=== PATIENT | female | born 1955 | race Caucasian/White ===

== ENCOUNTER 2019-01-15 15:07 | Inpatient (IN) | payer BC, OTHER ==
[~2019-01-15] VITALS: Ht 154.9 cm; Wt 57.2 kg
[~2019-01-15 15:07] MED LIST: ACTEMRA80 MG/4 ML; AMITRIPTYLINE H25 MG PO; ANORO PO; B-COMPLEX PLUS1 EACH PO; BENTYL10 MG PO; BUDESONIDE EC3 MG PO; CELEBREX100 MG PO; CHANTIX1 MG PO; CHLORDIAZEPOXI1 EACH PO; CITALOPRAM HBR40 MG PO; DEXILANT60 MG PO; EMBREL SQ; ESTRADIOL0.5 MG PO; ESTRODIAL; FLAGYL250 MG PO; FLUCONAZOLE100 MG PO; GABAPENTIN100 MG PO; GABAPENTIN300 MG PO; HYDROCODON-ACE1 EA11 PO; KLONOPIN0.5 MG PO; LEFLUNOMIDE20 MG PO; LEVAQUIN500 MG PO; LIDODERM700 MG TOP; LOMOTIL TABLET1 EACH; METOCLOPRAMIDE10 MG PO; NORCO 5-325 TA1 EACH PO; ORENCIA 250 MG250 MG IM; ORENCIA125 MG/1 M IM; PANTOPRAZOLE SO40 MG PO; PREDNISONE20 MG PO; PREDNISONE5 MG PO; PROTONIX40 MG PO; QUESTRAN PACKET4 GM PO; SAVELLA50 MG PO; SUCRALFATE1 GM PO; SYMBICORT 16010.2 GM INH; TIZANIDINE HCL4 MG PO; VENLAFAXINE HCL75 MG PO; WELCHOL625 MG PO; XIFAXAN550 MG PO; [UNRECOGNIZED DRUG - OTHER]; [UNRECOGNIZED DRUG - OTHER]
--- OUTSIDE RECORDS SUMMARY | 2019-01-15 15:10 | XMS REPORT ---
Author Author Admin, [place] Organization [facility] Address [address] [facility] [address] [place] [address] Phone Allergies, Adverse Reactions, Alerts Allergy Name Reaction Description Start Date Severity Status Provider ADHESIVE TAPE Critical Active Navi Cooley MD DILADID Critical Active Navi Cooley MD IBUPROFEN Critical Active Navi Cooley MD ASPIRIN Critical Active Navi Cooley MD PENICILLIN Critical Active Navi Cooley MD Conditions or Problems Problem Name Problem Code Onset Date Status Entry Date Provider Comment Standard Description Annotate Hyperlipidemia 272.4 Active Navi Cooley MD Other and unspecified hyperlipidemia COPD 496 Active Navi Cooley MD Chronic airway obstruction, not elsewhere classified Crohns disease 555.9 Active Navi Cooley MD Regional enteritis of unspecified site Medication List Medication Instructions Start Date Stop Date Generic Name NDC Status Provider Patient Instruction ATORVASTATIN CALCIUM 20 MG ORAL TABLET take one tab By Mouth Every evening ATORVASTATIN CALCIUM 54357756553 Active Navi Cooley MD Active ANORO ELLIPTA 62.5-25 MCG/INH INHALATION AEROSOL POWDER BREATH ACTIVATED inhale 1 puff Every Day UMECLIDINIUM-VILANTEROL 24710204331 Active Navi Cooley MD Active BUDESONIDE 3 MG ORAL CAPSULE DELAYED RELEASE PARTICLES take one cap By Mouth Every Morning x up to 8 weeks BUDESONIDE 30167715735 Active Navi Cooley MD Active XIFAXAN 550 MG ORAL TABLET take one tab By Mouth Three Times a Day x 14 days RIFAXIMIN 60001581411 Active Navi Cooley MD Active Vital Signs Date Name Value Unit Range Description blood pressure, diastolic 78 mm[Hg] BP wesley blood pressure, systolic 136 mm[Hg] BP sys height E&M 61.25 [in_us] Bdy height pulse rate E&M 84 /min Heart rate respiratory rate E&M 20 /min Resp rate temperature E&M 98.2 [degF] Body temperature weight E&M 125.38 [lb_av] Weight Measured blood pressure, diastolic, second observation 87 mm[Hg] BP wesley blood pressure, diastolic 84 mm[Hg] BP wesley blood pressure, systolic, second observation 154 mm[Hg] BP sys blood pressure, systolic 149 mm[Hg] BP sys height E&M 61.25 [in_us] Bdy height pulse rate E&M 91 /min Heart rate respiratory rate E&M 17 /min Resp rate temperature E&M 98.4 [degF] Body temperature weight E&M 122.25 [lb_av] Weight Measured Diagnostic Results Date Name Value Unit Range Description Lab Report: CBC With Differential/Platelet, Comp. Metabolic Panel (14), ... - Chemistry very low density lipoproteins 24 mg/dL 5-40 chloride, serum 101 mmol/L 96-106 urea nitrogen, blood 10 mg/dL 8-27 Lab Report: CBC With Differential/Platelet, Comp. Metabolic Panel (14), ... - Urinalysis leukocyte esterase, urine, by dipstick Negative Negative Lab Report: CBC With Differential/Platelet, Comp. Metabolic Panel (14), ... - Hematology mean corpuscular hemoglobin concentration, RBC 32.4 G/DL % 31.5-35.7 erythrocyte (RBC) count 4.49 X10E6/UL 10*6/mm3 3.77-5.28 Lab Report: CBC With Differential/Platelet, Comp. Metabolic Panel (14), ... - Urinalysis urine color Yellow Yellow Lab Report: CBC With Differential/Platelet, Comp. Metabolic Panel (14), ... - Chemistry Absolute Neutrophils 4.3 X10E3/UL 10*3/uL 1.4-7.0 Lab Report: CBC With Differential/Platelet, Comp. Metabolic Panel (14), ... - Urinalysis bilirubin, urine Negative Negative Lab Report: CBC With Differential/Platelet, Comp. Metabolic Panel (14), ... - Chemistry LDL cholesterol, serum 139 mg/dL 0-99 urea nitrogen/creatinine ratio, serum 14 12-28 Lab Report: CBC With Differential/Platelet, Comp. Metabolic Panel (14), ... - Hematology mean corpuscular volume, RBC 88 fL 79-97 Lab Report: CBC With Differential/Platelet, Comp. Metabolic Panel (14), ... - Chemistry HDL cholesterol, serum 80 mg/dL >39 Lab Report: CBC With Differential/Platelet, Comp. Metabolic Panel (14), ... - Hematology monocytes as percent of blood leukocytes 9 % Not Estab. Lab Report: CBC With Differential/Platelet, Comp. Metabolic Panel (14), ... - Chemistry creatinine, serum 0.72 mg/dL 0.57-1.00 albumin/globulin ratio, serum 1.4 1.2-2.2 cholesterol, serum 243 mg/dL 153-737 9070/05/24 bilirubin, serum, total <0.2 mg/dL mg/dL 0.0-1.2 Lab Report: CBC With Differential/Platelet, Comp. Metabolic Panel (14), ... - Hematology Eosinophil Absolute Count 0.4 X10E3/UL 10*3/uL 0.0-0.4 Lab Report: CBC With Differential/Platelet, Comp. Metabolic Panel (14), ... - Urinalysis appearance, urine Clear Clear Lab Report: CBC With Differential/Platelet, Comp. Metabolic Panel (14), ... - Chemistry aspartate aminotransferase (SGOT), serum 18 U/L 0-40 Lab Report: CBC With Differential/Platelet, Comp. Metabolic Panel (14), ... - Hematology red blood cell distribution width 16.7 % 12.3-15.4 Lab Report: CBC With Differential/Platelet, Comp. Metabolic Panel (14), ... - Urinalysis urinalysis, microscopic examination MICNIP Lab Report: CBC With Differential/Platelet, Comp. Metabolic Panel (14), ... - Hematology leukocyte count, blood 9.8 X10E3/UL 10*3/mm3 3.4-10.8 Lab Report: CBC With Differential/Platelet, Comp. Metabolic Panel (14), ... - Urinalysis pH, urine, semiquantitative 6.5 5.0-7.5 Lab Report: CBC With Differential/Platelet, Comp. Metabolic Panel (14), ... - Chemistry potassium, serum 4.9 mmol/L 3.5-5.2 immature granulocytes, percentage of total cells, blood 0 % Not Estab. albumin, serum 4.3 g/dL 3.6-4.8 Lab Report: CBC With Differential/Platelet, Comp. Metabolic Panel (14), ... - Hematology lymphocyte count, blood, automated 4.2 X10E3/UL 10*3/mm3 0.7-3.1 hematocrit, blood 39.5 % 34.0-46.6 Lab Report: CBC With Differential/Platelet, Comp. Metabolic Panel (14), ... - Chemistry sodium, serum 141 mmol/L 134-144 Lab Report: CBC With Differential/Platelet, Comp. Metabolic Panel (14), ... - Hematology neutrophils as percent of blood leukocytes 43 % Not Estab. basophils as percent of blood leukocytes 1 % Not Estab. Lab Report: CBC With Differential/Platelet, Comp. Metabolic Panel (14), ... - Chemistry specific gravity, body fluid 1.022 1.005-1.030 Lab Report: CBC With Differential/Platelet, Comp. Metabolic Panel (14), ... - Urinalysis protein, urine, semiquantitative (dipstick) Negative Negative/Trace Lab Report: CBC With Differential/Platelet, Comp. Metabolic Panel (14), ... - Chemistry carbon dioxide, venous blood 26 mmol/L 20-29 nitrate, urine Negative Negative triglyceride, serum, fasting 122 mg/dL 0-149 calcium, serum 9.6 mg/dL 8.7-10.3 alanine aminotransferase (SGPT), serum 11 U/L 0-32 Lab Report: CBC With Differential/Platelet, Comp. Metabolic Panel (14), ... - Hematology mean corpuscular hemoglobin, RBC 28.5 pg 26.6-33.0 Lab Report: CBC With Differential/Platelet, Comp. Metabolic Panel (14), ... - Chemistry protein, total, serum 7.4 g/dL 6.0-8.5 alkaline phosphatase, serum 124 U/L 39-117 Lab Report: CBC With Differential/Platelet, Comp. Metabolic Panel (14), ... - Hematology hemoglobin, blood 12.8 g/dL 11.1-15.9 lymphocytes as percent of blood leukocytes 43 % Not Estab. Lab Report: CBC With Differential/Platelet, Comp. Metabolic Panel (14), ... - Urinalysis glucose, urine, semiquantitative Negative Negative Lab Report: CBC With Differential/Platelet, Comp. Metabolic Panel (14), ... - Genetics/fertility eGFR if 105 mL/min/1.73m2 >59 Lab Report: CBC With Differential/Platelet, Comp. Metabolic Panel (14), ... - Hematology basophil count, absolute 0.1 x10E3/uL 0.0-0.2 Lab Report: CBC With Differential/Platelet, Comp. Metabolic Panel (14), ... - Chemistry globulin, serum 3.1 1.5-4.5 Estimated Glomerular Filtration Rate (calc) 91 mL/min/1.73m2 >59 Lab Report: CBC With Differential/Platelet, Comp. Metabolic Panel (14), ... - Basic Occult Blood, urine Negative Negative Lab Report: CBC With Differential/Platelet, Comp. Metabolic Panel (14), ... - Hematology eosinophils as percent of blood leukocytes 4 % Not Estab. Lab Report: CBC With Differential/Platelet, Comp. Metabolic Panel (14), ... - Chemistry blood glucose, random 88 mg/dL 65-99 Lab Report: CBC With Differential/Platelet, Comp. Metabolic Panel (14), ... - Urinalysis urobilinogen, urine, semiquantitative (dipstick) 0.2 0.2-1.0 Lab Report: CBC With Differential/Platelet, Comp. Metabolic Panel (14), ... - Hematology monocyte count, blood, automated 0.9 X10E3/UL 10*3/uL 0.1-0.9 platelet count 415 X10E3/UL 10*3/mm3 150-450 Lab Report: CBC With Differential/Platelet, Comp. Metabolic Panel (14), ... - Urinalysis ketones, urine, by test strip Negative Negative Encounters Date Encounter Provider Code Facility 14:12:24 CDT Est Patient Exp Problem - 11922 Navi Cooley MD [id number] [facility] 11:38:58 CDT New Patient Detailed - 86119 Navi Cooley MD [id number] [facility] Procedures Code Procedure Name Date Entry Date Standard Description [id number] Venipuncture 11:38:35 CDT
--- OUTSIDE RECORDS SUMMARY | 2019-01-15 15:10 | XMS REPORT ---
[facility] Address Unknown Phone Unavailable Care Team Providers Care Director Park Name Role Phone Kathy GOMEZ Unavailable Unavailable GREER PINO Unavailable Unavailable Payers Payer Name Policy Type Policy Number Effective Date Expiration Date Problems This patient has no known problems. Allergies, Adverse Reactions, Alerts Allergy Name Allergy Type Status Severity Reaction(s) Onset Date Inactive Date Treating Clinician Comments Penicillins DA Active U 2018-08-22 00:00:00 aspirin DA Active U 2018-08-22 00:00:00 ibuprofen DA Active U 2018-08-22 00:00:00 hydromorphone DA Active U 2018-08-22 00:00:00 penicillin G DA Active U 2018-08-22 00:00:00 Penicillins DA Active U 2018-06-22 00:00:00 hydromorphone DA Active U 2018-06-22 00:00:00 penicillin G DA Active U 2018-06-22 00:00:00 Not Converted 80. See Text. DA Active U 2018-06-22 00:00:00 ASPIRIN DA Active U 2018-06-22 00:00:00 IBUPROFEN DA Active U 2018-06-22 00:00:00 Penicillins DA Active U 2008-12-15 00:00:00 penicillin G DA Active U 2008-12-15 00:00:00 Not Converted 80. See Text. DA Active U 2008-12-15 00:00:00 No Known Contrast Allergies DA Active U 2004-01-23 00:00:00 No Known Food Allergies DA Active U 2004-01-23 00:00:00 No Known Other Allergies DA Active U 2004-01-23 00:00:00 ASPIRIN DA Active U 2004-01-23 00:00:00 IBUPROFEN DA Active U 2004-01-23 00:00:00 PENICILLIN DA Active U 2004-01-23 00:00:00 Medications This patient has no known medications. Results Test Description Test Time Test Comments Text Results Atomic Results Result Comments - XR HIP W/PEL UNI 2+V RT 2018-08-22 21:37:00 FAX: Vijay Gallagher DO [place]: St: REG Name: DARYA FLEMING [facility] : 1955 Age/S: 63/F [address] [facility] Unit #: [id number] Loc: [place] [address] Phys: Vijay Gallagher DO Acct: [id number] Dis Date: Status: REG ER PHONE #: [phone] Exam Date: 08/22/20182121 FAX #: [phone] Reason: pain EXAMS: CPT CODE: [id number] XR HIP W/PEL UNI 2+[place] [address] REASON FOR EXAM: pain EXAM ORDER DATE: 08/22/2018 8:38 PM Ordering [place]: Vijay Gallagher DO PROCEDURE: - XR HIP W/PEL UNI 2+V RT FINDINGS: 3 views of the right hip with frontal view of the pelvis were obtained. The osseous structures are unremarkable in size and shape. The joint spaces are maintained. No evidence of fracture. There is normal alignment of the right hip joint IMPRESSION: Unremarkable right hip at 8008 Reported and signed by: Lázaro Cabello M.D. CC: Vijay Gallagher DO Technologist: LUI SEO RT (R) Trnscrd Date/Time/By: 08/22/2018 (2136) : By: Nicole.VTL Orig Print D/T: S: 08/22/2018 (2139) PAGE 1 Signed Report URINALYSIS COMPLETE 2018-08-22 21:07:00 UA COLOR (test code=COLU) LIGHT YELLOW YELLOW UA APPEARANCE (test code=APPU) CLEAR CLEAR UA GLUCOSE DIPSTICK (test code=DGLUU) NEGATIVE mg/dL NEGATIVE UA BILIRUBIN DIPSTICK (test code=BILU) NEGATIVE mg/dL NEGATIVE UA KETONE DIPSTICK (test code=KETU) Negative mg/dL NEGATIVE UA SPECIFIC GRAVITY (test code=SGU) 1.006 1.001-1.035 UA BLOOD DIPSTICK (test code=BARRON) Negative NEGATIVE UA PH DIPSTICK (test code=ADILENE) 5.0 5.0-8.0 UA PROTEIN DIPSTICK (test code=PROU) Negative mg/dL NEGATIVE UA UROBILINIOGEN DIPSTICK (test code=URO) NEGATIVE mg/dL NEGATIVE UA NITRITE DIPSTICK (test code=WILIAM) NEGATIVE NEGATIVE UA LEUKOCYTE ESTERASE W REFLEX (test code=LEUUR) NEGATIVE NEGATIVE UA WBC (test code=WBCU) 0-5 #/HPF 0-5 UA RBC (test code=RBCU) 0-2 #/HPF 0-5 UA EPITHELIAL CELLS (test code=EPIU) FEW per HPF FEW UA BACTERIA (test code=BACU) FEW #/HPF NONE UA MUCUS (test code=MUCU) FEW #/LPF FEW Urine Source? Clean CatchURINALYSIS [id number] 20:55:00* Test Item Value Reference Range Comments UA COLOR (test code=COLU) LIGHT YELLOW YELLOW UA APPEARANCE (test code=APPU) CLEAR CLEAR UA GLUCOSE DIPSTICK (test code=DGLUU) NEGATIVE mg/dL NEGATIVE UA BILIRUBIN DIPSTICK (test code=BILU) NEGATIVE mg/dL NEGATIVE UA KETONE DIPSTICK (test code=KETU) Negative mg/dL NEGATIVE UA SPECIFIC GRAVITY (test code=SGU) 1.006 1.001-1.035 UA BLOOD DIPSTICK (test code=BARRON) Negative NEGATIVE UA PH DIPSTICK (test code=ADILENE) 5.0 5.0-8.0 UA PROTEIN DIPSTICK (test code=PROU) Negative mg/dL NEGATIVE UA UROBILINIOGEN DIPSTICK (test code=URO) NEGATIVE mg/dL NEGATIVE UA NITRITE DIPSTICK (test code=WILIAM) NEGATIVE NEGATIVE UA LEUKOCYTE ESTERASE W REFLEX (test code=LEUUR) NEGATIVE NEGATIVE UA WBC (test code=WBCU) per HPF 0-5 Urine Source? Clean Catch- CT ABD PELVIS [id number] 20:37:00 Name: DARYA FLEMING [facility] : 1955 Age/S: 63 / F [address] [facility]: [id number] Loc: [place] [address] Phys: Vijay Gallagher DO Acct: [id number] Dis Date: Status: REG ER PHONE #: Exam Date: 08/22/20182024 FAX #: Reason: RLQ pain EXAMS: CPT CODE: [id number] CT ABD PELVIS W/CONT 23656 REASON FOR EXAM: RLQ pain EXAM ORDER DATE: 08/22/2018 6:09 PM Ordering M.DRajwinder: Vijay Gallagher DO PROCEDURE: - CT ABD PELVIS W/CONT COMPARISON: FINDINGS: CT images of the abdomen and pelvis we re obtained with IV and without oral contrast at 5mm. Dose modulation, ite rative reconstruction, and/or weight based adjustment of the MA/KV was utilized to reduce the radiation dose to as low as reasonably achievabl e. Intravenous contrast: 100c of Omnipaque 370. The liver, spleen, pancreas are grossly within normal limits. The gallbladder is unremarkable by CT. The kidneys are within normal limits. The urinary bladder is partially contracted The colon, small b owel, and stomach are within normal limits without evidence of obstruction . The appendix is unremarkable. No evidence of free air or free f luid. The uterus is unremarkable. Bilateral tubal ligation clips noted. Posterior fusion of L5-S1 with laminectomy changes IMPRES SAMUEL: No acute findings in the abdomen. Subcentimeter hypodense lesions within the liver suggestive of hepatic cysts. Hyperinflated lungs sugg estive of COPD a t 2036 Reported and signed by: Lázaro Cabello M.D. P AGE 3 Signed Report (CONTINUED) Name : DARYA FLEMINGH [place] : [birth year] Age/S: 63 / F [address] Unit #: [id number] Loc: [place] [address] Phys: Vijay Gallagher DO Acct: [id number] Dis Date: Status: REG ER PHONE #: [phone] Exam Date: 08/22/20182024 FAX #: [phone] Reason: RLQ pain EXAMS: CPT CODE: [id number] CT ABD PELVIS W/CONT 34998 <Continued> CC: Vijay Gallagher DO Technologist:JOSUE KNOWLES CT CTDI: DLP: Trnscb Date/Time: 08/22/2018 (2036) Sandra Orig Print D/T: S: 08/22/2018 (2039) CTDI: DLP: PAGE 2 Signed Report BASIC METABOLIC [id number] 19:12:00* Test Item Value Reference Range Comments SODIUM (test code=NA) 142 mmol/L 136-145 POTASSIUM (test code=K) 4.8 mmol/L 3.5-5.1 CHLORIDE (test code=CL) 107.0 mmol/L 98-107 CARBON DIOXIDE (test code=CO2) 27.0 mmol/L 21-32 ANION GAP (test code=GAP) 12.8 10-20 GLUCOSE (test code=GLU) 140 mg/dL 74-106 BLOOD UREA NITROGEN (test code=BUN) 6 mg/dL 7-18 GLOMERULAR FILTRATION RATE (test code=GFR) > 60 mL/min >=60 Estimated GFR by using Modified MDRD formula.Chronic kidney disease is defined as either kidney damageor GFR <60 mL/min/1.73 m2 for >3 months. CREATININE (test code=CREAT) 0.70 mg/dL 0.55-1.02 Note change in reference range due to change in reagent. BUN/CREATININE RATIO (test code=BUN/CREA) 8.7 10-20 CALCIUM (test code=CA) 8.6 mg/dL 8.5-10.1 HEPATIC FUNCTION [id number] 19:12:00* Test Item Value Reference Range Comments TOTAL PROTEIN (test code=PROT) 7.6 gram/dL 6.4-8.2 ALBUMIN (test code=ALB) 3.3 g/dL 3.4-5.0 GLOBULIN (test code=GLOB) 4.3 gram/dL 2.7-4.2 ALBUMIN/GLOBULIN RATIO (test code=A/G) 0.8 0.75-1.50 BILIRUBIN TOTAL (test code=BILT) 0.20 mg/dL 0.0-1.0 BILIRUBIN DIRECT (test code=BILD) 0.06 mg/dL 0.0-0.20 SGOT/AST (test code=AST) 15 IUnit/L 15-37 SGPT/ALT (test code=ALT) 19 IUnit/L 12-78 ALKALINE PHOSPHATASE TOTAL (test code=ALKP) 192 IUnit/L 45-117 Note change in reference range due to change in reagent. [id number] 19:12:00* Test Item Value Reference Range Comments LIPASE (test code=LIP) 120 U/L 73.0-393.0 HCG SERUM [id number] 19:12:00* Test Item Value Reference Range Comments HCG SERUM QUAL (test code=HCGQL) NEGATIVE NEGATIVE This HCGQL test is NOT applicable for MALE patients.Check with nurse about probable order error.If Tumor Marker Test needed, nurse should order test "HCGTU"(Test #550.26850) BASIC METABOLIC [id number] 18:51:00* Test Item Value Reference Range Comments SODIUM (test code=NA) 142 mmol/L 136-145 POTASSIUM (test code=K) 4.8 mmol/L 3.5-5.1 CHLORIDE (test code=CL) 107.0 mmol/L 98-107 CARBON DIOXIDE (test code=CO2) 27.0 mmol/L 21-32 ANION GAP (test code=GAP) 12.8 10-20 GLUCOSE (test code=GLU) 140 mg/dL 74-106 BLOOD UREA NITROGEN (test code=BUN) 6 mg/dL 7-18 GLOMERULAR FILTRATION RATE (test code=GFR) > 60 mL/min >=60 Estimated GFR by using Modified MDRD formula.Chronic kidney disease is defined as either kidney damageor GFR <60 mL/min/1.73 m2 for >3 months. CREATININE (test code=CREAT) 0.70 mg/dL 0.55-1.02 Note change in reference range due to change in reagent. BUN/CREATININE RATIO (test code=BUN/CREA) 8.7 10-20 CALCIUM (test code=CA) 8.6 mg/dL 8.5-10.1 HEPATIC FUNCTION [id number] 18:51:00* Test Item Value Reference Range Comments TOTAL PROTEIN (test code=PROT) 7.6 gram/dL 6.4-8.2 ALBUMIN (test code=ALB) 3.3 g/dL 3.4-5.0 GLOBULIN (test code=GLOB) 4.3 gram/dL 2.7-4.2 ALBUMIN/GLOBULIN RATIO (test code=A/G) 0.8 0.75-1.50 BILIRUBIN TOTAL (test code=BILT) 0.20 mg/dL 0.0-1.0 BILIRUBIN DIRECT (test code=BILD) 0.06 mg/dL 0.0-0.20 SGOT/AST (test code=AST) 15 IUnit/L 15-37 SGPT/ALT (test code=ALT) 19 IUnit/L 12-78 ALKALINE PHOSPHATASE TOTAL (test code=ALKP) 192 IUnit/L 45-117 Note change in reference range due to change in reagent. [id number] 18:51:00* Test Item Value Reference Range Comments LIPASE (test code=LIP) 120 U/L 73.0-393.0 HCG SERUM [id number] 18:51:00* Test Item Value Reference Range Comments HCG SERUM QUAL (test code=HCGQL) NEGATIVE CBC W/O [id number] 18:22:00* Test Item Value Reference Range Comments WHITE BLOOD CELL (test code=WBC) K/mm3 4.5-12.5 RED BLOOD CELL (test code=RBC) mill/mm3 3.7-5.2 HEMOGLOBIN (test code=HGB) 12.6 gram/dL 11.5-15.5 HEMATOCRIT (test code=HCT) 41.0 % 36.0-46.0 MEAN CELL VOLUME (test code=MCV) fL 80-98 MEAN CELL HGB (test code=MCH) picogram 27.0-33.0 MEAN CELL HGB CONCETRATION (test code=MCHC) gram/dL 33.0-36.0 RED CELL DISTRIBUTION WIDTH (test code=RDW) % 11.6-16.2 PLATELET COUNT (test code=PLT) K/mm3 150-450 MEAN PLATELET VOLUME (test code=MPV) fL 6.7-11.0 CBC W/O [id number] 18:22:00* Test Item Value Reference Range Comments WHITE BLOOD CELL (test code=WBC) 13.7 K/mm3 4.5-12.5 RED BLOOD CELL (test code=RBC) 4.45 mill/mm3 3.7-5.2 HEMOGLOBIN (test code=HGB) 12.6 gram/dL 11.5-15.5 HEMATOCRIT (test code=HCT) 41.0 % 36.0-46.0 MEAN CELL VOLUME (test code=MCV) 92.1 fL 80-98 MEAN CELL HGB (test code=MCH) 28.3 picogram 27.0-33.0 MEAN CELL HGB CONCETRATION (test code=MCHC) 30.7 gram/dL 33.0-36.0 RED CELL DISTRIBUTION WIDTH (test code=RDW) 15.9 % 11.6-16.2 PLATELET COUNT (test code=PLT) 434 K/mm3 150-450 MEAN PLATELET VOLUME (test code=MPV) 8.8 fL 6.7-11.0 INTERVERTEBRAL [id number] 13:55:00 RUN DATE: 06/27/[address] [employer] [employer] PAGE 1 RUN TIME: 1355 Specimen Inqui ry RUN USER: INTERFACE PATIENT: DARYA FLEMING ACCT #: [id number] LOC: [facility] U #: [id number] AGE/SX: 63/F ROOM: [facility] RE06/25/18REG DR: Torsten Dixon MD : [birth year] BED: A DIS: STATUS: ADM IN TLOC: SPEC #: [id number] RECD: 06/26/18 STATUS: DELILAH RE #: [id number] MAGDA: 06/26/18- DR: Torsten Dixon MD ENTERED: 06/26/18 SP TYPE: INT DISC OTHR DR: Lorna Raygoza MD ORDERED: GROSS COPIES TO: Jose Roberto Raygoza MD [address] [facility] [address] [place] [address] Torsten Dixon MD [address] [place], [place] [id number] PROCEDURES: GROSS ( [phone]) TISSUES: LUMBAR REGION - DISC CLINICAL HISTORY MAGDA ECTION DATE: 06/25/18 L4-5 AND L5-S1 SPONDYLOLISTHESIS FINAL DIAGNOS IS Intervertebral lumbar disc, L4-L5 and L5-S1, discectomy: FIBROCARTI LAGINOUS DEGENERATION NEGATIVE FOR MALIGNANCY FA/erasto D 46148, 25268 MACROSCOPIC The specimen is received in formalin, lab eled with the patient's name, identified as "lumbar disc", and consists of mul tiple portions of -pink rubbery tissue and minute portions of bone measurin g 6.0 x 5.5 x 1.8 cm in aggregate. Aqua Ammonia Operator sections are submitted in a single cassette after light decalcification. CONTINUED ON NEXT PAGE RUN DATE: 06/27/18 [facility] PAGE 2 RUN TIME: 1355 Specimen Inquiry RUN USER: INTERFACE SPEC #: [id number] PATIENT: DARYA FLEMING #[id number] (Continued)-------- ---- MACROSCOPIC (Continued) GROSS PERFORMED AT [facility] [address] [place] [address] [phone] MICROSCOPIC MICROSCOPIC PERFORMED AT [facility] All of the stains, including any controls performed, stain appropriately. [facility] [address] [facility], [place] [address] [phone] PERFORMING SITE Diagnosis performed at: [facility], [place] [address] [place] [address] Signed SIGNATURE ON FILE Cony Wyatt MD 06/27/[address] ABDOMEN/PELVIS [place] [address] Patient Name: DARYA FLEMING MR #: [id number] : 1955 Age/Sex: 62/F Req #: [id number] Adm Physician: Ordered by: BALJINDER GOMEZ MD Report #: [id number] Location: ER Room/Bed: Procedure: [id number] CT/CT ABDOMEN/PELVIS W Exam Da te: 05/26/17 Exam Time: 1999 REPORT STATUS: Sig brant EXAM: CT Abdomen and Pelvis WITH contrast INDICATION: Abdominal pa in COMPARISON: None. TECHNIQUE: Abdomen and pelvis were scanned utilizing a multidetector helical scanner from the lung base to the pubic symphysis aft er administration of contrast. Coronal and sagittal reformations were obtained . Protocol: General survey IV CONTRAST: 100 mL of Isovue 370 ORAL CON TRAST: Gastroview 30 cc COMPLICATIONS: None RADIATION DOSE: To [place] Exam DLP: 553.6 mGy*cm. CTDIvol has been reviewed. It is below the limits set by the Radiation Protocol Committee (RPC). FINDINGS: LINES: None . Lower thorax: No parenchymal abnormality. No pneumothorax. No pleural effusion. Liver: No focal mass. No hepatomegaly. Normal parenchyma. The hepatic and portal veins are patent. Several hypodensities too small to characterize are present in the liver. Gallbladder: No gallstones. No gallb ladder distention. Biliary tree: No intrahepatic duct dilation. No extrahepat ic duct dilation. Spleen: No splenomegaly. No focal mass. Pancreas: Normal parenchymal enhancement. No focal mass. Normal pancreatic duct. No peripan creatic inflammatory changes. Kidneys: No obstructing calculi. No hydrone phrosis. No solid enhancing mass. No cysts. No perinephric soft tissue inf lammatory changes. Adrenal glands: No adrenal nodules.. Bladder: Nor mal urinary bladder. Pelvic organs: Bilateral tubal ligation clips. Normal uterus. GI: Moderate amount of fluid is present within the colon, without distention, wall thickening, or adjacent soft tissue inflammatory changes. No bowel wall thickening. No air-fluid levels. The stomach and small bowel are normal. The colon is normal. Normal appendix. A moderate amount of retained feces limits intraluminal evaluation of the colon. Peritoneum/retroperit oneum: No pneumoperitoneum. No ascites. No drainable fluid collection. L ymph nodes: No lymphadenopathy. . Vessels: The abdominal aorta and tara ac vessels are patent. The celiac, superior mesenteric, and inferior mesenter ic arteries are patent. Single bilateral renal arteries are patent. Atheroscl erotic calcifications. Bones: No focal abnormality. Degenerative changes of the lumbar spine. Soft tissues: No focal abnormality. IMPRESSION: Fluid within the colon without evidence of wall thickening, obstruction, or p erforation may represent a colitis of infectious or inflammatory etiology. Signed by: Dr. Josue Zavala M.D. on 05/26/2017 8:44 PM Dictated By: JOSUE ZAVALA MD [address] scribed By: MATEO on 05/26/172043 COPY TO: BALJINDER GOMEZ MD CT CHEST WO [address], [place], [place] [address] Patient Name: DARYA FLEMING MR #: [id number] : 1955 Age/Sex: 62/F Req #: [id number] Adm Physician: Ordered by: GREER PINO MD Report #: [id number] Location: CT Room/Bed: Procedure: [id number] CT/CT CHEST WO Exam Date: 7 Exam Time: 1459 REPORT STATUS: Signed PROC EDURE: CT CHEST WITHOUT CONTRAST CT scan of the chest WITHOUT intravenous cont rast, using standard protocol. TECHNIQUE: The chest was scanned utili [employer] a multidetector helical scanner from the apex to the level of the adrena l glands. No IV contrast was administered per physician request. Coronal and sagittal multiplanar reformations were obtained. Total DLP: 569 mGy-cm COMPARISON: None. INDICATIONS: COUGH. Rheumatoid arthritis. FINDINGS: Lines/tubes: None. Lungs and Airways: Significant centri lobular emphysematous changes. No nodules. No evidence of interstitial lung d isease. Pleura: The pleural spaces are clear. Heart and mediastinum: The thyroid gland is normal. No significant mediastinal, hilar or axillary lymphadenopathy is seen. The heart and pericardium are within normal limits. Moderate atherosclerotic calcifications in the aorta. Soft tissues: Nor mal. Abdomen: Please see CT abdomen and pelvis from the same day. Russ viktor: The visualized bony thorax is within normal limits. 2 abutting sclerotic lesion in the lateral right seventh rib, likely bone islands. IMPRES SAMUEL: 1. Emphysema. 2. No pulmonary nodules or interstitial lung dise ase. Dictated by: Cuco Madrid M.D. on 03/07/2017 at 16:16 Elec tronically approved by: Cuco Madrid M.D. on 03/07/2017 at 16:16 Dict ated By: CUCO MADRID MD [address] scribed By: LORA on 03/07/171615 COPY TO: GREER PINO MD CT ABDOMEN/PELVIS WO [place] [address] Patient Name: DARYA FLEMING MR #: [id number] : 1955 Age/Sex: 62/F Req #: [id number] Adm Physician: Ordered by: GREER PINO MD Report #: [id number] Location: CT Room/Bed: Procedure: [id number] CT/CT ABDOMEN/PELVIS WO Exam Date : 03/07/17 Exam Time: 1459 REPORT STATUS: Poonam d PROCEDURE: CT ABDOMEN AND PELVIS WITHOUT CONTRAST TECHNIQUE: The a bdomen and pelvis were scanned utilizing a multidetector helical scanner from the diaphragm to the lesser trochanter after the oral administration of [place] rografin. No IV contrast was administered per physician request. Coronal and sagittal multiplanar reformations were obtained. Total DLP: 568.95 mGy- cm COMPARISON: None. INDICATIONS: MID ABDOMINAL PAIN FIND INGS: ABSENCE OF INTRAVENOUS CONTRAST DECREASES SENSITIVITY FOR DETECTION OF FOCAL LESIONS AND VASCULAR PATHOLOGY. LOWER THORAX: Normal. HE PATOBILIARY: No focal hepatic lesions. No biliary ductal dilatation. SPLEEN: No splenomegaly. PANCREAS: No focal masses or ductal dilatation. ADRENAL S: No adrenal nodules. KIDNEYS/URETERS: No hydronephrosis, stones, or solid ma ss lesions. PELVIC ORGANS/BLADDER: Unremarkable. Bilateral tubal ligation clip s. PERITONEUM / RETROPERITONEUM: No free air or fluid. LYMPH NODES: No l ymphadenopathy. VESSELS: Severe atherosclerotic calcifications in the aorta. GI TRACT: No distention or wall thickening. BONES AND SOFT TISSUES: U nremarkable. IMPRESSION: Unremarkable abdomen pelvis. Dict ated by: Cuco Madrid M.D. on 03/07/2017 at 16:32 Electronically approved by: Cuco Madrid M.D. on 03/07/2017 at 16:32 Dictated By: CUCO MADRID MD El ectronically Signed By: CUCO MADRID MD on 03/07/17 1632 Transcribed By: LORA on 1632 COPY TO: GREER PINO MD
[2019-01-15] MEDS ORDERED: ATORVASTATIN CA20 MG PO (15:37)
[2019-01-15] MEDS ORDERED: ANORO (15:37)
[2019-01-15] MEDS ORDERED: SODIUM CHLORIDE 0.9% 1000ML 1,000 ML IV STA (15:44)
[2019-01-15] MEDS ORDERED: DICYCLOMINE HCL 20 MG/2 ML VIAL IM ONE (15:45)
[2019-01-15] MEDS ORDERED: DIATRIZOATE MEGL/DIATRIZOA SOD 30 ML BTL PO ONE (15:53)
[2019-01-15] MEDS ORDERED: ONDANSETRON HCL INJ 2MG/ML 2ML 2 MG/ML VIAL IV NR (16:00)
[2019-01-15] MEDS ORDERED: KETOROLAC TROMETHAMINE 30 MG/ML VIAL IV NR (16:00)
[2019-01-15 16:44] LABS: BASOPHILS # (AUTO) 0.1 (0.0-0.1); BASOPHILS % 1.2 % (0.0-1.0); EOSINOPHILS # (AUTO) 0.4 (0.0-0.4); EOSINOPHILS % 3.7 % (0.0-6.0); HEMATOCRIT 37.5 % (34.2-44.1); HEMOGLOBIN 12.3 g/dL (12.0-16.0); LYMPHOCYTES # (AUTO) 3.3 (1.0-3.2); LYMPHOCYTES % 31.5 % (18.0-39.1); MEAN CORPUSCULAR HEMOGLOBIN 28.8 pg (28-32); MEAN CORPUSCULAR HGB CONC 32.8 g/dL (31-35); MEAN CORPUSCULAR VOLUME 87.8 fL (81-99); MONOCYTES # (AUTO) 1.6 (0.2-0.8); MONOCYTES % 14.8 % (4.4-11.3); NEUTROPHILS # (AUTO) 5.1 (2.1-6.9); NEUTROPHILS % 48.4 % (38.7-80.0); PLATELET COUNT 402 x10e3/uL (140-360); RED BLOOD COUNT 4.27 x10e6/uL (3.6-5.1); RED CELL DISTRIBUTION WIDTH 14.3 % (11.7-14.4)
[2019-01-15 16:58] LABS: INR 1.01; PROTHROMBIN TIME 13.8 seconds (11.9-14.5)
[2019-01-15 16:59] LABS: PARTIAL THROMBOPLASTIN TIME 38.3 seconds (23.8-35.5)
[2019-01-15 17:08] LABS: ALANINE AMINOTRANSFERASE 10 IU/L (0-55); ALBUMIN/GLOBULIN RATIO 0.7 (0.8-2.0); ALKALINE PHOSPHATASE 81 IU/L (40-150); ANION GAP 15.2 mmol/L (8-16); BLOOD UREA NITROGEN < 5 mg/dL (7-26); CALCIUM 9.2 mg/dL (8.4-10.2); CARBON DIOXIDE 29 mmol/L (22-29); CHLORIDE 96 mmol/L (98-107); CREATINE KINASE 85 IU/L (29-168); CREATININE, SERUM 0.71 mg/dL (0.57-1.11); EST GLOMERULAR FILTRATION RATE > 60 ML/MIN (60-); GLUCOSE 126 mg/dL (74-118); LIPASE 18 U/L (8-78); SODIUM 138 mmol/L (136-145)
[2019-01-15 17:10] LABS: BUN/CREATININE RATIO 7 (6-25)
--- NOTE | 2019-01-15 17:10 | Diagnostic Imaging Report ---
A single frontal view of the chest. HISTORY: Stomach pain, diarrhea COMPARISON: None available. DISCUSSION: Portable technique, limits sensitivity of the exam. Tubes/Lines: None Lungs and pleura: The lungs are well inflated. No evidence of a consolidative pneumonia or pulmonary alveolar edema. No definite pleural effusion or pneumothorax is identified. Heart and mediastinum: The cardiomediastinal silhouette appears unremarkable. Bones and soft tissues: Status post humeral head resurfacing. IMPRESSION: No acute radiographic abnormality. Signed by: Dr. Fred Giraldo D.O., M.M.M. on 01/15/2019 5:07 PM
[2019-01-15 17:11] LABS: B-TYPE NATRIURETIC PEPTIDE2 25.9 pg/mL (0-100); POTASSIUM 2.2 mmol/L (3.5-5.1)
[2019-01-15] MEDS ORDERED: POTASSIUM CHLORIDE 20 MEQ TAB CR PO STA (17:13)
[2019-01-15] MEDS ORDERED: POTASSIUM CHLORIDE 10MEQ/100ML 100 ML IV ONE ×2 (17:15→17:30)
[2019-01-15] MEDS ORDERED: KCL 20MEQ/.9 SOD CHL 1,000 ML IV ONE ×2 (17:45→21:45)
--- OUTSIDE RECORDS SUMMARY | 2019-01-15 17:51 | XMS REPORT ---
Author Josesito Thomas [facility] eClinicalWorks Address Unknown Phone Unavailable Care Team Providers Care Animal Nurse Name Role Phone Josesito Crowell CP Unavailable Allergies, Adverse Reactions, Alerts Substance Reaction Event Type penicillin Swelling Drug Allergy Latex Gloves rash Drug Allergy Ibuprofen Lips swell Drug Allergy Dilaudid Info Not Available Drug Allergy Enbrel Info Not Available Non Drug Allergy Remicade rash Non Drug Allergy Problems Problem Type Condition Code Onset Dates Condition Status Assessment Encounter for long-term (current) use of other high-risk medications Z79.899 Active Assessment Age-related osteoporosis without current pathological fracture M81.0 Active Problem 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 Active Problem Encounter for long-term (current) use of other high-risk medications Z79.899 Active Problem Abnormal laboratory test R89.9 Active Problem Hand pain, right M79.641 Active Assessment 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 Active Problem Age-related osteoporosis without current pathological fracture M81.0 Active Problem Hand pain, left M79.642 Active Medications Medication Code System Code Instructions Start Date End Date Status Dosage B Complex [facility] [place] [address]-63 Orally Active as directed Melatonin [facility] [place]] [address]-64 2.5 MG Orally Once a day Active 1 capsule at bedtime as needed with food Pantoprazole Sodium [facility] [place]] [address]-14 40 MG Orally Once a day Active 1 tablet Estradiol [facility] [place] [facility]] [address]-85 0.5 MG Orally Once a day Active 1 tablet Gabapentin [facility] [place] [facility]] [address]-57 100 MG Orally Three times a day Active 3 capsules Cholestyramine [facility] [place]] [address]-96 4 GM Orally Twice a day Active 1 packet mixed with water or non-carbonated drink Vancomycin HCl [facility] [place] 2] [address]-00 250 MG Orally every 6 hrs Active 2 capsules Tizanidine HCl [facility] [place] 2] [address]-28 4 MG Orally every 8 hrs Active 1 tablet as needed Albuterol Sulfate [facility] [place] 2] [address]-34 108 (90 Base) MCG/ACT Inhalation every 4 hrs Active 1 puff as needed PredniSONE [facility] [place] 2[place] 48127482939 5 MG orally q am with food Active 3 tablets Celecoxib [facility] [place] 2] 04894964590 200 Active TAKE ONE CAPSULE BY MOUTH ONCE A DAY Leflunomide [facility] [place]] [address]-48 20 MG Orally Once a day Active 1 tablet Chantix [facility] [place]] [address]-59 1 MG Orally Twice a day Active 1 tablet Lidocaine [facility] [place] 2] [address]-54 5 % Externally Once a day Active 1 patch to skin remove after 12 hours Sucralfate [facility] [place] 2] [address]-22 1 GM Orally Twice a day Active 1 tablet on an empty stomach Citalopram Hydrobromide [facility] [place] 2] [address]-43 40 MG Orally Once a day Active 0.5 tablet Hydrocodone-Acetaminophen [facility] [place]] [address]-11 10-325 MG Orally every 6 hrs Active 1 tablet as needed Hydrocodone-Acetaminophen [facility] [place] 2] [address]-46 10-325 MG Orally every 6 hrs Active 1 tablet as needed Amitriptyline HCl [facility] [place] 2] [address]-37 25 MG Orally Once a day Active 1 tablet Venlafaxine HCl ER [facility] [place] 2] [address]-82 150 MG Orally Once a day Active 1 capsule with food Anoro Ellipta [facility] [place] 2] [address]-91 62.5-25 MCG/INH Inhalation Once a day Active 1 puff Clonazepam [facility] [place] 2] [address]-62 1 MG Orally as needed Active 1/2 tablet Oxycodone-Acetaminophen [facility] [place] 2] [address]-87 10-325 MG Orally every 6 hrs Active 1 tablet as needed Vital Signs Date/Time: Jan 19, 2017 BMI 21.08 Index Weight 119 lbs Height 63 in Temperature 97.3 F Cardiac Monitoring Heart Rate 88 /min Blood Pressure Diastolic 60 mm Hg Blood Pressure Systolic 116 mm Hg Results No Known Results Summary Purpose eClinicalWorks Submission
--- OUTSIDE RECORDS SUMMARY | 2019-01-15 17:51 | XMS REPORT ---
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 Active Problem Encounter for long-term (current) use of other high-risk medications Z79.899 Active Problem Abnormal laboratory test R89.9 Active Problem Hand pain, right M79.641 Active Problem Age-related osteoporosis without current pathological fracture M81.0 Active Problem Hand pain, left M79.642 Active Medications Medication Code System Code Instructions Start Date End Date Status Dosage Cimzia Lyophilized Starter Kit NDC 0 6 X 200 MG/ML subcutaneous at weeks 0, 2, 4 Active 1 kit Cimzia Lyophilized Starter Kit NDC 0 6 X 200 MG/ML subcutaneous at weeks 0, 2, 4 Feb 10, 2017 Active 1 kit Cimzia Lyophilized Powder NDC 0 2 X 200 MG/ML subcutaneous q 4 weeks Active 1 kit Cimzia Lyophilized Powder NDC 0 2 X 200 MG/ML subcutaneous q 4 weeks Feb 09, 2017 Active 1 kit Results No Known Results Summary Purpose eClinicalWorks Submission
--- OUTSIDE RECORDS SUMMARY | 2019-01-15 17:51 | XMS REPORT ---
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 Active Problem Tobacco abuse counseling Z71.6 Active Problem Hand pain, left M79.642 Active Problem Hand pain, right M79.641 Active Problem Encounter for long-term (current) use of other high-risk medications Z79.899 Active Problem Age-related osteoporosis without current pathological fracture M81.0 Active Medications Medication Code System Code Instructions Start Date End Date Status Dosage Cimzia Lyophilized Starter Kit NDC 0 6 X 200 MG/ML subcutaneous at weeks 0, 2, 4 Feb 23, 2017 Active 1 kit Results No Known Results Summary Purpose eClinicalWorks Submission
--- OUTSIDE RECORDS SUMMARY | 2019-01-15 17:51 | XMS REPORT ---
Author Author Josesito Crowell Organization eClinicalWorks Address Unknown Phone Unavailable Care Team Providers Care Strip Polisher Name Role Phone Josesito Crowell CP Unavailable Allergies No Known Allergies Problems Problem Type Condition Code Onset Dates Condition Status Problem Hand pain, right M79.641 Active Problem Hand pain, left M79.642 Active Problem Vitamin D deficiency E55.9 Active Problem Tobacco abuse counseling Z71.6 Active Problem Elevated white blood cell count, unspecified D72.829 Active Problem Encounter for long-term (current) use of other high-risk medications Z79.899 Active Problem Age-related osteoporosis without current pathological fracture M81.0 Active Problem Abnormal laboratory test R89.9 Active Problem 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 Active Medications No Known Medications Results No Known Results Summary Purpose eClinicalWorks Submission
--- OUTSIDE RECORDS SUMMARY | 2019-01-15 17:51 | XMS REPORT ---
Author Josesito Thomas Organization eClinicalWorks Address Unknown Phone Unavailable Care Team Providers Care Environmental Services Tech Name Role Phone Josesito Crowell CP Unavailable [...] Problem Hand pain, left M79.642 Active Medications No Known Medications Results No Known Results Summary Purpose eClinicalWorks Submission
--- OUTSIDE RECORDS SUMMARY | 2019-01-15 17:51 | XMS REPORT ---
Author Author Josesito Crowell Organization eClinical[employer] Address Unknown Phone Unavailable Care Team Providers Care Public Safety Director Name Role Phone Josesito Crowell CP Unavailable [...] without current pathological fracture M81.0 Active Medications No Known Medications Results No Known Results Summary Purpose eClinicalWorks Submission
--- OUTSIDE RECORDS SUMMARY | 2019-01-15 17:51 | XMS REPORT | Continuity of Care Document ---
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 [employer] Unavailable Unavailable Problems Problem Status Onset Date Classification Date Reported Comments Source Hyperlipidemia Active 11/16/2018 Diagnosis 11/19/2018 [facility] COPD Active 11/09/2018 Diagnosis 11/19/2018 [facility] Crohns disease Active 11/09/2018 Diagnosis 11/19/2018 [facility] Rheumatoid arthritis with rheumatoid factor 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 organ or systems involvement Active Problem 12/20/2018 Blake Crowell Encounter for long-term use of other high-risk medications Active Problem 12/20/2018 Blake Crowell Abnormal laboratory test Active Problem 12/20/2018 Blake Haganer Hand pain, right Active Problem 12/20/2018 Blake Crowell Age-related osteoporosis without current pathological fracture Active Problem 12/20/2018 Blake Haganer Hand pain, left Active Problem 12/20/2018 Blake Crowell Vitamin D deficiency Active Problem 12/20/2018 Blake Crowell Tobacco abuse counseling Active Problem 12/20/2018 Blake Socrates Elevated white blood cell count, unspecified Active Problem 12/20/2018 Blake Crowell Encounter for immunization Active Diagnosis 03/18/2017 Blake Haganer Pain in right shoulder Active Problem 12/20/2018 Blake Crowell Other chronic pain Active Problem 12/20/2018 Blake Crowell prison use of opiate analgesic Active Diagnosis 04/19/2017 Blake Crowell Long-term use of other medications - High Risk Active Diagnosis 01/21/2018 Blake Crowell Rheumatoid arthritis Active Diagnosis 01/21/2018 Blake Crowell Back pain Active Problem 12/20/2018 Blake Haganer Right hip pain Active Diagnosis 12/20/2018 Blake Crowell Osteoporosis, postmenopausal Active Problem 03/08/2016 Blake Socrates Pain in joint, shoulder region Active Problem 03/08/2016 Blake Socrates Lumbago Active Problem 03/08/2016 Blake Crowell Rheumatoid arthritis 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 organ or system involvement with positive rheumatoid factor Active Problem 03/08/2016 Blake Crowell Skin rash Active Diagnosis 04/13/2016 Blake Crowell Raynauds phenomenon without gangrene Active Diagnosis 04/13/2016 Blake Crowell Lumbosacral spondylosis without myelopathy Active Problem 12/27/2017 Blake Crowell Chronic pain syndrome Active Problem 12/27/2017 Blake Crowell Degeneration of lumbar or lumbosacral intervertebral disc Active Problem 12/27/2017 Blake Crowell Cervical radiculopathy due to degenerative joint disease of spine Active Problem 12/27/2017 Blake Crowell Lumbar spinal stenosis Active Problem 12/27/2017 Blake Crowell Cervical radiculopathy Active Problem 12/27/2017 lBake Crowell Bilateral sacroiliitis Active Problem 12/27/2017 Blake Crowell Sacrococcygeal disorders, not elsewhere classified Active Problem 12/27/2017 Blake Crowell Pain in joint of right shoulder Active Problem 12/27/2017 Blake Crowell Pain of right hand Active Problem 12/27/2017 Blake Crowell Rotator Cuff Syndrome Active Problem 09/27/2016 Blake Crowell Degeneration of lumbar or lumbosacral intervertebral disc Active Problem 09/27/2016 Blake Crowell Lumbosacral spondylosis without myelopathy Active Problem 09/27/2016 Blake Crowell Superior glenoid labrum lesions Active Problem 09/27/2016 Blake Crowell Chronic pain syndrome Active Problem 09/27/2016 Blake Crowell Right shoulder pain, unspecified chronicity Active Diagnosis 07/08/2017 Blake Crowell Lumbar radiculopathy Active Problem 12/27/2017 Blake Crowell Medications Medication Details Route Status Patient Instructions Ordering Provider Order Date Source ATORVASTATIN CALCIUM take one tab By Mouth Every evening Active take one tab By Mouth Every evening 11/16/2018 [facility] BUDESONIDE take one cap By Mouth Every Morning x up to 8 weeks Active take one cap By Mouth Every Morning x up to 8 weeks 11/09/2018 [facility] XIFAXAN 550 MG ORAL TABLET take one tab By Mouth Three Times a Day x 14 days Active take one tab By Mouth Three Times a Day x 14 days 11/09/2018 [facility] ANORO ELLIPTA 62.5-25 MCG/INH INHALATION AEROSOL POWDER BREATH ACTIVATED inhale 1 puff Every Day Active inhale 1 puff Every Day 11/09/2018 [facility] Cimzia Lyophilized Powder 1 kit subcutaneous Active 2 X 200 MG/ML subcutaneous q 4 weeks [place] 08/01/2018 Blake Crowell Cimzia Prefilled 2 injections (400mg) Subcutaneous Active 2 X 200 MG/ML Subcutaneous [id number] [place] 08/01/2018 Balke Haganer PredniSONE 1 tablet Orally Active 5 MG Orally Once a day [place] 04/09/2018 Blake Crowell Celecoxib 1 capsule with food Orally Active 200 Orally Twice a day [place] 01/15/2018 Blake Crowell Prolia 60MG SQ Subcutaneous Active 60MG Subcutaneous Q6 MONTHS [place] 08/28/2017 Blake Crowell Prolia 60MG SQ Subcutaneous Active 60MG Subcutaneous Q6 MONTHS [place] 08/23/2017 Blake Crowell Celecoxib take one capsule by mouth once a day Orally Active 200 Orally Twice a day [place] 07/25/2017 Blake Crowell PredniSONE 3 tablets Orally Active 5 MG Orally Once a day [place] 07/25/2017 Blake Crowell Celecoxib take one capsule by mouth once a day Orally Active 200 Orally Twice a day [facility] 07/14[facility]2017 Blake Crowell Calcium 600 as directed Orally Active 600 MG Orally twice a day [facility] 06/14/2017 Blake Crowell PredniSONE 1 tablet once a day for 7 days then 1/2 a tab daily Orally Active 20 MG Orally Once a day [place] 05/15/2017 Blake Crowell Cimzia Lyophilized Powder 1 kit subcutaneous Active 2 X 200 MG/ML subcutaneous q 4 weeks [place] 05/03/2017 Blake Crowell Actonel 1 tablet Orally Active 150 MG Orally once a month [place] 05/01/2017 Blake Crowell Queenie 1 tab orally Active 5mg orally once a day [place] 04/12/2017 Blake Crowell PredniSONE 3 tablets Orally Active 5 MG Orally Once a day [facility] 04/12/2017 Blake Crowell Cimzia Lyophilized Starter Kit 1 kit subcutaneous Active 6 X 200 MG/ML subcutaneous at weeks 0, 2, 4 [place] 03/06/2017 Blake Crowell Cimzia Lyophilized Starter Kit 1 kit subcutaneous Active 6 X 200 MG/ML subcutaneous at weeks 0, 2, 4 [place] 02/23/2017 Blake Crowell Cimzia Lyophilized Starter Kit 1 kit subcutaneous Active 6 X 200 MG/ML subcutaneous at weeks 0, 2, 4 [place] 02/10/2017 Blake Crowell Cimzia Lyophilized Powder 1 kit subcutaneous Active 2 X 200 MG/ML subcutaneous q 4 weeks [place] 02/09/2017 Blake Crowell Medrol Dose Tawanda as directed Orally Active 4mg Orally as directed [place] 02/07/2017 Blake Crowell Celebrex 1 capsule Orally Active 200 MG Orally Once a day [place] 12/31/2016 Blake rCowell ORENCIA SQ 125MG SUBCUTANEOUSLY Active 125MG SUBCUTANEOUSLY ONCE A WEEK [facility] 09/27/2016 Blake Crowell Vitamin D (Ergocalciferol) 1 capsule Orally Active 28699 UNIT Orally once a week [place] 09/08/2016 Blake Crowell [place] 1 tablet as needed Orally Active 5-325 MG Orally every 6 hrs [place] 08/29/2016 Blake Crowell ORENCIA SQ 125MG SUBCUTANEOUSLY Active 125MG SUBCUTANEOUSLY ONCE A WEEK [place] 06/06/2016 Blake Crowell ORENCIA SQ 125MG SUBCUTANEOUSLY Active 125MG SUBCUTANEOUSLY ONCE A WEEK [place] 06/06/2016 Blake Crowell PredniSONE 1 tablet Orally Active 5 MG Orally once a day [place] 01/10/2016 Blake Crowell Actemra 8MG/KG IV NA No Longer Active 8MG/KG Q 4 WKS [place] 12/14/2015 Blake Crowell Humira Pen 0.8 ml Subcutaneous No Longer Active 40 MG/0.8ML Subcutaneous every 2 weeks [place] 12/14/2015 Blake Crowell Hydrocodone-Acetaminophen 1 tablet as needed Orally Active 5- 325 MG Orally every 6 hrs [place] 11/11/2015 Blake Crowell Medrol (Tawanda) as directed Orally Active 4 MG Orally [facility] 10/20/2015 Blake Crowell Xeljanz 1 tab orally Active 5mg orally BID [place] 10/30/2013 Blake Crowell PredniSONE as directed Orally Active 10 MG Orally q AM with food [place] 10/30/2013 Blake Crowell Venlafaxine HCl ER 1 capsule with food Orally Active 150 MG Orally twice a day [place] Blake Crowell Pantoprazole Sodium 1 tablet Orally Active 40 MG Orally Once a day [place] Blake Crowell PredniSONE 1 tablet Orally Active 5 MG Orally Once a day [place] Blake Crowell Clonazepam 1/2 tablet Orally Active 1 MG Orally as needed [facility] Blake Crowell Leflunomide 1 tablet Orally Active 20 MG Orally Once a day [place] Blake Crowell Estradiol 1 tablet Orally Active 0.5 MG Orally Once a day [facility] Blakevanda Crowell Prolia 60MG SQ NA Active 60MG Q6 MONTHS [facility] Blake Crowell Melatonin 1 capsule at bedtime as needed with food Orally Active 2.5 MG Orally Once a day [facility] Blake Crowell Gabapentin 3 capsules Orally Active 100 MG Orally Three times a day [facility] Blake Crowell Anoro Ellipta 1 puff Inhalation Active 62.5-25 MCG/INH Inhalation Once a day [facility] Blake Crowell Amitriptyline HCl 1 tablet Orally Active 25 MG Orally Once a day [facility] Blake Crowell Citalopram Hydrobromide 0.5 tablet Orally Active 40 MG Orally Once a day [facility] Blake Crowell Hydrocodone-Acetaminophen 1 tablet as needed Orally Active 10- 325 MG Orally every 6 hrs [place] Blake Crowell Tizanidine HCl 1 tablet as needed Orally Active 4 MG Orally every 8 hrs [facility] Blake Crowell Albuterol Sulfate 1 puff as needed Inhalation Active 108 (90 Base) MCG/ACT Inhalation every 4 hrs [facility] Blake Crowell Vitamin D 1 capsule Orally Active 1000 UNIT Orally Once a day [facility] Blakevanda Crowell B Complex as directed Orally Active Orally [facility] Blake Crowell Citalopram Hydrobromide 0.5 tablet Orally Active 40 MG Orally Once a day [place] Blake Crowell Cholestyramine 1 packet mixed with water or non-carbonated drink Orally Active 4 GM Orally Twice a day Harjeet Crowell Hydrocodone-Acetaminophen 1 tablet as needed Orally Active 10- 325 MG Orally Three times a day Cosbymonika Crowell Albuterol Sulfate 1 puff as needed Inhalation Active 108 (90 Base) MCG/ACT Inhalation every 4 hrs Harjeet Crowell Lidocaine 1 patch to skin remove after 12 hours Externally Active 5 % Externally Once a day Cosbymonika Crowell Estradiol 1 tablet Orally Active 0.5 MG Orally Once a day Harjeet Crowell Venlafaxine HCl ER 1 capsule with food Orally Active 150 MG Orally twice a day Harjeet Crowell Anoro Ellipta 1 puff Inhalation Active 62.5-25 MCG/INH Inhalation Once a day Harjeet Crowell Melatonin 1 capsule at bedtime as needed with food Orally Active 2.5 MG Orally Once a day Harjeet Lozano Crowell Vitamin D 1 capsule Orally Active 1000 UNIT Orally Once a day [place] Blake Haganer Oxycodone-Acetaminophen 1 tablet as needed Orally Active 10-325 MG Orally every 6 hrs [place] Blake Haganer B Complex as directed Orally Active Orally [place] Blake Haganer Clonazepam 1/2 tablet Orally Active 1 MG Orally as needed [place] Blake Crowell Celecoxib TAKE ONE CAPSULE BY MOUTH ONCE A DAY NA Active 200 [place] Blakevanda Crowell Tizanidine HCl 1 tablet as needed Orally Active 4 MG Orally every 8 hrs [place] Blake Crowell Pantoprazole Sodium 1 tablet Orally Active 40 MG Orally Once a day [place] Blake Crowell Gabapentin 3 capsules Orally Active 100 MG Orally Three times a day [place] Blakevanda Crowell Amitriptyline HCl 1 tablet Orally Active 25 MG Orally Once a day prn [place] Blake Crowell Cholestyramine 1 packet mixed with water or non-carbonated drink Orally Active 4 GM Orally Twice a day [facility] Blake Crowell Vancomycin HCl 2 capsules Orally Active 250 MG Orally every 6 hrs [place] Blake Crowell Chantix 1 tablet Orally Active 1 MG Orally Twice a day [facility] Blakevanda Crowell Lidocaine 1 patch to skin remove after 12 hours Externally Active 5 % Externally Once a day [facility] Blakevanad Crowell Sucralfate 1 tablet on an empty stomach Orally Active 1 GM Orally Twice a day [facility] Blake Crowell Hydrocodone-Acetaminophen 1 tablet as needed Orally Active 10- 325 MG Orally every 6 hrs [facility] Blake Crowell Oxycodone-Acetaminophen 1 tablet as needed Orally Active 10-325 MG Orally every 6 hrs [facility] Blake Crowell Cimzia Lyophilized Starter Kit 1 kit subcutaneous Active 6 X 200 MG/ML subcutaneous at weeks 0, 2, 4 [facility] Blake Crowell Cimzia Lyophilized Powder 1 kit subcutaneous Active 2 X 200 MG/ML subcutaneous q 4 weeks [place] Blake Crowell Sucralfate 1 tablet Orally Active 1 GM Orally Twice a day [place] Blake Crowell Chantix 1 tablet Orally Active 1 MG Orally Twice a day [place] Blake Crowell Oxycodone HCl 1 tablet as needed Orally Active 5 MG Orally every 6 hrs [place] Blake Crowell Symbicort 2 puffs Inhalation Active 160-4.5 MCG/ACT Inhalation Twice a day [place] Blake Crowell Nexium 1 capsule Orally Active 40 MG Orally Once a day [place] Blake Haganer Hydrocodone-Acetaminophen 1 tablet as needed Orally Active 5- 325 MG Orally every 6 hrs [place] Blake Crowell Leflunomide 1 tablet Orally Active 10 MG Orally Once a day [place] Blake Haganer Savella Titration Pack not defined Orally Active 12.5 & 25 & 50 MG Orally [facility] Ven[facility]af[facility]ine [facility] 1 tablet with food Orally Active 75 MG Orally Once a day [place] Blake Crowell Nystatin not defined Mouth/Throat Active 232033 UNIT/ML Mouth/Throat Once a day [place] Blake Crowell PredniSONE 3 tablets Orally Active 5 MG Orally Once a day [place] [facility] Aripiprazole 1 tablet Orally Active 2 MG Orally Once a day [place] [facility] Fluconazole 1 tablet Orally Active 150 MG Orally [place] [facility] Xifaxan 1 tablet Orally Active 550 MG Orally Twice a day [place] Blake Crowell Celebrex 1 capsule with food Orally Active 100 MG Orally Once a day [place] [facility] Dicyclomine HCl 1 tablet Orally Active 20 MG Orally Four times a day [place] [facility] Vitamin B 12 as directed Orally Active 100 MCG Orally [place] [facility] Budesonide 1 tablet Orally Active 3 MG Orally Once a day [place] [facility] Fluconazole as directed NA Active - [place] [facility] Atorvastatin Calcium 1 tablet Orally Active 20 MG Orally Once a day [place] [facility] Gabapentin 3 capsules Orally Active 100 MG Orally Three times a day [place] [facility] Budesonide 1 tablet Orally Active 3 MG Orally Once a day [facility] Xifaxan 1 tablet Orally Active 200 MG Orally Three times a day [place] [facility] Leflunomide 1 tablet Orally Active 20 Orally Once a day [place] [facility] Probiotic as directed Orally Active Orally [place] [facility] Symbicort 2 puffs Inhalation Active 160-4.5 MCG/ACT Inhalation Twice a day [place] [facility] Citalopram Hydrobromide Unknown NA Active [place] [facility] Estradiol Unknown NA Active [place] [facility] Nystatin Unknown NA Active [place] [facility] Venlafaxine HCl Unknown NA Active [place] [facility] Welchol 3 tablets with meals Orally Active 625 MG Orally Twice a day [place] [facility] Actemra 8MG/KG IV NA Active 8MG/KG Q 4 WKS Cosbymonika Crowell Chlordiazepoxide-clidinium 1 capsule orally Active 5-2.5mg orally every 6 hours [place] Blake Crowell Clindamycin HCl 1 capsule Orally Active 150 MG Orally every 8 hrs [place] Blake Crowell PredniSONE 1 tablet Orally Active 5 MG Orally once a day [facility] Blake Crowell Xifaxan 1 tablet Orally Active 550 MG Orally Twice a day [place] Blake Crowell Sulfamethoxazole-TMP DS 1 tablet Orally Active 800-160 MG Orally Twice a day [place] Blake Crowell Leflunomide take 1 tablet by mouth once a day Orally Active 20 MG Orally Once a day [facility] Blake Crowell Savella 1 tablet Orally Active 50 MG Orally Twice a day [facility] Blake Crowell Leflunomide 1 tablet Orally Active 20 MG Orally Once a day [facility] Blake Crowell Hydrocodone-Acetaminophen 1 tablet as needed Orally Active 5- 325 MG Orally every 6 hrs [place] Blake Crowell Symbicort 2 puffs Inhalation Active 80-4.5 MCG/ACT Inhalation Twice a day [facility] Blake Crowell Gabapentin 1 capsule Orally Active 100 MG Orally Twice a day [facility] Blake Crowell Amitriptyline HCl 1 tablet at bedtime Orally Active 25 MG Orally Once a day [facility] Blake Crowell Enbrel SureClick 1 ml Subcutaneous Active 50 MG/ML Subcutaneous [facility] Blake Crowell Welchol 23tablets with meals Orally Active 625 MG Orally Twice a day [facility] Blake Crowell Gabapentin 1 tablet Orally Active 600 MG Orally Three times a day [facility] Blake Crowell Allergies, Adverse Reactions, Alerts Substance Category Reaction Severity Reaction type Status Date Reported Comments Source Zofran Adverse Reaction rash Adverse Reaction Active 06/14/2017 Blake Crowell Aspirin Adverse Reaction swelling of the lips Adverse Reaction Active 06/14/2017 Blake Crowell penicillin Adverse Reaction Swelling Adverse Reaction Active 01/23/2018 Blake Crowell ADHESIVE TAPE allergy to substance 11/09/2018 [facility] DILADID drug allergy 11/09/2018 [facility] IBUPROFEN drug allergy 11/09/2018 [facility] ASPIRIN drug allergy 11/09/2018 [facility] PENICILLIN drug allergy 11/09/2018 [facility] Latex Gloves Adverse Reaction rash Adverse Reaction Active 12/19/2018 Blake Crowell Ibuprofen Adverse Reaction Lips swell Adverse Reaction Active 12/19/2018 Blake Crowell Dilaudid Adverse Reaction Info Not Available Adverse Reaction Active 12/19/2018 Blake Crowell Enbrel Adverse Reaction Info Not Available Adverse Reaction Active 12/19/2018 Blake Crowell Remicade Adverse Reaction rash Adverse Reaction Active 12/19/2018 Blake Crowell Prolia Adverse Reaction rash, nausea Adverse Reaction Active 12/19/2018 Blake Crowell Immunizations Immunization Date Given Site Status Last Updated Comments Source Flu Vaccine 03/16/2017 completed Blake Crowell Results Order Name Results Value Reference Range Date Interpretation Comments Source very low density lipoproteins 24 5 - 40 11/09/2018 [facility] chloride, serum 101 96 - 106 11/09/2018 [facility] urea nitrogen, blood 10 8 - 27 11/09/2018 [facility] leukocyte esterase, urine, by dipstick Negative Negative 11/09/2018 [facility] mean corpuscular hemoglobin concentration, RBC 32.4 G/DL 31.5 - 35.7 11/09/2018 [facility] erythrocyte (RBC) count 4.49 X10E6/UL 3.77 - 5.28 11/09/2018 [facility] urine color Yellow Yellow 11/09/2018 [facility] Absolute Neutrophils 4.3 X10E3/UL 1.4 - 7.0 11/09/2018 [facility] bilirubin, urine Negative Negative 11/09/2018 [facility] LDL cholesterol, serum 139 0 - 99 11/09/2018 [facility] urea nitrogen/creatinine ratio, serum 14 12 - 28 11/09/2018 [facility] mean corpuscular volume, RBC 88 79 - 97 11/09/2018 [facility] HDL cholesterol, serum 80 >39 11/09/2018 [facility] monocytes as percent of blood leukocytes 9 Not Estab. 11/09/2018 [facility] creatinine, serum 0.72 0.57 - 1.00 11/09/2018 [facility] albumin/globulin ratio, serum 1.4 1.2 - 2.2 11/09/2018 [facility] cholesterol, serum 243 100 - 199 11/09/2018 [facility] bilirubin, serum, total <0.2 mg/dL 0.0 - 1.2 11/09/2018 [facility] Eosinophil Absolute Count 0.4 X10E3/UL 0.0 - 0.4 11/09/2018 [facility] appearance, urine Clear Clear 11/09/2018 [facility] aspartate aminotransferase (SGOT), serum 18 0 - 40 11/09/2018 [facility] red blood cell distribution width 16.7 12.3 - 15.4 11/09/2018 [facility] urinalysis, microscopic examination MICNIP 11/09/2018 [facility] leukocyte count, blood 9.8 X10E3/UL 3.4 - 10.8 11/09/2018 [facility] pH, urine, semiquantitative 6.5 5.0 - 7.5 11/09/2018 [facility] potassium, serum 4.9 3.5 - 5.2 11/09/2018 [facility] immature granulocytes, percentage of total cells, blood 0 Not Estab. 11/09/2018 [facility] albumin, serum 4.3 3.6 - 4.8 11/09/2018 [facility] lymphocyte count, blood, automated 4.2 X10E3/UL 0.7 - 3.1 11/09/2018 [facility] hematocrit, blood 39.5 34.0 - 46.6 11/09/2018 [facility] sodium, serum 141 134 - 144 11/09/2018 [facility] neutrophils as percent of blood leukocytes 43 Not Estab. 11/09/2018 [facility] basophils as percent of blood leukocytes 1 Not Estab. 11/09/2018 [facility] specific gravity, body fluid 1.022 1.005 - 1.030 11/09/2018 [facility] protein, urine, semiquantitative (dipstick) Negative Negative/Trace 11/09/2018 [facility] carbon dioxide, venous blood 26 20 - 29 11/09/2018 [facility] nitrate, urine Negative Negative 11/09/2018 [facility] triglyceride, serum, fasting 122 0 - 149 11/09/2018 [facility] calcium, serum 9.6 8.7 - 10.3 11/09/2018 [facility] alanine aminotransferase (SGPT), serum 11 0 - 32 11/09/2018 [facility] mean corpuscular hemoglobin, RBC 28.5 26.6 - 33.0 11/09/2018 [facility] protein, total, serum 7.4 6.0 - 8.5 11/09/2018 [facility] alkaline phosphatase, serum 124 39 - 117 11/09/2018 [facility] hemoglobin, blood 12.8 11.1 - 15.9 11/09/2018 [facility] lymphocytes as percent of blood leukocytes 43 Not Estab. 11/09/2018 [facility] glucose, urine, semiquantitative Negative Negative 11/09/2018 [facility] eGFR if 105 >59 11/09/2018 [facility] basophil count, absolute 0.1 x10E3/uL 0.0 - 0.2 11/09/2018 [facility] globulin, serum 3.1 1.5 - 4.5 11/09/2018 [facility] Estimated Glomerular Filtration Rate (calc) 91 >59 11/09/2018 [facility] Occult Blood, urine Negative Negative 11/09/2018 [facility] eosinophils as percent of blood leukocytes 4 Not Estab. 11/09/2018 [facility] blood glucose, random 88 65 - 99 11/09/2018 [facility] urobilinogen, urine, semiquantitative (dipstick) 0.2 0.2 - 1.0 11/09/2018 [facility] monocyte count, blood, automated 0.9 X10E3/UL 0.1 - 0.9 11/09/2018 [facility] platelet count 415 X10E3/UL 150 - 450 11/09/2018 [facility] ketones, urine, by test strip Negative Negative 11/09/2018 [facility] Pathology Reports No Data Provided for This Section Diagnostic Reports No Data Provided for This Section Consultation Notes No Data Provided for This Section Discharge Summaries No Data Provided for This Section History and Physicals No Data Provided for This Section Vital Signs Vital Sign Value Date Comments Source Weight 123.5 12/19/2018 Blake Crowell Height 63 12/19/2018 Blake Crowell Temperature Oral (F) 98.6 F 12/19/2018 Blake Crowell Heart Rate 84 12/19/2018 Blake Crowell Diastolic (mm Hg) 62 12/19/2018 Blake Crowell Systolic (mm Hg) 128 12/19/2018 Blake Crowell Diastolic (mm Hg) 78 11/16/2018 [facility] Systolic (mm Hg) 136 11/16/2018 [facility] Height 61.25 11/16/2018 [facility] Heart Rate 84 11/16/2018 [facility] Respitory Rate 20 11/16/2018 [facility] Temperature Oral (F) 98.2 F 11/16/2018 [facility] Weight 125.38 11/16/2018 [facility] Weight 125.6 11/13/2018 Blake Crowell Height 63 11/13/2018 Blake Crowell Temperature Oral (F) 98.1 F 11/13/2018 Blake Crowell Heart Rate 80 11/13/2018 Blake Crowell Diastolic (mm Hg) 70 11/13/2018 Blake Crowell Systolic (mm Hg) 130 11/13/2018 Blake Crowell Diastolic (mm Hg) 87 11/09/2018 [facility] Systolic (mm Hg) 154 11/09/2018 [facility] Height 61.25 11/09/2018 [facility] Heart Rate 91 11/09/2018 [facility] Respitory Rate 17 11/09/2018 [facility] Temperature Oral (F) 98.4 F 11/09/2018 [facility] Weight 122.25 11/09/2018 [facility] Weight 121.5 09/06/2018 Blake Crowell Height 62 09/06/2018 Blake Crowell Temperature Oral (F) 99.4 F 09/06/2018 Blake Crowell Heart Rate 112 09/06/2018 Blake Crowell Diastolic (mm Hg) 60 09/06/2018 Blake Crowell Systolic (mm Hg) 138 09/06/2018 Blake Crowell Weight 117.9 08/09/2018 Blake Crowell Height 62 08/09/2018 Blake Crowell Temperature Oral (F) 97.7 F 08/09/2018 Blake Crowell Heart Rate 88 08/09/2018 Blake Crowell Diastolic (mm Hg) 64 08/09/2018 Blake Crowell Systolic (mm Hg) 104 08/09/2018 Blake Crowell Weight 117.5 07/12/2018 Blake Crowell Height 62 07/12/2018 Blake Crowell Temperature Oral (F) 97.5 F 07/12/2018 Blake Crowell Heart Rate 90 07/12/2018 Blake Crowell Diastolic (mm Hg) 78 07/12/2018 Blake Crowell Systolic (mm Hg) 133 07/12/2018 Blake Crowell Weight 117.9 05/29/2018 Blake Crowell Height 62 05/29/2018 Blake Crowell Temperature Oral (F) 98.3 F 05/29/2018 Blake Crowell Heart Rate 87 05/29/2018 Blake Crowell Diastolic (mm Hg) 73 05/29/2018 Blake Crowell Systolic (mm Hg) 128 05/29/2018 Blake Crowell Weight 117.2 05/01/2018 Blake Crowell Height 62 05/01/2018 Blake Crowell Temperature Oral (F) 97.6 F 05/01/2018 Blake Crowell Heart Rate 74 05/01/2018 Blake Crowell Diastolic (mm Hg) 70 05/01/2018 Blake Crowell Systolic (mm Hg) 142 05/01/2018 Blake Crowell Weight 118 03/29/2018 Blake Crowell Height 62 03/29/2018 Blake Crowell Temperature Oral (F) 98.1 F 03/29/2018 Blake Crowell Heart Rate 91 03/29/2018 Blake Crowell Diastolic (mm Hg) 82 03/29/2018 Blake Crowell Systolic (mm Hg) 130 03/29/2018 Blake Crowell Weight 118 03/01/2018 Blake Crowell Height 62 03/01/2018 Blake Crowell Temperature Oral (F) 97.8 F 03/01/2018 Blake Crowell Heart Rate 88 03/01/2018 Blake Crowell Diastolic (mm Hg) 86 03/01/2018 Blake Crowell Systolic (mm Hg) 120 03/01/2018 Blake Crowell Weight 121.3 01/23/2018 Blake Crowell Height 62 01/23/2018 Blake Crowell Temperature Oral (F) 97.6 F 01/23/2018 Blake Crowell Heart Rate 68 01/23/2018 Blake Crowell Diastolic (mm Hg) 60 01/23/2018 Blake Crowell Systolic (mm Hg) 110 01/23/2018 Blake Crowell Weight 123.8 12/26/2017 Blake Crowell Height 62 12/26/2017 Blake Crowell Temperature Oral (F) 98.1 F 12/26/2017 Blake Crowell Heart Rate 76 12/26/2017 Blake Crowell Diastolic (mm Hg) 78 12/26/2017 Blake Crowell Systolic (mm Hg) 122 12/26/2017 Blake Crowell Weight 113 10/18/2017 Blake Crowell Height 62 10/18/2017 Blake Crowell Temperature Oral (F) 97.4 F 10/18/2017 Blake Crowell Heart Rate 80 10/18/2017 Blake Crowell Diastolic (mm Hg) 70 10/18/2017 Blake Crowell Systolic (mm Hg) 122 10/18/2017 Blake Crowell Weight 118.4 09/20/2017 Blake Crowell Height 62 09/20/2017 Blake Crowell Temperature Oral (F) 97.1 F 09/20/2017 Blake Crowell Heart Rate 74 09/20/2017 Blake Crowell Diastolic (mm Hg) 72 09/20/2017 Blake Crowell Systolic (mm Hg) 100 09/20/2017 Blake Crowell Weight 119 07/13/2017 Blake Crowell Height 62 07/13/2017 Blake Crowell Temperature Oral (F) 97.4 F 07/13/2017 Blake Crowell Heart Rate 82 07/13/2017 Blake Crowell Diastolic (mm Hg) 60 07/13/2017 Blake Crowell Systolic (mm Hg) 132 07/13/2017 Blake Crowell Weight 121.3 06/14/2017 Blake Crowell Height 62 06/14/2017 Blake Crowell Temperature Oral (F) 97.2 F 06/14/2017 Blake Crowell Heart Rate 82 06/14/2017 Blake Crowell Diastolic (mm Hg) 80 06/14/2017 Blake Crowell Systolic (mm Hg) 142 06/14/2017 Blake Crowell Weight 121.3 06/14/2017 Blake Crowell Height 61 06/14/2017 Blake Crowell Temperature Oral (F) 97.2 F 06/14/2017 Blake Crowell Heart Rate 82 06/14/2017 Blake Crowell Diastolic (mm Hg) 80 06/14/2017 Blake Crowell Systolic (mm Hg) 142 06/14/2017 Blake Crowell Weight 123 05/01/2017 Blake Crowell Height 61.2 05/01/2017 Blake Crowell Temperature Oral (F) 97.8 F 05/01/2017 Blake Crowell Heart Rate 92 05/01/2017 Blake Crowell Diastolic (mm Hg) 72 05/01/2017 Blake Crowell Systolic (mm Hg) 118 05/01/2017 Blake Crowell Weight 123 04/12/2017 Blake Crowell Height 62 04/12/2017 Blake Crowell Temperature Oral (F) 97.2 F 04/12/2017 Blake Crowell Heart Rate 80 04/12/2017 Blake Crowell Diastolic (mm Hg) 79 04/12/2017 Blake Crowell Systolic (mm Hg) 150 04/12/2017 Blake Crowell Weight 121 03/16/2017 Blake Crowell Height 62 03/16/2017 Blake Crowell Temperature Oral (F) 97.8 F 03/16/2017 Blake Crowell Heart Rate 80 03/16/2017 Blake Crowell Diastolic (mm Hg) 70 03/16/2017 Blake Crowell Systolic (mm Hg) 140 03/16/2017 Blake Crowell Weight 119 02/07/2017 Blake Crowell Height 62 02/07/2017 Blake Crowell Temperature Oral (F) 97.4 F 02/07/2017 Blake Crowell Heart Rate 80 02/07/2017 Blake Crowell Diastolic (mm Hg) 78 02/07/2017 Blake Crowell Systolic (mm Hg) 140 02/07/2017 Blake Crowell Weight 119 01/19/2017 Blake Crowell Height 63 01/19/2017 Blake Crowell Temperature Oral (F) 97.3 F 01/19/2017 Blake Crowell Heart Rate 88 01/19/2017 Blake Crowell Diastolic (mm Hg) 60 01/19/2017 Blake Crowell Systolic (mm Hg) 116 01/19/2017 Blake Crowell Weight 124 08/29/2016 Blake Crowell Height 63.5 08/29/2016 Blake Crowell Temperature Oral (F) 98.2 F 08/29/2016 Blake Crowell Heart Rate 96 08/29/2016 Blkae Crowell Diastolic (mm Hg) 70 08/29/2016 Blake Crowell Systolic (mm Hg) 118 08/29/2016 Blake Crowell Weight 114 06/06/2016 Blake Crowell Height 62 06/06/2016 Blake Crowell Temperature Oral (F) 97.5 F 06/06/2016 Blake Crowell Heart Rate 88 06/06/2016 Blake Crowell Diastolic (mm Hg) 72 06/06/2016 Blake Crowell Systolic (mm Hg) 120 06/06/2016 Blake Crowell Weight 113 04/11/2016 Blake Crowell Height 62 04/11/2016 Blake Crowell Temperature Oral (F) 98.2 F 04/11/2016 Blake Crowell Heart Rate 80 04/11/2016 Blake Crowell Diastolic (mm Hg) 70 04/11/2016 Blake Crowell Systolic (mm Hg) 138 04/11/2016 Blake Crowell Weight 110 02/16/2016 Blake Crowell Height 62.5 02/16/2016 Blake Crowell Temperature Oral (F) 97.8 F 02/16/2016 Blake Crowell Heart Rate 86 02/16/2016 Blake Crowell Diastolic (mm Hg) 74 02/16/2016 Blake Crowell Systolic (mm Hg) 128 02/16/2016 Blake Crowell Diastolic (mm Hg) 83 12/14/2015 Blake Crowell Systolic (mm Hg) 149 12/14/2015 Blake Crowell Weight 105 12/14/2015 Blake Crowell Temperature Oral (F) 97.4 F 12/14/2015 Blake Crowell Heart Rate 105 12/14/2015 Blake Crowell Weight 105 10/12/2015 Blake Crowell Height 62 10/12/2015 Blake Crowell Temperature Oral (F) 97.6 F 10/12/2015 Blake Crowell Heart Rate 86 10/12/2015 Blake Crowell Diastolic (mm Hg) 78 10/12/2015 Blake Crowell Systolic (mm Hg) 137 10/12/2015 Blake Crowell Weight 111 10/30/2013 Blake Crowell Height 63 10/30/2013 Blake Crowell Temperature Oral (F) 97.6 F 10/30/2013 Blake Crowell Heart Rate 84 10/30/2013 Blake Crowell Diastolic (mm Hg) 74 10/30/2013 Blake Crowell Systolic (mm Hg) 120 10/30/2013 Blake Crowell Encounters Location Location Details Encounter Type Encounter Number Reason For Visit Attending Provider ADM Date DC Date Status Source Josesito Crowell MD [facility] [id number] 07/31/2014 07/31/2014 Blake Crowell MD [facility] [id number] 07/31/2014 07/31/2014 Blake Crowell MD [facility] [id number] 07/31/2014 07/31/2014 Blake Crowell MD [facility] [id number] 07/31/2014 07/31/2014 Blake Crowell MD [facility] [id number] 07/31/2014 07/31/2014 Blake Crowell MD [facility] [id number] 07/31/2014 07/31/2014 Blake Crowell MD [facility] [id number] 07/31/2014 07/31/2014 Blake Crowell MD [facility] [id number] 07/31/2014 07/31/2014 Blake Crowell MD [facility] [id number] 07/31/2014 07/31/2014 Blake Crowell MD [facility] [id number] 07/31/2014 07/31/2014 Blake Crowell MD [facility] [id number] 07/31/2014 07/31/2014 Blake Crowell MD [facility] [id number] 07/31/2014 07/31/2014 Blake Crowell MD [facility] [id number] 07/31/2014 07/31/2014 Blake Crowell MD [facility] [id number] 07/31/2014 07/31/2014 Blake Crowell MD [facility] [id number] 07/31/2014 07/31/2014 Blake Crowell MD [facility] [id number] 07/31/2014 07/31/2014 Blake Crowell MD [facility] [id number] 07/31/2014 07/31/2014 Blake Crowell MD [facility] [id number] 07/31/2014 07/31/2014 Blake Crowell MD [facility] [id number] 07/31/2014 07/31/2014 Blake Crowell MD [facility] [id number] 07/31/2014 07/31/2014 Blake Crowell MD [facility] [id number] 07/31/2014 07/31/2014 Blake Crowell MD [facility] [id number] 07/31/2014 07/31/2014 Blake Crowell MD [facility] [id number] 07/31/2014 07/31/2014 Blake Crowell MD [facility] [id number] 07/31/2014 07/31/2014 Blake Crowell MD [facility] [id number] 07/31/2014 07/31/2014 Blake Crowell MD f/u [id number] 09/17/2014 09/17/2014 Blake Crowell MD f/u [id number] 09/17/2014 09/17/2014 Blake Crowell MD f/u [id number] 09/17/2014 09/17/2014 Blake Crowell MD f/u [id number] 09/17/2014 09/17/2014 Blake Crowell MD f/u [id number] 09/17/2014 09/17/2014 Blake Crowell MD f/u [id number] 09/17/2014 09/17/2014 Blake Crowell MD f/u [id number] 09/17/2014 09/17/2014 Blake Crowell MD f/u [id number] 09/17/2014 09/17/2014 Blake Crowell MD f/u [id number] 09/17/2014 09/17/2014 Blake Crowell MD f/u [id number] 09/17/2014 09/17/2014 Blake Crowell MD f/u [id number] 09/17/2014 09/17/2014 Blake Crowell MD f/u [id number] 09/17/2014 09/17/2014 Blake Crowell MD f/u [id number] 09/17/2014 09/17/2014 Blake Crowell MD f/u [id number] 09/17/2014 09/17/2014 Blake Crowell MD f/u [id number] 09/17/2014 09/17/2014 Blake Crowell MD f/u [id number] 09/17/2014 09/17/2014 Blake Crowell MD f/u [id number] 09/17/2014 09/17/2014 Blake Crowell MD f/u [id number] 09/17/2014 09/17/2014 Blake Crowell MD f/u [id number] 09/17/2014 09/17/2014 Blake Crowell MD f/u [id number] 09/17/2014 09/17/2014 Blake Crowell MD f/u [id number] 09/17/2014 09/17/2014 Blake Crowell MD f/u [id number]-[id number] 09/17/2014 09/17/2014 Blake Crowell MD f/u [id number]-vkkq-90kkvv68164h 09/17/2014 09/17/2014 Blake Crowell MD f/u [id number] 09/17/2014 09/17/2014 Blake Crowell MD f/u [id number] 09/17/2014 09/17/2014 MD Judith Renteriaia [id number] 10/15/2014 10/15/2014 MD Rivera Renteria [id number] 10/15/2014 10/15/2014 MD Rivera Renteria [id number]-[id number] 10/15/2014 10/15/2014 MD Rivera Renteria [id number] 10/15/2014 10/15/2014 MD Rivera Renteria [id number]-of9b-sv7sc5s8r3g0 10/15/2014 10/15/2014 MD Rivera Renteria [id number]-[id number] 10/15/2014 10/15/2014 MD Rivera Renteria [id number]-7u88-[id number] 10/15/2014 10/15/2014 MD Rivera Renteria [id number]-[id number]-[id number] 10/15/2014 10/15/2014 MD Judith Renteriaia [id number] 10/15/2014 10/15/2014 MD Judith Renteriaia [id number] 10/15/2014 10/15/2014 MD Rivera Renteria [id number]-6z1a-48o2jm41t65g 10/15/2014 10/15/2014 Blake Crowell MD Proltomasz [id number]-n3k4-4954306vb4ag 10/15/2014 10/15/2014 MD Rivera Renteria [id number] 10/15/2014 10/15/2014 Blake Crowell MD Proltomasz [id number] 10/15/2014 10/15/2014 Blake Crowell MD Proltomasz [id number] 10/15/2014 10/15/2014 Blake Crowell MD Prolia [id number] 10/15/2014 10/15/2014 Blake Crowell MD [facility] [id number]-a2u2d835d8a1 10/15/2014 10/15/2014 MD Judith Renteriaia [id number]-c07b-[id number] 10/15/2014 10/15/2014 MD Judith Renteriaia [id number] 10/15/2014 10/15/2014 Blake Crowell MD Prol[facility] [id number] 10/15/2014 10/15/2014 Blake Crowell MD [facility] [id number] 10/15/2014 10/15/2014 Blake Crowell MD [facility] [id number] 10/15/2014 10/15/2014 Blake Crowell MD [facility] [id number]-hp4k-5z7xaf71k5ud 10/15/2014 10/15/2014 Blake Crowell MD [facility] [id number]-[id number] 10/15/2014 10/15/2014 Blake Crowell MD [facility] [id number]-[id number] 10/15/2014 10/15/2014 Blake Crowell MD shoulder pain [id number]-75bg2025ub89 10/17/2014 10/17/2014 Blake Crowell MD shoulder pain [id number]-c47i-010x63b90q75 10/17/2014 10/17/2014 Blake Crowell MD shoulder pain [id number]-1rb6-3ho0-k0x5z88i27po 10/17/2014 10/17/2014 Blake Crowell MD shoulder pain [id number] 10/17/2014 10/17/2014 Blake Crowell MD shoulder pain [id number]-o4x1-63f7l27603x3 10/17/2014 10/17/2014 Blake Crowell MD shoulder pain [id number]-518q-73m0-9rpf69wz2gpq 10/17/2014 10/17/2014 Blake Crowell MD shoulder pain [id number] 10/17/2014 10/17/2014 Blake Crowell MD shoulder pain [id number] 10/17/2014 10/17/2014 Blake Crowell MD shoulder pain [id number]-rmjc-n42oguo629nt 10/17/2014 10/17/2014 Blake Crowell MD shoulder pain [id number]-213o-6g65-82132ke4838g 10/17/2014 10/17/2014 Blake Crowell MD shoulder pain [id number]-87xz-[id number] 10/17/2014 10/17/2014 Blake Crowell MD shoulder pain [id number]-[id number] 10/17/2014 10/17/2014 Blake Crowell MD shoulder pain [id number] 10/17/2014 10/17/2014 Blake Crowell MD shoulder pain [id number]-n1ss-66x08gy1c40v 10/17/2014 10/17/2014 Blake Crowell MD shoulder pain 258g8s3v-or5h-9re4-5a54-439j56c595v4 10/17/2014 10/17/2014 Blake Crowell MD shoulder pain [id number]-j8l5-q5q8581e400p 10/17/2014 10/17/2014 Blake Crowell MD shoulder pain [id number]-s26q-w1szi306bm27 10/17/2014 10/17/2014 Blake Crowell MD shoulder pain [id number]-[id number] 10/17/2014 10/17/2014 Blake Crowell MD shoulder pain [id number] 10/17/2014 10/17/2014 Blake Crowell MD shoulder pain [id number]-n97p-[id number] 10/17/2014 10/17/2014 Blake Crowell MD shoulder pain [id number] 10/17/2014 10/17/2014 Blake Crowell MD shoulder pain [id number] 10/17/2014 10/17/2014 Blake Crowell MD shoulder pain [id number]-nei4g35tnw45 10/17/2014 10/17/2014 Blake Crowell MD shoulder pain [id number]-005j-y6qpo682x87y 10/17/2014 10/17/2014 Blake Crowell MD MRI [id number] 10/17/2014 10/17/2014 Blake Crowell MD MRI [id number] 10/17/2014 10/17/2014 Blake Crowell MD MRI [id number] 10/17/2014 10/17/2014 Blake Crowell MD MRI [id number] 10/17/2014 10/17/2014 Blake Crowell MD MRI [id number] 10/17/2014 10/17/2014 Blake Crowell MD MRI [id number] 10/17/2014 10/17/2014 Blake Crowell MD MRI [id number] 10/17/2014 10/17/2014 Blake Crowell MD MRI [id number]-253w6cy505bc 10/17/2014 10/17/2014 Blake Crowell MD MRI [id number] 10/17/2014 10/17/2014 Blake Crowell MD MRI [id number] 10/17/2014 10/17/2014 Blake Crowell MD MRI [id number] 10/17/2014 10/17/2014 Blake Crowell MD MRI [id number] 10/17/2014 10/17/2014 Blake Crowell MD MRI [id number]-h74d-jf7b3dq8zi1g 10/17/2014 10/17/2014 Blake Crowell MD MRI [id number]-36w23zs4z923 10/17/2014 10/17/2014 Blake Crowell MD MRI [id number] 10/17/2014 10/17/2014 Blake Crowell MD MRI [id number]-rw72-46b40150z8w1 10/17/2014 10/17/2014 Blake Crowell MD MRI 06ym4h3t-[id number]-i582-c9wku03xo490 10/17/2014 10/17/2014 Blake Crowell MD MRI [id number]-[id number] 10/17/2014 10/17/2014 Blake Crowell MD MRI [id number] 10/17/2014 10/17/2014 Blake Crowell MD [facility] [id number]-[id number]-[id number] 10/17/2014 10/17/2014 Blake Crowell MD MRI [id number]-hqzu-[id number] 10/17/2014 10/17/2014 Blake Crowell MD MRI [id number] 10/17/2014 10/17/2014 Blake Crowell MD MRI [id number]-31160kx280o5 10/17/2014 10/17/2014 Blake Crowell MD MRI [id number]-i097-q0b75c74nq67 10/17/2014 10/17/2014 Blake Crowell MD MRI [id number] 10/17/2014 10/17/2014 Blake Crowell MD [facility] [id number] 12/11/2014 12/11/2014 Blake Crowell MD [facility] [id number]-z5w0h82vi132 12/11/2014 12/11/2014 Blake Crowell MD [facility] [id number]-[id number]-237d42x0r3h3 12/11/2014 12/11/2014 Blake Crowell MD [facility] [id number]-[id number] 12/11/2014 12/11/2014 Blake Crowell MD [facility] [id number]-xmi7-7p7265ul6347 12/11/2014 12/11/2014 Blake Crowell MD [facility] [employer] [id number]-m2u2-l54bvb7mxb9e 12/11/2014 12/11/2014 Blake Crowell MD [facility] [employer] [facility] [id number]-0x42-aq9a-[id number] 12/11/2014 12/11/2014 Blake Crowell MD [facility] [employer] [facility] [id number] 12/11/2014 12/11/2014 Blake Crowell MD [facility] [employer] [id number] 12/11/2014 12/11/2014 Blake Crowell MD [employer] [employer] [id number] 12/11/2014 12/11/2014 Blake Crowell MD [facility] [employer] [id number] 12/11/2014 12/11/2014 Blake Crowell MD [facility] [employer] [facility] [id number] 12/11/2014 12/11/2014 Blake Crowell MD [facility] [employer] [facility] [id number]-[id number] 12/11/2014 12/11/2014 Blake Crowell MD [facility] [employer] [id number] 12/11/2014 12/11/2014 Blake Crowell MD [facility] [employer] [id number] 12/11/2014 12/11/2014 Blake Crowell MD [facility] [employer] [id number] 12/11/2014 12/11/2014 Blake Crowell MD [facility] [employer] [id number]-[id number] 12/11/2014 12/11/2014 Blake Crowell MD [facility] [employer] [id number]-72bw-cx3p-244h2f013h42 12/11/2014 12/11/2014 Blake Crowell MD [facility] [employer] [facility] [id number]-f36s-ho9g4sd66760 12/11/2014 12/11/2014 Blake Crowell MD [facility] [employer] [id number]-a9s13i131zgm 12/11/2014 12/11/2014 Blake Crowell MD [facility] [employer] [id number]-[id number] 12/11/2014 12/11/2014 Blake Crowell MD [facility] [employer] [facility] [id number]-[id number]-i71t2g471q66 12/11/2014 12/11/2014 Blake Crowell MD [employer] [id number]-26a5-995u-l41j61egtv29 12/11/2014 12/11/2014 Blake Crowell MD f/u [id number] 12/16/2014 12/16/2014 Blake Crowell MD f/u [id number] 12/16/2014 12/16/2014 Blake Crowell MD f/u [id number] 12/16/2014 12/16/2014 Blake Crowell MD f/u [id number] 12/16/2014 12/16/2014 Blake Crowell MD f/u [id number] 12/16/2014 12/16/2014 Blake Crowell MD f/u [id number] 12/16/2014 12/16/2014 Blake Crowell MD f/u [id number] 12/16/2014 12/16/2014 Blake Crowell MD f/u [id number] 12/16/2014 12/16/2014 Blake Crowell MD f/u [id number] 12/16/2014 12/16/2014 Blake Crowell MD f/u [id number] 12/16/2014 12/16/2014 Blake Crowell MD f/u [id number] 12/16/2014 12/16/2014 Blake Crowell MD f/u [id number]-kc6o-qhsiy95u360i 12/16/2014 12/16/2014 Blake Crowell MD f/u [id number] 12/16/2014 12/16/2014 Blake Crowell MD f/u [id number] 12/16/2014 12/16/2014 Blake Crowell MD f/u [id number]-odg7247an7p1 12/16/2014 12/16/2014 Blake Crowell MD f/u [id number]-[id number] 12/16/2014 12/16/2014 Blake Crowell MD f/u [id number] 12/16/2014 12/16/2014 Blake Crowell MD f/u [id number] 12/16/2014 12/16/2014 Blake Crowell MD f/u [id number]-kajkg028gu99 12/16/2014 12/16/2014 Blake Crowell MD f/u [id number] 12/16/2014 12/16/2014 Blake Crowell MD f/u [id number]-[id number] 12/16/2014 12/16/2014 Blake Crowell MD [employer] [id number] 12/16/2014 12/16/2014 Blake Crowell MD [facility] [id number] 12/16/2014 12/16/2014 Blake Crowell MD [facility] [id number] 12/16/2014 12/16/2014 Blake Crowell MD [facility] [id number] 12/16/2014 12/16/2014 Blake Crowell MD [facility] [id number] 12/16/2014 12/16/2014 Blake Crowell MD [facility] [id number]-[id number] 12/16/2014 12/16/2014 Blake Crowell MD [facility] [id number] 12/16/2014 12/16/2014 Blake Crowell MD [facility] [id number]-h515-mj47gxk8r578 12/16/2014 12/16/2014 Blake Crowell MD [facility] [id number] 12/16/2014 12/16/2014 Blake Crowell MD [facility] [id number] 12/16/2014 12/16/2014 Blake Crowell MD [facility] [id number] 12/16/2014 12/16/2014 Blake Crowell MD [facility] [id number] 12/16/2014 12/16/2014 Blake Crowell MD [facility] [id number]-d0ql8f389i2y 12/16/2014 12/16/2014 Blake Crowell MD [facility] [id number]-[id number] 12/16/2014 12/16/2014 Blake Crowell MD [facility] -se3z-[id number]-p57p4q36o87q 12/16/2014 12/16/2014 Blake Crowell MD [facility] [id number]-d258gq81jld0 12/16/2014 12/16/2014 Blake Crowell MD [facility] [id number] 12/16/2014 12/16/2014 Blake Crowell MD [facility] [id number] 12/16/2014 12/16/2014 Blake Crowell MD [facility] [id number] 12/16/2014 12/16/2014 Blake Crowell MD [employer] [id number] 12/16/2014 12/16/2014 Blake Crowell MD [employer] [id number] 12/16/2014 12/16/2014 Blake Crowell MD [employer] [id number]-v18s048qm19i 12/16/2014 12/16/2014 Blake Crowell MD [employer] [id number] 12/16/2014 12/16/2014 Blake Crowell MD [employer] [id number]-[id number] 12/16/2014 12/16/2014 Blake Crowell MD [employer] [id number] 12/16/2014 12/16/2014 Blake Crowell MD [employer] [id number] 12/16/2014 12/16/2014 Blake Crowell MD [employer] [id number]-w1h877pfrj8w 12/16/2014 12/16/2014 Blake Crowell MD [employer] [id number] 12/16/2014 12/16/2014 Blake Crowell MD [employer] [id number] 12/16/2014 12/16/2014 Blake Crowell MD [employer] [id number] 12/16/2014 12/16/2014 Blake Crowell MD [employer] [id number]-4ak959ig595e 12/16/2014 12/16/2014 Blake Crowell MD [employer] [id number]-rc8990a12npe 12/16/2014 12/16/2014 Blake Crowell MD [employer] [id number] 12/16/2014 12/16/2014 Blake Crowell MD [employer] [id number] 12/16/2014 12/16/2014 Blake Crowell MD [employer] [id number] 12/16/2014 12/16/2014 Blake Crowell MD [employer] [id number] 12/16/2014 12/16/2014 Blake Crowell MD [employer] [id number] 12/16/2014 12/16/2014 Blake Crowell MD [employer] [id number] 12/16/2014 12/16/2014 Blake Crowell MD [employer] [id number] 12/16/2014 12/16/2014 Blake Crowell MD [facility] [id number] 12/16/2014 12/16/2014 Blake Crowell MD [employer] [id number]-[id number] 12/16/2014 12/16/2014 Blake Crowell MD [employer] [id number] 12/16/2014 12/16/2014 Blake Crowell MD [employer] 2p3x0271-v858-8m23-9722-4u291x4iyz2m 12/16/2014 12/16/2014 Blake Crowell MD [facility] 154j6051-0h74-005v-v9m1-089e7v754914 12/16/2014 12/16/2014 Blake Crowell MD [facility] 86g008s7-1v00-4r74-2i7g-oz9n3007w960 12/16/2014 12/16/2014 Blake Crowell MD [facility] 595845d2-3950-4626-i161-7e18365b5bks 12/16/2014 12/16/2014 Blake Crowell MD [facility] DA 016z091l-us03-843i-d54n-s144fkqqn4o7 01/13/2015 01/13/2015 Blake Crowell MD [facility] DA 76179ogb-r34z-9963-8480-972293cbfsca 01/13/2015 01/13/2015 Blake Crowell MD [facility] DA 58l977n1-2283-324p-9sr3-06q79590pk78 01/13/2015 01/13/2015 MD Tereso Renteriara DA 1m40ig95-gtn0-6o4i-10z1-39h31mv0w710 01/13/2015 01/13/2015 Blake Crowell MD [facility] DA 1cti1698-1474-07wx-44g1-27py66760109 01/13/2015 01/13/2015 Blake Crowell MD [facility] DA 2bx1vt3g-l7w7-90z0-z841-t5113h8pks20 01/13/2015 01/13/2015 Blake Crowell MD [facility] DA 6t7z580z-407m-915y-2l2e-675zuqse3693 01/13/2015 01/13/2015 Blake Crowell MD [facility] DA 88ds6l9j-j4f2-0df9-4e80-h9h72ay62053 01/13/2015 01/13/2015 Blake Crowell MD [facility] DA 233gqvx1-ggnz-7dfe-4949-4p69v304pw60 01/13/2015 01/13/2015 Blake Crowell MD [facility] DA i70tmfyu-d6fa-5s4q-j79t-y5xj939uu188 01/13/2015 01/13/2015 Blake Crowell MD [facility] DA d10b7w25-732l-2m16-76ti-7w603927br3z 01/13/2015 01/13/2015 Blake Crowell MD [facility] DA 4054a509-381e-7800-13b1-2625s04h7958 01/13/2015 01/13/2015 Blake Crowell MD [facility] DA 8048n927-3jf2-4370-8927-1rk972913f8e 01/13/2015 01/13/2015 Blake Crowell MD [facility] DA l6x39ycy-l93n-8g40-75ug-pf91k4r7283y 01/13/2015 01/13/2015 Blake Crowell MD [facility] DA kx723s55-x24o-317p-r385-4lw0u69691d4 01/13/2015 01/13/2015 Blake Crowell MD [facility] DA 9c36ub13-8u57-604q-a9x6-o0ogh6710p35 01/13/2015 01/13/2015 Blake Crowell MD [facility] DA 8h61tnbc-d97y-9p53-9080-zd82zt5ls1sv 01/13/2015 01/13/2015 Blake Crowell MD [facility] DA t75l0mq2-5643-874f-5h60-y092hi8esq49 01/13/2015 01/13/2015 MD Ami Renteria DA 7xf2eqf9-470b-6fsh-vr0e-u4i51t0769bg 01/13/2015 01/13/2015 MD Ami Renteria 5red9317-7m55-3682-njr2-h8620e7938c1 01/13/2015 01/13/2015 MD Ami Renteria 7735xd42-4t1l-603g-n6in-316u629207ll 01/13/2015 01/13/2015 MD Ami Renteria 5xh894zh-pz62-550o-s227-2j0547ygluf0 01/13/2015 01/13/2015 MD Jovi Renteria 6c0aql3h-53e1-9k92-0295-db943276x8e0 02/09/2015 02/09/2015 MD Jovi Renteria u3k9sb67-n0c2-0g7m-7840-1025d48z9ehk 02/09/2015 02/09/2015 MD Jovi Renteria 4zjt16v1-18al-2o65-4909-8ej9z1eae7kg 02/09/2015 02/09/2015 MD Jovi Renteria 9si5zi5v-d430-3e11-e503-713ce61x23wp 02/09/2015 02/09/2015 MD Jovi Renteria s5j37qua-t0h8-2yf7-9d25-v26u4gl8527v 02/09/2015 02/09/2015 MD Jovi Renteria 41540akg-63g8-4f27-999n-2023i1d36b81 02/09/2015 02/09/2015 Blake Crowell MD Arava dgh6pur0-0060-3g51-q712-09170znm2k08 02/09/2015 02/09/2015 Blake Crowell MD Arava 54du9f05-fz7o-36w1-1q1m-5a72e3a5425p 02/09/2015 02/09/2015 Blake Crowell MD Arava h83386lb-4r00-5042-m20y-v23g7303hr17 02/09/2015 02/09/2015 Blake Crowell MD Arabaudilio v98fi427-6v5h-2y91-1h1o-331mm6y46m4s 02/09/2015 02/09/2015 Blake Crowell MD Arava f56ij5db-o816-68tq-p7p4-r13123t784du 02/09/2015 02/09/2015 Blake Crowell MD Arava 04s52025-o30q-898t-w76c-116cyoe0i016 02/09/2015 02/09/2015 Blake Crowell MD Arava m869g47t-3o7s-91cw-5743-13400k837l1w 02/09/2015 02/09/2015 Blake Crowell MD Arava 5304j700-5z03-0xvr-8p4u-28k6k6o4gsrc 02/09/2015 02/09/2015 Blake Crowell MD Arava 30395w97-1n30-9421-03dp-1fdlqsc3367b 02/09/2015 02/09/2015 Blake Crowell MD Arava 9nxe6724-x100-6xvd-6sky-45jrp694j855 02/09/2015 02/09/2015 Blake Crowell MD Arava 16894d8w-8478-17kf-4481-4193594788p5 02/09/2015 02/09/2015 Blake Crowell MD Arava 8963d1hu-671l-0aid-5wqp-t673zu816wo4 02/09/2015 02/09/2015 Blake Crowell MD Arava 3f36b26j-7j23-0013-j978-7r9556fn875w 02/09/2015 02/09/2015 Blake Crowell MD Arava 3gl163ws-2w79-84kk-753x-g0l79so6do7o 02/09/2015 02/09/2015 Blake Crowell MD Arava 99a12owp-8z3a-4378-xc08-1616ohq21134 02/09/2015 02/09/2015 Blake Crowell MD f/u 25s9jz3y-i781-67wr-wm53-5t60v78k841z 03/09/2015 03/09/2015 Blake Crowell MD f/u 0672or9j-0w11-3c1f-m8k4-ct18x7743146 03/09/2015 03/09/2015 Blake Crowell MD f/u vn1om7nq-sd85-88hw-ze3f-5m101wv6bv6d 03/09/2015 03/09/2015 Blake Crowell MD f/u q872268m-8e62-7240-ml8a-d6ho41879z82 03/09/2015 03/09/2015 Blake Crowell MD f/u rv7il2h8-55ql-17et-fee8-w1m618u6r672 03/09/2015 03/09/2015 Blake Crowell MD f/u 8051wn30-3773-1436-o3kx-kfk73880r8o7 03/09/2015 03/09/2015 Blake Crowell MD f/u k12k6p39-65m6-8118-xm5q-a68d7xoar7z9 03/09/2015 03/09/2015 Blake Crowell MD f/u 81090850-330a-5i60-3ee6-p78lrb73d85i 03/09/2015 03/09/2015 Blake Crowell MD f/u 3zsy53s0-88tr-2zpk-148p-tqr55a572332 03/09/2015 03/09/2015 Blake Crowell MD f/u 7a081t85-74i4-40at-ch04-j615496d7112 03/09/2015 03/09/2015 Blake Crowell MD f/u 4ck00e91-a40z-390b-r5f2-m30l452r8760 03/09/2015 03/09/2015 Blake Crowell MD f/u 58k7pf79-80u7-19q6-1959-46x83243846l 03/09/2015 03/09/2015 Blake Crowell MD f/u 7qpo101b-9umh-587t-d5v0-98i7u44239e4 03/09/2015 03/09/2015 Blake Crowell MD f/u mi670e50-9s79-48a7-1pu9-q3u045j10cz8 03/09/2015 03/09/2015 Blake Crowell MD f/u eg6u9y5r-0516-2wgr-0417-92r9573cy9g0 03/09/2015 03/09/2015 Blake Crowell MD f/u v3p35sjs-91cn-76bb-25x6-afl41keq3476 03/09/2015 03/09/2015 Blake Crowell MD f/u 087456c5-f583-919d-b126-29020431175d 03/09/2015 03/09/2015 Blake Crowell MD f/u 295td7r4-68ll-369z-gw2c-0865086ys43w 03/09/2015 03/09/2015 Blake Crowell MD f/u 9ah6z6k7-6a21-024m-x3p1-2r44a6z00j40 03/09/2015 03/09/2015 Blake Crowell MD f/u 51786fes-ga98-68k2-1j7s-6q59tspb1687 03/09/2015 03/09/2015 Blake Crowell MD Unknown w5xx96l8-575l-04ty-t236-5148119p26yq 04/06/2015 04/06/2015 Blake Crowell MD Unknown [id number] 04/06/2015 04/06/2015 Blake Crowell MD Unknown ux77q201-53r0-1zgz-5045-708nv468214n 04/06/2015 04/06/2015 Blake Crowell MD Unknown [id number]-401g-429a-1d7l-43if19cr930r 04/06/2015 04/06/2015 Blake Crowell MD Unknown [id number]-y718-08gp05dt5470 04/06/2015 04/06/2015 Blake Crowell MD Unknown [id number]-u968-oud8m29wkh81 04/06/2015 04/06/2015 Blake Crowell MD Unknown [id number]-[id number] 04/06/2015 04/06/2015 Blake Crowell MD Unknown [id number] 04/06/2015 04/06/2015 Blake Crowell MD Unknown [id number]-p4yg-64214r76128q 04/06/2015 04/06/2015 Blake Crowell MD Unknown [id number]-[id number] 04/06/2015 04/06/2015 Blake Crowell MD Unknown [id number]-sd50-15k6-y948-v2cn983szj4t 04/06/2015 04/06/2015 Blake Crowell MD Unknown [id number]-[id number] 04/06/2015 04/06/2015 Blake Crowell MD Unknown [id number]-r54q-4925-1q45-a1f36p0nkzet 04/06/2015 04/06/2015 Blake Crowell MD Unknown [id number]-5z77-170t-e9qs-22u6f4cj14dv 04/06/2015 04/06/2015 Blake Crowell MD Unknown [id number] 04/06/2015 04/06/2015 Blake Crowell MD Unknown [id number]-5bw105q0sz56 04/06/2015 04/06/2015 Blake Crowell MD Unknown [id number]-[id number] 04/06/2015 04/06/2015 Blake Crowell MD Unknown [id number]-5sy2-0522-a0671040x77k 04/06/2015 04/06/2015 Blake Crowell MD Unknown [id number] 04/06/2015 04/06/2015 Blake Crowell MD Unknown [id number]-[id number] 04/06/2015 04/06/2015 Blake Crowell MD Unknown [id number] 09/14/2015 09/14/2015 Blake Crowell MD Unknown [id number]-t0ssh3z99vlo 09/14/2015 09/14/2015 Blake Crowell MD Unknown [id number] 09/14/2015 09/14/2015 Blake Crowell MD Unknown [id number] 09/14/2015 09/14/2015 Blake Crowell MD Unknown [id number] 09/14/2015 09/14/2015 Blake Crowell MD Unknown [id number]-dd2i-m625z339q983 09/14/2015 09/14/2015 Blake Crowell MD Unknown [id number] 09/14/2015 09/14/2015 Blake Crowell MD Unknown [id number]-[id number]-ax58-781r9vc86e6e 09/14/2015 09/14/2015 Blake Crowell MD Unknown [id number]-i99080y8b76a 09/14/2015 09/14/2015 Blake Crowell MD Unknown [id number]-oe520531gjfo 09/14/2015 09/14/2015 Blake Crowell MD Unknown [id number]-0sp8-s6ax-61era27o3m1l 09/14/2015 09/14/2015 Blake Crowell MD Unknown [id number] 09/14/2015 09/14/2015 Blake Crowell MD Unknown [id number]-[id number] 09/14/2015 09/14/2015 Blake Crowell MD Unknown [id number] 09/14/2015 09/14/2015 Blake Crowell MD Unknown [id number] 09/14/2015 09/14/2015 Blake Crowell MD Unknown [id number]-fz26-[id number] 09/14/2015 09/14/2015 Blake Crowell MD Unknown [id number]-u9d7229m8s10 09/14/2015 09/14/2015 Blake Crowell MD Unknown [id number]-[id number]-vf7s-151q971n924w 09/14/2015 09/14/2015 Blake Crowell MD Unknown [id number] 09/14/2015 09/14/2015 Blake Crowell MD Unknown [id number] 09/14/2015 09/14/2015 Blake Crowell MD f/u 2n4ezm47-s3wc-7k18-k34l-p369751q0iwk 10/12/2015 10/12/2015 Blake Crowell MD f/u 612p643w-1k6s-285i-505j-9953e70h1840 10/12/2015 10/12/2015 Blake Crowell MD f/u 4604b814-2mj8-09zv-46j1-5hiu935m5z64 10/12/2015 10/12/2015 Blake Crowell MD f/u g794mm60-9f17-07l9-73zt-1qdqj6643163 10/12/2015 10/12/2015 Blake Crowell MD f/u vo596e0h-02vh-3mh5-6635-mbb91y8x9bd4 10/12/2015 10/12/2015 Blake Crowell MD f/u 6s0c3179-txkz-51f8-apu6-1x9436k8v3tn 10/12/2015 10/12/2015 Blake Crowell MD f/u wm31p013-846p-88e4-q645-j5iq8h104855 10/12/2015 10/12/2015 Blake Crowell MD f/u r6j681m1-77j5-26m1-7u4g-13uc90s392rm 10/12/2015 10/12/2015 Blake Crowell MD f/u 091879p3-61n8-107h-3cbb-m9457t48k858 10/12/2015 10/12/2015 Blake Crowell MD f/u 70692gd0-315d-745f-x909-3p1bzwl0rf24 10/12/2015 10/12/2015 Blake Crowell MD f/u 800j72mr-3204-65ja-p5s1-358o0k156o53 10/12/2015 10/12/2015 Blake Crowell MD f/u 057f50tl-0n82-9g79-j978-630648392ad3 10/12/2015 10/12/2015 Blake Crowell MD f/u gu3b862w-0461-2168-79x3-0530p5mzu1o7 10/12/2015 10/12/2015 Blake Crowell MD f/u h825q4e2-u4qc-2h2n-9bty-ym36856fdk39 10/12/2015 10/12/2015 Blake Crowell MD f/u mx6dfo84-027g-5oa8-442c-cu99t45y162e 10/12/2015 10/12/2015 Blake Crowell MD f/u z5t35119-x12c-7970-6938-11qj458p9jd2 10/12/2015 10/12/2015 Blake Crowell MD f/u 118w0109-00va-4u3c-ay54-354y92r778ey 10/12/2015 10/12/2015 Blake Crowell MD f/u 0192eb6x-9108-184p-na4u-t2732995yi98 10/12/2015 10/12/2015 Blake Crowell MD f/u 5b95e27t-2049-8657-m08k-8328yy36t802 10/12/2015 10/12/2015 Blake Crowell MD Follow up k6867fo1-246x-61rj-0096-fjas01jk467x 10/20/2015 10/20/2015 Blake Crowell MD Follow up 36xx4183-z92m-10l8-6n7o-v34124uf2201 10/20/2015 10/20/2015 Blake Crowell MD Follow up 76v3qhr9-ebdd-7848-r02c-0j864282n24i 10/20/2015 10/20/2015 Blake Crowell MD Follow up y819y9cp-y0v4-099j-0m39-3622v080y93g 10/20/2015 10/20/2015 Blake Crowell MD Follow up 7z4747l5-f3gz-34u1-105p-wu6y38bntk5d 10/20/2015 10/20/2015 Blake Crowell MD Follow up lw77i1j9-835r-0o73-7971-5469e4kc940a 10/20/2015 10/20/2015 Blake Crowell MD Follow up i7kbju03-lk27-9634-x82d-i4711k086999 10/20/2015 10/20/2015 Blake Crowell MD Follow up [id number]-gc78-hh5gepp44u19 10/20/2015 10/20/2015 Blake Crowell MD Follow up [id number]-4a0337459i21 10/20/2015 10/20/2015 Blake Crowell MD Follow up 139k706t-n9b0-8l0l-gr94-7kj463l3zm3y 10/20/2015 10/20/2015 Blake Crowell MD Follow up [id number]-t54g-50v0-09g8-4j281p80lyo2 10/20/2015 10/20/2015 Blake Crowell MD Follow up hb966t1m-1897-3u1g-h936-1t005fehzt9t 10/20/2015 10/20/2015 Blake Crowell MD Follow up [id number]-81qn61dn1005 10/20/2015 10/20/2015 Blake Crowell MD Follow up 8z3td102-jns0-931j-2932-4jp472225jd1 10/20/2015 10/20/2015 Blake Crowell MD Follow up 1a0o77u9-7y9z-11q8-s67m-59v250z8q6r1 10/20/2015 10/20/2015 Blake Crowell MD Follow up cm3xgz3t-6916-60d3-7w25-07p272pe701m 10/20/2015 10/20/2015 Blake Crowell MD Follow up e9s4s9r9-p570-12oa-gqu9-w3dbq2mpi99p 10/20/2015 10/20/2015 Blake Crowell MD Follow up ixf39nd5-p720-00cr-[id number] 10/20/2015 10/20/2015 Blake Crowell MD Hand pain 7pbhrh7n-6830-0o5e-7baa-917677qz811k 10/20/2015 10/20/2015 Blake Crowell MD Hand pain 63227xt2-350w-0s5j-vo05-647o50fk6b10 10/20/2015 10/20/2015 Blake Crowell MD Hand pain 986p39ip-7152-491b-730x-nvvw69r2e59f 10/20/2015 10/20/2015 Blake Crowell MD Hand pain 019c9317-58a7-1772-r208-310ut396y321 10/20/2015 10/20/2015 Blake Crowell MD infusion appt. 7l8w8m57-5f7v-57t8-2i79-df5sc0cv3xq0 11/09/2015 11/09/2015 Blake Crowell MD infusion appt. 2b350v50-297c-8180-eu32-f6g72629x3yj 11/09/2015 11/09/2015 Blake Crowell MD infusion appt. 92z52356-338t-12cs-6i36-9b74db2y160y 11/09/2015 11/09/2015 Blake Crowell MD infusion appt. 47q7p4rm-6222-6cb9-0229-fldfrzx9g669 11/09/2015 11/09/2015 Blake Crowell MD infusion appt. 43e45845-n0fo-4946-1kc2-20q05d84561k 11/09/2015 11/09/2015 Blake Crowell MD infusion appt. 4h555g3g-2cps-0y35-snb4-717kw247mnx5 11/09/2015 11/09/2015 Blake Crowell MD infusion appt. 1q910ft7-rr0d-972u-5157-ntoif85d281o 11/09/2015 11/09/2015 Blake Crowell MD infusion appt. 7859i994-e701-2a1b-j578-4u798fk9631g 11/09/2015 11/09/2015 Blake Crowell MD infusion appt. k1w4889r-o947-70gv-o203-12a3114s5589 11/09/2015 11/09/2015 Blake Crowell MD infusion appt. 0ly77f3o-9d0i-30a7-b846-962z94ar049e 11/09/2015 11/09/2015 Blake Crowell MD infusion appt. tsutj404-475q-7175-s22x-305ajf1h0i0d 11/09/2015 11/09/2015 Blake Crowell MD infusion appt. 60ao3gdw-fhh3-7k9z-097z-i9k241i7pla1 11/09/2015 11/09/2015 Blake Crowell MD infusion appt. 49385531-619v-8xx5-f6pu-o55za7438e6i 11/09/2015 11/09/2015 Blake Crowell MD infusion appt. a88qjf95-213j-06u9-246i-25y132o94668 11/09/2015 11/09/2015 Blake Crowell MD infusion appt. 78587915-a001-9645-159a-mwz4pgmixtt6 11/09/2015 11/09/2015 Blake Crowell MD infusion appt. 0h988909-441n-4g14-k70x-7a0010680ni0 11/09/2015 11/09/2015 Blake Crowell MD infusion appt. 4103xm05-q52k-37wr-2s77-e453l24a9791 11/09/2015 11/09/2015 Blake Crowell MD Follow-up 45479eyw-5bkf-871r-7937-32987jhx5240 11/30/2015 11/30/2015 Blake Crowell MD Follow-up w11hg3ol-2j79-9994-q0zk-862441899846 11/30/2015 11/30/2015 Blake Crowell MD Follow-up 1aulfi39-537q-1657-6r24-7r09t7065701 11/30/2015 11/30/2015 Blake Crowell MD Follow-up ai7jgz8z-56t8-4855-m78a-4yy5fel4vc7f 11/30/2015 11/30/2015 Blake Crowell MD Follow-up i7gll01z-pb50-9f21-6i7h-832x82848v9w 11/30/2015 11/30/2015 Blake Crowell MD Follow-up 495s845v-12a0-165q-7397-5tzk7vpqi764 11/30/2015 11/30/2015 Blake Crowell MD Follow-up 2fiq1679-9c1f-49a2-v01w-4w4yi290314p 11/30/2015 11/30/2015 Blake Crowell MD Follow-up 54g6gs7t-55v3-771a-35ae-8g8lg3s4g32b 11/30/2015 11/30/2015 Blake Crowell MD Follow-up 68y0o213-2u2n-0638-l64j-hl6rskb473l2 11/30/2015 11/30/2015 Blake Crowell MD Follow-up xr111su7-1m71-2gtx-343d-090125oycjn6 11/30/2015 11/30/2015 Blake Crowell MD Follow-up 542188r4-367x-2m4q-r3e9-5789601ux64m 11/30/2015 11/30/2015 Blake Crowell MD Follow-up 18kt4861-o480-5i91-ue87-7943bb1074j3 11/30/2015 11/30/2015 Blake Crowell MD Follow-up 0uje05zy-hre6-019m-1241-s1pn7q67m47c 11/30/2015 11/30/2015 Blake Crowell MD Follow-up 3qgi1266-j953-39hy-g465-h2wzkc62781m 11/30/2015 11/30/2015 Blake Crowell MD Follow-up d9b07p86-2ius-8q29-0642-07k353r2i81h 11/30/2015 11/30/2015 Blake Crowell MD Follow-up [id number]-[id number]-tz71-785d84579459 11/30/2015 11/30/2015 Blake Crowell MD follow up 3k6p6gc9-9590-1064-0r07-2o0k9zw6zbuh 12/14/2015 12/14/2015 Blake Crowell MD follow up [id number]-0884-8417-f172u665l0p3 12/14/2015 12/14/2015 Blake Crowell MD follow up q1e56oim-i6u3-3886-3r5n-r26906i30113 12/14/2015 12/14/2015 Blake Crowell MD follow up 865wdz4t-06pf-15p7-125i-42b16900wmra 12/14/2015 12/14/2015 Blake Crowell MD follow up 1w717i12-11u9-34gl-l4l8-7fu25e476530 12/14/2015 12/14/2015 Blake Crowell MD follow up 6pj8a9bt-211m-6zx7-515x-2q230ozlbp0l 12/14/2015 12/14/2015 Blake Crowell MD follow up 159o4873-13m4-68o3-5986-g2l56k646q75 12/14/2015 12/14/2015 Blake Crowell MD follow up le9b33ya-xf2o-28h2-i5c2-eg6a2zwnhhgq 12/14/2015 12/14/2015 Balke Crowell MD follow up 59r3c990-d536-011c-o228-k315zjov88h1 12/14/2015 12/14/2015 Blake Crowell MD follow up d00dx360-09v3-2ak5-082j-c8a9uzafawny 12/14/2015 12/14/2015 Blake Crowell MD follow up [id number]-a6rm-7g883979p885 12/14/2015 12/14/2015 Blake Crowell MD follow up 2e335q18-a504-9f25-0i4y-89t317rqk292 12/14/2015 12/14/2015 Blake Crowell MD follow up 8j2z6cq4-5yz8-9s6r-6enz-36s8frl56677 12/14/2015 12/14/2015 Blake Crowell MD follow up [id number]-n814-5pcliz8316lo 12/14/2015 12/14/2015 Blake Crowell MD follow up 2x9v547l-6ey7-70r8-h417-rp9gzv381q78 12/14/2015 12/14/2015 Blake Crowell MD MRI B hands [id number]-o521-[id number] 12/14/2015 12/14/2015 Blake Crowell MD MRI B hands [id number] 12/14/2015 12/14/2015 Blake Crowell MD MRI B hands [id number] 12/14/2015 12/14/2015 Blake Crowell MD MRI B hands [id number] 12/14/2015 12/14/2015 Blake Crowell MD MRI B hands [id number] 12/14/2015 12/14/2015 Blake Crowell MD MRI B hands [id number] 12/14/2015 12/14/2015 Blake Crowell MD MRI B hands [id number] 12/14/2015 12/14/2015 Blake Crowell MD MRI B hands [id number] 12/14/2015 12/14/2015 Blake Crowell MD MRI B hands [id number] 12/14/2015 12/14/2015 Blake Crowell MD MRI B hands [id number] 12/14/2015 12/14/2015 Blake Crowell MD MRI B hands [id number] 12/14/2015 12/14/2015 Blake Crowell MD MRI B hands [id number] 12/14/2015 12/14/2015 Blake Crowell MD MRI B hands [id number] 12/14/2015 12/14/2015 Blake Crowell MD Lab order [id number] 12/25/2015 12/25/2015 Blake Crowell MD Lab order [id number] 12/25/2015 12/25/2015 Blake Crowell MD Lab order [id number] 12/25/2015 12/25/2015 Blake Crowell MD Lab order [id number] 12/25/2015 12/25/2015 Blake Crowell MD Lab order [id number] 12/25/2015 12/25/2015 Blake Crowell MD Lab order [id number] 12/25/2015 12/25/2015 Blake Crowell MD Lab order [id number] 12/25/2015 12/25/2015 Blake Crowell MD Lab order [id number] 12/25/2015 12/25/2015 Blake Crowell MD Lab order [id number] 12/25/2015 12/25/2015 Blake Crowell MD Lab order [id number] 12/25/2015 12/25/2015 Blake Crowell MD Lab order [id number] 12/25/2015 12/25/2015 Blake Crowell MD Lab order [id number] 12/25/2015 12/25/2015 Blake Crowell MD Lab order [id number] 12/25/2015 12/25/2015 Blake Crowell MD Lab order [id number] 12/25/2015 12/25/2015 Blake Crowell MD Refill- Leflunonide [id number] 02/10/2016 02/10/2016 Blake Crowell MD Refill- Leflunonide [id number] 02/10/2016 02/10/2016 Blake Crowell MD Refill- Leflunonide [id number] 02/10/2016 02/10/2016 Blake Crowell MD Refill- Leflunonide [id number] 02/10/2016 02/10/2016 Blake Crowell MD Refill- Leflunonide [id number] 02/10/2016 02/10/2016 Blake Crowell MD Refill- Leflunonide [id number] 02/10/2016 02/10/2016 Blake Crowell MD Refill- Leflunonide [id number] 02/10/2016 02/10/2016 Blake Crowell MD Refill- Leflunonide [id number] 02/10/2016 02/10/2016 Blake Crowell MD Refill- Leflunonide [id number] 02/10/2016 02/10/2016 Blake Crowell MD Refill- Leflunonide [id number] 02/10/2016 02/10/2016 Blake Crowell MD Refill- Leflunonide [id number] 02/10/2016 02/10/2016 Blake Crowell MD Refill- Leflunonide [id number] 02/10/2016 02/10/2016 Blake Crowell MD pt added -RASH ALL OVER BODY [id number] 02/15/2016 02/15/2016 Blake Crowell MD pt added -RASH ALL OVER BODY [id number] 02/15/2016 02/15/2016 Blake Crowell MD pt added -RASH ALL OVER BODY [id number] 02/15/2016 02/15/2016 Blake Crowell MD pt added -RASH ALL OVER BODY [id number] 02/15/2016 02/15/2016 Blake Crowell MD pt added -RASH ALL OVER BODY [id number] 02/15/2016 02/15/2016 Blake Crowell MD pt added -RASH ALL OVER BODY [id number] 02/15/2016 02/15/2016 Blake Crowell MD pt added -RASH ALL OVER BODY [id number] 02/15/2016 02/15/2016 Blake Crowell MD pt added -RASH ALL OVER BODY [id number] 02/15/2016 02/15/2016 Blake Crowell MD pt added -RASH ALL OVER BODY [id number] 02/15/2016 02/15/2016 Blake Crowell MD pt added -RASH ALL OVER BODY [id number] 02/15/2016 02/15/2016 Blake Crowell MD pt added -RASH ALL OVER BODY [id number] 02/15/2016 02/15/2016 Blake Crowell MD Unknown [id number] 02/16/2016 02/16/2016 Blake Crowell MD Unknown [id number] 02/16/2016 02/16/2016 Blake Crowell MD MRI of the hands [id number] 02/16/2016 02/16/2016 Blake Crowell MD MRI of the hands [id number] 02/16/2016 02/16/2016 Blake Crowell MD MRI of the hands [id number] 02/16/2016 02/16/2016 Blake Crowell MD MRI of the hands [id number] 02/16/2016 02/16/2016 Blake Crowell MD MRI of the hands [id number] 02/16/2016 02/16/2016 Blake Crowell MD MRI of the hands [id number] 02/16/2016 02/16/2016 MD Rivera Renteria [id number] 02/16/2016 02/16/2016 MD Judith Renteriaia [id number] 02/16/2016 02/16/2016 MD Jduith Renteriaia [id number] 02/16/2016 02/16/2016 MD Judith Renteriaia [id number] 02/16/2016 02/16/2016 MD Judith Renteriaia [id number] 02/16/2016 02/16/2016 Blake Crowell MD MRI of the hands [id number] 02/16/2016 02/16/2016 Blake Crowell MD MRI of the hands [id number] 02/16/2016 02/16/2016 Blake Crowell MD MRI of the hands [id number] 02/16/2016 02/16/2016 Blake Crowell MD MRI of the hands [id number] 02/16/2016 02/16/2016 MD Rivera Renteria [id number] 02/16/2016 02/16/2016 MD Rivera Renteria [id number] 02/16/2016 02/16/2016 MD Rivera Renteria [id number] 02/16/2016 02/16/2016 MD Rivera Renteria [id number] 02/16/2016 02/16/2016 Blake Crowell MD [facility] [id number] 02/23/2016 02/23/2016 Blake Crowell MD Rash [id number] 02/23/2016 02/23/2016 Blake Crowell MD Rash [id number] 02/23/2016 02/23/2016 Blake Crowell MD Rash [id number] 02/23/2016 02/23/2016 Blake Crowell MD Rash [id number] 02/23/2016 02/23/2016 Blake Crowell MD Rash [id number] 02/23/2016 02/23/2016 Blake Crowell MD Rash [id number] 02/23/2016 02/23/2016 Blake Crowell MD Rash [id number] 02/23/2016 02/23/2016 Blake Crowell MD Skin rash [id number] 02/24/2016 02/24/2016 Blake Crowell MD Skin rash [id number] 02/24/2016 02/24/2016 Blake Crowell MD Skin rash [id number] 02/24/2016 02/24/2016 Blake Crowell MD Skin rash [id number] 02/24/2016 02/24/2016 Blake Crowell MD Skin rash [id number] 02/24/2016 02/24/2016 Blake Crowell MD Skin rash [id number] 02/24/2016 02/24/2016 Blake Crowell MD Skin rash [id number] 02/24/2016 02/24/2016 Blake Crowell MD Refill- Humira [id number] 03/07/2016 03/07/2016 Blake Crowell MD Refill- Humira [id number] 03/07/2016 03/07/2016 Blake Crowell MD Refill- Humira [id number] 03/07/2016 03/07/2016 Blake Crowell MD Refill- Humira [id number] 03/07/2016 03/07/2016 Blake Crowell MD Refill- Humira [id number] 03/07/2016 03/07/2016 Blake Crowell MD Refill- Humira [id number] 03/07/2016 03/07/2016 Blake Crowell MD f/u [id number] 04/11/2016 04/11/2016 Blake Crowell MD f/u [id number] 04/11/2016 04/11/2016 Blake Crowell MD f/u [id number] 04/11/2016 04/11/2016 Blake Crowell MD f/u [id number] 04/11/2016 04/11/2016 Blake Crowell MD f/u [id number] 04/11/2016 04/11/2016 Blake Crowell MD [facility] [id number] 06/06/2016 06/06/2016 Blake Crowell MD CX INJECTION FOR 06/27/16 [id number] 06/22/2016 06/22/2016 Blake Crowell MD CX INJECTION FOR 06/27/16 [id number] 06/22/2016 06/22/2016 Blake Crowell MD CX INJECTION FOR 06/27/16 [id number] 06/22/2016 06/22/2016 Blake Crowell MD Unknown [id number] 07/07/2016 07/07/2016 Blake Crowell MD Unknown [id number] 07/07/2016 07/07/2016 Blake Crowell MD Unknown [id number] 07/07/2016 07/07/2016 Blake Crowell MD Unknown [id number] 07/07/2016 07/07/2016 Blake Crowell MD Unknown [id number] 07/07/2016 07/07/2016 Blake Crowell MD Unknown [id number] 07/07/2016 07/07/2016 Blake Crowell MD Unknown [id number] 07/07/2016 07/07/2016 Blake Crowell MD Unknown [id number] 07/07/2016 07/07/2016 Blake Crowell MD Unknown [id number] 07/08/2016 07/08/2016 Blake Crowell MD Unknown [id number] 07/08/2016 07/08/2016 Blake Crowell MD Unknown [id number] 07/08/2016 07/08/2016 Blake Crowell MD Unknown [id number] 07/08/2016 07/08/2016 Blake Crowell MD Unknown [id number] 07/08/2016 07/08/2016 Blake Crowell MD Unknown [id number] 07/08/2016 07/08/2016 Blake Crowell MD Unknown [id number] 07/08/2016 07/08/2016 Blake Crowell MD Unknown [id number] 07/12/2016 07/12/2016 Blake Crowell MD Unknown [id number] 07/12/2016 07/12/2016 Blake Crowell MD Unknown [id number] 07/12/2016 07/12/2016 Blake Crowell MD Unknown [id number] 07/12/2016 07/12/2016 Blake Crowell MD Unknown [id number] 07/12/2016 07/12/2016 Blake Crowell MD Unknown [id number] 07/12/2016 07/12/2016 Blake Crowell MD Unknown [id number] 07/13/2016 07/13/2016 Blake Crowell MD Unknown [id number] 07/13/2016 07/13/2016 Blake Crowell MD Unknown [id number] 07/13/2016 07/13/2016 Blake Crowell MD Unknown [id number] 07/13/2016 07/13/2016 Blake Crowell MD Unknown [id number] 07/13/2016 07/13/2016 Blake Crowell MD Unknown [id number] 07/13/2016 07/13/2016 Blake Crowell MD Unknown [id number] 07/20/2016 07/20/2016 Blake Crowell MD Unknown [id number] 07/20/2016 07/20/2016 Blake Crowell MD Unknown [id number] 07/20/2016 07/20/2016 Blake Crowell MD Unknown [id number] 07/20/2016 07/20/2016 Blake Crowell MD CX APPOINTMENT [id number] 07/29/2016 07/29/2016 Blake Crowell MD CX APPOINTMENT [id number] 07/29/2016 07/29/2016 Blake Crowell MD CX APPOINTMENT [id number] 07/29/2016 07/29/2016 Blake Crowell MD Unknown [id number] 08/03/2016 08/03/2016 Blake Crowell MD Unknown [id number] 08/03/2016 08/03/2016 Blake Crowell MD UPDATE [id number] 08/22/2016 08/22/2016 Blake Crowell [facility] New Patient Detailed - [id number] Navi Cooley MD 11/09/2018 [facility] Est Patient Exp Problem - 68610 [id number] Navi Cooley MD 11/16/2018 [facility] Procedures Procedure Code Date Perfomer Comments Source Venipuncture [id number] 11/09/2018 Yasir HAIRSTON [facility] Assessment and Plan No Data Provided for This Section Plan of Care No Data Provided for This Section Social History Social History Date Source Social History ElementQualifiersDate Reported Tobacco Use: . Are you a:: current smoker , How often do you smoke cigarettes?: every day, How many cigarettes a day do you smoke?: 6-10 Jul 18, 2016 Pets: none. Jul 18, 2016 Marital Status: single. Jul 18, 2016 Diet: no. Jul 18, 2016 Caffeine: yes. frequency:, , 1-5, cups/day Jul 18, 2016 Exercise: no. Jul 18, 2016 Alcohol: no. Jul 18, 2016 Travel outside [place]: no. Jul 18, 2016 Occup. exposure: none. Jul 18, 2016 Occupation: unemployed. Jul 18, 2016 07/18/2016 Blake Crowell Family History No Data Provided for This Section Advance Directives No Data Provided for This Section Functional Status No Data Provided for This Section
--- OUTSIDE RECORDS SUMMARY | 2019-01-15 17:51 | XMS REPORT ---
Author Josesito Thomas Organization [employer] Address Unknown Phone Unavailable Care Team Providers Care Technical Manager Name Role Phone Josesito Crowell CP Unavailable [...]
--- OUTSIDE RECORDS SUMMARY | 2019-01-15 17:51 | XMS REPORT ---
Author Author Josesito Crowell Organization [employer] Address Unknown Phone Unavailable Care Team Providers Care Drafter Chief Design Name Role Phone Josesito Crowell CP Unavailable [...]
--- OUTSIDE RECORDS SUMMARY | 2019-01-15 17:51 | XMS REPORT ---
Author Josesito Thomas Organization [employer] Address Unknown Phone Unavailable Care Team Providers Care Chipper Name Role Phone Josesito Crowell CP Unavailable [...]
--- OUTSIDE RECORDS SUMMARY | 2019-01-15 17:51 | XMS REPORT ---
Author Author Josesito Crowell Organization [employer] Address Unknown Phone Unavailable Care Team Providers Care Ship Fitter Name Role Phone Josesito Crowell CP Unavailable [...] organ 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 Active Medications Medication Code System Code Instructions Start Date End Date Status Dosage Cimzia Lyophilized Powder NDC 0 2 X 200 MG/ML subcutaneous q 4 weeks May 03, 2017 Active 1 kit Results No Known Results Summary Purpose [employer] Submission
--- OUTSIDE RECORDS SUMMARY | 2019-01-15 17:51 | XMS REPORT ---
Author Author Josesito Crowell Organization [employer] Address Unknown Phone Unavailable Care Team Providers Care Molecular Geneticist Name Role Phone Josesito Crowell CP Unavailable [...]
--- OUTSIDE RECORDS SUMMARY | 2019-01-15 17:51 | XMS REPORT ---
Author Author Josesito Crowell Organization [employer] Address Unknown Phone Unavailable Care Team Providers Care Specialty Cook Name Role Phone Josesito Crowell CP Unavailable [...] MG/ML subcutaneous at weeks 0, 2, 4 Mar 06, 2017 Active 1 kit Results No Known Results Summary Purpose [employer] Submission
--- OUTSIDE RECORDS SUMMARY | 2019-01-15 17:51 | XMS REPORT ---
Author Josesito Thomas Organization [employer] Address Unknown Phone Unavailable Care Team Providers Care Material Requirements Planning Manager Name Role Phone Josesito Crowell CP [...]
--- OUTSIDE RECORDS SUMMARY | 2019-01-15 17:51 | XMS REPORT ---
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
--- OUTSIDE RECORDS SUMMARY | 2019-01-15 17:51 | XMS REPORT ---
Author Josesito Thomas Organization [employer] Address Unknown Phone Unavailable Care Team Providers Care Technical Solutions Engineer Name Role Phone Josesito Crowell CP Unavailable [...]
--- OUTSIDE RECORDS SUMMARY | 2019-01-15 17:51 | XMS REPORT ---
Author Josesito Thomas Organization [employer] Address Unknown Phone Unavailable Care Team Providers Care Wet Process Technician Name Role Phone Josesito Crowell CP Unavailable [...]
--- OUTSIDE RECORDS SUMMARY | 2019-01-15 17:51 | XMS REPORT ---
Author Josesito Thomas Organization [employer] Address Unknown Phone Unavailable Care Team Providers Care Solutions Developer Name Role Phone Josesito Crowell CP Unavailable [...]
--- OUTSIDE RECORDS SUMMARY | 2019-01-15 17:51 | XMS REPORT ---
Author Author Kim Irene Organization [employer] Address Unknown Phone Unavailable Care Team Providers Care Dog Food Dough Mixer Name Role Phone Kim Irene CP Unavailable Allergies No Known Allergies Problems [...]
--- OUTSIDE RECORDS SUMMARY | 2019-01-15 17:51 | XMS REPORT ---
Author Author Amna Cosby [facility] [employer] Address Unknown Phone Unavailable Care Team Providers Care Administration Intern Name Role Phone Amna Cosby Unavailable Allergies, Adverse Reactions, Alerts Substance Reaction [...] systems involvement M05.79 Active Problem Hand pain, right M79.641 Active [...] without organ 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 Active Assessment Age-related osteoporosis without current pathological fracture M81.0 Active Assessment Tobacco abuse counseling Z71.6 Active Assessment Encounter for long-term (current) use of other high-risk medications Z79.899 Active Medications Medication Code System Code Instructions Start Date End Date Status Dosage Citalopram Hydrobromide ND 47881745374 40 MG Orally Once a day Active 0.5 tablet [place] ND 29771281993 5mg once a day Apr 12, 2017 Active 1 tab Cimzia Lyophilized Powder NDC 0 2 X 200 MG/ML subcutaneous q 4 weeks Feb 09, 2017 Active 1 kit Cholestyramine ND 33550908881 4 GM Orally Twice a day Active 1 packet mixed with water or non-carbonated drink Hydrocodone-Acetaminophen ND 82601227614 10-325 MG Orally tid prn Active 1 tablet as needed Albuterol Sulfate [facility] 86447191509 108 (90 Base) MCG/ACT Inhalation every 4 hrs Active 1 puff as needed Lidocaine [facility] 92134229301 5 % Externally Once a day Active 1 patch to skin remove after 12 hours Estradiol [facility] 32203938279 0.5 MG Orally Once a day Active 1 tablet Venlafaxine HCl ER [facility] 22873165525 150 MG Orally Once a day Active 1 capsule with food Anoro Ellipta [facility] 92596256478 62.5-25 MCG/INH Inhalation Once a day Active 1 puff Actonel [facility] 99656406044 150 MG Orally once a month May 01, 2017 August 29, 2017 Active 1 tablet Melatonin [facility] 10317024534 2.5 MG Orally Once a day Active 1 capsule at bedtime as needed with food Vitamin D [facility] 10536770145 1000 UNIT Orally Once a day Active 1 capsule Oxycodone-Acetaminophen [facility] 96621037075 10-325 MG Orally every 6 hrs Active 1 tablet as needed B Complex [facility] 17216081540 Orally Active as directed Clonazepam [facility] 73111119250 1 MG Orally as needed Active 1/2 tablet Celecoxib [facility] 42859287454 200 Orally Twice a day Active take one capsule by mouth once a day Tizanidine HCl [facility] 57665382212 4 MG Orally every 8 hrs Active 1 tablet as needed Pantoprazole Sodium [facility] 36912792639 40 MG Orally Once a day Active 1 tablet Prolia [facility] [address]-48 60MG Q6 MONTHS Active 60MG SQ Gabapentin [facility] 08870287945 100 MG Orally Three times a day Active 3 capsules Amitriptyline HCl [facility] 67372552876 25 MG Orally Once a day Active 1 tablet Vital Signs Date/Time: May 01, 2017 BMI 23.09 Index Weight 123 lbs Height 61.2 in Temperature 97.8 F Cardiac Monitoring Heart Rate 92 /min Blood Pressure Diastolic 72 mm Hg Blood Pressure Systolic 118 mm Hg Results Name Result Date Reference Range Unit Abnormality Flag C-REACTIVE PROTEIN ----C-REACTIVE PROTEIN 3.0 07629707 <8.0 mg/L N SED RATE BY MODIFIED WESTERGREN ----SED RATE BY MODIFIED WESTERGREN 2 04702543 < OR=30 mm/h N COMPREHENSIVE METABOLIC PANEL W/EGFR ----SODIUM 137 70391328 135-146 mmol/L N ----BUN/CREATININE RATIO NOT APPLICABLE 20170420 6-22 (calc) ----CHLORIDE 100 20170420 98-110 mmol/L N ----POTASSIUM 3.8 35741356 3.5-5.3 mmol/L N ----CALCIUM 9.4 20170420 8.6-10.4 mg/dL N ----PROTEIN, TOTAL 6.6 44102270 6.1-8.1 g/dL N ----CARBON DIOXIDE 31 20170420 20-31 mmol/L N ----ALBUMIN/GLOBULIN RATIO 1.5 20170420 1.0-2.5 (calc) N ----eGFR NON-AFR. THAI 91 20170420 > OR=60 mL/min/1.73m2 N ----BILIRUBIN, TOTAL 0.3 20170420 0.2-1.2 mg/dL N ----eGFR 105 12334736 > OR=60 mL/min/1.73m2 N ----UREA NITROGEN (BUN) 10 20170420 7-25 mg/dL N ----ALBUMIN 4.0 98505720 3.6-5.1 g/dL N ----GLOBULIN 2.6 85366195 1.9-3.7 g/dL (calc) N ----CREATININE 0.72 20170420 0.50-0.99 mg/dL N ----ALT 20 20170420 6-29 U/L N ----GLUCOSE 140 33802829 65-99 mg/dL H ----ALKALINE PHOSPHATASE 61 20170420 33-130 U/L N ----AST 19 96966189 10-35 U/L N Summary Purpose [employer]ClinicalWorks Submission
--- OUTSIDE RECORDS SUMMARY | 2019-01-15 17:51 | XMS REPORT ---
Author Author Josesito Crowell Organization [employer] Address Unknown Phone Unavailable Care Team Providers Care Director Of Provider Relations Name Role Phone Josesito Crowell CP Unavailable Allergies No Known Allergies Problems Problem Type Condition Code Onset Dates Condition Status Problem Hand pain, left M79.642 Active Problem [...]
--- OUTSIDE RECORDS SUMMARY | 2019-01-15 17:51 | XMS REPORT ---
Author Author Amna Cosby [facility] e[employer] Address Unknown Phone Unavailable Care Team Providers Care Sales Planning Coordinator Name Role Phone Amna Cosby CP Unavailable Allergies, Adverse Reactions, Alerts Substance Reaction Event Type Latex Gloves rash Drug Allergy Ibuprofen Lips swell Drug Allergy Dilaudid Info Not Available Drug Allergy Prolia rash, nausea Non Drug Allergy Enbrel Info Not Available Non Drug Allergy Remicade rash Non Drug Allergy Problems Problem Type Condition Code Onset Dates Condition Status Problem Age-related osteoporosis without current pathological fracture M81.0 Active Problem 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 Active Problem Encounter for long-term (current) use of other high-risk medications Z79.899 Active Problem Other chronic pain G89.29 Active Problem Pain in right shoulder M25.511 Active Problem Back pain M54.9 Active Problem Tobacco abuse counseling Z71.6 Active Problem Abnormal laboratory test R89.9 Active Problem Elevated white blood cell count, unspecified D72.829 Active Problem Vitamin D deficiency E55.9 Active Assessment Right hip pain M25.551 Active Assessment Back pain M54.9 Active Assessment 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 Active Assessment Age-related osteoporosis without current pathological fracture M81.0 Active Problem Hand pain, left M79.642 Active Assessment Encounter for long-term (current) use of other high-risk medications Z79.899 Active Problem Hand pain, right M79.641 Active Medications Medication Code System Code Instructions Start Date End Date Status Dosage Amitriptyline HCl [facility] 12521075832 25 MG Orally Once a day prn Active 1 tablet Anoro Ellipta [facility] 21681883984 62.5-25 MCG/INH Inhalation Once a day Active 1 puff Vitamin B 12 ND 11214193006 100 MCG Orally Active as directed Xifaxan [facility] 52445779675 550 MG Orally Twice a day Active 1 tablet Estradiol [facility] 84342426128 0.5 MG Orally Once a day Active 1 tablet Pantoprazole Sodium [facility] 58077280614 40 MG Orally Once a day Active 1 tablet Cimzia Lyophilized Powder ND 0 2 X 200 MG/ML subcutaneous q 4 weeks Active 1 kit Dicyclomine HCl [facility] 55148063513 20 MG Orally Four times a day Active 1 tablet Fluconazole [facility] 98223473059 - Active as directed Hydrocodone-Acetaminophen [facility] 44588347657 10-325 MG Orally Three times a day Active 1 tablet as needed Gabapentin [facility] 33163252328 100 MG Orally Three times a day Active 3 capsules Budesonide [facility] 07709296693 3 MG Orally Once a day Active 1 tablet Venlafaxine HCl ER [facility] 24123406778 150 MG Orally twice a day Active 1 capsule with food Celecoxib [facility] 56793099318 200 Active TAKE ONE CAPSULE BY MOUTH ONCE A DAY Vital Signs Date/Time: November 13, 2018 BMI 22.25 Index Weight 125.6 lbs Height 63 in Temperature 98.1 F Cardiac Monitoring Heart Rate 80 /min Blood Pressure Diastolic 70 mm Hg Blood Pressure Systolic 130 mm Hg Results No Known Results Summary Purpose [employer]ClinicalWorks Submission
--- OUTSIDE RECORDS SUMMARY | 2019-01-15 17:51 | XMS REPORT ---
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 36455336769 100 MCG Orally Active as directed Budesonide ND 24075951822 3 MG Orally Once a day Active 1 tablet Vitamin D ND 81701335206 1000 UNIT Orally Once a day Active 1 capsule Amitriptyline HCl ND 06304994346 25 MG Orally Once a day prn Active 1 tablet Fluconazole ND 34609114292 - Active as directed Pantoprazole Sodium [facility] 25959920741 40 MG Orally Once a day Active 1 tablet Hydrocodone-Acetaminophen [facility] 10771367271 10-325 MG Orally Three times a day Active 1 tablet as needed Aripiprazole [facility] 74896794470 2 MG Orally Once a day Active 1 tablet Cimzia Lyophilized Powder [facility] 0 2 X 200 MG/ML subcutaneous q 4 weeks Active 1 kit Tizanidine HCl [facility] 54283874350 4 MG Orally every 8 hrs Active 1 tablet as needed Anoro Ellipta [facility] 95053792231 62.5-25 MCG/INH Inhalation Once a day Active 1 puff Xifaxan [facility] 12716124656 550 MG Orally Twice a day Active 1 tablet Celecoxib [facility] 56797409279 200 Active TAKE ONE CAPSULE BY MOUTH ONCE A DAY Gabapentin [facility] 17441446922 100 MG Orally Three times a day Active 3 capsules Citalopram Hydrobromide [facility] 75882272327 40 MG Orally Once a day Active 0.5 tablet Chantix [facility] 15760825608 1 MG Orally Twice a day Active 1 tablet Estradiol [facility] 69167600858 0.5 MG Orally Once a day Active 1 tablet Venlafaxine HCl ER [facility] [address]-32 150 MG Orally twice a day Active 1 capsule with food Vital Signs Date/Time: September 06, 2018 BMI 22.22 Index Weight 121.5 lbs Height 62 in Temperature 99.4 F Cardiac Monitoring Heart Rate 112 /min Blood Pressure Diastolic 60 mm Hg Blood Pressure Systolic 138 mm Hg Results No Known Results Summary Purpose eClinicalWorks Submission
--- OUTSIDE RECORDS SUMMARY | 2019-01-15 17:52 | XMS REPORT ---
Author Author Josesito Crowell Organization [employer] Address Unknown Phone Unavailable Care Team Providers Care Director Drug Name Role Phone Josesito Crowell CP Unavailable [...]
--- OUTSIDE RECORDS SUMMARY | 2019-01-15 17:52 | XMS REPORT ---
Author Author Josesito Crowell Organization [employer] Address Unknown Phone Unavailable Care Team Providers Care Billet Recorder Name Role Phone Josesito Crowell CP Unavailable [...]
--- OUTSIDE RECORDS SUMMARY | 2019-01-15 17:52 | XMS REPORT ---
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
--- OUTSIDE RECORDS SUMMARY | 2019-01-15 17:52 | XMS REPORT ---
Author Author Josesito Crowell Organization [employer] Address Unknown Phone Unavailable Care Team Providers Care Legal Service Specialist Name Role Phone Josesito Crowell CP Unavailable Allergies No Known Allergies Problems Problem Type Condition Code Onset Dates Condition Status Problem Hand pain, right M79.641 Active Problem Encounter for long-term (current) use of other high-risk medications Z79.899 Active Problem Age-related osteoporosis without current pathological fracture M81.0 Active Problem Hand pain, left M79.642 Active Problem Pain in right shoulder M25.511 Active Problem Elevated white blood cell count, unspecified D72.829 Active Problem Other chronic pain G89.29 Active Problem Abnormal laboratory test R89.9 Active Problem 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
--- OUTSIDE RECORDS SUMMARY | 2019-01-15 17:52 | XMS REPORT ---
Author Author Josesito Crowell Organization [employer] Address Unknown Phone Unavailable Care Team Providers Care Jewel Waxer Name Role Phone Josesito Crowell CP Unavailable [...] Medications Results No Known Results Summary Purpose [employer] Submission
--- OUTSIDE RECORDS SUMMARY | 2019-01-15 17:52 | XMS REPORT ---
Author Author Kim Irene [facility] eClinicalWorks Address Unknown Phone Unavailable Care Team Providers Care Printed Forms Proofreader Name Role Phone Kim Irene CP Unavailable Allergies, Adverse Reactions, Alerts Substance [...] organ 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 Active Assessment prison (current) use of opiate analgesic Z79.891 Active Assessment Age-related osteoporosis without current pathological fracture M81.0 Active Assessment Encounter for long-term (current) use of other high-risk medications Z79.899 Active Medications Medication Code System Code Instructions Start Date End Date Status Dosage Hydrocodone-Acetaminophen ND 12637715678 10-325 MG Orally tid prn Active 1 tablet as needed Gabapentin ND 93637772140 100 MG Orally Three times a day Active 3 capsules Queenie ND 58319101759 5mg once a day Apr 12, 2017 Aug 10, 2017 Active 1 tab PredniSONE ND 25535438036 5 MG Orally Once a day Apr 12, 2017 Inactive 3 tablets Vitamin D ND 29021419606 1000 UNIT Orally Once a day Active 1 capsule Citalopram Hydrobromide ND 02537089321 40 MG Orally Once a day Active 0.5 tablet [address] [facility] 71643564529 1 GM Orally Twice a day Active 1 tablet on an empty stomach B Complex ND 71873166961 Orally Active as directed Clonazepam [facility] 07318729433 1 MG Orally as needed Active 1/2 tablet Cimzia Lyophilized Powder [facility] 0 2 X 200 MG/ML subcutaneous q 4 weeks Feb 09, 2017 Active 1 kit Cholestyramine [facility] 47702359556 4 GM Orally Twice a day Active 1 packet mixed with water or non-carbonated drink Pantoprazole Sodium [facility] 37118248657 40 MG Orally Once a day Active [address] [facility] [address]-73 60MG Q6 MONTHS Active 60MG SQ Lidocaine [facility] 67657637399 5 % Externally Once a day Active 1 patch to skin remove after 12 hours Tizanidine HCl [facility] 89408584917 4 MG Orally every 8 hrs Active 1 tablet as needed Anoro Ellipta [facility] 32356500140 62.5-25 MCG/INH Inhalation Once a day Active 1 puff Venlafaxine HCl ER [facility] 61729494262 150 MG Orally Once a day Active 1 capsule with food Estradiol [facility] 61634916547 0.5 MG Orally Once a day Active 1 tablet Oxycodone-Acetaminophen [facility] 13243280564 10-325 MG Orally every 6 hrs Active 1 tablet as needed Chantix [facility] 06531944641 1 MG Orally Twice a day Active 1 tablet Albuterol Sulfate [facility] 01421467917 108 (90 Base) MCG/ACT Inhalation every 4 hrs Active 1 puff as needed Celecoxib [facility] 92027148591 200 Orally Twice a day Active take one capsule by mouth once a day Melatonin [facility] 58586540999 2.5 MG Orally Once a day Active 1 capsule at bedtime as needed with food Amitriptyline HCl [facility] 87584974888 25 MG Orally Once a day Active 1 tablet Vital Signs Date/Time: Apr 12, 2017 BMI 22.49 Index Weight 123 lbs Height 62 in Temperature 97.2 F Cardiac Monitoring Heart Rate 80 /min Blood Pressure Diastolic 79 mm Hg Blood Pressure Systolic 150 mm Hg Results Name Result Date Reference Range Unit Abnormality Flag PAIN MGMT,TRICYCLIC ANTI DEPRESS,QN,W/medMATCH,U ----Prescribed Drug 3 Oxycodone 20170412 ----Amitriptyline NEGATIVE 61049956 <100 ng/mL ----medMATCH Amitriptyline CONSISTENT 20170412 ----Nortriptyline NEGATIVE 76536600 <100 ng/mL ----medMATCH Nortriptyline CONSISTENT 20170412 ----Prescribed Drug 1 Hydrocodone 20170412 ----Prescribed Drug 2 Gabapentin 20170412 PAIN MGMT, GABAPENTIN, QN,W/medMATCH,U ----medMATCH Gabapentin CONSISTENT 20170412 ----Gabapentin 75970 08088793 <1000 ng/mL H ----Prescribed Drug 1 Hydrocodone 20170412 ----Prescribed Drug 3 Oxycodone 20170412 ----Prescribed Drug 2 Gabapentin 20170412 PAIN MGMT, FENTANYL, QN,W/medMATCH,U ----medMATCH Norfentanyl CONSISTENT 20170412 ----Norfentanyl NEGATIVE 23553359 <0.5 ng/mL ----medMATCH Fentanyl CONSISTENT 20170412 ----Prescribed Drug 1 Hydrocodone 20170412 ----Prescribed Drug 2 Gabapentin 20170412 ----Prescribed Drug 3 Oxycodone 20170412 ----Fentanyl NEGATIVE 41122308 <0.5 ng/mL PAIN MGMT, CARISOPRODOL METAB,QN,W/medMATCH,U ----Meprobamate NEGATIVE 77431813 <1000 ng/mL ----medMATCH Meprobamate CONSISTENT 20170412 ----Prescribed Drug 2 Gabapentin 20170412 ----Prescribed Drug 3 Oxycodone 20170412 ----Prescribed Drug 1 Hydrocodone 20170412 ZOLPIDEM, QUANTITATIVE, URINE ----ZOLPIDEM METABOLITE NEGATIVE 67757156 <5 ng/mL ----ZOLPIDEM NEGATIVE 56614778 <5 ng/mL PAIN MANAGEMENT PROFILE 1 W/CONF, W/DL, URINE ---- Morphine NEGATIVE 95983313 <50 ng/mL ----medMATCH Hydromorphone CONSISTENT 20170412 ---- Norhydrocodone 1052 22631747 <50 ng/mL H ----medMATCH Morphine CONSISTENT 20170412 ----Phencyclidine NEGATIVE 14501150 <25 ng/mL ----medMATCH Phencyclidine CONSISTENT 20170412 ----Barbiturates NEGATIVE 31223148 <300 ng/mL ----medMATCH Barbiturates CONSISTENT 20170412 ----medMATCH Norhydrocodone CONSISTENT 20170412 ----Benzodiazepines NEGATIVE 97338807 <100 ng/mL ----Oxycodone NEGATIVE 78155854 <100 ng/mL ----medMATCH Benzodiazepines CONSISTENT 20170412 ----medMATCH Oxycodone INCONSISTENT 20170412 ----Marijuana Metabolite NEGATIVE 42221401 <20 ng/mL ----Prescribed Drug 1 Hydrocodone 20170412 ----Prescribed Drug 2 Gabapentin 20170412 ----Prescribed Drug 3 Oxycodone 20170412 ----Amphetamines NEGATIVE 53960528 <500 ng/mL ----medMATCH Amphetamines CONSISTENT 20170412 ----medMATCH Methadone Metab CONSISTENT 20170412 ----Creatinine 16.4 68523941 > or=20.0 mg/dL L ----Methadone Metabolite NEGATIVE 47654566 <100 ng/mL ----Specific [place] 1.003 29164873 > or=1.003 ----medMATCH Cocaine Metab CONSISTENT 20170412 ----pH 6.09 71781103 4.5 - 9.0 ----Cocaine Metabolite NEGATIVE 97108209 <150 ng/mL ----Oxidant NEGATIVE 85305542 <200 mcg/mL ----medMATCH Marijuana Metab CONSISTENT 20170412 ----medMATCH Hydrocodone CONSISTENT 20170412 ---- Hydromorphone 64 61383433 <50 ng/mL H ----medMATCH Codeine CONSISTENT 20170412 ---- Hydrocodone 766 37433480 <50 ng/mL H ----Opiates POSITIVE 12085103 <100 ng/mL A ---- Codeine NEGATIVE 03222227 <50 ng/mL PAIN MGMT, TRAMADOL, QN,W/medMATCH,U ----medMATCH Tramadol CONSISTENT 20170412 ----Tramadol NEGATIVE 13315345 <100 ng/mL ----medMATCH Desmethyltram CONSISTENT 20170412 ----Desmethyltramadol NEGATIVE 07437223 <100 ng/mL ----Prescribed Drug 3 Oxycodone 20170412 ----Prescribed Drug 2 Gabapentin 20170412 ----Prescribed Drug 1 Hydrocodone 20170412 PAIN MGMT, PREGABALIN, QN,W/medMATCH,U ----Prescribed Drug 3 Oxycodone 20170412 ----Prescribed Drug 2 Gabapentin 20170412 ----medMATCH Pregabalin CONSISTENT 20170412 ----Pregabalin NEGATIVE 98373798 <1000 ng/mL ----Prescribed Drug 1 Hydrocodone 20170412 Summary Purpose eClinicalWorks Submission
--- OUTSIDE RECORDS SUMMARY | 2019-01-15 17:52 | XMS REPORT ---
Author Author Josesito Crowell Organization eClinicalWorks Address Unknown Phone Unavailable Care Team Providers Care Welt Trimming Machine Operator Name Role Phone Josesito Crowell CP Unavailable [...] Medications Results No Known Results Summary Purpose [email or web address] Submission
--- OUTSIDE RECORDS SUMMARY | 2019-01-15 17:52 | XMS REPORT ---
Author Author Josesito Crowell [facility] eClinicalWorks Address Unknown Phone Unavailable Care Team Providers Care Plisse Machine Operator Helper Name Role Phone Josesito Crowell CP Unavailable [...] Medications Results No Known Results Summary Purpose [employer] Submission
--- OUTSIDE RECORDS SUMMARY | 2019-01-15 17:52 | XMS REPORT ---
Author Author Josesito Crowell Organization eClinicalWorks Address Unknown Phone Unavailable Care Team Providers Care Rock Crushing Machine Operator Name Role Phone Josesito Crowell [...] Medications Results No Known Results Summary Purpose [employer] Submission
--- OUTSIDE RECORDS SUMMARY | 2019-01-15 17:52 | XMS REPORT ---
Author Josesito Thomas Organization eClinicalWorks Address Unknown Phone Unavailable Care Team Providers Care Manager Surgery Name Role Phone Josesito Crowell CP Unavailable [...]
--- OUTSIDE RECORDS SUMMARY | 2019-01-15 17:52 | XMS REPORT ---
Author Author Amna Cosby [facility] eClinicalWorks Address Unknown Phone Unavailable Care Team Providers Care Shredder Operator Name Role Phone Amna Cosby Unavailable Allergies, [...] without current pathological fracture M81.0 Active Problem Pain in right shoulder M25.511 Active Problem Elevated white blood cell count, unspecified D72.829 Active Problem Other chronic pain G89.29 Active Problem Abnormal laboratory test R89.9 Active Problem 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 Active Problem Vitamin D deficiency E55.9 Active Problem Tobacco abuse counseling Z71.6 Active Assessment Other chronic pain G89.29 Active Assessment Encounter for long-term (current) use of other high-risk medications Z79.899 Active Assessment 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 Active Problem Hand pain, left M79.642 Active Medications Medication Code System Code Instructions Start Date End Date Status Dosage Queenie ND 32073076591 5mg once a day Apr 12, 2017 Active 1 tab Venlafaxine HCl ER ND 35412667705 150 MG Orally Once a day Active 1 capsule with food Hydrocodone-Acetaminophen ND 88052171858 10-325 MG Orally tid prn Active 1 tablet as needed Albuterol Sulfate ND 50757033789 108 (90 Base) MCG/ACT Inhalation every 4 hrs Active 1 puff as needed Amitriptyline HCl ND 68164000767 25 MG Orally Once a day Active 1 tablet Pantoprazole Sodium ND 66321551507 40 MG Orally Once a day Active 1 tablet Vitamin D [facility] 67491945509 1000 UNIT Orally Once a day Active 1 capsule Actonel [facility] 42837685921 150 MG Orally once a month May 01, 2017 August 29, 2017 Active 1 tablet Melatonin [facility] 03427318561 2.5 MG Orally Once a day Active 1 capsule at bedtime as needed with food Anoro Ellipta [facility] 15947535769 62.5-25 MCG/INH Inhalation Once a day Active 1 puff Lidocaine [facility] 99411160419 5 % Externally Once a day Active 1 patch to skin remove after 12 hours Tizanidine HCl [facility] 72804331259 4 MG Orally every 8 hrs Active 1 tablet as needed Citalopram Hydrobromide [facility] 75241407413 40 MG Orally Once a day Active 0.5 tablet Estradiol ND 43744730132 0.5 MG Orally Once a day Active 1 tablet Cimzia Lyophilized Powder [facility] 0 2 X 200 MG/ML subcutaneous q 4 weeks May 03, 2017 Active 1 kit B Complex [facility] 69504550926 Orally Active as directed Clonazepam [facility] 81148975813 1 MG Orally as needed Active 1/2 tablet Gabapentin [facility] 06962452752 100 MG Orally Three times a day Active 3 capsules Cholestyramine [facility] 41458225337 4 GM Orally Twice a day Active 1 packet mixed with water or non-carbonated drink Vital Signs Date/Time: Jul 13, 2017 BMI 21.76 Index Weight 119 lbs Height 62 in Temperature 97.4 F Cardiac Monitoring Heart Rate 82 /min Blood Pressure Diastolic 60 mm Hg Blood Pressure Systolic 132 mm Hg Results No Known Results Summary Purpose eClinicalWorks Submission
--- OUTSIDE RECORDS SUMMARY | 2019-01-15 17:52 | XMS REPORT ---
Author Author Josesito Crowell Organization eClinicalWorks Address Unknown Phone Unavailable Care Team Providers Care Wordpress Developer Name Role Phone Josesito Crowell CP [...] Problem Tobacco abuse counseling Z71.6 Active Medications Medication Code System Code Instructions Start Date End Date Status Dosage Queenie [facility] 39269574383 5mg Orally once a day Apr 12, 2017 Active 1 tablet Results No Known Results Summary Purpose eClinicalWorks Submission
--- OUTSIDE RECORDS SUMMARY | 2019-01-15 17:52 | XMS REPORT ---
Author Author Faby Felton Organization eClinicalWorks Address Unknown Phone Unavailable Care Team Providers Care Asset Protection Assistant Name Role Phone Faby Felton CP Unavailable Allergies, Adverse Reactions, Alerts Substance [...] Problem Tobacco abuse counseling Z71.6 Active Assessment Tobacco abuse counseling Z71.6 Active Assessment Age-related osteoporosis without current pathological fracture M81.0 Active Assessment Encounter for long-term (current) use of other high-risk medications Z79.899 Active Assessment Pain in right shoulder M25.511 Active Assessment 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 Active Assessment Other chronic pain G89.29 Active Problem Hand pain, left M79.642 Active Medications Medication Code System Code Instructions Start Date End Date Status Dosage Cimzia Lyophilized Powder NDC 0 2 X 200 MG/ML subcutaneous q 4 weeks May 03, 2017 Active 1 kit Amitriptyline HCl ND 45300602621 25 MG Orally Once a day Active 1 tablet Lidocaine NDC 00810036588 5 % Externally Once a day Active 1 patch to skin remove after 12 hours Cholestyramine NDC 52070319047 4 GM Orally Twice a day Active 1 packet mixed with water or non-carbonated drink Gabapentin NDC 36230897111 100 MG Orally Three times a day Active 3 capsules B Complex ND 73895007282 Orally Active as directed Estradiol ND 45519563167 0.5 MG Orally Once a day Active 1 tablet Hydrocodone-Acetaminophen ND 55518733558 10-325 MG Orally tid prn Active 1 tablet as needed Tizanidine HCl ND 92644211533 4 MG Orally every 8 hrs Active 1 tablet as needed Actonel ND 47777132352 150 MG Orally once a month May 01, 2017 August 29, 2017 Active [address] [facility] 42349520363 2.5 MG Orally Once a day Active 1 capsule at bedtime as needed with food Anoro Ellipta [facility] 79747253734 62.5-25 MCG/INH Inhalation Once a day Active 1 puff Citalopram Hydrobromide [facility] 18113790204 40 MG Orally Once a day Active 0.5 tablet Pantoprazole Sodium [facility] 02284599399 40 MG Orally Once a day Active [address] [facility] 01665793755 5mg once a day Apr 12, 2017 Active [address] [facility] [address]-12 60MG Q6 MONTHS Inactive 60MG SQ Calcium [address] [facility] 38168240171 600 MG Orally twice a day OTC Jun 14, 2017 Active as directed Albuterol Sulfate [facility] 42597038900 108 (90 Base) MCG/ACT Inhalation every 4 hrs Active 1 puff as needed Clonazepam [facility] 97920088294 1 MG Orally as needed Active 1/2 tablet Vitamin D [facility] 02312310282 1000 UNIT Orally Once a day Active 1 capsule Venlafaxine HCl ER ND 92831626971 150 MG Orally Once a day Active 1 capsule with food Vital Signs Date/Time: Jun 14, 2017 BMI 22.18 Index Weight 121.3 lbs Height 62 in Temperature 97.2 F Cardiac Monitoring Heart Rate 82 /min Blood Pressure Diastolic 80 mm Hg Blood Pressure Systolic 142 mm Hg Results No Known Results Summary Purpose eClinicalWorks Submission
--- OUTSIDE RECORDS SUMMARY | 2019-01-15 17:52 | XMS REPORT ---
Author Josesito Thomas Organization eClinicalWorks Address Unknown Phone Unavailable Care Team Providers Care Manager Lab Name Role Phone Josesito Crowell CP Unavailable [...]
--- OUTSIDE RECORDS SUMMARY | 2019-01-15 17:52 | XMS REPORT ---
Author Author Josesito Crowell Organization eClinicalWorks Address Unknown Phone Unavailable Care Team Providers Care Plug Sorter Name Role Phone Josesito Crowell CP Unavailable [...]
--- OUTSIDE RECORDS SUMMARY | 2019-01-15 17:52 | XMS REPORT ---
Author Author Josesito Crowell Organization eClinicalWorks Address Unknown Phone Unavailable Care Team Providers Care Agriculture Specialist Name Role Phone Josesito Crowell CP [...]
--- OUTSIDE RECORDS SUMMARY | 2019-01-15 17:52 | XMS REPORT ---
Author Author Josesito Crowell [facility] eClinicalWorks Address Unknown Phone Unavailable Care Team Providers Care Ranch Cook Name Role Phone Josesito Crowell CP Unavailable Allergies No Known Allergies Problems Problem Type Condition Code Onset Dates Condition Status Assessment 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 Active Problem Hand pain, left M79.642 Active Problem Hand pain, right M79.641 Active Assessment Elevated white blood cell count, unspecified D72.829 Active Assessment Encounter for long-term (current) use of other high-risk medications Z79.899 Active Problem Vitamin D deficiency E55.9 Active [...]
--- OUTSIDE RECORDS SUMMARY | 2019-01-15 17:52 | XMS REPORT ---
Author Author Josesito Crowell Organization eClinicalWorks Address Unknown Phone Unavailable Care Team Providers Care Carbon Sequestration Plant Engineer Name Role Phone Josesito Crowell CP [...]
--- OUTSIDE RECORDS SUMMARY | 2019-01-15 17:52 | XMS REPORT ---
Author Author Amna Cosby [facility] eClinicalWorks Address Unknown Phone Unavailable Care Team Providers Care Tank House Operator Name Role Phone Amna Cosby CP Unavailable [...] Instructions Start Date End Date Status Dosage Pantoprazole Sodium ND 09890997728 40 MG Orally Once a day Active 1 tablet Cimzia Lyophilized Powder NDC 0 2 X 200 MG/ML subcutaneous q 4 weeks Active 1 kit Celecoxib ND 74830876094 200 Active TAKE ONE CAPSULE BY MOUTH ONCE A DAY Xifaxan ND 15642567948 550 MG Orally Twice a day Active 1 tablet Atorvastatin Calcium ND 20545543626 20 MG Orally Once a day Active 1 tablet Estradiol ND 75717112059 0.5 MG Orally Once a day Active 1 tablet Amitriptyline HCl [facility] 69152536792 25 MG Orally Once a day prn Active 1 tablet Anoro Ellipta [facility] 48817901925 62.5-25 MCG/INH Inhalation Once a day Active 1 puff Dicyclomine HCl [facility] 30255086270 20 MG Orally Four times a day Active 1 tablet Fluconazole [facility] 54360100727 - Active as directed Vitamin B 12 [facility] 96082980727 100 MCG Orally Active as directed Budesonide [facility] 50299552205 3 MG Orally Once a day Active 1 tablet Gabapentin [facility] [address]-14 100 MG Orally Three times a day Active 3 capsules Venlafaxine HCl ER [facility] 79595545372 150 MG Orally twice a day Active 1 capsule with food Hydrocodone-Acetaminophen [facility] 55821969813 10-325 MG Orally Three times a day Active 1 tablet as needed Vital Signs Date/Time: December 19, 2018 BMI 21.87 Index Weight 123.5 lbs Height 63 in Temperature 98.6 F Cardiac Monitoring Heart Rate 84 /min Blood Pressure Diastolic 62 mm Hg Blood Pressure Systolic 128 mm Hg Results No Known Results Summary Purpose eClinicalWorks Submission
--- OUTSIDE RECORDS SUMMARY | 2019-01-15 17:52 | XMS REPORT ---
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 Active Problem Encounter for long-term (current) use of other high-risk medications Z79.899 Active Assessment Encounter for immunization Z23 Active Assessment Vitamin D deficiency E55.9 Active Assessment Age-related osteoporosis without current pathological fracture M81.0 Active Assessment Tobacco abuse counseling Z71.6 Active Medications Medication Code System Code Instructions Start Date End Date Status Dosage Melatonin [facility] [address]-98 2.5 MG Orally Once a day Active 1 capsule at bedtime as needed with food Tizanidine HCl [facility] [address]-59 4 MG Orally every 8 hrs Active 1 tablet as needed Albuterol Sulfate [facility] [address]-15 108 (90 Base) MCG/ACT Inhalation every 4 hrs Active 1 puff as needed Estradiol [facility] [address]-51 0.5 MG Orally Once a day Active 1 tablet Chantix [facility] [address]-33 1 MG Orally Twice a day Active 1 tablet Prolia [facility] [address]-84 60MG Q6 MONTHS Active 60MG SQ Celecoxib [facility] 62110351742 200 Orally Twice a day Jul 14, 2017 Active take one capsule by mouth once a day Anoro Ellipta [facility] [address]-78 62.5-25 MCG/INH Inhalation Once a day Active 1 puff Pantoprazole Sodium [facility] [address]-23 40 MG Orally Once a day Active 1 tablet Cholestyramine [facility] [address]-06 4 GM Orally Twice a day Active 1 packet mixed with water or non-carbonated drink PredniSONE [facility] [address]-08 20 MG Orally Once a day May 15, 2017 Active 1 tablet once a day for 7 days then 1/2 a tab daily Hydrocodone-Acetaminophen [facility] [address]-05 10-325 MG Orally every 6 hrs Active 1 tablet as needed Cimzia Lyophilized Starter Kit NDC 0 6 X 200 MG/ML subcutaneous at weeks 0, 2, 4 Mar 06, 2017 Active 1 kit ORENCIA SQ NDC 0 125MG SUBCUTANEOUSLY ONCE A WEEK September 27, 2016 Mar 17, 2017 Inactive 125MG B Complex [facility] [address]-53 Orally Active as directed Vitamin D [facility] [address]-80 1000 UNIT Orally Once a day Active 1 capsule Gabapentin [facility] [address]-32 100 MG Orally Three times a day Active 3 capsules Cimzia Lyophilized Powder N[facility] 0 2 X 200 MG/ML subcutaneous q 4 weeks Feb 09, 2017 Active 1 kit Citalopram Hydrobromide [facility] [address]-21 40 MG Orally Once a day Active 0.5 tablet Venlafaxine HCl ER [facility] [address]-74 150 MG Orally Once a day Active 1 capsule with food Amitriptyline HCl [facility] [address]-60 25 MG Orally Once a day Active 1 tablet Lidocaine [facility] [address]-54 5 % Externally Once a day Active 1 patch to skin remove after 12 hours Clonazepam [facility] [address]-06 1 MG Orally as needed Active 1/2 tablet Cimzia Lyophilized Starter Kit NDC 0 6 X 200 MG/ML subcutaneous at weeks 0, 2, 4 Active 1 kit Oxycodone-Acetaminophen [facility] [address]-54 10-325 MG Orally every 6 hrs Active 1 tablet as needed Sucralfate [facility] [address]-54 1 GM Orally Twice a day Active 1 tablet on an empty stomach Cimzia Lyophilized Powder [facility] 0 2 X 200 MG/ML subcutaneous q 4 weeks Active 1 kit Vital Signs Date/Time: Mar 16, 2017 BMI 22.13 Index Weight 121 lbs Height 62 in Temperature 97.8 F Cardiac Monitoring Heart Rate 80 /min Blood Pressure Diastolic 70 mm Hg Blood Pressure Systolic 140 mm Hg Results No Known Results Immunizations Vaccine Administration Date Flu Vaccine Mar 16, 2017 Summary Purpose eClinicalWorks Submission
--- OUTSIDE RECORDS SUMMARY | 2019-01-15 17:52 | XMS REPORT ---
Author Author Josesito Crowell Organization eClinicalWorks Address Unknown Phone Unavailable Care Team Providers Care Toy Consultant Name Role Phone Josesito Crowell CP Unavailable [...] Medications Results No Known Results Summary Purpose [employer] Submission
--- OUTSIDE RECORDS SUMMARY | 2019-01-15 17:52 | XMS REPORT ---
Author Author Josesito Crowell Organization eClinicalWorks Address Unknown Phone Unavailable Care Team Providers Care Laborer Powerhouse Name Role Phone Josesito Crowell CP Unavailable [...] Medications Results No Known Results Summary Purpose [employer] Submission
--- OUTSIDE RECORDS SUMMARY | 2019-01-15 17:52 | XMS REPORT ---
Author Josesito Thomas [facility] eClinicalWorks Address Unknown Phone Unavailable Care Team Providers Care Dredge Pipe Installer Name Role Phone Josesito Crowell CP Unavailable [...] Active Assessment Tobacco abuse counseling Z71.6 Active Problem Abnormal [...] Instructions Start Date End Date Status Dosage Albuterol Sulfate [facility] [address]-60 108 (90 Base) MCG/ACT Inhalation every 4 hrs Active 1 puff as needed Citalopram Hydrobromide [facility] [address]-53 40 MG Orally Once a day Active 0.5 tablet Medrol Dose Tawanda [facility] 06749765607 4mg Orally as directed Feb 07, 2017 Feb 19, 2017 Active as directed Anoro Ellipta [facility] [address]-52 62.5-25 MCG/INH Inhalation Once a day Active 1 puff Amitriptyline HCl [facility] [address]-55 25 MG Orally Once a day Active 1 tablet Hydrocodone-Acetaminophen [facility] [address]-20 10-325 MG Orally every 6 hrs Active 1 tablet as needed ORENCIA SQ NDC 0 125MG SUBCUTANEOUSLY ONCE A WEEK September 27, 2016 Active 125MG Sucralfate [facility] [address]-91 1 GM Orally Twice a day Active 1 tablet on an empty stomach Pantoprazole Sodium [facility] [address]-00 40 MG Orally Once a day Active 1 tablet Melatonin [facility] [address]-27 2.5 MG Orally Once a day Active 1 capsule at bedtime as needed with food Estradiol [facility] [address]-53 0.5 MG Orally Once a day Active 1 tablet Oxycodone-Acetaminophen [facility] [address]-78 10-325 MG Orally every 6 hrs Active 1 tablet as needed Clonazepam [facility] [address]-12 1 MG Orally as needed Active 1/2 tablet Gabapentin [facility] [address]-08 100 MG Orally Three times a day Active 3 capsules Chantix [facility] [address]-62 1 MG Orally Twice a day Active 1 tablet Cholestyramine [facility] [address]-76 4 GM Orally Twice a day Active 1 packet mixed with water or non-carbonated drink Tizanidine HCl [facility] [address]-38 4 MG Orally every 8 hrs Active 1 tablet as needed B Complex [facility] [address]-74 Orally Active as directed Prolia [facility] [address]-11 60MG Q6 MONTHS Active 60MG SQ Venlafaxine HCl ER [facility] [address]-69 150 MG Orally Once a day Active 1 capsule with food Celecoxib [facility] 92415510970 200 Active TAKE ONE CAPSULE BY MOUTH ONCE A DAY Vitamin D [facility] [address]-06 1000 UNIT Orally Once a day Active 1 capsule Lidocaine [facility] [address]-89 5 % Externally Once a day Active 1 patch to skin remove after 12 hours PredniSONE [facility] 52908903248 15 MG Active 1 TABLET ONCE A DAY ORALLY 30 DAYS Vital Signs Date/Time: Feb 07, 2017 BMI 21.76 Index Weight 119 lbs Height 62 in Temperature 97.4 F Cardiac Monitoring Heart Rate 80 /min Blood Pressure Diastolic 78 mm Hg Blood Pressure Systolic 140 mm Hg Results No Known Results Summary Purpose eClinicalWorks Submission
--- OUTSIDE RECORDS SUMMARY | 2019-01-15 17:52 | XMS REPORT ---
Author Josesito Thomas Organization eClinicalWorks Address Unknown Phone Unavailable Care Team Providers Care Forensic Computer Examiner Name Role Phone Josesito Crowell CP Unavailable Allergies No Known Allergies Problems Problem Type Condition Code Onset Dates Condition Status Problem Hand pain, right M79.641 Active Problem Tobacco abuse counseling Z71.6 Active Problem Abnormal laboratory test R89.9 Active Problem Vitamin D deficiency E55.9 Active Problem Age-related osteoporosis without current pathological fracture M81.0 Active Problem Hand pain, left M79.642 Active Problem 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 Active Problem Encounter for long-term (current) use of other high-risk medications Z79.899 Active Medications No Known Medications Results No Known Results Summary Purpose eClinicalWorks Submission
--- OUTSIDE RECORDS SUMMARY | 2019-01-15 17:52 | XMS REPORT ---
Author Author Josesito Crowell Organization eClinicalWorks Address Unknown Phone Unavailable Care Team Providers Care Retail Account Specialist Name Role Phone Josesito Crowell CP [...]
[2019-01-15] MEDS ORDERED: SODIUM CHLORIDE 0.9% 250ML 250 ML ONE ×2 (17:53→18:40)
--- OUTSIDE RECORDS SUMMARY | 2019-01-15 17:53 | XMS REPORT ---
Author Author Kim Irene [facility] eClinicalWorks Address Unknown Phone Unavailable Care Team Providers Care Commercial Crabber Name Role Phone Kim Irene CP Unavailable [...] Problem Vitamin D deficiency E55.9 Active Assessment 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 Active Assessment Back pain M54.9 Active Problem Hand pain, left M79.642 Active Assessment Encounter for long-term (current) use of other high-risk medications Z79.899 Active Problem Hand pain, right M79.641 Active Medications Medication Code System Code Instructions Start Date End Date Status Dosage Gabapentin ND 69069071509 100 MG Orally Three times a day Active 3 capsules B Complex ND 02354949425 Orally Active as directed Citalopram Hydrobromide ND 17490453298 40 MG Orally Once a day Active 0.[address] [facility] 77813689222 2.5 MG Orally Once a day Active 1 capsule at bedtime as needed with food Budesonide [facility] [address]-92 3 MG Orally Once a day Active 1 tablet Aripiprazole ND 66130493798 2 MG Orally Once a day Active 1 tablet Tizanidine HCl [facility] 49103733936 4 MG Orally every 8 hrs Active 1 tablet as needed Hydrocodone-Acetaminophen [facility] 60886607826 10-325 MG Orally Three times a day Active 1 tablet as needed Cimzia Lyophilized Powder [facility] 0 2 X 200 MG/ML subcutaneous q 4 weeks Active 1 kit Vitamin D [facility] 92073718491 1000 UNIT Orally Once a day Active 1 capsule Anoro Ellipta [facility] 54157874662 62.5-25 MCG/INH Inhalation Once a day Active 1 puff Venlafaxine HCl ER [facility] 33425965438 150 MG Orally Once a day Active 1 capsule with food Estradiol [facility] 59277466736 0.5 MG Orally Once a day Active 1 tablet Pantoprazole Sodium [facility] 80324348922 40 MG Orally Once a day Active 1 tablet PredniSONE [facility] 98367500779 5 MG Orally Once a day Apr 09, 2018 Active 1 tablet Clonazepam [facility] 77941174715 1 MG Orally as needed Active 1/2 tablet Amitriptyline HCl [facility] 51300127712 25 MG Orally Once a day prn Active 1 tablet Albuterol Sulfate [facility] 32845706332 108 (90 Base) MCG/ACT Inhalation every 4 hrs Active 1 puff as needed Vital Signs Date/Time: May 01, 2018 BMI 21.43 Index Weight 117.2 lbs Height 62 in Temperature 97.6 F Cardiac Monitoring Heart Rate 74 /min Blood Pressure Diastolic 70 mm Hg Blood Pressure Systolic 142 mm Hg Results No Known Results Summary Purpose eClinicalWorks Submission
--- OUTSIDE RECORDS SUMMARY | 2019-01-15 17:53 | XMS REPORT ---
Author Author Josesito Crowell Organization eClinicalWorks Address Unknown Phone Unavailable Care Team Providers Care Piccoloist Name Role Phone Josesito Crowell CP Unavailable Allergies No Known Allergies Problems Problem Type Condition Code Onset Dates Condition Status Problem Age-related osteoporosis without current pathological fracture M81.0 Active Problem 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 Active Problem Encounter for long-term (current) use of other high-risk medications Z79.899 Active Problem Hand pain, left M79.642 Active Problem Hand pain, right M79.641 Active Problem Other chronic pain G89.29 Active Problem Pain in right shoulder M25.511 Active Problem Back pain M54.9 Active Problem Tobacco abuse counseling Z71.6 Active Problem Abnormal laboratory test R89.9 Active Problem Elevated white blood cell count, unspecified D72.829 Active Problem Vitamin D deficiency E55.9 Active Medications No Known Medications Results No Known Results Summary Purpose eClinicalWorks Submission
--- OUTSIDE RECORDS SUMMARY | 2019-01-15 17:53 | XMS REPORT ---
Author Author Amna Cosby [facility] eClinicalWorks Address Unknown Phone Unavailable Care Team Providers Care Asphalt Surface Heater Operator Name Role Phone Amna Cosby Unavailable [...] Problem Tobacco abuse counseling Z71.6 Active Assessment Age-related osteoporosis without current pathological fracture M81.0 Active Assessment Encounter for long-term (current) use of other high-risk medications Z79.899 Active Assessment 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 Active Problem Hand pain, left M79.642 Active Medications Medication Code System Code Instructions Start Date End Date Status Dosage Pantoprazole Sodium ND 69855473738 40 MG Orally Once a day Active 1 tablet Queenie ND 33924179715 5mg once a day Apr 12, 2017 Active 1 tab Cimzia Lyophilized Powder NDC 0 2 X 200 MG/ML subcutaneous q 4 weeks May 03, 2017 Active 1 kit Tizanidine HCl ND 10943289323 4 MG Orally every 8 hrs Active 1 tablet as needed Clonazepam ND 61981294890 1 MG Orally as needed Active 1/2 tablet Hydrocodone-Acetaminophen ND 35375923828 10-325 MG Orally tid prn Active 1 tablet as needed Estradiol ND 73429593093 0.5 MG Orally Once a day Active 1 tablet Lidocaine [facility] 15848337541 5 % Externally Once a day Active 1 patch to skin remove after 12 hours Oxycodone HCl ND 50243004580 5 MG Orally every 6 hrs Active 1 tablet as needed Melatonin [facility] 02867781987 2.5 MG Orally Once a day Active 1 capsule at bedtime as needed with food Vitamin D [facility] 29871174185 1000 UNIT Orally Once a day Active 1 capsule Venlafaxine HCl ER [facility] 42822017760 150 MG Orally Once a day Active 1 capsule with food Gabapentin [facility] 01501737961 100 MG Orally Three times a day Active 3 capsules Anoro Ellipta [facility] 30756158148 62.5-25 MCG/INH Inhalation Once a day Active 1 puff Amitriptyline HCl [facility] 62499896251 25 MG Orally Once a day Active 1 tablet Albuterol Sulfate [facility] 50252090847 108 (90 Base) MCG/ACT Inhalation every 4 hrs Active 1 puff as needed Citalopram Hydrobromide [facility] 43868238219 40 MG Orally Once a day Active 0.5 tablet B Complex [facility] 82399983220 Orally Active as directed Vital Signs Date/Time: September 20, 2017 BMI 21.65 Index Weight 118.4 lbs Height 62 in Temperature 97.1 F Cardiac Monitoring Heart Rate 74 /min Blood Pressure Diastolic 72 mm Hg Blood Pressure Systolic 100 mm Hg Results No Known Results Summary Purpose eClinicalWorks Submission
--- OUTSIDE RECORDS SUMMARY | 2019-01-15 17:53 | XMS REPORT ---
Author Author Josesito Crowell Organization eClinicalWorks Address Unknown Phone Unavailable Care Team Providers Care Progressive Die Maker Name Role Phone Josesito Crowell CP Unavailable [...]
--- OUTSIDE RECORDS SUMMARY | 2019-01-15 17:53 | XMS REPORT ---
Author Author Amna Cosby [facility] eClinicalWorks Address Unknown Phone Unavailable Care Team Providers Care Sulfuric Acid Plant Supervisor Name Role Phone Amna Cosby Unavailable Allergies, [...] Instructions Start Date End Date Status Dosage Lidocaine ND 24652723138 5 % Externally Once a day Active 1 patch to skin remove after 12 hours B Complex ND 13417644513 Orally Active as directed Albuterol Sulfate ND 63014976493 108 (90 Base) MCG/ACT Inhalation every 4 hrs Active 1 puff as needed Gabapentin NDC 18099943142 100 MG Orally Three times a day Active 3 capsules Melatonin ND 93924741766 2.5 MG Orally Once a day Active 1 capsule at bedtime as needed with food Celebrex ND 99959249527 100 MG Orally Once a day Active 1 capsule with food Anoro Ellipta [facility] 11993720027 62.5-25 MCG/INH Inhalation Once a day Active 1 puff Citalopram Hydrobromide [facility] 11978167720 40 MG Orally Once a day Active 0.5 tablet Pantoprazole Sodium [facility] 87133479896 40 MG Orally Once a day Active 1 tablet Clonazepam [facility] 93549424574 1 MG Orally as needed Active 1/2 tablet Venlafaxine HCl ER [facility] 93542103074 150 MG Orally Once a day Active 1 capsule with food Vitamin D [facility] 19607995919 1000 UNIT Orally Once a day Active 1 capsule Aripiprazole [facility] 82003623296 2 MG Orally Once a day Active 1 tablet Hydrocodone-Acetaminophen [facility] 90343881674 10-325 MG Orally tid prn Active 1 tablet as needed Estradiol ND 69414211813 0.5 MG Orally Once a day Active 1 tablet Amitriptyline HCl [facility] 25844080618 25 MG Orally Once a day prn Active 1 tablet Tizanidine HCl [facility] 39712315055 4 MG Orally every 8 hrs Active 1 tablet as needed Cimzia Lyophilized Powder ND 0 2 X 200 MG/ML subcutaneous q 4 weeks May 03, 2017 Active 1 kit Vital Signs Date/Time: Jan 23, 2018 BMI 22.18 Index Weight 121.3 lbs Height 62 in Temperature 97.6 F Cardiac Monitoring Heart Rate 68 /min Blood Pressure Diastolic 60 mm Hg Blood Pressure Systolic 110 mm Hg Results No Known Results Summary Purpose eClinicalWorks Submission
--- OUTSIDE RECORDS SUMMARY | 2019-01-15 17:53 | XMS REPORT ---
Author Author Amna Cosby [facility] eClinicalWorks Address Unknown Phone Unavailable Care Team Providers Care Mail Distributor Name Role Phone Amna Cosby Unavailable Allergies, [...] End Date Status Dosage Pantoprazole Sodium ND 53097771800 40 MG Orally Once a day Active 1 tablet Albuterol Sulfate ND 94042398591 108 (90 Base) MCG/ACT Inhalation every 4 hrs Active 1 puff as needed Hydrocodone-Acetaminophen NDC 58449259433 10-325 MG Orally tid prn Active 1 tablet as needed Clonazepam NDC 17707182740 1 MG Orally as needed Active 1/2 tablet PredniSONE NDC 0 5 MG Orally Once a day Active 3 tablets B Complex NDC 25818538566 Orally Active as directed Estradiol ND 72479662211 0.5 MG Orally Once a day Active 1 tablet Aripiprazole ND 65750896825 2 MG Orally Once a day Active 1 tablet Gabapentin ND 11199481794 100 MG Orally Three times a day Active 3 capsules Melatonin ND 47657348236 2.5 MG Orally Once a day Active 1 capsule at bedtime as needed with food Queenie ND 79078862133 5mg orally once a day Apr 12, 2017 Active 1 tab Lidocaine ND 79922728459 5 % Externally Once a day Active 1 patch to skin remove after 12 hours Amitriptyline HCl ND 00678928240 25 MG Orally Once a day Active 1 tablet Citalopram Hydrobromide ND 05680334151 40 MG Orally Once a day Active 0.5 tablet Venlafaxine HCl ER ND 39230041489 150 MG Orally Once a day Active 1 capsule with food Tizanidine HCl ND 56604556124 4 MG Orally every 8 hrs Active 1 tablet as needed Vitamin D ND 05120775267 1000 UNIT Orally Once a day Active 1 capsule Cimzia Lyophilized Powder [facility] 0 2 X 200 MG/ML subcutaneous q 4 weeks May 03, 2017 Active 1 kit Oxycodone HCl [facility] 65340711282 5 MG Orally every 6 hrs Active 1 tablet as needed Anoro Ellipta [facility] 10328038340 62.5-25 MCG/INH Inhalation Once a day Active 1 puff Vital Signs Date/Time: December 26, 2017 BMI 22.64 Index Weight 123.8 lbs Height 62 in Temperature 98.1 F Cardiac Monitoring Heart Rate 76 /min Blood Pressure Diastolic 78 mm Hg Blood Pressure Systolic 122 mm Hg Results No Known Results Summary Purpose eClinicalWorks Submission
--- OUTSIDE RECORDS SUMMARY | 2019-01-15 17:53 | XMS REPORT ---
Author Author Josesito Crowell Organization eClinicalWorks Address Unknown Phone Unavailable Care Team Providers Care Transition Assistant Name Role Phone Josesito Crowell CP Unavailable [...] Medications Results No Known Results Summary Purpose [employer]orescience[employer]Works Submission
--- OUTSIDE RECORDS SUMMARY | 2019-01-15 17:53 | XMS REPORT ---
Author Author Kim Irene Organization eClinicalWorks Address Unknown Phone Unavailable Care Team Providers Care Preventive Medicine Specialist Name Role Phone Kim Irene CP Unavailable [...]
--- OUTSIDE RECORDS SUMMARY | 2019-01-15 17:53 | XMS REPORT ---
Author Author Amna Cosby [facility] eClinicalWorks Address Unknown Phone Unavailable Care Team Providers Care Assembler Hydraulic Backhoe Name Role Phone Amna Cosby Unavailable Allergies, [...] Instructions Start Date End Date Status Dosage Oxycodone HCl ND 26432884938 5 MG Orally every 6 hrs Active 1 tablet as needed Amitriptyline HCl ND 92348500878 25 MG Orally Once a day Active 1 tablet Lidocaine ND 35122466375 5 % Externally Once a day Active 1 patch to skin remove after 12 hours Anoro Ellipta ND 89434724822 62.5-25 MCG/INH Inhalation Once a day Active 1 puff Pantoprazole Sodium ND 13290229119 40 MG Orally Once a day Active 1 tablet Queenie [facility] 42395597545 5mg orally once a day Apr 12, 2017 Active 1 tab Gabapentin ND 56190803363 100 MG Orally Three times a day Active 3 capsules Tizanidine HCl ND 57893458900 4 MG Orally every 8 hrs Active 1 tablet as needed Aripiprazole ND 91475600661 2 MG Orally Once a day Active 1 tablet Albuterol Sulfate [facility] 44971309175 108 (90 Base) MCG/ACT Inhalation every 4 hrs Active 1 puff as needed Fluconazole ND 34303965161 150 MG Orally Active 1 tablet Hydrocodone-Acetaminophen ND 03425755588 10-325 MG Orally tid prn Active 1 tablet as needed Venlafaxine HCl ER ND 69118423399 150 MG Orally Once a day Active 1 capsule with food Clonazepam ND 65610670052 1 MG Orally as needed Active 1/2 tablet B Complex ND 22181654935 Orally Active as directed Cimzia Lyophilized Powder ND 0 2 X 200 MG/ML subcutaneous q 4 weeks May 03, 2017 Active 1 kit Estradiol ND 60958969481 0.5 MG Orally Once a day Active 1 tablet Xifaxan [facility] 52186795963 550 MG Orally Twice a day Active 1 tablet Vitamin D [facility] 20515313477 1000 UNIT Orally Once a day Active 1 capsule Melatonin [facility] 04986778274 2.5 MG Orally Once a day Active 1 capsule at bedtime as needed with food Citalopram Hydrobromide ND 38648342094 40 MG Orally Once a day Active 0.5 tablet Vital Signs Date/Time: October 18, 2017 BMI 20.67 Index Weight 113 lbs Height 62 in Temperature 97.4 F Cardiac Monitoring Heart Rate 80 /min Blood Pressure Diastolic 70 mm Hg Blood Pressure Systolic 122 mm Hg Results No Known Results Summary Purpose eClinicalWorks Submission
--- OUTSIDE RECORDS SUMMARY | 2019-01-15 17:53 | XMS REPORT ---
Author Author Amna Cosby [facility] eClinicalWorks Address Unknown Phone Unavailable Care Team Providers Care Tub Rider Name Role Phone Amna Cosby Unavailable Allergies, [...] Instructions Start Date End Date Status Dosage Estradiol ND 50216557324 0.5 MG Orally Once a day Active 1 tablet Clonazepam ND 45182861082 1 MG Orally as needed Active 1/2 tablet Tizanidine HCl ND 29092028025 4 MG Orally every 8 hrs Active 1 tablet as needed Aripiprazole ND 84822193130 2 MG Orally Once a day Active 1 tablet Melatonin ND 90709702796 2.5 MG Orally Once a day Active 1 capsule at bedtime as needed with food Venlafaxine HCl ER ND 31266065160 150 MG Orally Once a day Active 1 capsule with food Citalopram Hydrobromide [facility] 29412462472 40 MG Orally Once a day Active 0.5 tablet B Complex [facility] 89882260403 Orally Active as directed Cimzia Lyophilized Powder ND 0 2 X 200 MG/ML subcutaneous q 4 weeks Active 1 kit Hydrocodone-Acetaminophen [facility] 42423610093 10-325 MG Orally Three times a day Active 1 tablet as needed Anoro Ellipta [facility] 79638844715 62.5-25 MCG/INH Inhalation Once a day Active 1 puff Pantoprazole Sodium [facility] 82896738671 40 MG Orally Once a day Active 1 tablet Xifaxan [facility] 55580833052 200 MG Orally Three times a day Active 1 tablet Budesonide [facility] 74318165779 3 MG Orally Once a day Active 1 tablet Vitamin D [facility] 09676278026 1000 UNIT Orally Once a day Active 1 capsule PredniSONE [facility] 39123794300 5 MG Orally Once a day Active 1 tablet Gabapentin [facility] 22491149456 100 MG Orally Three times a day Active 3 capsules Amitriptyline HCl [facility] 80711958082 25 MG Orally Once a day prn Active 1 tablet Albuterol Sulfate [facility] 78857306867 108 (90 Base) MCG/ACT Inhalation every 4 hrs Active 1 puff as needed Vital Signs Date/Time: May 29, 2018 BMI 21.56 Index Weight 117.9 lbs Height 62 in Temperature 98.3 F Cardiac Monitoring Heart Rate 87 /min Blood Pressure Diastolic 73 mm Hg Blood Pressure Systolic 128 mm Hg Results No Known Results Summary Purpose eClinicalWorks Submission
--- OUTSIDE RECORDS SUMMARY | 2019-01-15 17:53 | XMS REPORT ---
Author Josesito Thomas [facility] eClinicalWorks Address Unknown Phone Unavailable Care Team Providers Care Carpenter Rough Name Role Phone Josesito Crowell CP Unavailable Allergies, Adverse Reactions, Alerts Substance Reaction Event Type penicillin Swelling Drug Allergy Latex Gloves rash Drug Allergy Ibuprofen Lips swell Drug Allergy Problems Problem Type Condition Code [...] Problem Tobacco abuse counseling Z71.6 Active Assessment Long-term (current) use of other medications - High Risk V58.69 Active Assessment Rheumatoid arthritis 714.0 Active Problem Hand pain, left M79.642 Active Medications Medication Code System Code Instructions Start Date End Date Status Dosage Symbicort [facility] 29515202180 160-4.5 MCG/ACT Inhalation Twice a day Active 2 puffs Nexium [facility] 50053161148 40 MG Orally Once a day Active 1 capsule Xeljanz ND 0 5mg orally BID October 30, 2013 Jan 28, 2014 Active 1 tab Sucralfate [facility] 00026728621 1 GM Orally Twice a day Active 1 tablet Hydrocodone-Acetaminophen [facility] 06565389347 5-325 MG Orally every 6 hrs Active 1 tablet as needed Leflunomide [facility] 88972401540 10 MG Orally Once a day Active 1 tablet Savella Titration Pack [facility] 50686209257 12.5 & 25 & 50 MG Orally Active not defined Estradiol [facility] 25788109048 0.5 MG Orally Daily for Three Weeks, 1 Week off Active 1 tablet PredniSONE [facility] 33932098091 10 MG Orally q AM with food October 30, 2013 Jan 28, 2014 Active as directed Venlafaxine HCl [facility] 07219132705 75 MG Orally Once a day Active 1 tablet with food Nystatin [facility] 09653350883 654284 UNIT/ML Mouth/Throat Once a day Active not defined Vital Signs Date/Time: October 30, 2013 BMI 19.66 Index Weight 111 lbs Height 63 in Temperature 97.6 F Cardiac Monitoring Heart Rate 84 /min Blood Pressure Diastolic 74 mm Hg Blood Pressure Systolic 120 mm Hg Results No Known Results Summary Purpose eClinicalWorks Submission
--- OUTSIDE RECORDS SUMMARY | 2019-01-15 17:53 | XMS REPORT ---
Author Author Josesito Crowell [facility] eClinicalWorks Address Unknown Phone Unavailable Care Team Providers Care Ditch Rider Name Role Phone Josesito Crowell CP Unavailable [...] Medications Results No Known Results Summary Purpose SupplyHoginicalWorks Submission
--- OUTSIDE RECORDS SUMMARY | 2019-01-15 17:53 | XMS REPORT ---
Author Author Amna Cosby [facility] eClinicalWorks Address Unknown Phone Unavailable Care Team Providers Care Head Trimmer Name Role Phone Amna Cosby Unavailable Allergies, [...] Instructions Start Date End Date Status Dosage Clonazepam ND 42581994317 1 MG Orally as needed Active 1/2 tablet Tizanidine HCl ND 60662390332 4 MG Orally every 8 hrs Active 1 tablet as needed Anoro Ellipta ND 39774864258 62.5-25 MCG/INH Inhalation Once a day Active 1 puff Cimzia Lyophilized Powder NDC 0 2 X 200 MG/ML subcutaneous q 4 weeks Active 1 kit Melatonin ND 28740996335 2.5 MG Orally Once a day Active 1 capsule at bedtime as needed with food Venlafaxine HCl ER [facility] 64375873930 150 MG Orally Once a day Active 1 capsule with food PredniSONE [facility] 46762036647 5 MG Orally Once a day Apr 09, 2018 Active 1 tablet B Complex [facility] 51912325810 Orally Active as directed Aripiprazole [facility] 21874397489 2 MG Orally Once a day Active 1 tablet Hydrocodone-Acetaminophen [facility] 22932238118 10-325 MG Orally Three times a day Active 1 tablet as needed Vitamin D [facility] 17273249426 1000 UNIT Orally Once a day Active 1 capsule Citalopram Hydrobromide [facility] 35991625046 40 MG Orally Once a day Active 0.5 tablet Estradiol [facility] 15795674627 0.5 MG Orally Once a day Active 1 tablet Budesonide [facility] 47384743118 3 MG Orally Once a day Active 1 tablet Pantoprazole Sodium [facility] 77517626047 40 MG Orally Once a day Active 1 tablet Celecoxib [facility] 21233546572 200 Active TAKE ONE CAPSULE BY MOUTH ONCE A DAY Amitriptyline HCl [facility] 45377890841 25 MG Orally Once a day prn Active 1 tablet Gabapentin [facility] 20201247311 100 MG Orally Three times a day Active 3 capsules Albuterol Sulfate [facility] 28872589223 108 (90 Base) MCG/ACT Inhalation every 4 hrs Active 1 puff as needed Vital Signs Date/Time: Jul 12, 2018 BMI 21.49 Index Weight 117.5 lbs Height 62 in Temperature 97.5 F Cardiac Monitoring Heart Rate 90 /min Blood Pressure Diastolic 78 mm Hg Blood Pressure Systolic 133 mm Hg Results No Known Results Summary Purpose eClinicalWorks Submission
--- OUTSIDE RECORDS SUMMARY | 2019-01-15 17:53 | XMS REPORT ---
Author Author Josesito Crowell [facility] eClinicalWorks Address Unknown Phone Unavailable Care Team Providers Care Chief Controller Tower Name Role Phone Josesito Crowell CP Unavailable [...] Medications Results No Known Results Summary Purpose CollectainicalWorks Submission
--- OUTSIDE RECORDS SUMMARY | 2019-01-15 17:53 | XMS REPORT ---
Author Author Amna Cosby [facility] eClinicalWorks Address Unknown Phone Unavailable Care Team Providers Care Leaf Sucker Operator Name Role Phone Amna Cosby CP [...] Start Date End Date Status Dosage Melatonin NDC 81036945296 2.5 MG Orally Once a day Active 1 capsule at bedtime as needed with food Celecoxib ND 26847754709 200 Active TAKE ONE CAPSULE BY MOUTH ONCE A DAY Cimzia Lyophilized Powder NDC 0 2 X 200 MG/ML subcutaneous q 4 weeks Active 1 kit Anoro Ellipta ND 94728078538 62.5-25 MCG/INH Inhalation Once a day Active 1 puff Budesonide ND 68015440112 3 MG Orally Once a day Active 1 tablet Vitamin D ND 85974364432 1000 UNIT Orally Once a day Active 1 capsule B Complex [facility] 06134787479 Orally Active as directed PredniSONE ND 48874780980 5 MG Orally Once a day Apr 09, 2018 Active 1 tablet Amitriptyline HCl [facility] 76914663424 25 MG Orally Once a day prn Active 1 tablet Hydrocodone-Acetaminophen [facility] 87883467335 10-325 MG Orally Three times a day Active 1 tablet as needed Clonazepam [facility] 88269567746 1 MG Orally as needed Active 1/2 tablet Venlafaxine HCl ER [facility] 16943038595 150 MG Orally Once a day Active 1 capsule with food Albuterol Sulfate [facility] 58281629566 108 (90 Base) MCG/ACT Inhalation every 4 hrs Active 1 puff as needed Pantoprazole Sodium [facility] 91804306960 40 MG Orally Once a day Active 1 tablet Estradiol [facility] 29611516263 0.5 MG Orally Once a day Active 1 tablet Tizanidine HCl [facility] 38526136780 4 MG Orally every 8 hrs Active 1 tablet as needed Citalopram Hydrobromide [facility] 69021337062 40 MG Orally Once a day Active 0.5 tablet Aripiprazole [facility] 80662407923 2 MG Orally Once a day Active 1 tablet Gabapentin [facility] 92096805434 100 MG Orally Three times a day Active 3 capsules Vital Signs Date/Time: Aug 09, 2018 BMI 21.56 Index Weight 117.9 lbs Height 62 in Temperature 97.7 F Cardiac Monitoring Heart Rate 88 /min Blood Pressure Diastolic 64 mm Hg Blood Pressure Systolic 104 mm Hg Results No Known Results Summary Purpose eClinicalWorks Submission
--- OUTSIDE RECORDS SUMMARY | 2019-01-15 17:53 | XMS REPORT ---
Author Author Josesito Crowell Organization eClinicalWorks Address Unknown Phone Unavailable Care Team Providers Care Occupational Therapist Assistants Name Role Phone Josesito Crowell CP Unavailable [...] Instructions Start Date End Date Status Dosage Prolia [facility] [address]-43 60MG Subcutaneous Q6 MONTHS August 23, 2017 Active 60MG SQ Results No Known Results Summary Purpose eClinicalWorks Submission
--- OUTSIDE RECORDS SUMMARY | 2019-01-15 17:53 | XMS REPORT ---
Author Author Josesito Crowell Organization eClinicalWorks Address Unknown Phone Unavailable Care Team Providers Care Business Line Manager Name Role Phone Josesito Crowell CP [...] Medications Results No Known Results Summary Purpose IntrohiveinicalWorks Submission
--- OUTSIDE RECORDS SUMMARY | 2019-01-15 17:53 | XMS REPORT ---
Author Author Josesito Crowell [facility] eClinicalWorks Address Unknown Phone Unavailable Care Team Providers Care Explosive Operator Bomb Name Role Phone Josesito Crowell CP Unavailable [...] Medications Results No Known Results Summary Purpose DimeresinicalWorks Submission
--- OUTSIDE RECORDS SUMMARY | 2019-01-15 17:53 | XMS REPORT ---
Author Author Josesito Crowell [facility] eClinicalWorks Address Unknown Phone Unavailable Care Team Providers Care Bulldozer Mechanic Name Role Phone Josesito Crowell CP Unavailable [...] Medications Results No Known Results Summary Purpose CleverinicalWorks Submission
--- OUTSIDE RECORDS SUMMARY | 2019-01-15 17:53 | XMS REPORT ---
Author Author Josesito Crowell Organization eClinicalWorks Address Unknown Phone Unavailable Care Team Providers Care Parboiler Name Role Phone Josesito Crowell CP Unavailable [...] Start Date End Date Status Dosage Celecoxib [facility] 49251232660 200 Orally Twice a day January 15, 2018 Apr 15, 2018 Active 1 capsule with food Results No Known Results Summary Purpose eClinicalWorks Submission
--- OUTSIDE RECORDS SUMMARY | 2019-01-15 17:53 | XMS REPORT ---
Author Author Josesito Crowell Organization eClinicalWorks Address Unknown Phone Unavailable Care Team Providers Care Vice President Network Development Name Role Phone Josesito Crowell CP Unavailable [...] Start Date End Date Status Dosage Prolia [facility] [address]-72 60MG Subcutaneous Q6 MONTHS August 28, 2017 Active 60MG SQ Results No Known Results Summary Purpose eClinicalWorks Submission
--- OUTSIDE RECORDS SUMMARY | 2019-01-15 17:53 | XMS REPORT ---
Author Author Josesito Crowell Organization eClinicalWorks Address Unknown Phone Unavailable Care Team Providers Care Periodicals Clerk Name Role Phone Josesito Crowell CP Unavailable [...]
--- OUTSIDE RECORDS SUMMARY | 2019-01-15 17:53 | XMS REPORT ---
Author Author Josesito Crowell Organization eClinicalWorks Address Unknown Phone Unavailable Care Team Providers Care Ophthalmic Nurse Name Role Phone Joseisto Crowell CP Unavailable Allergies No Known Allergies [...] Medications Results No Known Results Summary Purpose Lo[employer] On Fine ArtinicalWorks Submission
--- OUTSIDE RECORDS SUMMARY | 2019-01-15 17:54 | XMS REPORT ---
Author Author Kim Irene [facility] eClinicalWorks Address Unknown Phone Unavailable Care Team Providers Care Petrophysicist Name Role Phone Kim Irene CP Unavailable [...] Instructions Start Date End Date Status Dosage PredniSONE [facility] 74180458974 5 MG Orally Once a day Apr 09, 2018 Active 1 tablet Results No Known Results Summary Purpose eClinicalWorks Submission
--- OUTSIDE RECORDS SUMMARY | 2019-01-15 17:54 | XMS REPORT ---
Author Author Amna Cosby [facility] eClinicalWorks Address Unknown Phone Unavailable Care Team Providers Care Hotel Services Supervisor Name Role Phone Amna Cosby Unavailable Encounters Encounter Location Date Prolia Josesito Crowell MD October 15, 2014 shoulder pain Josesito Crowell MD October 17, 2014 PEER TO PEER Josesito Crowell MD December 11, 2014 Actemra Josesito Crowell MD December 16, 2014 MRI Bi Hands Josesito Crowell MD Jul 31, 2014 f/u Josesito Crowell MD December 16, 2014 f/u Josesito Crowell MD September 17, 2014 MRI Josesito Crowell MD October 17, 2014 Arava Josesito Crowell MD Feb 09, 2015 Ami Crowell MD December 16, 2014 Ami Resendez MD January 13, 2015 Problems Problem Type Condition ICD-9 Code Onset Dates Condition Status Problem Rheumatoid arthritis 714.0 Active Problem Long-term (current) use of other medications - High Risk V58.69 Active Problem Osteoporosis, 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.01 Active Medications Medication Code System Code Instructions Start Date End Date Status Dosage Leflunomide MEDISPAN 72145322602 20 Orally Once a day Active 1 tablet Social History Social History Element Qualifiers Date Reported Tobacco Use: . Are you a:: current smoker , How often do you smoke cigarettes?: every day, How many cigarettes a day do you smoke?: 11-20, How soon after you wake up do you smoke your first cigarette?: within 5 min Feb 02, 2015 Marital Status: . Feb 02, 2015 Caffeine: yes. 5 cups Feb 02, 2015 Exercise: no. Feb 02, 2015 Alcohol: . 1 glass , wine every night to help relax Feb 02, 2015 Summary Purpose eClinicalWorks Submission
--- OUTSIDE RECORDS SUMMARY | 2019-01-15 17:54 | XMS REPORT ---
Author Author Josesito Crowell eClinicalWorks Address Unknown Phone Unavailable Care Team Providers Care Gleason Gear Generator Name Role Phone Josesito Crowell CP Unavailable Encounters Encounter Location Date Prolia Josesito Crowell MD October 15, 2014 shoulder pain Josesito Crowell MD October 17, 2014 PEER TO PEER Josesito Crowell MD December 11, 2014 Actemra Josesito Crowell MD December 16, 2014 MRI Bi Hands Josesito Crowell MD Jul 31, 2014 f/u Josesito Crowell MD September 17, 2014 MRI Josesito Crowell MD October 17, 2014 Arava Josesito Crowell MD Feb 09, 2015 MRI B hands Josesito Crowell MD December 14, 2015 Lab order Josesito Crowell MD December 25, 2015 Vectra Josesito Crowell MD December 16, 2014 Vectra DA Josesito Crowell MD January 13, 2015 infusion appt. Josesito Crowell MD November 09, 2015 Follow-up Josesito Crowell MD November 30, 2015 f/odilon Crowell MD October 12, 2015 Follow up Josesito Crowell MD October 20, 2015 Refill- Leflunonide Josesito Crowell MD Feb 10, 2016 Unknown Josesito Crowell MD Apr 06, 2015 pt added -RASH ALL OVER BODY Josesito Crowell MD Feb 15, 2016 Unknown Josesito Crowell MD September 14, 2015 MRI of the hands Josesito Crowell MD Feb 16, 2016 f/u Josesito Crowell MD December 16, 2014 f/u Josesito Crowell MD Mar 09, 2015 follow up Josesito Crowell MD December 14, 2015 Problems Problem Type Condition ICD-9 Code Onset Dates Condition Status Problem Long-term (current) use of other medications - High Risk V58.69 Active Problem Osteoporosis, 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.01 Active Problem Rheumatoid arthritis 714.0 Active Problem Abnormal laboratory test R89.9 Active Problem 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 Active Problem Rheumatoid arthritis 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 organ or system involvement with positive rheumatoid factor M05.79 Active Problem Lumbago 724.2 Active Problem Age-related osteoporosis without current pathological fracture M81.0 Active Problem Encounter for long-term (current) use of other high-risk medications Z79.899 Active Problem Pain in joint, shoulder region 719.41 Active Social History Social History Element Qualifiers Date Reported Tobacco Use: . Are you a:: former smoker , How long has it been since you last smoked?: < 1 month Feb 16, 2016 Marital Status: . Feb 16, 2016 Caffeine: yes. 5 cups Feb 16, 2016 Exercise: no. Feb 16, 2016 Alcohol: . 1 glass , wine every night to help relax Feb 16, 2016 Summary Purpose eClinicalWorks Submission
--- OUTSIDE RECORDS SUMMARY | 2019-01-15 17:54 | XMS REPORT ---
Author Author Josesito Crowell eClinicalWorks Address Unknown Phone Unavailable Care Team Providers Care Weather Clerk Name Role Phone Josesito Crowell CP [...] Arava Josesito Crowell MD Feb 09, 2015 Vectra Josesito Crowell MD December 16, 2014 Vectra DA Josesito Crowell MD January 13, 2015 infusion appt. Josesito Crowell MD November 09, 2015 Follow-up Josesito Crowell MD November 30, 2015 f/u Josesito Crowell MD October 12, 2015 Follow up Josesito Crowell MD October 20, 2015 Unknown Josesito Crowell MD Apr 06, 2015 Unknown Josesito Crowell MD September 14, 2015 f/u Josesito Crowell MD December 16, 2014 f/u Josesito Crowell MD Mar 09, 2015 Problems Problem Type Condition ICD-9 Code Onset Dates Condition Status Problem Long-term (current) use of other medications - High Risk V58.69 Active Problem Encounter for long-term (current) use of other high-risk medications Z79.899 Active Problem Pain in joint, shoulder region 719.41 Active Problem 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 Active Problem Osteoporosis, 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 Are you a:: current smoker , How often do you smoke cigarettes?: every day, How many cigarettes a day do you smoke?: 11-20, How soon after you wake up do you smoke your first cigarette?: within 5 min October 12, 2015 Marital Status: . October 12, 2015 Caffeine: yes. 5 cups October 12, 2015 Exercise: no. October 12, 2015 Alcohol: . 1 glass , wine every night to help relax October 12, 2015 Summary Purpose eClinicalWorks Submission
--- OUTSIDE RECORDS SUMMARY | 2019-01-15 17:54 | XMS REPORT ---
Author Author Josesito Crowell eClinicalWorks Address Unknown Phone Unavailable Care Team Providers Care Contact Worker Name Role Phone Josesito Crowell CP Unavailable [...]
--- OUTSIDE RECORDS SUMMARY | 2019-01-15 17:54 | XMS REPORT ---
Author Author Amna Cosby [facility] eClinicalWorks Address Unknown Phone Unavailable Care Team Providers Care Veneer Jointer Operator Name Role Phone Amna Cosby Unavailable [...] Problem Tobacco abuse counseling Z71.6 Active Assessment Encounter for long-term (current) use of other high-risk medications Z79.899 Active Assessment 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 Active Assessment Other chronic pain G89.29 Active Assessment Age-related osteoporosis without current pathological fracture M81.0 Active Problem Hand pain, left M79.642 Active Medications Medication Code System Code Instructions Start Date End Date Status Dosage B Complex NDC 38085242538 Orally Active as directed Amitriptyline HCl ND 07417888336 25 MG Orally Once a day prn Active 1 tablet Citalopram Hydrobromide ND 61919319567 40 MG Orally Once a day Active 0.5 tablet Anoro Ellipta ND 90036011358 62.5-25 MCG/INH Inhalation Once a day Active 1 puff Estradiol ND 14765189376 0.5 MG Orally Once a day Active 1 tablet Cimzia Lyophilized Powder NDC 0 2 X 200 MG/ML subcutaneous q 4 weeks Active 1 kit Venlafaxine HCl ER [facility] 13065856684 150 MG Orally Once a day Active 1 capsule with food Clonazepam [facility] 18261855552 1 MG Orally as needed Active 1/2 tablet Melatonin [facility] 04945053373 2.5 MG Orally Once a day Active 1 capsule at bedtime as needed with food Vitamin D [facility] 81556828631 1000 UNIT Orally Once a day Active 1 capsule Gabapentin [facility] 40800542265 100 MG Orally Three times a day Active 3 capsules Pantoprazole Sodium [facility] 78228335080 40 MG Orally Once a day Active 1 tablet Aripiprazole [facility] 14537467770 2 MG Orally Once a day Active 1 tablet Hydrocodone-Acetaminophen [facility] 56211575118 10-325 MG Orally Three times a day Active 1 tablet as needed Tizanidine HCl [facility] 67630437145 4 MG Orally every 8 hrs Active 1 tablet as needed Albuterol Sulfate [facility] 61524042914 108 (90 Base) MCG/ACT Inhalation every 4 hrs Active 1 puff as needed Vital Signs Date/Time: Mar 29, 2018 BMI 21.58 Index Weight 118 lbs Height 62 in Temperature 98.1 F Cardiac Monitoring Heart Rate 91 /min Blood Pressure Diastolic 82 mm Hg Blood Pressure Systolic 130 mm Hg Results No Known Results Summary Purpose eClinicalWorks Submission
--- OUTSIDE RECORDS SUMMARY | 2019-01-15 17:54 | XMS REPORT ---
Author Author Josesito Crowell eClinicalWorks Address Unknown Phone Unavailable Care Team Providers Care Corporate Counsel Name Role Phone Josesito Crowell CP Unavailable Encounters Encounter Location Date Arava Josesito Crowell MD Feb 09, 2015 infusion appt. Josesito Crowell MD November [...] up Josesito Crowell MD December 14, 2015 Prolia Josesito Crowell MD October 15, 2014 shoulder pain Josesito Crowell MD October 17, 2014 PEER TO PEER Josesito Crowell MD December 11, 2014 Actemra Josesito Crowell MD December 16, 2014 MRI Bi Hands Josesito Crowell MD Jul 31, 2014 f/u Josesito Crowell MD September 17, 2014 MRI Josesito Crowell MD October 17, 2014 MRI B hands Josesito Crowell MD December 14, 2015 Lab order Josesito Crowell MD December 25, 2015 Vectra Josesito Crowell MD December 16, 2014 Vectra DA Josesito Crowell MD January 13, 2015 Rash Josesito Crowell MD Feb 23, 2016 Skin rash Josesito Crowell MD Feb 24, 2016 Refill- Humira Josesito Crowell MD Mar 07, 2016 Refill- Leflunonide Josesito Crowell MD Feb 10, 2016 pt added -RASH ALL OVER BODY Josesito Crowell MD Feb 15, 2016 MRI of the hands Josesito Crowell MD Feb 16, 2016 Rivera Crowell MD Feb 16, 2016 Problems Problem Type Condition ICD-9 Code Onset [...] Pain in joint, shoulder region 719.41 Active Medications Medication Code System Code Instructions Start Date End Date Status Dosage Humira Pen MEDISPAN [address]-25 40 MG/0.8ML Subcutaneous every 2 weeks December 14, 2015 Active 0.8 ml Social History Social History Element Qualifiers Date [...]
--- OUTSIDE RECORDS SUMMARY | 2019-01-15 17:54 | XMS REPORT ---
Author Author Josesito Crowell eClinicalWorks Address Unknown Phone Unavailable Care Team Providers Care Marking Machine Operator Name Role Phone Josesito Crowell [...] DA Josesito Crowell MD January 13, 2015 Unknown Josesito Crowell MD Apr 06, [...] smoke your first cigarette?: within 5 min Jul 08, 2015 Marital Status: . Jul 08, 2015 Caffeine: yes. 5 cups Jul 08, 2015 Exercise: no. Jul 08, 2015 Alcohol: . 1 glass , wine every night to help relax Jul 08, 2015 Summary Purpose eClinicalWorks Submission
--- OUTSIDE RECORDS SUMMARY | 2019-01-15 17:54 | XMS REPORT ---
Author Author Anma Cosby [facility] eClinicalWorks Address Unknown Phone Unavailable Care Team Providers Care Automation Controls Specialist Name Role Phone Amna Cosby Unavailable Allergies, [...] End Date Status Dosage Pantoprazole Sodium ND 82720323152 40 MG Orally Once a day Active 1 tablet Melatonin ND 07095751316 2.5 MG Orally Once a day Active 1 capsule at bedtime as needed with food Venlafaxine HCl ER ND 04410684730 150 MG Orally Once a day Active 1 capsule with food B Complex ND 29331803963 Orally Active as directed Hydrocodone-Acetaminophen ND 38709453043 10-325 MG Orally Three times a day Active 1 tablet as needed Citalopram Hydrobromide ND 52121783057 40 MG Orally Once a day Active 0.5 tablet Gabapentin [facility]NOTE 3] 61216870849 100 MG Orally Three times a day Active 3 capsules Clonazepam [facility][NOTE 3] 43588449142 1 MG Orally as needed Active 1/2 tablet Tizanidine HCl [facility]NOTE 3] 02566054355 4 MG Orally every 8 hrs Active 1 tablet as needed Anoro Ellipta [facility][NOTE 3] 88820046314 62.5-25 MCG/INH Inhalation Once a day Active 1 puff Cimzia Lyophilized Powder ND 0 2 X 200 MG/ML subcutaneous q 4 weeks Active 1 kit Estradiol [facility][NOTE 3] 24481606045 0.5 MG Orally Once a day Active 1 tablet Vitamin D [facility][NOTE 3] 53286131137 1000 UNIT Orally Once a day Active 1 capsule Albuterol Sulfate [facility][NOTE 3] 36464532502 108 (90 Base) MCG/ACT Inhalation every 4 hrs Active 1 puff as needed Amitriptyline HCl [facility][NOTE 3] 12822114365 25 MG Orally Once a day prn Active 1 tablet Vital Signs Date/Time: Mar 01, 2018 BMI 21.58 Index Weight 118 lbs Height 62 in Temperature 97.8 F Cardiac Monitoring Heart Rate 88 /min Blood Pressure Diastolic 86 mm Hg Blood Pressure Systolic 120 mm Hg Results No Known Results Summary Purpose eClinicalWorks Submission
--- OUTSIDE RECORDS SUMMARY | 2019-01-15 17:54 | XMS REPORT ---
Author Author Josesito Crowell Organization eClinicalWorks Address Unknown Phone Unavailable Care Team Providers Care Photography Professor Name Role Phone Josesito Crowell CP Unavailable [...] X 200 MG/ML subcutaneous q 4 weeks Aug 01, 2018 Inactive 1 kit Cimzia Prefilled NDC 81748084191 2 X 200 MG/ML Subcutaneous [id number] Aug 01, 2018 Active 2 injections (400mg) Results No Known Results Summary Purpose eClinicalWorks Submission
--- OUTSIDE RECORDS SUMMARY | 2019-01-15 17:54 | XMS REPORT ---
Author Author Josesito Crowell eClinicalWorks Address Unknown Phone Unavailable Care Team Providers Care Conical Mixer Name Role Phone Josesito Crowell CP Unavailable [...] up Josesito Crowell MD December 14, 2015 Rivera Crowell MD October 15, 2014 shoulder pain [...] Josesito Crowell MD Feb 24, 2016 Refill- Leflunonide Josesito Crowell MD Feb [...]
--- OUTSIDE RECORDS SUMMARY | 2019-01-15 17:54 | XMS REPORT ---
Author Author Josesito Crowell eClinicalWorks Address Unknown Phone Unavailable Care Team Providers Care Floor Covering Layer Name Role Phone Josesito Crowell CP Unavailable [...] appt. Josesito Crowell MD November 09, 2015 f/u Josesito rCowell MD October 12, 2015 Follow up Josesito [...]
--- OUTSIDE RECORDS SUMMARY | 2019-01-15 17:54 | XMS REPORT ---
Author Author Josesito Crowell Organization eClinical[employer] Address Unknown Phone Unavailable Care Team Providers Care Slip Tender Name Role Phone Josesito Crowell CP Unavailable [...]
--- OUTSIDE RECORDS SUMMARY | 2019-01-15 17:54 | XMS REPORT ---
Author Josesito Thomas [facility] eClinicalWorks Address Unknown Phone Unavailable Care Team Providers Care Tube Bending Machine Operator Name Role Phone Josesito Crowell [...] MRI Josesito Crowell MD October 17, 2014 Vectra Josesito Crowell MD December 16, 2014 Problems Problem Type Condition ICD-9 Code Onset Dates Condition Status Problem Rheumatoid arthritis 714.0 Active Problem Long-term (current) use of other medications - High Risk V58.69 Active Problem Osteoporosis, 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.01 Active Social History Social History Element Qualifiers Date Reported Tobacco Use: . Are you a:: current smoker , How often do you smoke cigarettes?: every day, How many cigarettes a day do you smoke?: 11-20, How soon after you wake up do you smoke your first cigarette?: within 5 min December 16, 2014 Marital Status: . December 16, 2014 Caffeine: yes. 5 cups December 16, 2014 Exercise: no. December 16, 2014 Alcohol: . 1 glass , wine every night to help relax December 16, 2014 Summary Purpose eClinicalWorks Submission
--- OUTSIDE RECORDS SUMMARY | 2019-01-15 17:54 | XMS REPORT ---
Author Author Josesito Crowell [employer] Address Unknown Phone Unavailable Care Team Providers Care Electronic Equipment Installer Name Role Phone Josesito Crowell CP [...] order Josesito Crowell MD December 25, 2015 Ami Crowell MD December 16, 2014 Vectra DA Josesito Crowell MD January 13, 2015 Refill- Leflunonide Josesito Crowell MD Feb [...]
--- OUTSIDE RECORDS SUMMARY | 2019-01-15 17:54 | XMS REPORT ---
Author Author Josesito Crowell [employer] Address Unknown Phone Unavailable Care Team Providers Care Anatomic Pathologist Name Role Phone Josesito Crowell CP Unavailable [...] Arava Josesito Crowell MD Feb 09, 2015 Lab order Josesito Crowell MD December [...] 733.01 Active Problem Rheumatoid arthritis 714.0 Active Assessment Abnormal laboratory test R89.9 Active Assessment Rheumatoid arthritis 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 organ or system involvement with positive rheumatoid factor M05.79 Active Problem Abnormal laboratory test R89.9 Active [...] your first cigarette?: within 5 min December 14, 2015 Marital Status: . December 14, 2015 Caffeine: yes. 5 cups December 14, 2015 Exercise: no. December 14, 2015 Alcohol: . 1 glass , wine every night to help relax December 14, 2015 Summary Purpose eClinicalWorks Submission
--- OUTSIDE RECORDS SUMMARY | 2019-01-15 17:54 | XMS REPORT ---
Author Josesito Thomas [facility] eClinicalWorks Address Unknown Phone Unavailable Care Team Providers Care Marine Steamfitter Name Role Phone Josesito Crowell CP Unavailable Encounters Encounter Location Date Prolia Josesito Crowell MD October 15, 2014 shoulder pain Josesito Crowell MD October 17, 2014 MRI Bi Hands Josesito Crowell MD Jul 31, 2014 f/u Josesito Crowell MD September 17, 2014 MRI Josesito Crowell MD October 17, 2014 Problems Problem Type Condition ICD-9 Code Onset Dates Condition Status Problem Long-term (current) use of other medications - High Risk V58.69 Active Problem Rheumatoid arthritis 714.0 Active Social History Social History Element Qualifiers Date Reported Tobacco Use: . Are you a:: current smoker , How often do you smoke cigarettes?: every day, How many cigarettes a day do you smoke?: 11-20, How soon after you wake up do you smoke your first cigarette?: within 5 min September 17, 2014 Marital Status: . September 17, 2014 Caffeine: yes. 5 cups September 17, 2014 Exercise: no. September 17, 2014 Alcohol: . 1 glass , wine every night to help relax September 17, 2014 Summary Purpose eClinicalWorks Submission
--- OUTSIDE RECORDS SUMMARY | 2019-01-15 17:54 | XMS REPORT ---
Author Author Josesito Crowell [employer] Address Unknown Phone Unavailable Care Team Providers Care Gas Maker Name Role Phone Josesito Crowell CP [...] Active Problem Rheumatoid arthritis 714.0 Active Assessment 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 Active Problem Abnormal laboratory test R89.9 [...] Start Date End Date Status Dosage Leflunomide [facility] [address]-62 20 MG Orally Once a day Active take 1 tablet by mouth once a day Social History Social History Element Qualifiers Date [...]
--- OUTSIDE RECORDS SUMMARY | 2019-01-15 17:54 | XMS REPORT ---
Author Josesito Thomas [facility] eClinicalWorks Address Unknown Phone Unavailable Care Team Providers Care Educational Institution Curator Name Role Phone Josesito Crowell CP Unavailable Encounters Encounter Location Date Prolia Josesito Crowell MD October 15, 2014 MRI Bi Hands Josesito Crowell MD [...]
--- OUTSIDE RECORDS SUMMARY | 2019-01-15 17:54 | XMS REPORT ---
Author Author Amna Cosby [facility] eClinicalWorks Address Unknown Phone Unavailable Care Team Providers Care Cork Wirer Name Role Phone Amna Cosby CP Unavailable Allergies, Adverse Reactions, Alerts Substance Reaction Event Type penicillin Swelling Drug Allergy Latex Gloves rash Drug Allergy Ibuprofen Lips swell Drug Allergy Dilaudid Info Not Available Drug Allergy Remicade rash Non Drug Allergy Encounters Encounter Location Date Prolia Josesito Crowell [...] Josesito Crowell MD December 16, 2014 Vectra NIGEL Crowell MD January 13, 2015 f/odilon Crowell MD October 12, 2015 Unknown Josesito Crowell MD Apr 06, 2015 Unknown Josesito Crowell MD September 14, 2015 f/u Josesito Crowell MD December 16, 2014 f/u Josesito Crowell MD Mar 09, 2015 Problems Problem Type Condition ICD-9 Code Onset Dates Condition Status Assessment Encounter for long-term (current) use of other high-risk medications Z79.899 Active Problem Long-term (current) use of other medications - High Risk V58.69 Active Assessment Rheumatoid arthritis with rheumatoid factor [...] Start Date End Date Status Dosage Prolia [facility] [address]-18 60MG Q6 MONTHS Active 60MG SQ Probiotic [facility] 36732-[address]99 Active Unknown Symbicort [facility] [address]-82 Active Unknown Hydrocodone-Acetaminophen [facility] [address]-35 5-325 MG Orally every 6 hrs November 11, 2015 Active 1 tablet as needed Citalopram Hydrobromide [facility] [address]-82 Active Unknown Estradiol [facility] [address]-77 Active Unknown PredniSONE [facility] [address]-73 5 MG Orally once a day January 10, 2016 Active 1 tablet Nystatin [facility] [address]-78 Active Unknown Venlafaxine HCl [facility] [address]-85 Active Unknown Leflunomide [facility] [address]-49 20 MG Orally Once a day Active 1 tablet Welchol [facility] [address]-56 625 MG Orally Twice a day Active 3 tablets with meals Actemra [facility] [address]-63 8MG/KG Q 4 WKS Active 8MG/KG IV Chlordiazepoxide-clidinium Unknown 0 Active Unknown Clindamycin HCl [facility] [address]-86 150 MG Orally every 8 hrs Active 1 capsule Social History Social History Element Qualifiers Date [...] night to help relax October 12, 2015 Vital Signs Date/Time: October 12, 2015 Weight 105 lbs Height 62 in Temperature 97.6 F Cardiac Monitoring Heart Rate 86 /min Blood Pressure Diastolic 78 mm Hg Blood Pressure Systolic 137 mm Hg Summary Purpose eClinicalWorks Submission
--- OUTSIDE RECORDS SUMMARY | 2019-01-15 17:54 | XMS REPORT ---
Author Author Amna Cosby [facility] eClinicalWorks Address Unknown Phone Unavailable Care Team Providers Care Gas Plant Specialist Name Role Phone Amna Cosby Unavailable [...] Crowell MD November 30, 2015 f/u Josesito Crowlel MD October 12, 2015 Follow up Josesito [...] Instructions Start Date End Date Status Dosage Clindamycin HCl [facility] [address]-79 150 MG Orally every 8 hrs Active 1 capsule Estradiol [facility] [address]-22 0.5 MG Orally Once a day Active 1 tablet Hydrocodone-Acetaminophen [facility] [address]-94 5-325 MG Orally every 6 hrs Active 1 tablet as needed Melatonin [facility] [address]-80 2.5 MG Orally Once a day Active 1 capsule at bedtime as needed with food Vitamin D [facility] [address]-95 1000 UNIT Orally Once a day Active 1 capsule Prolia [facility] [address]-01 60MG Q6 MONTHS Active 60MG SQ Actemra [facility] [address]-15 8MG/KG Q 4 WKS December 14, 2015 Inactive 8MG/KG IV Venlafaxine HCl ER [facility] [address]-79 150 MG Orally Once a day Active 1 capsule with food Leflunomide [facility] [address]-96 20 MG Orally Once a day Active take 1 tablet by mouth once a day PredniSONE [facility] [address]-48 5 MG Orally once a day Active 1 tablet Xifaxan [facility] [address]-17 550 MG Orally Twice a day Active 1 tablet Chlordiazepoxide-clidinium Unknown 0 5-2.5mg orally every 6 hours Active 1 capsule Welchol [facility] [address]-74 625 MG Orally Twice a day Active 3 tablets with meals Symbicort [facility] [address]-85 160-4.5 MCG/ACT Inhalation Twice a day Active 2 puffs Probiotic [facility] 99960-[address]36 Orally Active as directed Humira Pen [facility] [address]-16 40 MG/0.8ML Subcutaneous every 2 weeks December 14, 2015 Mar 13, 2016 Active 0.8 ml Citalopram Hydrobromide [facility] [address]-75 40 MG Orally Once a day Active 0.5 tablet Pantoprazole Sodium [facility] [address]-54 40 MG Orally Once a day Active 1 tablet Albuterol Sulfate [facility] [address]-16 108 (90 Base) MCG/ACT Inhalation every 4 hrs Active 1 puff as needed Social History Social History Element Qualifiers Date Reported Tobacco Use: . Are you a:: current smoker , How often do you smoke cigarettes?: every day, How many cigarettes a day do you smoke?: -20, How soon after you wake up do you smoke your first cigarette?: within 5 min December 14, 2015 Marital Status: . December 14, 2015 Caffeine: yes. 5 cups December 14, 2015 Exercise: no. December 14, 2015 Alcohol: . 1 glass , wine every night to help relax December 14, 2015 Vital Signs Date/Time: December 14, 2015 Blood Pressure Diastolic 83 mm Hg Blood Pressure Systolic 149 mm Hg Weight 105 lbs Temperature 97.4 F Cardiac Monitoring Heart Rate 105 /min Summary Purpose eClinicalWorks Submission
--- OUTSIDE RECORDS SUMMARY | 2019-01-15 17:54 | XMS REPORT ---
Author Author Josesito Crowell [employer]ClinicalWorks Address Unknown Phone Unavailable Care Team Providers Care Candy Depositing Machine Operator Name Role Phone Josesito Crowell [...] DA Josesito Crowell MD January 13, 2015 f/u Josesito Crowell MD October 12, [...]
--- OUTSIDE RECORDS SUMMARY | 2019-01-15 17:54 | XMS REPORT ---
Author Author Josesito Crowell [employer] Address Unknown Phone Unavailable Care Team Providers Care Marine Rigger Name Role Phone Josesito Crowell CP Unavailable [...] Crowell MD December 25, 2015 Vectra Josesito Croewll MD December 16, 2014 Vectra DA Josesito Crowell MD January 13, 2015 Rash Josesito Crowell MD Feb 23, 2016 Refill- Leflunonide Josesito Crowell MD Feb 10, 2016 pt added -RASH ALL OVER BODY Josesito Crowell MD Feb 15, 2016 MRI of the hands Josesito Crowell MD Feb 16, 2016 Proltomasz Crowell MD Feb 16, 2016 Problems Problem [...]
--- OUTSIDE RECORDS SUMMARY | 2019-01-15 17:54 | XMS REPORT ---
Author Josesito Thomas [employer]ClinicalWorks Address Unknown Phone Unavailable Care Team Providers Care Dry Drug Worker Name Role Phone Josesito Crowell CP [...] DA Josesito Crowell MD January 13, 2015 Problems Problem Type [...] smoke your first cigarette?: within 5 min January 12, 2015 Marital Status: . January 12, 2015 Caffeine: yes. 5 cups January 12, 2015 Exercise: no. January 12, 2015 Alcohol: . 1 glass , wine every night to help relax January 12, 2015 Summary Purpose eClinicalWorks Submission
--- OUTSIDE RECORDS SUMMARY | 2019-01-15 17:54 | XMS REPORT ---
Author Author Josesito Crowell [employer]Clinical[employer] Address Unknown Phone Unavailable Care Team Providers Care Wet Machine Tender Name Role Phone Josesito Crowell CP Unavailable Encounters Encounter Location Date Prolia Josesito Crowell MD October 15, 2014 shoulder pain Josesito Crowell MD October 17, 2014 PEER TO PEER Josesito Crowell MD December 11, 2014 Actemra Josesito Crowell MD December 16, 2014 MRI Bi Hands Josesito Crowell MD Jul 31, 2014 f/u Josesito Crowell MD September 17, 2014 MRI Josestio Crowell MD October 17, 2014 Arava Josesito [...]
--- OUTSIDE RECORDS SUMMARY | 2019-01-15 17:55 | XMS REPORT ---
Author Author Amna Cosby [facility] eClinicalWorks Address Unknown Phone Unavailable Care Team Providers Care Product Analyst Name Role Phone Amna Cosby Unavailable Allergies, Adverse Reactions, Alerts Substance Reaction Event Type penicillin Swelling Drug Allergy Latex Gloves rash Drug Allergy Ibuprofen Lips swell Drug Allergy Dilaudid Info Not Available Drug Allergy Enbrel Info Not Available Non Drug Allergy Remicade rash Non Drug Allergy Encounters Encounter Location Date Arava Josesito Crowell MD Feb 09, 2015 Unknown Josesito Crowell MD Feb 16, 2016 CX INJECTION FOR 06/27/16 Josesito Crowell MD Jun 22, 2016 Hand pain Josesito Crowell MD October 20, 2015 infusion appt. Josesito Crowell MD November [...] Humira Josesito Crowell MD Mar 07, 2016 f/u Josesito Crowell MD Apr 11, 2016 Refill- Leflunonide Josesito Crowell MD Feb 10, 2016 pt added -RASH ALL OVER BODY Josesito Crowell MD Feb 15, 2016 MRI of the hands Josesito Crowell MD Feb 16, 2016 Judithia Josesito Crowell MD Feb 16, 2016 Problems Problem Type Condition ICD-9 Code Onset Dates Condition Status Assessment Age-related osteoporosis without current pathological fracture M81.0 Active Assessment Encounter for long-term (current) use of other high-risk medications Z79.899 Active Problem Rheumatoid arthritis with rheumatoid factor [...] Date End Date Status Dosage Pantoprazole Sodium [facility] [address]-48 40 MG Orally Once a day Active 1 tablet Citalopram Hydrobromide [facility] [address]-98 40 MG Orally Once a day Active 0.5 tablet Humira Pen [facility] [address]-39 40 MG/0.8ML Subcutaneous every 2 weeks December 14, 2015 Active 0.8 ml Xifaxan [facility] [address]-03 550 MG Orally Twice a day Active 1 tablet Prolia [facility] [address]-80 60MG Q6 MONTHS Active 60MG SQ Melatonin [facility] [address]-66 2.5 MG Orally Once a day Active 1 capsule at bedtime as needed with food Estradiol [facility] [address]-72 0.5 MG Orally Once a day Active 1 tablet Leflunomide [facility] [address]-50 20 MG Orally Once a day Active take 1 tablet by mouth once a day PredniSONE [facility] [address]-36 5 MG Orally once a day Active 1 tablet Albuterol Sulfate [facility] [address]-24 108 (90 Base) MCG/ACT Inhalation every 4 hrs Active 1 puff as needed Chlordiazepoxide-clidinium Unknown 0 5-2.5mg orally every 6 hours Active 1 capsule Clindamycin HCl [facility] [address]-43 150 MG Orally every 8 hrs Active 1 capsule Welchol [facility] [address]-37 625 MG Orally Twice a day Active 3 tablets with meals Vitamin D [facility] [address]-10 1000 UNIT Orally Once a day Active 1 capsule Hydrocodone-Acetaminophen [facility] [address]-72 5-325 MG Orally every 6 hrs Active 1 tablet as needed Venlafaxine HCl ER [facility] [address]-86 150 MG Orally Once a day Active 1 capsule with food Symbicort [facility] [address]-19 160-4.5 MCG/ACT Inhalation Twice a day Active 2 puffs Probiotic [facility] [address]-92685 Orally Active as directed Social History Social History Element Qualifiers Date Reported Tobacco Use: . Are you a:: former smoker , How long has it been since you last smoked?: < 1 month Jun 06, 2016 Marital Status: . Jun 06, 2016 Caffeine: yes. 5 cups Jun 06, 2016 Exercise: no. Jun 06, 2016 Alcohol: socially. 1 glass , wine every night to help relax Jun 06, 2016 Occupation: employed. weeks/months/years Jun 06, 2016 Vital Signs Date/Time: Feb 16, 2016 Weight 110 lbs Height 62.5 in Temperature 97.8 F Cardiac Monitoring Heart Rate 86 /min Blood Pressure Diastolic 74 mm Hg Blood Pressure Systolic 128 mm Hg Summary Purpose eClinicalWorks Submission
--- OUTSIDE RECORDS SUMMARY | 2019-01-15 17:55 | XMS REPORT ---
Author Author Martínez Aleman Organization eClinicalWorks Address Unknown Phone Unavailable Care Team Providers Care Industrial Tech Instructor Name Role Phone Martínez Aleman CP Unavailable Allergies No Known Allergies Problems Problem Type Condition Code Onset Dates Condition Status Problem Sacrococcygeal disorders, not elsewhere classified M53.3 Active Problem Degeneration of lumbar or lumbosacral intervertebral disc M51.37 Active Problem Lumbosacral spondylosis without myelopathy M47.817 Active Problem Chronic pain syndrome G89.4 Active Problem Cervical radiculopathy M54.12 Active Problem Cervical radiculopathy due to degenerative joint disease of spine M47.22 Active Problem Lumbar radiculopathy M54.16 Active Problem Pain of right hand M79.641 Active Problem Bilateral sacroiliitis M46.1 Active Problem Lumbar spinal stenosis M48.06 Active Problem Pain in joint of right shoulder M25.511 Active Medications No Known Medications Results No Known Results Summary Purpose eClinicalWorks Submission
--- OUTSIDE RECORDS SUMMARY | 2019-01-15 17:55 | XMS REPORT ---
Author Author Martínez Aleman Organization eClinicalWorks Address Unknown Phone Unavailable Care Team Providers Care Normalizer Name Role Phone Martínez Aleman CP Unavailable Allergies No Known Allergies Problems Problem Type Condition Code Onset Dates Condition Status Problem Lumbosacral spondylosis without myelopathy M47.817 Active Problem Chronic pain syndrome G89.4 Active Problem Degeneration of lumbar or lumbosacral intervertebral disc M51.37 Active Problem Cervical radiculopathy due to degenerative joint disease of spine M47.22 Active Problem Lumbar spinal stenosis M48.06 Active Problem Cervical radiculopathy M54.12 Active Problem Bilateral sacroiliitis M46.1 Active Problem Sacrococcygeal disorders, not elsewhere classified M53.3 Active Problem Pain in joint of right shoulder M25.511 Active Problem Pain of right hand M79.641 Active Medications No Known Medications Results No Known Results Summary Purpose [employer] Submission
--- OUTSIDE RECORDS SUMMARY | 2019-01-15 17:55 | XMS REPORT ---
Author Author Martínez Aleman [facility] eClinicalWorks Address Unknown Phone Unavailable Care Team Providers Care Roll Off Driver Name Role Phone Martínez Aleman CP Unavailable [...] Medications Results No Known Results Summary Purpose [employer] Submission
--- OUTSIDE RECORDS SUMMARY | 2019-01-15 17:55 | XMS REPORT ---
Author Josesito Thomas Organization eClinicalWorks Address Unknown Phone Unavailable Care Team Providers Care Rafter Cutting Machine Operator Name Role Phone Josesito Crowell [...]
--- OUTSIDE RECORDS SUMMARY | 2019-01-15 17:55 | XMS REPORT ---
Author Josesito Thomas Organization eClinicalWorks Address Unknown Phone Unavailable Care Team Providers Care Day Care Home Mother Name Role Phone Josesito Crowell CP Unavailable [...]
--- OUTSIDE RECORDS SUMMARY | 2019-01-15 17:55 | XMS REPORT ---
Author Author Martínez Aleman Organization eClinicalWorks Address Unknown Phone Unavailable Care Team Providers Care Buildings And Grounds Director Name Role Phone Martínez Aleman CP Unavailable Allergies No Known Allergies Problems Problem Type Condition Code Onset Dates Condition Status Problem Sacrococcygeal disorders, not elsewhere classified M53.3 Active Problem Degeneration of lumbar or lumbosacral intervertebral disc M51.37 Active Problem Lumbosacral spondylosis without myelopathy M47.817 Active Assessment Lumbar radiculopathy M54.16 Active Problem Chronic pain syndrome G89.4 Active [...]
--- OUTSIDE RECORDS SUMMARY | 2019-01-15 17:55 | XMS REPORT ---
Author Author Amna Cosby [facility] eClinicalWorks Address Unknown Phone Unavailable Care Team Providers Care Paving Block Cutter Name Role Phone Amna Cosby Unavailable Allergies, [...] order Josesito Crowell MD December 25, 2015 Teresora Josesito Crowell MD December 16, 2014 Vectra [...] ICD-9 Code Onset Dates Condition Status Assessment Skin rash R21 Active Assessment Encounter for long-term (current) use of other high-risk medications Z79.899 Active Assessment Age-related osteoporosis without current pathological fracture M81.0 Active Assessment Raynauds phenomenon without gangrene I73.00 Active Problem Rheumatoid arthritis with rheumatoid factor [...] Instructions Start Date End Date Status Dosage Sulfamethoxazole-TMP DS Unknown 0 800-160 MG Orally Twice a day Active 1 tablet Clonazepam [facility] [place] [address]-81 1 MG Orally as needed Active 1/2 tablet Pantoprazole Sodium [facility] [place] [address]-66 40 MG Orally Once a day Active 1 tablet Citalopram Hydrobromide [facility] [place] [address]-93 40 MG Orally Once a day Active 0.5 tablet Humira Pen [facility] [place] [address]-95 40 MG/0.8ML Subcutaneous every 2 weeks December 14, 2015 Active 0.8 ml Albuterol Sulfate [facility] [place] [address]-71 108 (90 Base) MCG/ACT Inhalation every 4 hrs Active 1 puff as needed Prolia [facility] [place] [address]-40 60MG Q6 MONTHS Active 60MG SQ Melatonin [facility] [place] [address]-79 2.5 MG Orally Once a day Active 1 capsule at bedtime as needed with food PredniSONE [facility] [place] [address]-13 5 MG Orally once a day Active 1 tablet Venlafaxine HCl ER [facility] [place] [address]-13 150 MG Orally Once a day Active 1 capsule with food Hydrocodone-Acetaminophen [facility] [place] [address]-86 5-325 MG Orally every 6 hrs Active 1 tablet as needed Anoro Ellipta [facility] [place] [address]-77 62.5-25 MCG/INH Inhalation Once a day Active 1 puff Leflunomide [facility] [place] [address]-15 20 MG Orally Once a day Active take 1 tablet by mouth once a day Estradiol [facility] [place] [address]-31 0.5 MG Orally Once a day Active 1 tablet Vitamin D [facility] [place] [address]-13 1000 UNIT Orally Once a day Active 1 capsule Gabapentin [facility] [place] [address]-80 100 MG Orally Three times a day Active 1 capsule B Complex [facility] [place] [address]-67 Orally Active as directed Clindamycin HCl [facility] [place] [address]-70 150 MG Orally every 8 hrs Active 1 capsule Social History Social History Element Qualifiers Date Reported Tobacco Use: . Are you a:: former smoker , How long has it been since you last smoked?: < 1 month Apr 11, 2016 Marital Status: . Apr 11, 2016 Caffeine: yes. 5 cups Apr 11, 2016 Exercise: no. Apr 11, 2016 Alcohol: . 1 glass , wine every night to help relax Apr 11, 2016 Vital Signs Date/Time: Apr 11, 2016 Weight 113 lbs Height 62 in Temperature 98.2 F Cardiac Monitoring Heart Rate 80 /min Blood Pressure Diastolic 70 mm Hg Blood Pressure Systolic 138 mm Hg Summary Purpose eClinicalWorks Submission
--- OUTSIDE RECORDS SUMMARY | 2019-01-15 17:55 | XMS REPORT ---
Author Author Martínez Aleman Organization eClinicalWorks Address Unknown Phone Unavailable Care Team Providers Care Jackscrew Worker Name Role Phone Martínez Aleman CP Unavailable [...]
--- OUTSIDE RECORDS SUMMARY | 2019-01-15 17:55 | XMS REPORT ---
Author Author Martínez Aleman Organization eClinicalWorks Address Unknown Phone Unavailable Care Team Providers Care Syrup Filterer Name Role Phone Martínez Aleman CP Unavailable [...] Medications Results No Known Results Summary Purpose [employer]Works Submission
--- OUTSIDE RECORDS SUMMARY | 2019-01-15 17:55 | XMS REPORT ---
Author Josesito Thomas Organization eClinicalWorks Address Unknown Phone Unavailable Care Team Providers Care Hospital Attendant Name Role Phone Josesito Crowell CP Unavailable [...]
--- OUTSIDE RECORDS SUMMARY | 2019-01-15 17:55 | XMS REPORT ---
Author Author Martínez Aleman Organization eClinicalWorks Address Unknown Phone Unavailable Care Team Providers Care Epic Ambulatory Analyst Name Role Phone Martínez Aleman CP Unavailable [...]
--- OUTSIDE RECORDS SUMMARY | 2019-01-15 17:55 | XMS REPORT ---
Author Author Kim Irene [facility] eClinicalWorks Address Unknown Phone Unavailable Care Team Providers Care Operations Leader Name Role Phone Kim Irene CP Unavailable [...] Instructions Start Date End Date Status Dosage Venlafaxine HCl ER [facility] [address]-42 150 MG Orally Once a day Active 1 capsule with food Pantoprazole Sodium [facility] [address]-33 40 MG Orally Once a day Active 1 tablet PredniSONE [facility] 19452571357 5 MG Active 1 TABLET ONCE A DAY ORALLY 30 DAYS Clonazepam [facility] [address]-77 1 MG Orally as needed Active 1/2 tablet Leflunomide [facility] [address]-39 20 MG Orally Once a day Active 1 tablet Estradiol [facility] [address]-09 0.5 MG Orally Once a day Active 1 tablet Prolia [facility] [address]-29 60MG Q6 MONTHS Active 60MG SQ Melatonin [facility] [address]-51 2.5 MG Orally Once a day Active 1 capsule at bedtime as needed with food Gabapentin [facility] [address]-03 100 MG Orally Three times a day Active 3 capsules ORENCIA SQ ND 0 125MG SUBCUTANEOUSLY ONCE A WEEK Jun 06, 2016 Active 125MG Anoro Ellipta [facility] [address]-18 62.5-25 MCG/INH Inhalation Once a day Active 1 puff Amitriptyline HCl [facility] [address]-03 25 MG Orally Once a day Active 1 tablet Citalopram Hydrobromide [facility] [address]-53 40 MG Orally Once a day Active 0.5 tablet Hydrocodone-Acetaminophen [facility] [address]-82 10-325 MG Orally every 6 hrs Active 1 tablet as needed Tizanidine HCl [facility] [address]-21 4 MG Orally every 8 hrs Active 1 tablet as needed Strabane [facility] [address]-18 5-325 MG Orally every 6 hrs August 29, 2016 Active 1 tablet as needed Albuterol Sulfate [facility] [address]-50 108 (90 Base) MCG/ACT Inhalation every 4 hrs Active 1 puff as needed Vitamin D [facility] [address]-20 1000 UNIT Orally Once a day Active 1 capsule B Complex [facility] [address]-92 Orally Active as directed Vital Signs Date/Time: August 29, 2016 BMI 21.62 Index Weight 124 lbs Height 63.5 in Temperature 98.2 F Cardiac Monitoring Heart Rate 96 /min Blood Pressure Diastolic 70 mm Hg Blood Pressure Systolic 118 mm Hg Results Name Result Date Reference Range Unit Abnormality Flag TEST AUTHORIZATION ----CLIENT CONTACT: DEIRDRE RAGSDALE [id number] ----TEST(S) ORDERED ON REQUISITION VITAMIN D,25-OH,TOTAL,CO [id number] ----TEST CODE: [id number] VITAMIN D, 25-HYDROXY, LC/MS/MS ----VITAMIN D, 25-OH, TOTAL 22 [id number] 30-100 ng/mL L CBC (INCLUDES DIFF/PLT) ----ABSOLUTE BASOPHILS 52 20160829 0-200 cells/uL N ----ABSOLUTE EOSINOPHILS 104 20160829 15-500 cells/uL N ----LYMPHOCYTES 16.2 20160829 % N ----NEUTROPHILS 72.8 88280271 % N ----PLATELET COUNT 530 28437463 140-400 Thousand/uL H ----EOSINOPHILS 0.6 54050246 % N ----RDW 20.1 41440460 11.0-15.0 % H ----MONOCYTES 10.1 59481238 % N ----MCHC 32.8 54548265 32.0-36.0 g/dL N ----MCH 28.8 09271904 27.0-33.0 pg N ----MCV 87.7 66724813 80.0-100.0 fL N ----ABSOLUTE NEUTROPHILS 68862 28139823 9876-5728 cells/uL H ----MPV 6.6 00838998 7.5-12.5 fL L ----ABSOLUTE MONOCYTES 1747 05547203 200-950 cells/uL H ----ABSOLUTE LYMPHOCYTES 2803 02140958 850-3900 cells/uL N ----BASOPHILS 0.3 69152388 % N ----WHITE BLOOD CELL COUNT 17.3 02738649 3.8-10.8 Thousand/uL H ----RED BLOOD CELL COUNT 4.02 06432517 3.80-5.10 Million/uL N ----HEMOGLOBIN 11.6 64723389 11.7-15.5 g/dL L ----HEMATOCRIT 35.3 45883166 35.0-45.0 % N COMPREHENSIVE METABOLIC PANEL W/EGFR ----SODIUM 137 36262469 135-146 mmol/L N ----BUN/CREATININE RATIO NOT APPLICABLE 85028106 6-22 (calc) ----CHLORIDE 102 28397288 98-110 mmol/L N ----POTASSIUM 4.7 43071774 3.5-5.3 mmol/L N ----CALCIUM 9.4 53798924 8.6-10.4 mg/dL N ----PROTEIN, TOTAL 6.6 81991321 6.1-8.1 g/dL N ----CARBON DIOXIDE 30 73395121 20-31 mmol/L N ----ALBUMIN/GLOBULIN RATIO 1.4 78018763 1.0-2.5 (calc) N ----eGFR NON-AFR. [place] 95 03133954 > OR=60 mL/min/1.73m2 N ----BILIRUBIN, TOTAL 0.3 20160829 0.2-1.2 mg/dL N ----eGFR 110 20160829 > OR=60 mL/min/1.73m2 N ----UREA NITROGEN (BUN) 13 20160829 7-25 mg/dL N ----ALBUMIN 3.8 20160829 3.6-5.1 g/dL N ----GLOBULIN 2.8 20160829 1.9-3.7 g/dL (calc) N ----CREATININE 0.70 20160829 0.50-1.05 mg/dL N ----ALT 21 20160829 6-29 U/L N ----GLUCOSE 95 09586973 65-99 mg/dL N ----ALKALINE PHOSPHATASE 87 20160829 33-130 U/L N ----AST 21 20160829 10-35 U/L N Summary Purpose eClinicalWorks Submission
--- OUTSIDE RECORDS SUMMARY | 2019-01-15 17:55 | XMS REPORT ---
Author Author Kim Irene [facility] eClinicalWorks Address Unknown Phone Unavailable Care Team Providers Care Material Engineer Name Role Phone Kim Irene Unavailable Encounters Encounter Location Date [facility] Josesito Crowell MD Feb 09, 2015 Hand pain Josesito Crowell MD October 20, 2015 infusion appt. Josesito Crowell MD November 09, 2015 Follow-up Josesito Crowell MD November 30, 2015 f/u Josesito Crowell MD October 12, 2015 Follow up Josesito Crowell MD October 20, 2015 Unknown Josesito Crowell MD Apr 06, 2015 Unknown Josesito Croewll MD September 14, 2015 f/u Josesito Crowell [...] ICD-9 Code Onset Dates Condition Status Problem Encounter for long-term (current) use of other high-risk medications Z79.899 Active Problem Age-related osteoporosis without current pathological fracture M81.0 Active Problem 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 Active Problem Hand pain, left M79.642 Active Problem Hand pain, right M79.641 Active Medications Medication Code System Code Instructions Start Date End Date Status Dosage Medrol (Tawanda) MEDISPAN [address]-63 4 MG Orally October 20, 2015 Active as directed Social History Social History [...] night to help relax Apr 11, 2016 Summary Purpose eClinicalWorks Submission
--- OUTSIDE RECORDS SUMMARY | 2019-01-15 17:55 | XMS REPORT ---
Author Author Kim Irene Organization eClinicalWorks Address Unknown Phone Unavailable Care Team Providers Care Firebrick Layer Helper Name Role Phone Kim Irene Unavailable Encounters Encounter Location Date [facility] Josesito Crowell MD Feb 09, 2015 CX INJECTION FOR 06/27/16 Josesito Crowell MD [...] hands Josesito Crowell MD Feb 16, 2016 Prolia Josesito Crowell MD Feb 16, 2016 Problems [...] Active Problem Hand pain, left M79.642 Active Social History Social History Element Qualifiers [...] 2016 Occupation: employed. weeks/months/years Jun 06, 2016 Summary Purpose eClinicalWorks Submission
--- OUTSIDE RECORDS SUMMARY | 2019-01-15 17:55 | XMS REPORT ---
Author Author Kim Irene Organization eClinicalWorks Address Unknown Phone Unavailable Care Team Providers Care Developmental Training Counselor Name Role Phone Kim Irene CP Unavailable [...] Instructions Start Date End Date Status Dosage Celebrex [facility] [address]-52 200 MG Orally Once a day December 31, 2016 Active 1 capsule Results No Known Results Summary Purpose eClinicalWorks Submission
--- OUTSIDE RECORDS SUMMARY | 2019-01-15 17:55 | XMS REPORT ---
Author Josesito Thomas Organization eClinicalWorks Address Unknown Phone Unavailable Care Team Providers Care Meeting Manager Name Role Phone Josesito Crowell CP [...] Instructions Start Date End Date Status Dosage Vitamin D (Ergocalciferol) [facility] [address]-06 18896 UNIT Orally once a week September 08, 2016 Active 1 capsule Results No Known Results Summary Purpose eClinicalWorks Submission
--- OUTSIDE RECORDS SUMMARY | 2019-01-15 17:55 | XMS REPORT ---
Author Author Kim Irene Organization eClinicalWorks Address Unknown Phone Unavailable Care Team Providers Care Dish Carrier Name Role Phone Kim Irene CP Unavailable [...] Instructions Start Date End Date Status Dosage ORENCIA SQ NDC 0 125MG SUBCUTANEOUSLY ONCE A WEEK September 27, 2016 Active 125MG Results No Known Results Summary Purpose eClinicalWorks Submission
--- OUTSIDE RECORDS SUMMARY | 2019-01-15 17:55 | XMS REPORT ---
Author Author Martínez Aleman Organization eClinicalWorks Address Unknown Phone Unavailable Care Team Providers Care Client Portfolio Manager Name Role Phone Martínez Aleman CP Unavailable [...]
--- OUTSIDE RECORDS SUMMARY | 2019-01-15 17:55 | XMS REPORT ---
Author Author Martínez Aleman Organization eClinicalWorks Address Unknown Phone Unavailable Care Team Providers Care Custom Bike Builder Name Role Phone Martínez Aleman CP Unavailable [...] Medications Results No Known Results Summary Purpose [employer]Works Submission
--- OUTSIDE RECORDS SUMMARY | 2019-01-15 17:55 | XMS REPORT ---
Author Author Martínez Aleman Organization eClinicalWorks Address Unknown Phone Unavailable Care Team Providers Care Operations Agent Name Role Phone Martínez Aleman CP Unavailable [...] Medications Results No Known Results Summary Purpose [employer] Communications[employer]Works Submission
--- OUTSIDE RECORDS SUMMARY | 2019-01-15 17:55 | XMS REPORT ---
Author Author Martínez Aleman [facility] eClinicalWorks Address Unknown Phone Unavailable Care Team Providers Care Concession Stand Attendant Name Role Phone Martínez Aleman Unavailable Allergies, Adverse Reactions, Alerts Substance Reaction Event Type penicillin unknown Drug Allergy Latex Gloves rash Drug Allergy Zofran rash Drug Allergy Ibuprofen swelling of the lips Drug Allergy Dilaudid rash Drug Allergy Aspirin swelling of the lips Drug Allergy Problems Problem Type Condition Code [...] Problem Pain of right hand M79.641 Active Assessment Cervical radiculopathy due to degenerative joint disease of spine M47.22 Active Assessment Cervical radiculopathy M54.12 Active Assessment Right shoulder pain, unspecified chronicity M25.511 Active Assessment Chronic pain syndrome G89.4 Active Assessment Bilateral sacroiliitis M46.1 Active Assessment Sacrococcygeal disorders, not elsewhere classified M53.3 Active Assessment Lumbar spinal stenosis M48.06 Active Assessment Lumbosacral spondylosis without myelopathy M47.817 Active Assessment Degeneration of lumbar or lumbosacral intervertebral disc M51.37 Active Medications Medication Code System Code Instructions Start Date End Date Status Dosage Savella [facility] 20142246513 50 MG Orally Twice a day Active 1 tablet Leflunomide ND 71278866612 20 MG Orally Once a day Active 1 tablet Hydrocodone-Acetaminophen ND 24783994959 5-325 MG Orally every 6 hrs Active 1 tablet as needed Venlafaxine HCl [facility] 49647266375 75 MG Orally Twice a day Active 1 tablet with food Pantoprazole Sodium [facility] 55487956150 40 MG Orally Once a day Active 1 tablet Citalopram Hydrobromide [facility] 03382850331 40 MG Orally Once a day Active 0.5 tablet Symbicort [facility] 99205204478 80-4.5 MCG/ACT Inhalation Twice a day Active 2 puffs Gabapentin [facility] 82087174638 100 MG Orally Twice a day Active 1 capsule Amitriptyline HCl [facility] 57972033504 25 MG Orally Once a day Active 1 tablet at bedtime Amitriptyline HCl [facility] 58481392830 25 MG Orally Once a day Active 1 tablet Estradiol [facility] 79744144323 0.5 MG Orally Once a day Active 1 tablet Enbrel SureClick [facility] 02997057162 50 MG/ML Subcutaneous Active 1 ml Welchol [facility] 74100235379 625 MG Orally Twice a day Active 23tablets with meals Gabapentin [facility] 30424553482 600 MG Orally Three times a day Active 1 tablet Vital Signs Date/Time: Jun 14, 2017 BMI 22.92 Index Weight 121.3 lbs Height 61 in Temperature 97.2 F Cardiac Monitoring Heart Rate 82 /min Blood Pressure Diastolic 80 mm Hg Blood Pressure Systolic 142 mm Hg Results No Known Results Summary Purpose eClinicalWorks Submission
--- OUTSIDE RECORDS SUMMARY | 2019-01-15 17:55 | XMS REPORT ---
Author Author Kim Irene Organization eClinicalWorks Address Unknown Phone Unavailable Care Team Providers Care Research Assoc Name Role Phone Teto Jaimenishicodi Unavailable Allergies, Adverse Reactions, Alerts Substance Reaction [...] Follow-up Josesito Crowell MD November 30, 2015 2MTH/ BI WRISTS Josesito Crowell MD Jun 06, 2016 f/u Josesito Crowell MD October 12, 2015 [...] Date End Date Status Dosage Vitamin D [facility] [address]-74 1000 UNIT Orally Once a day Active 1 capsule Hydrocodone-Acetaminophen [facility] [address]-91 5-325 MG Orally every 6 hrs Active 1 tablet as needed PredniSONE [facility] [address]-72 5 MG Orally once a day Active 1 tablet Gabapentin [facility] [address]-84 100 MG Orally Three times a day Active 1 capsule Citalopram Hydrobromide [facility] [address]-73 40 MG Orally Once a day Active 0.5 tablet Prolia [facility] [address]-69 60MG Q6 MONTHS Active 60MG SQ Leflunomide [facility] 22876277499 20 MG Orally Once a day Active take 1 tablet by mouth once a day ORENCIA SQ Unknown 0 125MG SUBCUTANEOUSLY ONCE A WEEK Jun 06, 2016 Active 125MG Humira Pen [facility] [address]-84 40 MG/0.8ML Subcutaneous every 2 weeks December 14, 2015 Inactive 0.8 ml Clonazepam [facility] [address]-18 1 MG Orally as needed Active 1/2 tablet B Complex [facility] [address]-36 Orally Active as directed Estradiol [facility] [address]-13 0.5 MG Orally Once a day Active 1 tablet Venlafaxine HCl ER [facility] [address]-33 150 MG Orally Once a day Active 1 capsule with food Anoro Ellipta [facility] [address]-67 62.5-25 MCG/INH Inhalation Once a day Active 1 puff ORENCIA SQ Unknown 0 125MG SUBCUTANEOUSLY ONCE A WEEK Jun 06, 2016 Active click jet pen 125mg Albuterol Sulfate [facility] [address]-01 108 (90 Base) MCG/ACT Inhalation every 4 hrs Active 1 puff as needed Pantoprazole Sodium [facility] [address]-61 40 MG Orally Once a day Active 1 tablet Melatonin [facility] [address]-88 2.5 MG Orally Once a day Active 1 capsule at bedtime as needed with food Social History Social History Element Qualifiers Date [...] weeks/months/years Jun 06, 2016 Vital Signs Date/Time: Jun 06, 2016 Weight 114 lbs Height 62 in Temperature 97.5 F Cardiac Monitoring Heart Rate 88 /min Blood Pressure Diastolic 72 mm Hg Blood Pressure Systolic 120 mm Hg Results COMPREHENSIVE METABOLIC PANEL W/EGFR CALCIUM(-8.6-10.4 mg/dL) 9.7 CARBON DIOXIDE(-20-31 mmol/L) 27 ALT(-6-29 U/L) 14 CREATININE(-0.50-1.05 mg/dL) 0.63 AST(-10-35 U/L) 20 eGFR NON-AFR. [place](-> OR=60 mL/min/1.73m2) 98 ALKALINE PHOSPHATASE(-33-130 U/L) 66 eGFR (-> OR=60 mL/min/1.73m2) 114 BILIRUBIN, TOTAL(-0.2-1.2 mg/dL) 0.2 BUN/CREATININE RATIO(-6-22 (calc)) NOT APPLICABLE ALBUMIN/GLOBULIN RATIO(-1.0-2.5 (calc)) 1.4 SODIUM(-135-146 mmol/L) 136 GLOBULIN(-1.9-3.7 g/dL (calc)) 2.8 POTASSIUM(-3.5-5.3 mmol/L) 4.1 GLUCOSE(-65-99 mg/dL) 122 CHLORIDE(-98-110 mmol/L) 103 ALBUMIN(-3.6-5.1 g/dL) 4.0 UREA NITROGEN (BUN)(-7-25 mg/dL) 10 PROTEIN, TOTAL(-6.1-8.1 g/dL) 6.8 SED RATE BY MODIFIED WESTERGREN SED RATE BY MODIFIED WESTERGREN(-< OR=30 mm/h) 4 C-REACTIVE PROTEIN C-REACTIVE PROTEIN(-<0.80 mg/dL) 0.51 CBC (INCLUDES DIFF/PLT) MCHC(-32.0-36.0 g/dL) 33.0 MCH(-27.0-33.0 pg) 29.9 PLATELET COUNT(-140-400 Thousand/uL) 394 RDW(-11.0-15.0 %) 16.8 BASOPHILS(- %) 0.6 ABSOLUTE NEUTROPHILS(-0603-7433 cells/uL) 6513 ABSOLUTE LYMPHOCYTES(-850-3900 cells/uL) 3888 MPV(-7.5-11.5 fL) 7.8 ABSOLUTE BASOPHILS(-0-200 cells/uL) 75 HEMATOCRIT(-35.0-45.0 %) 37.0 NEUTROPHILS(- %) 52.1 MCV(-80.0-100.0 fL) 90.8 RED BLOOD CELL COUNT(-3.80-5.10 Million/uL) 4.08 ABSOLUTE MONOCYTES(-200-950 cells/uL) 1900 ABSOLUTE EOSINOPHILS(-15-500 cells/uL) 125 HEMOGLOBIN(-11.7-15.5 g/dL) 12.2 EOSINOPHILS(- %) 1.0 WHITE BLOOD CELL COUNT(-3.8-10.8 Thousand/uL) 12.5 LYMPHOCYTES(- %) 31.1 MONOCYTES(- %) 15.2 Summary Purpose eClinicalWorks Submission
--- OUTSIDE RECORDS SUMMARY | 2019-01-15 17:56 | XMS REPORT ---
Author Author Martínez Aleman Organization eClinicalWorks Address Unknown Phone Unavailable Care Team Providers Care Monument Stonecutter Name Role Phone Martínez Aleman Unavailable Encounters Encounter Location Date Unknown Josesito Crowell MD Jul 07, 2016 Problems Problem Type Condition ICD-9 Code Onset Dates Condition Status Problem Chronic pain syndrome 338.4 Active Problem Degeneration of lumbar or lumbosacral intervertebral disc M51.37 Active Problem Sacrococcygeal disorders, not elsewhere classified M53.3 Active Problem Lumbar spinal stenosis M48.06 Active Problem Pain in joint of right shoulder M25.511 Active Problem Cervical radiculopathy due to degenerative joint disease of spine M47.22 Active Problem Chronic pain syndrome G89.4 Active Problem Lumbosacral spondylosis without myelopathy M47.817 Active Problem Pain of right hand M79.641 Active Problem Bilateral sacroiliitis M46.1 Active Problem 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 Are you a:: current smoker , How often do you smoke cigarettes?: every day, How many cigarettes a day do you smoke?: 6-10 Jul 05, 2016 Pets: none. Jul 05, 2016 Marital Status: single. Jul 05, 2016 Diet: no. Jul 05, 2016 Caffeine: yes. frequency:, , 1-5, cups/day Jul 05, 2016 Exercise: no. Jul 05, 2016 Alcohol: no. Jul 05, 2016 Travel outside [place]: no. Jul 05, 2016 Occup. exposure: none. Jul 05, 2016 Occupation: unemployed. Jul 05, 2016 Summary Purpose eClinicalWorks Submission
--- OUTSIDE RECORDS SUMMARY | 2019-01-15 17:56 | XMS REPORT ---
Author Author Martínez Aleman [facility] eClinicalWorks Address Unknown Phone Unavailable Care Team Providers Care Environmental Issues Instructor Name Role Phone Martínez Aleman Unavailable Encounters Encounter Location Date Unknown Josesito Crowell MD Jul 12, 2016 Unknown Josesito Crowell MD Jul 20, 2016 CX APPOINTMENT Josesito Crowell MD Jul 29, 2016 Unknown Josesito Crowell MD Aug 03, 2016 Unknown Josesito Crowell MD Jul 07, 2016 Unknown Josesito Crowell MD Jul 08, 2016 Unknown Josesito Crowell MD Jul 13, 2016 UPDATE Josesito Crowell MD August 22, 2016 Problems Problem Type Condition ICD-9 Code Onset Dates Condition Status Problem Sacrococcygeal disorders, not elsewhere classified M53.3 Active Problem Lumbosacral spondylosis without myelopathy M47.817 Active Problem Degeneration of lumbar or lumbosacral intervertebral disc M51.37 Active Problem Cervical radiculopathy due to degenerative joint disease of spine M47.22 Active Problem Lumbar spinal stenosis M48.06 Active Problem Cervical radiculopathy M54.12 Active Problem Bilateral sacroiliitis M46.1 Active Problem Chronic pain syndrome G89.4 Active Problem Pain in joint of right shoulder M25.511 Active Problem Pain of right hand M79.641 Active Problem Rotator Cuff Syndrome 840.4 Active Problem Degeneration of lumbar or lumbosacral intervertebral disc 722.52 Active Problem Lumbosacral spondylosis without myelopathy 721.3 Active Problem 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 Jul 18, 2016 Summary Purpose eClinicalWorks Submission
--- OUTSIDE RECORDS SUMMARY | 2019-01-15 17:56 | XMS REPORT ---
Author Author Martníez Aleman Organization [employer] Address Unknown Phone Unavailable Care Team Providers Care Welt Butter Hand Name Role Phone Martínez Aleman Unavailable Encounters Encounter Location Date Unknown Josesito Crowell MD Jul 12, 2016 Unknown Josesito Crowell MD Jul 20, 2016 CX APPOINTMENT Josesito Crowell MD Jul 29, 2016 Unknown Josesito Crowell MD Aug 03, 2016 Unknown Josesito Crowell MD Jul 07, 2016 Unknown Josesito Crowell MD Jul 08, 2016 Unknown Josesito Crowell MD Jul 13, 2016 Problems Problem Type Condition ICD-9 Code [...]
--- OUTSIDE RECORDS SUMMARY | 2019-01-15 17:56 | XMS REPORT ---
Author Author Martínez Aleman [facility] eClinicalWorks Address Unknown Phone Unavailable Care Team Providers Care Post Framer Name Role Phone Martínez Aleman Unavailable Encounters Encounter Location Date Unknown Josesito Crowell MD Jul 12, 2016 Unknown Josesito Crowell MD Jul 20, 2016 Unknown Josesito Crowell MD Jul 07, [...]
--- OUTSIDE RECORDS SUMMARY | 2019-01-15 17:56 | XMS REPORT ---
Author Author Martínez Aleman Organization [employer] Address Unknown Phone Unavailable Care Team Providers Care Assistant Athletic Trainer Name Role Phone Martínez Aleman CP Unavailable [...] Active Problem Chronic pain syndrome 338.4 Active Medications No Known Medications Results No Known Results Summary Purpose eClinicalWorks Submission
--- OUTSIDE RECORDS SUMMARY | 2019-01-15 17:56 | XMS REPORT ---
Author Author Martínez Aleman [facility] eClinicalWorks Address Unknown Phone Unavailable Care Team Providers Care Instructor Of Sociology Name Role Phone Martínez Aleman Unavailable Encounters Encounter Location Date Unknown Josesito Crowell MD Jul 12, 2016 Unknown Josesito Crowell MD Jul 07, [...]
--- OUTSIDE RECORDS SUMMARY | 2019-01-15 17:56 | XMS REPORT ---
Author Author Martínez Aleman Organization [employer] Address Unknown Phone Unavailable Care Team Providers Care Facility Coordinator Name Role Phone Martínez Aleman CP Unavailable [...]
--- OUTSIDE RECORDS SUMMARY | 2019-01-15 17:56 | XMS REPORT ---
Author Author Martínez Aleman [facility] eClinicalWorks Address Unknown Phone Unavailable Care Team Providers Care Skiver Welt End Name Role Phone Martínez Aleman Unavailable Encounters Encounter Location Date Unknown Josesito Crowell MD Jul 12, 2016 Unknown Josesito Crowell MD Jul 20, 2016 CX APPOINTMENT Josesito Crowell MD Jul 29, 2016 Unknown Josesito Crowell MD Jul 07, [...]
--- OUTSIDE RECORDS SUMMARY | 2019-01-15 17:56 | XMS REPORT ---
Author Author Martínez Aleman [facility] eClinicalWorks Address Unknown Phone Unavailable Care Team Providers Care Superintendent Construction Name Role Phone Martínez Aleman Unavailable Encounters Encounter Location Date Unknown Josesito Crowell MD Jul 07, 2016 Unknown Josesito Crowell MD Jul 08, 2016 Problems Problem Type Condition ICD-9 Code [...] joint disease of spine M47.22 Active Problem Rotator Cuff Syndrome 840.4 Active Problem Degeneration of lumbar or lumbosacral intervertebral disc 722.52 Active Assessment Cervical radiculopathy M54.12 Active Problem Lumbosacral spondylosis without myelopathy 721.3 [...]
--- OUTSIDE RECORDS SUMMARY | 2019-01-15 17:56 | XMS REPORT ---
Author Author Admin, [place] Organization [facility] Address [address] [place] [address] Phone Allergies, Adverse Reactions, Alerts Allergy Name Reaction Description Start Date Severity Status Provider ADHESIVE TAPE Critical Active Navi Cooley MD DILADID Critical Active Navi Cooley MD IBUPROFEN Critical Active Navi Cooley MD ASPIRIN Critical Active Navi Cooley MD PENICILLIN Critical Active Navi Cooley MD Conditions or Problems Problem Name Problem Code Onset Date Status Entry Date Provider Comment Standard Description Annotate COPD 496 Active Navi Cooley MD Chronic airway obstruction, not elsewhere classified Crohns disease 555.9 Active Navi Cooley MD Regional enteritis of unspecified site Medication List Medication Instructions Start Date Stop Date Generic Name NDC Status Provider Patient Instruction ANORO ELLIPTA 62.5-25 MCG/INH INHALATION AEROSOL POWDER BREATH ACTIVATED inhale 1 puff Every Day UMECLIDINIUM-VILANTEROL 70196672959 Active Navi Cooley MD Active BUDESONIDE 3 MG ORAL CAPSULE DELAYED RELEASE PARTICLES take one cap By Mouth Every Morning x up to 8 weeks BUDESONIDE 32239522085 Active Navi Cooley MD Active XIFAXAN 550 MG ORAL TABLET take one tab By Mouth Three Times a Day x 14 days RIFAXIMIN 53406227551 Active Navi Cooley MD Active Vital Signs Date Name Value Unit Range Description blood pressure, diastolic, second observation 87 mm[Hg] [...] serum 1.4 1.2-2.2 cholesterol, serum 243 mg/dL 194-734 2718/05/24 bilirubin, serum, total <0.2 mg/dL mg/dL 0.0-1.2 [...] (14), ... - Urinalysis urinalysis, microscopic examination [facility] Lab Report: CBC With Differential/Platelet, Comp. Metabolic [...] Negative Encounters Date Encounter Provider Code Facility 11:38:58 CDT New Patient Detailed - 36831 Navi Cooley MD [id number] [facility] Procedures Code Procedure Name Date Entry Date Standard Description [id number] Venipuncture 11:38:35 CDT
--- OUTSIDE RECORDS SUMMARY | 2019-01-15 17:56 | XMS REPORT ---
Author Author Martínez Aleman [facility] eClinicalWorks Address Unknown Phone Unavailable Care Team Providers Care Manager Creative Name Role Phone Martínez Aleman Unavailable Encounters [...]
--- OUTSIDE RECORDS SUMMARY | 2019-01-15 17:56 | XMS REPORT ---
Author Author Martínez Aleman Organization eClinicalWorks Address Unknown Phone Unavailable Care Team Providers Care Rpg Programmer Analyst Name Role Phone Martínez Aleman CP [...]
[2019-01-15] MEDS ORDERED: CIPROFLOXACIN 400 MG/D5W 200ML 200 ML IV SCH (18:00)
[2019-01-15 18:21] LABS: BILIRUBIN,URINE NEGATIVE (NEGATIVE); CLARITY,URINE SL CLOUDY (CLEAR); COLOR,URINE YELLOW (YELLOW); KETONES,URINE NEGATIVE (NEGATIVE); LEUKOCYTE ESTERASE ,URINE TRACE (NEGATIVE); NITRITE,URINE NEGATIVE (NEGATIVE); PROTEIN,URINE DIPSTICK NEGATIVE (NEGATIVE); URINE UROBILINOGEN 0.2 mg/dL (0.2 - 1)
[2019-01-15 18:31] LABS: EOSINOPHILS % (MANUAL) 1 % (0-7); LYMPHOCYTES % (MANUAL) 22 % (19-48); METAMYELOCYTES % (MANUAL) 3 % (0-0); MONOCYTES % (MANUAL) 12 % (3.4-9.0); MYELOCYTES % (MANUAL) 1 % (0-0); NEUTROPHILS % (MANUAL) 56 % (40-74)
[2019-01-15 18:34] LABS: BACTERIA,URINE MANY /HPF; EPITHELIAL CELLS,URINE MODERATE /LPF
[2019-01-15 18:34] LABS: ANISOCYTOSIS SLIGHT; PLATELET ESTIMATE ADEQUATE; PLATELET MORPHOLOGY COMMENT NORMAL; POIKILOCYTOSIS SLIGHT; RBC MORPHOLOGY COMMENT NORMAL
[2019-01-15] MEDS: MORPHINE SULFATE 2 MG/ML SYR 1ML IV PRN (18:45)
[2019-01-15] MEDS ORDERED: SODIUM CHLORIDE 0.9% 250ML 250 ML IV ONE (18:45)
[2019-01-15] MEDS ORDERED: POTASSIUM CHLORIDE 10MEQ/100ML 200 ML IV ONE (19:30)
[2019-01-15] MEDS: FAMOTIDINE 20 MG/2 ML VIAL IV SCH (19:40)
[2019-01-15] MEDS: METRONIDAZOLE 500MG/NS 100ML IV SCH (19:42)
--- NOTE | 2019-01-15 19:47 | Diagnostic Imaging Report ---
EXAM: CT of the abdomen and pelvis WITH contrast HISTORY: Pain, diverticulosis, r/o divertic/ sbo COMPARISON: CT of the abdomen and pelvis May 26, 2017. TECHNIQUE: The abdomen and pelvis were scanned utilizing a multidetector helical scanner. Coronal and sagittal reformats are available. PROTOCOL: Routine IV CONTRAST: 100 cc of Isovue-370. ORAL CONTRAST: Dilute Gastrografin. RADIATION DOSE: Total DLP: 197.07 mGy*cm Estimated effective dose: (DLP x 0.015 x size factor) Dose modulation, iterative reconstruction, and/or weight based adjustment of the mA/kV was utilized to reduce the radiation dose to as low as reasonably achievable. COMPLICATIONS: None FINDINGS: LINES and TUBES: None. LOWER THORAX: Similar-appearing emphysematous changes. HEPATOBILIARY: Stable appearing too small to characterize hypodensities within the liver, statistically most likely small cysts. Stable fatty infiltration adjacent to the falciform ligament. No focal hepatic lesions. No biliary ductal dilation. GALLBLADDER: No radio-opaque stones or sludge. No wall thickening. SPLEEN: No splenomegaly. PANCREAS: No focal masses or ductal dilatation. ADRENALS: No adrenal nodules KIDNEYS/URETERS: Kidneys enhance symmetrically. No hydronephrosis. No cystic or solid mass lesions. No stones. GI TRACT: The stomach is decompressed, but the wall again appears diffusely thickened. No bowel dilation. The appendix is normal. Radiopaque contrast, most notably the distal small bowel and colon. PELVIC ORGANS/BLADDER: The uterus is anteflexed. Tubal ligation clips. Collapsed urinary bladder. Otherwise, unremarkable. LYMPH NODES: No lymphadenopathy. VESSELS: Diffuse scattered atherosclerotic vascular calcifications. PERITONEUM / RETROPERITONEUM: No free air or fluid. BONES: Healed fracture deformities of the right superior and inferior pubic rami. Posterior fusion from L4 to S1 via bilateral maye and pedicle screw constructs interbody spacers. Associated beam Abdul artifact limits regional evaluation. SOFT TISSUES: Unremarkable. IMPRESSION: 1. Diffusely thickened appearance of the decompressed stomach wall, correlate for gastritis. 2. Partially visualized emphysematous changes of the lungs. 3. No evidence of acute diverticulitis or small bowel obstruction. Signed by: Dr. Fred Giraldo D.O., M.M.M. on 01/15/2019 7:44 PM
[2019-01-15 20:00] VITALS: BP 124/58
--- NOTE | 2019-01-15 20:25 | NUR ---
RECEIVED PT BY STRETCHER TO ROOM 298. PT IS AAOX3, RR EVEN AND NON-LABORED, ON ROOM AIR. NO S/SX OF DISTRESS NOTED. PT AMBULATED TO BATHROOM AND TO BED. ORIENTED PT TO HOSPITAL ROOM CALL LIGHT, PHONE, BED CONTROLS AND LIGHTS. LEFT PT LAYING SEMI FOWLERS IN BED, BED IN LOW LOCKED POSITION, SIDE RAILS UPX2, CALL LIGHT AND PHONE WITHIN REACH.
[2019-01-15] MEDS ORDERED: SODIUM CHLORIDE 0.9% 50ML 50 ML ONE (21:35)
[2019-01-15] MEDS ORDERED: IOPAMIDOL 370 MG/ML 200 ML INFUS..BTL INJ ONE (21:36)
[2019-01-15] MEDS: CIPROFLOXACIN 400 MG/D5W 200ML 200 ML IV SCH (21:42)
[2019-01-15 22:30] VITALS: BP 124/58
[2019-01-15] MEDS ORDERED: CIMZIA400 MG/2 M INJ (22:49)
[2019-01-15] MEDS ORDERED: NORCO 10-325 T1 EACH PO (22:49)
--- NOTE | 2019-01-15 22:56 | NUR ---
SPOKE WITH MD MASON CONCERNING HOME MEDICATIONS AND IVF FLUIDS. NEW ORDERS RECEIVED TO CONTINUE HOME MEDS AND MAKE IVF CONTINUOUS.
[2019-01-15] MEDS ORDERED: DICYCLOMINE HCL 10 MG CAP PO PRN (23:15)
[2019-01-15] MEDS: HYDROCODONE/APAP 10MG-325MG TAB PO PRN (23:29)
[2019-01-15] MEDS: AMITRIPTYLINE HCL 25 MG TAB PO SCH (23:29)
[2019-01-15] MEDS: ATORVASTATIN 20 MG TAB PO SCH (23:29)
[2019-01-16] VITALS (9 sets, daily range): BP systolic 89–118; BP diastolic 50–58
[2019-01-16] MEDS ORDERED: SODIUM CHLORIDE 0.9% 250ML 250 ML ONE (01:06)
[2019-01-16] MEDS: METRONIDAZOLE 500MG/NS 100ML IV SCH ×4 (01:25→19:15)
[2019-01-16] MEDS: ONDANSETRON HCL INJ 2MG/ML 2ML 2 MG/ML VIAL IV PRN ×2 (02:18→20:50)
[2019-01-16] MEDS: KCL 20MEQ/.9 SOD CHL 1,000 ML IV SCH ×3 (06:23→22:00)
[2019-01-16 06:46] LABS: BASOPHILS # (AUTO) 0.1 (0.0-0.1); BASOPHILS % 1.3 % (0.0-1.0); EOSINOPHILS # (AUTO) 0.7 (0.0-0.4); EOSINOPHILS % 8.6 % (0.0-6.0); HEMATOCRIT 31.4 % (34.2-44.1); HEMOGLOBIN 10.2 g/dL (12.0-16.0); LYMPHOCYTES # (AUTO) 3.4 (1.0-3.2); LYMPHOCYTES % 40.1 % (18.0-39.1); MEAN CORPUSCULAR HEMOGLOBIN 28.9 pg (28-32); MEAN CORPUSCULAR HGB CONC 32.5 g/dL (31-35); MONOCYTES # (AUTO) 1.8 (0.2-0.8); MONOCYTES % 20.8 % (4.4-11.3); NEUTROPHILS # (AUTO) 2.4 (2.1-6.9); NEUTROPHILS % 28.7 % (38.7-80.0); PLATELET COUNT 330 x10e3/uL (140-360); RED BLOOD COUNT 3.53 x10e6/uL (3.6-5.1); RED CELL DISTRIBUTION WIDTH 14.3 % (11.7-14.4)
[2019-01-16 07:20] LABS: ALANINE AMINOTRANSFERASE 8 IU/L (0-55); ALBUMIN 2.3 g/dL (3.5-5.0); ALBUMIN/GLOBULIN RATIO 0.7 (0.8-2.0); ALKALINE PHOSPHATASE 63 IU/L (40-150); ANION GAP 12.5 mmol/L (8-16); BLOOD UREA NITROGEN < 5 mg/dL (7-26); CALCIUM 8.1 mg/dL (8.4-10.2); CARBON DIOXIDE 25 mmol/L (22-29); CHLORIDE 104 mmol/L (98-107); CREATININE, SERUM 0.68 mg/dL (0.57-1.11); EST GLOMERULAR FILTRATION RATE > 60 ML/MIN (60-); GLUCOSE 90 mg/dL (74-118); LIPASE 13 U/L (8-78); POTASSIUM 3.5 mmol/L (3.5-5.1); SODIUM 138 mmol/L (136-145)
[2019-01-16 07:22] LABS: BUN/CREATININE RATIO 7 (6-25)
--- NOTE | 2019-01-16 07:31 | NUR ---
PATIENT IN BED RESTING WITH NO RESPIRATORY DISTRESS. IV FLUID INFUSING ORDERED. BED IN LOWER POSITION, CALL LIGHT AT REACH.
--- NOTE | 2019-01-16 07:34 | History and Physical ---
CHIEF COMPLAINT: The patient is a 63-year-old female, who comes in with intractable diarrhea. The patient has been having this for the last 1 week. The patient has been treated with antibiotics in the past and has a history of Clostridium difficile. The patient is admitted for dehydration and hypokalemia. The patient's laboratory values, initial one showed a potassium of 2.2. HISTORY OF PRESENT ILLNESS: The patient is a 63-year-old lady with a history of rheumatoid arthritis, history of hypertension, history of hyperlipidemia, history of COPD, was in usual state of health until about a week prior to admission. The patient started with intractable diarrhea, watery in nature and intermittent in nature and is depended on food. PAST MEDICAL HISTORY: History of rheumatoid arthritis, history of osteoarthritis, history of hypertension, history of COPD, history of smoking and no history of EtOH. SOCIAL HISTORY: 1. History of smoking, still smokes. 2. No history of EtOH. No IV drug abuse either. PAST SURGICAL HISTORY: History of carpal tunnel surgery release and also right shoulder arthroscopic surgery. REVIEW OF SYSTEMS: Negative for chest pain. Positive for some shortness of breath. No nausea. Positive for diarrhea. No bloody diarrhea either. No rectal bleeding. No hematochezia. No hematemesis. No diplopia. No blurry vision. Positive for headaches. ALLERGIES: THE PATIENT IS ALLERGIC TO PENICILLIN, ADHESIVES, ASPIRIN, HYDROMORPHONE, AND IBUPROFEN. FAMILY HISTORY: Noncontributory. PHYSICAL EXAMINATION: GENERAL: The patient is alert and oriented x3. Complains of some abdominal pain, vague, but much better than yesterday. VITAL SIGNS: Temperature 97.2, pulse of 70, respirations of 17, blood pressure is 102/50, pulse oximetry 89%. HEENT: Normocephalic and atraumatic. Looks older than her age. The patient is edentulous. CVS: S1 and S2. Tachycardic. ABDOMEN: Nontender, nondistended. EXTREMITIES: No clubbing, no cyanosis, and no edema. LUNGS: Decreased air entry into all lea. LABORATORY VALUES: The patient's sodium is 138, potassium of 2.2, BUN of less than 5, creatinine 0.71. Lactic acid was 13.2. BNP was 25.9. Amylase and lipase normal. Coags are within normal limits. Hematology; white count of 10.50, hemoglobin of 12.3, hematocrit of 37.5. Laboratory values as mentioned above, potassium is 2.2. MICROBIOLOGY: Pending for C diff. ASSESSMENT: 1. Intractable diarrhea, rule out Clostridium difficile has been sent. 2. Hypokalemia, go ahead and replace potassium. Pending potassium today. 3. History of Clostridium difficile. 4. Chronic obstructive pulmonary disease. 5. Rheumatoid arthritis. 6. Osteoarthritis. 7. Cachexia. PLAN: Continue with replacement of potassium. Lomotil to be added to the regimen. Continue home medications. Further recommendation per clinical course. We will follow the patient along with her laboratory values and decide on discharge. Possible discharge in 1 to 2 days. MD CARLOS SumnerJ/MODL /[id number]
[2019-01-16 08:20] LABS: EOSINOPHILS % (MANUAL) 7 % (0-7); LYMPHOCYTES % (MANUAL) 44 % (19-48); MONOCYTES % (MANUAL) 13 % (3.4-9.0); NEUTROPHILS % (MANUAL) 31 % (40-74); PLATELET ESTIMATE ADEQUATE; PLATELET MORPHOLOGY COMMENT NORMAL; RBC MORPHOLOGY COMMENT NORMAL
[2019-01-16] MEDS: RIFAXIMIN 550 MG TABLET PO SCH ×3 (08:30→17:37)
[2019-01-16] MEDS: HYDROCODONE/APAP 10MG-325MG TAB PO PRN (08:55)
[2019-01-16] MEDS ORDERED: ESTRADIOL 0.5 MG PO SCH (09:00)
[2019-01-16] MEDS: PANTOPRAZOLE SOD 40 MG TABEC PO SCH (09:00)
[2019-01-16] MEDS: FAMOTIDINE 20 MG/2 ML VIAL IV SCH ×2 (09:03→17:37)
[2019-01-16] MEDS: PANTOPRAZOLE 40 MG 10ML VIAL IV SCH (09:04)
[2019-01-16] MEDS: VENLAFAXINE HCL 75 MG TAB PO SCH (09:04)
[2019-01-16] MEDS: ESTRADIOL 1 MG TAB PO SCH (09:04)
[2019-01-16] MEDS: CIPROFLOXACIN 400 MG/D5W 200ML 200 ML IV SCH ×2 (10:02→20:50)
--- NOTE | 2019-01-16 11:44 | NUR ---
ASSISTED TO THE RESTROOM AND BACK TO BED. REQUESTED AND RECEIVED A CUP OF ICE. SITTING UP IN BED EATING LUNCH, NO COMPLAIN VOICED. CALL LIGHT AT REACH.
--- NOTE | 2019-01-16 17:04 | NUR ---
PATIENT IV LEAKING, REMOVED WITH TIP INTACT. NEW IV 20 GAUGE INSERTED TO LEFT FOREARM, PATIENT TOLERATED PROCEDURE WELL. IV FLUID INFUSING ORDERED.
--- NOTE | 2019-01-16 19:18 | NUR ---
WALKING ROUND MADE AND REPORT GIVEN TO ON COMING NURSE.
[2019-01-16] MEDS: AMITRIPTYLINE HCL 25 MG TAB PO SCH (20:50)
[2019-01-16] MEDS: MORPHINE SULFATE 2 MG/ML SYR 1ML IV PRN (20:50)
[2019-01-16] MEDS: ATORVASTATIN 20 MG TAB PO SCH (20:50)
--- NOTE | 2019-01-16 21:00 | NUR ---
PATIENT AOX4, NO RESPIRATORY DISTRESS NOTED. PATIENT VOICED COMPLAINTS OF PAIN IN THE ABDOMEN OF 8 AND WATERY STOOLS, AND PATIENT WAS MEDICATED ORDERED. BED IS LOCKED AND IN LOWEST POSITION, BOTH SIDE RAILS ARE UP. CALL LIGHT IS WITHIN EASY REACH, WILL CONTINUE TO MONITOR.
[2019-01-17] MEDS: METRONIDAZOLE 500MG/NS 100ML IV SCH ×2 (00:44→05:53)
--- NOTE | 2019-01-17 03:38 | NUR ---
PATIENT IS RESTING COMFORTABLY, BOTH EYES ARE CLOSED. NO DISTRESS IS NOTED, IV RUNNING AT ORDERED RATE AND PATENT. CALL LIGHT IS WITH IN REACH.
[2019-01-17 04:05] VITALS: BP 105/58
[2019-01-17] MEDS: KCL 20MEQ/.9 SOD CHL 1,000 ML IV SCH (04:35)
[2019-01-17] MEDS: ONDANSETRON HCL INJ 2MG/ML 2ML 2 MG/ML VIAL IV PRN (05:04)
[2019-01-17] MEDS: MORPHINE SULFATE 2 MG/ML SYR 1ML IV PRN (05:04)
--- NOTE | 2019-01-17 06:49 | NUR ---
Walking rounds done and report received. Patient is awake, alert, and able to make needs known. Tele#[phone], [id number]. Dr. Raygoza making rounds. Patient continues to c/o having diarrhea and MD is aware. Bed in lowest position, locked, and call kilpatrick within reach.
--- NOTE | 2019-01-17 07:37 | Progress Note ---
DATE: 01/17/2019 SUBJECTIVE: This is the patient, who came with intractable diarrhea and also hypokalemia. The patient's potassium is better today. No chest pain. No shortness of breath. Diarrhea still continues, but better. The patient is on Flagyl at this time. C diff was negative. No chest pain. No shortness of breath. No nausea, vomiting, or diarrhea. LABORATORY VALUES: Yesterday's white count is 8.50, hemoglobin of 10.2, hematocrit of 31.4. Chemistries; sodium of 138, potassium 3.5, BUN of less than 5, creatinine of 0.68 with a GFR above 60. Urine was negative. Serology; C diff negative as mentioned and urine culture preliminary shows re-incubation acquired and also no growth in 24 hours on the blood cultures. ASSESSMENT: 1. Intractable diarrhea. No Clostridium difficile. 2. Hypokalemia. Replace potassium and also sent the patient on potassium. 3. History of Clostridium difficile, increase probiotics and diet. 4. Chronic obstructive pulmonary disorder. Continue with albuterol inhalers. 5. Rheumatoid arthritis with immunocompromise. Continue monitoring her CBC as an outpatient. 6. Cachexia, will need to stop smoking and this has been addressed of the patient's smoking cessation advice. Further recommendation per clinical course. The patient can be discharged today to be followed up in the clinic for a BMP in about a week's time. MD ARTHUR Sumner/TRAYL /[id number]
[2019-01-17 07:58] VITALS: BP 116/59
[2019-01-17 08:00] VITALS: BP 116/59
[2019-01-17] MEDS: RIFAXIMIN 550 MG TABLET PO SCH (08:43)
[2019-01-17] MEDS: PANTOPRAZOLE 40 MG 10ML VIAL IV SCH (08:43)
[2019-01-17] MEDS: ESTRADIOL 1 MG TAB PO SCH (08:43)
[2019-01-17] MEDS: VENLAFAXINE HCL 75 MG TAB PO SCH (08:43)
[2019-01-17] MEDS: FAMOTIDINE 20 MG/2 ML VIAL IV SCH (08:43)
[2019-01-17] MEDS: PANTOPRAZOLE SOD 40 MG TABEC PO SCH (08:43)
[2019-01-17] MEDS: HYDROCODONE/APAP 10MG-325MG TAB PO PRN (09:00)
--- NOTE | 2019-01-17 09:27 | NUR ---
GAVE PACKET OF INFORMATION WITH COMM[employer]ITY [employer] FOR ASSISTANCE WITH LOW TO NO INCOME TO PATIENT. RESOURCES THAT PATIENT MAY BE ABLE TO FOLLOW UP UPON DISCHARGE. PT EDUCATED ON EACH RESOURCE AND UNDERSTANDING HOW TO FOLLOW UP TO SEE IF QUALIFIED FOR EACH RESOURCE.
[2019-01-17] MEDS ORDERED: LOMOTIL TABLET1 EACH PO (09:59)
[2019-01-17] MEDS ORDERED: ZOFRAN4 MG PO (09:59)
[2019-01-17] MEDS ORDERED: POTASSIUM CHLO20 ME1 PO (10:00)
--- NOTE | 2019-01-17 10:30 | NUR ---
Written discharge instructions provided, IV dc'd with cath tip intact, and prescriptions given. Patient verbalized understanding and is now waiting for a ride.
--- NOTE | 2019-01-17 12:31 | NUR ---
Patient discharged home with all belongings in stable condition. She was wheeled to the front where family is picking up.
--- NOTE | 2019-03-10 02:52 | Discharge Summary ---
HISTORY: This patient came in the emergency room with intractable nausea, intractable vomiting, and diarrhea. The patient has had a history of C. difficile. C. difficile test checked on, it was negative, so the patient was kept in hospital, IV resuscitation fluids and also electrolyte repletion was done. The patient was feeling better. The patient has a history of rheumatoid arthritis, medicines were restarted and once the patient was feeling better and C. difficile was negative, the patient was discharged home. Discharged home on Lomotil 1 tablet q.4 hours as needed for diarrhea, Zofran 4 mg as needed and also potassium chloride 20 mEq for hypokalemia. For further information, look in the chart. For medicines on discharge, look in medical reconciliation sheet. MD ARTHUR Sumner/TRAYL /[id number]
== END 2019-01-17 11:40 | disposition home or self-care (01) | DRG 392 ==
LOC: ER 15:07 → ERHOLD 17:31 → MED/SURG3 20:25
PROVIDERS: ADMIT Family Medicine; ATTEND Family Medicine
DX: R19.7 Diarrhea, unspecified (principal); R64 Cachexia; E87.6 Hypokalemia; E86.0 Dehydration; M06.9 Rheumatoid arthritis, unspecified; I10 Essential (primary) hypertension; E78.5 Hyperlipidemia, unspecified; J44.9 Chronic obstructive pulmonary disease, unspecified; M19.90 Unspecified osteoarthritis, unspecified site; R00.0 Tachycardia, unspecified; M79.7 Fibromyalgia; Z88.6 Allergy status to analgesic agent; Z88.5 Allergy status to narcotic agent; Z88.8 Allergy status to other drugs, medicaments and biological substances; Z88.0 Allergy status to penicillin
CPT/HCPCS: 36415; 71045; 74177; 80053; 81001; 82550; 82553; 83605; 83690; 83880; 84100; 84484; 85025; 85610; 85730; 87040; 87086; 87493; 93005; 96372; 96374; 96375; 99285; J0500; J1885; J2270; J2405; J3480; J7030; J7050; Q9967

== ENCOUNTER 2019-12-11 07:12 | Inpatient (IN) | payer BC, OTHER ==
[~2019-12-11] VITALS: Ht 154.9 cm; Wt 71.7 kg
[~2019-12-11 07:12] MED LIST changes: +ANORO; +ATORVASTATIN CA20 MG PO; +CIMZIA400 MG/2 M INJ; +LOMOTIL TABLET1 EACH PO; +NORCO 10-325 T1 EACH PO; +POTASSIUM CHLO20 ME1 PO; +ZOFRAN4 MG PO
[2019-12-11] MEDS ORDERED: METHYLPREDNISOLONE SOD SUCC 125 MG/2ML VIAL IV STA (07:16)
[2019-12-11] MEDS: ALBUTEROL SULFATE HFA 8GM INHALATION AEROSOL INH PRN (07:58)
[2019-12-11] MEDS: CEFTRIAXONE SOD 1 GM/NS 50 ML 50 ML IV SCH ×2 (07:58→20:17)
[2019-12-11 08:00] LABS: BASOPHILS # (AUTO) 0.2 (0.0-0.1); BASOPHILS % 0.9 % (0.0-1.0); EOSINOPHILS # (AUTO) 3.2 (0.0-0.4); EOSINOPHILS % 17.3 % (0.0-6.0); HEMATOCRIT 39.1 % (34.2-44.1); HEMOGLOBIN 12.1 g/dL (12.0-16.0); LYMPHOCYTES % 32.6 % (18.0-39.1); MEAN CORPUSCULAR HEMOGLOBIN 27.7 pg (28-32); MEAN CORPUSCULAR HGB CONC 30.9 g/dL (31-35); MEAN CORPUSCULAR VOLUME 89.5 fL (81-99); MONOCYTES # (AUTO) 1.6 (0.2-0.8); MONOCYTES % 8.5 % (4.4-11.3); NEUTROPHILS # (AUTO) 7.5 (2.1-6.9); NEUTROPHILS % 40.3 % (38.7-80.0); PLATELET COUNT 388 x10e3/uL (140-360); RED BLOOD COUNT 4.37 x10e6/uL (3.6-5.1); RED CELL DISTRIBUTION WIDTH 16.1 % (11.7-14.4)
[2019-12-11] MEDS ORDERED: ONDANSETRON HCL INJ 2MG/ML 2ML 2 MG/ML VIAL IV STA (08:03)
[2019-12-11] MEDS ORDERED: AZITHROMYCIN 500MG/NS 250 ML 250 ML IV SCH (08:20)
[2019-12-11 08:39] LABS: ALANINE AMINOTRANSFERASE 10 IU/L (0-55); ALBUMIN 3.2 g/dL (3.5-5.0); ALBUMIN/GLOBULIN RATIO 0.8 (0.8-2.0); ALKALINE PHOSPHATASE 89 IU/L (40-150); ANION GAP 12.5 mmol/L (8-16); BLOOD UREA NITROGEN 8 mg/dL (7-26); BUN/CREATININE RATIO 10 (6-25); CARBON DIOXIDE 28 mmol/L (22-29); CHLORIDE 104 mmol/L (98-107); CREATINE KINASE 130 IU/L (29-168); CREATININE, SERUM 0.79 mg/dL (0.57-1.11); EST GLOMERULAR FILTRATION RATE > 60 ML/MIN (60-); GLUCOSE 146 mg/dL (74-118); MAGNESIUM 1.6 MG/DL (1.3-2.1); POTASSIUM 3.5 mmol/L (3.5-5.1); SODIUM 141 mmol/L (136-145)
[2019-12-11] MEDS ORDERED: NITROGLYCERIN 0.4 MG SUBL SL PRN (08:45)
[2019-12-11] MEDS ORDERED: MORPHINE SULFATE 2 MG/ML SYR 1ML IV PRN (08:45)
[2019-12-11] MEDS ORDERED: ONDANSETRON HCL INJ 2MG/ML 2ML 2 MG/ML VIAL IV PRN (08:45)
--- NOTE | 2019-12-11 08:45 | Diagnostic Imaging Report ---
EXAM: CHEST SINGLE (PORTABLE) DATE: 12/11/2019 8:20 AM INDICATION: Shortness of breath, COPD COMPARISON: 01/15/2019 FINDINGS: The trachea is midline. The lungs are symmetrically expanded without evidence for large focal consolidation, pneumothorax, or significant pleural effusion. The cardiomediastinal silhouette is stable in appearance. The pulmonary vasculature is not engorged. There are postsurgical changes of the right humeral head. No acute osseous abnormalities identified. IMPRESSION: No acute cardiopulmonary process identified. Signed by: Dr. Manuel Anderson MD on 12/11/2019 8:42 AM
[2019-12-11 08:54] LABS: INR 0.84
[2019-12-11 08:55] LABS: PARTIAL THROMBOPLASTIN TIME 26.9 seconds (23.8-35.5)
[2019-12-11] MEDS ORDERED: SODIUM CHLORIDE 0.9% 1000ML 1,000 ML ONE (09:21)
[2019-12-11] MEDS ORDERED: SODIUM CHLORIDE 0.9% 1000ML 1,000 ML IV SCH (09:30)
--- NOTE | 2019-12-11 09:41 | Emergency Department Note ---
History of Present Illnes History of Present Illness Chief Complaint: COVID PUI History of Present Illness This is a 64 year old female Patient in from home via EMS with complaints of shortness of breath that started to get bad over the last 4 days. Patient states that this morning she felt like she was going to pass out and that she couldn't breathe at all. Patient does have a history of COPD and has had a chronic cough for the past 2 months that she has take two rounds of antibiotics for with little improvement. In traige the patient is 91% on 4L NC and is sweating excessively. 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 Any updates have been documented here. Past Medical History Recent Fever: No Clinical Suspicion of Infectio: No New/Unexplained Change in Ment: No Past Medical History: COPD, Osteoarthritis Other Medical History: RHEUMATOID ARTHRITIS FIBROMYALGIA IBS LUMBAR STENOSIS C. DIFF 2017 Diverticulitis Past Surgical History: Back Surgery Other Surgery: Right shoulder sugery 05/04 Carpal tunnel right hand Social History Smoking Cessation: Former smoker Counseling Performed: No Alcohol Use: Occasional Any Illegal Drug Use: No TB Exposure/Symptoms: No Physically hurt or threatened: No Other Last Tetanus: unknown Any Pre-Existing Lines (PICC,: No Is patient up to date on immun: Yes Last Flu: none Last Pneumovax: none Review of Systems Review of Systems Constitutional: Reports no symptoms EENTM: Reports no symptoms Cardiovascular: Reports as per HPI, Reports chest pain Respiratory: Reports as per HPI Gastrointestinal: Reports no symptoms Genitourinary: Reports no symptoms Musculoskeletal: Reports no symptoms Integumentary: Reports no symptoms Neurological: Reports no symptoms Psychological: Reports no symptoms Endocrine: Reports no symptoms Hematological/Lymphatic: Reports no symptoms Physical Exam Related Data Allergies: Coded Allergies: Penicillins (Verified Allergy, Mild, 11/08/16) aspirin (Verified Allergy, Mild, SWELLING, 11/08/16) hydromorphone (Verified Allergy, Unknown, itch, 11/08/16) ibuprofen (Verified Allergy, Unknown, SWELLING, 11/08/16) adhesive (Verified Adverse Reaction, Mild, 05/27/17) "tears my skin off" Triage Vital Signs Vital Signs Date Time Temp Pulse Resp B/P (MAP) Pulse Ox O2 Delivery O2 Flow Rate FiO2 12/11/19 07:17 99.0 108 18 119/70 97 Vital signs reviewed: Yes Physical Exam CONSTITUTIONAL Constitutional: Present well-developed, Present well-nourished HENT HENT: Present normocephalic, Present atraumatic, Present oropharynx clear/moist, Present nose normal HENT L/R: Present left ext ear normal, Present right ext ear normal EYES Eyes: Reports PERRL, Reports conjunctivae normal NECK Neck: Present ROM normal PULMONARY Pulmonary: Present respiratory distress (TACHYPNEIC), Present other (DECREASED BREATH SOUNDS THROUGHOUT, NO WHEEZING) CARDIOVASCULAR Cardiovascular: Present regular rhythm, Present heart sounds normal, Present c apillary refill normal, Present normal rate GASTROINTESTINAL Abdominal: Present soft, Present nontender, Present bowel sounds normal GENITOURINARY Genitourinary: Present exam deferred SKIN Skin: Present warm, Present dry MUSCULOSKELETAL Musculoskeletal: Present ROM normal NEUROLOGICAL Neurological: Present alert, Present oriented x 3, Present no gross motor or sensory deficits PSYCHOLOGICAL Psychological: Present mood/affect normal, Present judgement normal Results Laboratory Result Diagram: 12/11/19 0731 12/11/19 0731 Laboratory Laboratory Tests Test 12/11/19 07:34 12/11/19 07:31 White Blood Count 18.49 x10e3/uL (4.8-10.8) Red Blood Count 4.37 x10e6/uL (3.6-5.1) Hemoglobin 12.1 g/dL (12.0-16.0) Hematocrit 39.1 % (34.2-44.1) Mean Corpuscular Volume 89.5 fL (81-99) Mean Corpuscular Hemoglobin 27.7 pg (28-32) Mean Corpuscular Hemoglobin Concent 30.9 g/dL (31-35) Red Cell Distribution Width 16.1 % (11.7-14.4) Platelet Count 388 x10e3/uL (140-360) Neutrophils (%) (Auto) 40.3 % (38.7-80.0) Lymphocytes (%) (Auto) 32.6 % (18.0-39.1) Monocytes (%) (Auto) 8.5 % (4.4-11.3) Eosinophils (%) (Auto) 17.3 % (0.0-6.0) Basophils (%) (Auto) 0.9 % (0.0-1.0) Neutrophils # (Auto) 7.5 (2.1-6.9) Lymphocytes # (Auto) 6.0 (1.0-3.2) Monocytes # (Auto) 1.6 (0.2-0.8) Eosinophils # (Auto) 3.2 (0.0-0.4) Basophils # (Auto) 0.2 (0.0-0.1) Absolute Immature Granulocyte (auto 0.07 x10e3/uL (0-0.1) Prothrombin Time 12.0 seconds (11.9-14.5) Prothromb Time International Ratio 0.84 Activated Partial Thromboplast Time 26.9 seconds (23.8-35.5) Sodium Level 141 mmol/L (136-145) Potassium Level 3.5 mmol/L (3.5-5.1) Chloride Level 104 mmol/L (98-107) Carbon Dioxide Level 28 mmol/L (22-29) Anion Gap 12.5 mmol/L (8-16) Blood Urea Nitrogen 8 mg/dL (7-26) Creatinine 0.79 mg/dL (0.57-1.11) Estimat Glomerular Filtration Rate > 60 ML/MIN (60-) BUN/Creatinine Ratio 10 (6-25) Glucose Level 146 mg/dL (74-118) Calcium Level 9.0 mg/dL (8.4-10.2) Magnesium Level 1.6 MG/DL (1.3-2.1) Total Bilirubin 0.3 mg/dL (0.2-1.2) Aspartate Amino Transf (AST/SGOT) 15 IU/L (5-34) Alanine Aminotransferase (ALT/SGPT) 10 IU/L (0-55) Alkaline Phosphatase 89 IU/L (40-150) Creatine Kinase 130 IU/L (29-168) Creatine Kinase MB 4.30 ng/mL (0-5.0) Troponin I 0.128 ng/mL (0-0.300) B-Type Natriuretic Peptide 16.0 pg/mL (0-100) Total Protein 7.3 g/dL (6.5-8.1) Albumin 3.2 g/dL (3.5-5.0) Globulin 4.1 g/dL (2.3-3.5) Albumin/Globulin Ratio 0.8 (0.8-2.0) Lab results reviewed: Yes Imaging Imaging results reviewed: Yes Impressions Procedure: [id number] DX/CHEST SINGLE (PORTABLE) Exam Date: 12/11/19 Exam Time: 08 REPORT STATUS: Signed EXAM: CHEST SINGLE (PORTABLE) DATE: 12/11/2019 8:20 AM INDICATION: Shortness of breath, COPD COMPARISON: 01/15/2019 FINDINGS: The trachea is midline. The lungs are symmetrically expanded without evidence for large focal consolidation, pneumothorax, or significant pleural effusion. The cardiomediastinal silhouette is stable in appearance. The pulmonary vasculature is not engorged. There are postsurgical changes of the right humeral head. No acute osseous abnormalities identified. IMPRESSION: No acute cardiopulmonary process identified. Signed by: Dr. Manuel Anderson MD on 12/11/2019 8:42 AM Procedures 12 Lead ECG Interpretation ECG Interpretation : ECG: ECG 1 Shaper And Presser: Interpreted by ED physician Date: Dec 11, 2019 Time: 07:18 Rhythm: sinus tachycardia Rate: tachycardia (106) QRS axis: normal ST segments normal: Yes T waves normal: Yes Clinical Impression: abnormal ECG Assessment & Plan Medical Decision Making MDM PT WITH H/O COPD, COUGH/ACHY, O2 SAT WHEN I WALKED IN ROOM (AFTER EMS GAVE ALBUTEROL NEB) WAS 89% ON 3L NC - CHECK CBC, CHEM, CARDIACS, ECG, BNP, BLOOD CX'S, COVID SWAB, CXR - R/O PNEUMONIA, COPD EXAC, STEMI/NSTEMI, CHF, COVID Reassessment Reassessment IMPROVED, PT NOW 97% SAT ON 4L NC. ADMIT TO COVID UNIT - SPOKE WITH DR MASON, DR Kendell WINSTON AND DR PINO Assessment & Plan Final Impression: (1) Chest pain (2) COPD with exacerbation (3) Pneumonia Depart Disposition: ADMITTED Last Vital Signs Date Time Temp Pulse Resp B/P (MAP) Pulse Ox O2 Delivery O2 Flow Rate FiO2 12/11/19 07:17 99.0 108 18 119/70 97 Home Meds Reported Medications Potassium Chloride (POTASSIUM CHLORIDE) 20 Meq Tab.er.prt, 20 MEQ PO DAILY 01/17/19 Ondansetron Hcl* (ZOFRAN*) 4 Mg Tablet, 4 MG PO Q6H 01/17/19 Diphenoxylate Hcl/Atropine (LOMOTIL TABLET) 1 Each Tablet, 1 TAB PO Q4HR 01/17/19 Certolizumab Pegol (CIMZIA) 400 Mg/2 Ml Syringekit, INJ K5JOONY 01/15/19 Hydrocodone Bit/Acetaminophen (NORCO 10-325 TABLET) 1 Each Tablet, 1 EA PO Q4HR PRN for ABDOMINAL PAIN 01/15/19 Atorvastatin Calcium (ATORVASTATIN CALCIUM) 20 Mg Tablet, 20 MG PO HS, #30 TAB 01/15/19 Pantoprazole Sodium* (PROTONIX) 40 Mg Tablet.dr, 40 MG PO DAILY, TAB 05/27/17 Rifaximin (XIFAXAN) 550 Mg Tablet, 550 MG PO TIDWM 05/27/17 Dicyclomine Hcl (BENTYL) 10 Mg Capsule, 20 MG PO QID PRN for ABDOMINAL PAIN, CAP 11/18/16 [Anoro] No Conflict Check, PO DAILY 10/23/16 Amitriptyline Hcl (AMITRIPTYLINE HCL) 25 Mg Tablet, 25 MG PO HS, #30 TAB 10/23/16 Estradiol (ESTRADIOL) 0.5 Mg Tablet, 0.5 MG PO DAILY 11/23/15 Venlafaxine Hcl (VENLAFAXINE HCL) 75 Mg Tab, 150 MG PO DAILY, #30 TAB 08/28/14 Medications in the ED Methylprednisolone Sodium Succinate 125 mg ONCE STAT IV Last administered on 12/11/19at 07:58; Admin Dose 125 MG; Start 12/11/19 at 07:16; Stop 12/11/19 at 07:20; Status DC Ceftriaxone Sodium 50 ml @ 100 mls/hr Q12H IV Last administered on 12/11/19at 07:58; Admin Dose 100 MLS/HR; Start 12/11/19 at 07:45; Stop 12/18/19 at 07:44 Azithromycin 250 ml @ 250 mls/hr Q24H IV Last administered on 12/11/19at 07:58; Admin Dose 250 MLS/HR; Start 12/11/19 at 08:20; Stop 12/18/19 at 08:19 Albuterol 2 INH RQ2H PRN INH SHORTNESS OF BREATH Last administered on 12/11/19at 07:58; Admin Dose 2 GM; Start 12/11/19 at 07:45; Stop 01/10/20 at 07:44 Ondansetron HCl 4 mg NOW STAT IV ; Start 12/11/19 at 08:03; Stop 12/11/19 at 08:30; Status DC Nitroglycerin 0.4 mg Q5M PRN SL CHEST PAIN; Start 12/11/19 at 08:45; Status UNV Morphine Sulfate 2 mg Q3H PRN IV MODERATE PAIN (4-6); Start 12/11/19 at 08:45; Stop 12/18/19 at 08:44 Famotidine 20 mg Q12H IV ; Start 12/11/19 at 21:00; Stop 01/10/20 at 20:59 Ondansetron HCl 4 mg Q4H PRN IV NAUSEA AND VOMITING; Start 12/11/19 at 08:45; Stop 01/10/20 at 08:44; Status UNV Sodium Chloride 1,000 ml @ [facility] ONCE .ROUTE ; Start 12/11/19 at 09:21; Stop 12/11/19 at 09:15; Status DC AMIRA SANTOS MD Dec 11, 2019 09:41
[2019-12-11 11:40] LABS: ANISOCYTOSIS SLIGHT; EOSINOPHILS % (MANUAL) 23 % (0-7); LYMPHOCYTES % (MANUAL) 35 % (19-48); MONOCYTES % (MANUAL) 6 % (3.4-9.0); NEUTROPHILS % (MANUAL) 36 % (40-74); PLATELET ESTIMATE SLIGHTLY INCREASED; PLATELET MORPHOLOGY COMMENT RARE EDTA CLUMPING
[2019-12-11 11:41] LABS: POIKILOCYTOSIS SLIGHT; RBC MORPHOLOGY COMMENT NORMAL
[2019-12-11] MEDS: VENLAFAXINE HCL 75 MG TAB PO SCH (12:50)
[2019-12-11] MEDS: ARIPIPRAZOLE 2 MG TABLET PO SCH (12:50)
[2019-12-11] MEDS: PANTOPRAZOLE SOD 40 MG TABEC PO SCH (12:50)
[2019-12-11] MEDS: HYDROCODONE/APAP 10MG-325MG TAB PO PRN (12:50)
--- NOTE | 2019-12-11 13:00 | NUR ---
Patient to room 182 vis wheelchair; ambulating.
[2019-12-11 16:00] VITALS: BP 107/63
[2019-12-11 17:10] LABS: CREATINE KINASE MB 8.7 ng/mL (0-5.0)
--- NOTE | 2019-12-11 17:15 | NUR ---
Trop relayed to Karina Stevens and Jaret, orders rec'd.
[2019-12-11] MEDS ORDERED: ENOXAPARIN SODIUM INJ 100 MG/ML SYR SC SCH (18:30)
--- NOTE | 2019-12-11 18:56 | NUR ---
Report given to CARLOS ALBERTO De Souza.
[2019-12-11] MEDS: CLOPIDOGREL BISULFATE 75 MG TAB PO SCH (19:22)
[2019-12-11] MEDS: ENOXAPARIN SOD INJ 60 MG/0.6 ML SYR SC SCH (19:22)
[2019-12-11 20:00] VITALS: BP 116/71
--- NOTE | 2019-12-11 20:00 | NUR ---
Received change of shift report from AM nurse.
[2019-12-11] MEDS: FAMOTIDINE 20 MG/2 ML VIAL IV SCH (20:17)
--- NOTE | 2019-12-11 20:28 | NUR ---
SPOKE TO ANSWERING SERVICE FOR MD MASON TO REQUEST HOME MEDICATION RENEWAL. SPOKE TO MS OLEA WITH THE ANSWERING SERVICE AWAITING MD RETURN CALL.
[2019-12-11] MEDS ORDERED: ATORVASTATIN 10 MG TAB PO SCH (21:00)
--- NOTE | 2019-12-11 21:30 | NUR ---
Patient arrived to room 188 via stretcher. Patient denies pain at this time. Continue monitor. S/W Dr Raygoza and reordered home meds. Patient up ambulating to restroom with no difficulty noted. No c/o chest pain. Continue monitor.
[2019-12-11] MEDS ORDERED: DIPHENOXYLATE/ATROPINE TAB PO SCH (22:00)
[2019-12-11] MEDS ORDERED: DICYCLOMINE HCL 10 MG CAP PO PRN (22:00)
[2019-12-11] MEDS: AMITRIPTYLINE HCL 25 MG TAB PO SCH (22:05)
--- NOTE | 2019-12-11 22:34 | Consultation ---
DATE OF CONSULTATION: Pulmonary Critical Care Consultation CHIEF COMPLAINT: Dyspnea and congestion. HISTORY OF PRESENT ILLNESS: The patient is a 64-year-old woman with a history of rheumatoid arthritis affecting her hands and her knees. She also has a prior history of C. difficile colitis in 2019, as well as a recent episode of pneumonia. She has COPD and uses Anoro as well as a rescue inhaler. She complains of intermittent dyspnea over the past several months. Yesterday, she had more congestion and wheezing. She came to the ER. She received bronchodilators and Solu-Medrol, and felt better. She is not complaining of any fevers. She did have a COVID test, but it is still pending. PAST SURGICAL HISTORY: 1. Status post carpal tunnel release. 2. Status post right shoulder surgery. SOCIAL HISTORY: The patient is a prior smoker. She quit recently. She is not a drinker. PAST MEDICAL HISTORY: 1. Rheumatoid arthritis. 2. Hypertension. 3. COPD. 4. No prior cardiac history. ALLERGIES: THE PATIENT IS ALLERGIC TO PENICILLIN WELL ASPIRIN AND IBUPROFEN. FAMILY HISTORY: Family history is noncontributory. REVIEW OF SYSTEMS: The patient denies any fevers. She has no headaches. She is not having any neck pain or chest pain. She does complain of dyspnea as well as some phlegm production. She has no abdominal pain. She has no nausea or vomiting. She has no leg edema. PHYSICAL EXAMINATION: VITAL SIGNS: The patient is afebrile. The blood pressure is 119/70 and saturation is 99% on 4 L. HEENT: Shows no facial swelling or erythema. CARDIAC: Reveals regular rate and rhythm with normal S1 and S2. LUNGS: Auscultation of lungs reveals prolonged expiratory phase bilaterally. There is no wheezing. ABDOMEN: Soft and nontender. There is no rebound or guarding. EXTREMITIES: Shows no leg edema or calf tenderness. There is no cyanosis or clubbing. SKIN: Shows no rashes. NEUROLOGICAL: Shows no focal abnormalities. RADIOGRAPHIC DATA: Chest x-ray shows no acute disease. LABORATORY DATA: White blood cell count is 18.4 and the hemoglobin is 12.1. The platelet count is 388. BUN to creatinine ratio is normal. Other electrolytes are within normal limits. IMPRESSION: 1. Chronic obstructive pulmonary disease with acute exacerbation. 2. Rheumatoid arthritis. 3. Prior history of Clostridium difficile colitis. 4. Prior history of pneumonia. PLAN: 1. Continue bronchodilators. 2. Steroids as needed. 3. Continue current antibiotics. 4. Await her COVID-19 results. MD DANIELLE Vasquez/BE /[id number]
[2019-12-12] VITALS (13 sets, daily range): BP systolic 104–117; BP diastolic 47–69
[2019-12-12] MEDS ORDERED: ONDANSETRON HCL 4 MG ORAL DISINTEGRATING TAB PO SCH
[2019-12-12] MEDS ORDERED: NON-FORMULARY MEDICATION (Ondansetron Hcl* (Zofran*) 4 MG) PO SCH
--- NOTE | 2019-12-12 00:19 | Consultation ---
DATE OF CONSULTATION: HISTORY OF PRESENT ILLNESS: Ms. Cabrera, who is a very pleasant, well known to me. The patient comes into the hospital because she was not feeling well. She had shortness of breath, started a couple of days. No fever, no chills, but she took antibiotic without any improvement. She is going to the emergency room. In the emergency room, she was evaluated. Her COVID-19 was negative. LABORATORY DATA: Her sodium 141, potassium 3.5 creatinine 0.79. Her white count 15.9, hemoglobin 12. Chest x-ray showed no acute finding. PHYSICAL EXAMINATION: GENERAL: She is currently alert and oriented. Does not seem to be in acute distress. VITAL SIGNS: Stable, currently afebrile. HEENT: She is not icteric. NECK: Supple. CHEST: Clear. HEART: S1, S2. ABDOMEN: Soft. IMPRESSION: Sepsis, source is unclear. Obtain urine cultures. Obtain blood cultures. Continue with Rocephin, azithromycin. Can discontinue azithromycin in the morning. We will follow. MD YEIMI Chery/BE /[id number]
--- NOTE | 2019-12-12 01:24 | NUR ---
Patient resting quitly at this time.
--- NOTE | 2019-12-12 01:30 | Consultation ---
DATE OF CONSULTATION: 12/11/2019 Cardiology Consultation Thank you, Dr. Octavio Stevens, for this consultation. DIAGNOSES: 1. Non-Q wave myocardial infarction. 2. Chronic obstructive pulmonary disease. 3. Possible history of hypertension. HOSPITAL COURSE: Ms. Rick Sotelo is a pleasant 64-year-old woman, a patient of Dr. Raygoza, the primary physician, admitted at this time for shortness of breath. The patient at this time initially admitted to COVID unit, however, I was told the COVID is negative. So, she is going to be moved out to the room 188, and the patient came with shortness of breath, but she has some chest pain. Troponins went up to 1.2, and EKG shows nonspecific ST changes. Blood pressure is stable at the time of examination. The patient does not complain of chest pain. Lungs are normal. Abdomen normal. Neurologic is normal. The patient got moderate COPD. She stopped smoking about 2 years ago. The patient is still smoking, non-nicotine cigarette. The patient at this time anxious. I did explain to her she had a non-Q-wave [place]. We will start her on the Plavix, has allergy to aspirin, Lovenox, and Lipitor. The patient is quite stable. If she had recurrent chest pain, probably we will do coronary angiogram. At this time, we will treat with aspirin with Plavix and Lovenox. I will continue to follow the patient. I discussed with her if any chest pain, the patient needs further cardiac evaluation. Echocardiogram still pending. DIAGNOSES: 1. Non-Q wave myocardial infarction. 2. Chronic obstructive pulmonary disease. The patient is quite stable at this time. Shahla Rudolph MD PVB/MODL /[id number]
[2019-12-12] MEDS ORDERED: ONDANSETRON HCL 4 MG ORAL DISINTEGRATING TAB PO PRN (02:45)
--- NOTE | 2019-12-12 05:00 | NUR ---
Patient c/o being short for breath. Called Dr Raygoza and received orders for nebs treatment and cough syrup. Meds given.
[2019-12-12 05:10] LABS: BASOPHILS % 0.2 % (0.0-1.0); EOSINOPHILS % 0.1 % (0.0-6.0); HEMATOCRIT 33.1 % (34.2-44.1); HEMOGLOBIN 10.4 g/dL (12.0-16.0); LYMPHOCYTES # (AUTO) 2.4 (1.0-3.2); LYMPHOCYTES % 14.7 % (18.0-39.1); MEAN CORPUSCULAR HEMOGLOBIN 27.4 pg (28-32); MEAN CORPUSCULAR HGB CONC 31.4 g/dL (31-35); MEAN CORPUSCULAR VOLUME 87.1 fL (81-99); MONOCYTES # (AUTO) 1.5 (0.2-0.8); MONOCYTES % 8.9 % (4.4-11.3); NEUTROPHILS # (AUTO) 12.2 (2.1-6.9); NEUTROPHILS % 75.4 % (38.7-80.0); PLATELET COUNT 351 x10e3/uL (140-360); RED CELL DISTRIBUTION WIDTH 16.1 % (11.7-14.4)
[2019-12-12] MEDS: ENOXAPARIN SOD INJ 60 MG/0.6 ML SYR SC SCH ×2 (05:46→18:30)
[2019-12-12 05:50] LABS: ALANINE AMINOTRANSFERASE 8 IU/L (0-55); ALBUMIN 2.7 g/dL (3.5-5.0); ALBUMIN/GLOBULIN RATIO 0.8 (0.8-2.0); ALKALINE PHOSPHATASE 71 IU/L (40-150); ANION GAP 8.8 mmol/L (8-16); BLOOD UREA NITROGEN 8 mg/dL (7-26); BUN/CREATININE RATIO 12 (6-25); CALCIUM 8.8 mg/dL (8.4-10.2); CARBON DIOXIDE 29 mmol/L (22-29); CHLORIDE 104 mmol/L (98-107); CHOL/HDL RATIO 2.7 (3.0-3.6); CHOLESTEROL 150 MD/DL (0-199); CREATININE, SERUM 0.66 mg/dL (0.57-1.11); EST GLOMERULAR FILTRATION RATE > 60 ML/MIN (60-); GLUCOSE 144 mg/dL (74-118); HDL CHOLESTEROL 56 MG/DL (40-60); LDL CHOLESTEROL 80 MG/DL (60-130); POTASSIUM 3.8 mmol/L (3.5-5.1); SODIUM 138 mmol/L (136-145); TRIGLYCERIDES 69 MG/DL (0-149)
[2019-12-12] MEDS ORDERED: GUAIFENESIN 200 MG/10 ML UDC PO PRN (06:00)
[2019-12-12 06:21] LABS: CREATINE KINASE MB 5.4 ng/mL (0-5.0)
[2019-12-12] MEDS: ALBUTEROL/IPRATROPIUM 3 ML NEB NEB SCH ×6 (06:45→23:00)
[2019-12-12] MEDS ORDERED: IPRATROPIUM/ALBUTEROL SULFATE 4 GM INH INH SCH (07:00)
[2019-12-12] MEDS ORDERED: ESTRADIOL 0.5 MG PO SCH (09:00)
[2019-12-12] MEDS ORDERED: ASPIRIN 81 MG CHEW TAB PO ONE (09:00)
[2019-12-12] MEDS: ARIPIPRAZOLE 2 MG TABLET PO SCH (09:35)
[2019-12-12] MEDS: ESTRADIOL 1 MG TAB PO SCH (09:35)
[2019-12-12] MEDS: CEFTRIAXONE SOD 1 GM/NS 50 ML 50 ML IV SCH ×2 (09:35→20:26)
[2019-12-12] MEDS: CLOPIDOGREL BISULFATE 75 MG TAB PO SCH (09:35)
[2019-12-12] MEDS: PANTOPRAZOLE SOD 40 MG TABEC PO SCH (09:36)
[2019-12-12] MEDS: POTASSIUM CHLORIDE 20 MEQ TAB CR PO SCH (09:36)
[2019-12-12] MEDS: VENLAFAXINE HCL 75 MG TAB PO SCH (09:37)
[2019-12-12] MEDS: HYDROCODONE/APAP 10MG-325MG TAB PO PRN ×2 (09:37→15:10)
[2019-12-12] MEDS: FAMOTIDINE 20 MG/2 ML VIAL IV SCH ×2 (09:37→20:26)
[2019-12-12] MEDS ORDERED: SODIUM CHLORIDE 0.9% 250ML 250 ML ONE (09:39)
[2019-12-12] MEDS: RIFAXIMIN 550 MG TABLET PO SCH ×3 (09:39→17:43)
[2019-12-12] MEDS: METOPROLOL SUCCINATE 25 MG TAB XL PO SCH ×2 (10:01→18:04)
--- NOTE | 2019-12-12 10:56 | Progress Note ---
DATE: SUBJECTIVE: The patient is seen and evaluated. Available labs and notes reviewed. Discussed with the patient. Discussed with Dr. Grigsby. Discussed with the nurse. REVIEW OF SYSTEMS: The patient is still complaining of a cough and states that she is short of breath, but she is at 98% O2 saturation with 4 L of O2 nasal cannula. Discussed with the nurse. The patient's O2 saturation drops with ambulation. Diarrhea has resolved. No fever, chills, chest pain, headache, rash, or dysuria. PHYSICAL EXAMINATION: VITAL SIGNS: Temperature is 98.2, pulse 90, respirations 14, and blood pressure 108/66. GENERAL: Alert and oriented, no acute distress. CV: S1 and S2. CHEST: Equal expansion. Decreased breath sounds. No acute distress. ABDOMEN: Soft, nontender. Positive bowel sounds. HEENT: Moist. No pallor. No JVD. EXTREMITIES: Moves all. MEDICATIONS: Medication list reviewed. From ID point of view, the patient is on Zithromax and Rocephin. LABORATORY STUDIES: White count improved from 18.49 to 16.25, hemoglobin 10.4, platelet 351. Sodium 138, potassium 3.8, creatinine 0.66. Serology: Coronavirus PCR not detected on 12/11/2019. MICROBIOLOGY: Blood culture negative 24 hours. RADIOLOGY STUDIES: Chest x-ray showed no acute cardiopulmonary process. ASSESSMENT AND PLAN: 1. Sepsis on admission. Blood cultures negative. Urine cultures not done yet. Chest x-ray shows no acute finding. The patient remains on Rocephin and Zithromax with a plan to stop Zithromax today. Leukocytosis improved. Remains afebrile, alert and oriented. 2. Hyperlipidemia. 3. Chronic pain syndrome. 4. Rheumatoid arthritis. 5. Chronic obstructive pulmonary disease. 6. History of Clostridium difficile. COVID-19 was negative on 12/11/2019. Stop Zithromax. Continue Rocephin. Further management of this patient is based on daily findings on laboratory and physical examination. Please refer to chart for more information. Dictated by Itz Upton PA-C (Al) Sabrina Grigsby MD /MODL /[id number]
[2019-12-12 12:33] LABS: CREATINE KINASE MB 4.7 ng/mL (0-5.0)
--- NOTE | 2019-12-12 14:32 | Diagnostic Imaging Report ---
EXAM: CT Chest, Abdomen and Pelvis WITH intravenous contrast INDICATION: Cough, abdominal pain. COMPARISON: CT abdomen and pelvis of 01/15/2019, chest radiograph 12/11/2019 TECHNIQUE: The chest, abdomen and pelvis were scanned utilizing a multidetector helical scanner from the thoracic inlet to the pubic symphysis following administration of IV contrast. Coronal and sagittal reformations were obtained. Scan was performed during portal venous phase. IV CONTRAST: 100cc Isovue 370 ORAL CONTRAST: Water COMPLICATIONS: None RADIATION DOSE: Total DLP: 600 mGy*cm Dose modulation, iterative reconstruction, and/or weight based adjustment of the mA/kV was utilized to reduce the radiation dose to as low as reasonably achievable. FINDINGS: LINES/ TUBES: None. LUNGS AND AIRWAYS: The central airways are patent. Moderate centrilobular emphysema. No focal consolidation or pulmonary edema. No suspicious pulmonary nodules. Airways are normal. PLEURA: The pleural spaces are clear. HEART AND MEDIASTINUM: The thyroid gland is normal. No mediastinal, hilar or axillary lymphadenopathy. The heart is normal in size.. There is no pericardial effusion. No central pulmonary embolism. HEPATOBILIARY: Subcentimeter hypodensities in the liver are too small to adequately characterize. No biliary ductal dilation. Unremarkable gallbladder. SPLEEN: No splenomegaly. PANCREAS: No focal masses or ductal dilatation. ADRENALS: No adrenal nodules. KIDNEYS/URETERS: No hydronephrosis, stones, or solid mass lesions. PELVIC ORGANS/BLADDER: Status post tubal ligation. PERITONEUM / RETROPERITONEUM: No free air or fluid. LYMPH NODES: No lymphadenopathy. VESSELS: Moderate atherosclerotic calcifications of the nonaneurysmal abdominal aorta and major branches. GI TRACT: No abnormal bowel thickening. No bowel obstruction. Normal appendix. BONES AND SOFT TISSUES: Small amount of subcutaneous air in the anterior abdominal wall subcutaneous tissues may be related to subcutaneous injections. No acute osseous injury. No suspicious lytic or blastic lesions. Status post L4-S1 fusion. Grade 1 anterolisthesis at L5-S1. Right shoulder arthroplasty hardware. IMPRESSION: No acute findings in the chest, abdomen or pelvis. Signed by: Bharathi Cantu MD on 12/12/2019 2:28 PM
[2019-12-12] MEDS ORDERED: METHYLPREDNISOLONE SOD SUCC 40 MG/ML VIAL 1ML IV ONE (17:15)
--- NOTE | 2019-12-12 17:15 | Progress Note ---
DATE: Pulmonary Critical Care Progress Note SUBJECTIVE: The patient is having a little more trouble breathing. She still has some cough. She is not having fevers. She was seen by Cardiology because of an elevated troponin. She also had a CT scan of her abdomen and chest and pelvis. PHYSICAL EXAMINATION: VITAL SIGNS: The blood pressure is 117/66 and the oxygen saturation is 100% on 2 L. The pulse is 97 and respiratory rate is normal. HEENT: Shows no facial swelling or erythema. CARDIAC: Reveals a regular rate and rhythm with normal S1 and S2. LUNGS: Auscultation of lungs reveals rhonchorous breath sounds bilaterally. There is no wheezing. ABDOMEN: Soft and nontender. There is no rebound or guarding. EXTREMITIES: Shows no leg edema or calf tenderness. There is no cyanosis or clubbing. SKIN: Shows no rashes. NEUROLOGICAL: Shows no focal abnormalities. LABORATORY DATA: BUN to creatinine ratio is normal. Other electrolytes are within normal limits. The troponin I is 1.136. White blood cell count is 16.2 and the hemoglobin is 10.4. The platelet count is 351. RADIOGRAPHIC DATA: Chest CT shows no acute disease. IMPRESSION: 1. Chronic obstructive pulmonary disease with acute exacerbation. 2. Rheumatoid arthritis. 3. Non-transmural myocardial infarction. 4. History of Clostridium difficile colitis. PLAN: 1. Solu-Medrol x1. 2. Continue bronchodilators. 3. Continue Lovenox and current cardiac regimen. 4. Complete Cardiology evaluation. Octavio Stevens MD LM/BE /[id number]
[2019-12-12] MEDS: GUAIFENESIN/CODEINE 10 ML CUP PO PRN (17:43)
[2019-12-12] MEDS ORDERED: IOPAMIDOL 370 MG/ML 200 ML INFUS..BTL INJ ONE (18:21)
[2019-12-12] MEDS ORDERED: SODIUM CHLORIDE 0.9% 50ML 50 ML ONE (18:21)
--- NOTE | 2019-12-12 20:00 | NUR ---
pt received. no ss of distress noted. no co pain at time. tele monitor in place. 02 nc noted. no ss of distress noted. will cont to follow poc. call kilpatrick within reach.
[2019-12-12] MEDS: ATORVASTATIN 20 MG TAB PO SCH (20:26)
--- NOTE | 2019-12-12 21:16 | History and Physical ---
CHIEF COMPLAINT: The patient is a 64-year-old lady who comes in with shortness of breath and congestion. HISTORY OF PRESENT ILLNESS: A 64-year-old female with a history of rheumatoid arthritis, not having any biological history of COPD, history of hyperlipidemia, was in usual state of health until the patient started to have exacerbation of her shortness of breath. The patient has baseline COPD, where she has shortness of breath, but yesterday the wheezing congestion got severe. Did receive some bronchodilator therapy at home, but did not do any better. EMS was activated. The patient comes in and was tested for COVID. COVID was negative. The patient was transferred to [facility]. The patient is currently in [facility] with COPD exacerbation. PAST MEDICAL HISTORY: History of hypertension, history of hyperlipidemia, history of COPD, history of rheumatoid arthritis, and history of multiple osteoarthritis of joints. ALLERGIES: PENICILLIN, ASPIRIN, AND IBUPROFEN. FAMILY HISTORY: Noncontributory. REVIEW OF SYSTEMS: Negative for chest pain. Positive for shortness of breath. Positive for wheezing. Positive for dyspnea on exertion. No orthopnea no PND. The patient also has chronic cough with production of cough and no orthopnea and no pedal edema either. PHYSICAL EXAMINATION: GENERAL: The patient is alert and oriented x3. She is full code. She is allergic to penicillin. HEENT: Normocephalic, atraumatic. VITAL SIGNS: Temperature is 98.1, pulse 97, respirations 17, pulse oximetry of 100% on 2 L. HEENT: Normocephalic, atraumatic. Pupils reactive. CVS: S1 and S2 normal. Distant, regular rate and rhythm. ABDOMEN: Soft, nontender. EXTREMITIES: No clubbing, no cyanosis, no edema. LABORATORY VALUES: White count is up to 18,000 yesterday, hemoglobin of 12.1, hematocrit of 39.1, and platelet count 388, neutrophil count 40.3. There was a left shift present. Today's is 16.25 white count. Chemistry; sodium of 138, potassium 3.8, BUN of 8, creatinine 0.66. Troponin went up to 1.136, trended down to 0.88 and 0.914. LDL 80. Serology; coronavirus was not detected. Microbiology; no growth in the blood cultures. ASSESSMENT: Ms. Ashleigh Cabrera with chronic obstructive disease with acute exacerbation. 1. Non ST-segment elevation HI. 2. Rheumatoid arthritis. 3. Generalized debility. 4. Hypertension. PLAN: A consult with Dr. Lester has been done. The patient has a non-Q-wave myocardial infarction. Continue to monitor the patient. We will need an outpatient risk stratification. The patient's LDL is 80. We will start the patient on statin. We will also need a tolerable beta blockade and echocardiogram has been ordered. We will continue to monitor the patient and keep her on pulse doses of steroids as needed. Continue with the current antibiotic regimen. The patient is currently on Rocephin and azithromycin. Continue atorvastatin. The patient is asymptomatic and feeling better, by tomorrow she can be discharged. Further recommendation per clinical course. The patient will need a cardiac cath as an outpatient. MD ARTHUR Sumner/MODL /[id number]
--- NOTE | 2019-12-12 21:56 | Consultation ---
DATE OF CONSULTATION: 12/12/2019 Cardiology Consultation REFERRING PHYSICIAN: Jose Roberto Raygoza MD. CONSULTING PHYSICIAN: Julio Lester, Interventional Cardiology. REASON FOR CONSULTATION: Chest pain, shortness of breath and abnormal troponin. HISTORY OF PRESENT ILLNESS: Ms. Cabrera is a 64-year-old woman with a history of hypertension, COPD, rheumatoid arthritis, and dyslipidemia, who presents with increased wheezing, labored breathing and associated dyspnea and chest discomfort. In this settings her cardiac biomarkers ruled in for non-ST elevation myocardial infarctions. EKG with sinus rhythm, nonspecific repolarization abnormalities. She currently denies any chest discomfort, however, continues to have some dyspnea, which is improving. Echocardiogram reveals preserved left ventricular systolic function with normal regional wall motion. She reports having recurrent several bouts of similar complaints and symptoms for which she has attempted outpatient antibiotics, however, in spite of partial improvement she has had recurrence. REVIEW OF SYSTEMS: A 12-system review is negative except for as noted above. ALLERGIES: HYDROMORPHONE, ADHESIVE, IBUPROFEN, ASPIRIN, AND PENICILLIN REPORTED PER EMR. SOCIAL HISTORY: History of tobacco use. No alcohol or drugs reported. FAMILY HISTORY: Noncontributory. PHYSICAL EXAMINATION: VITAL SIGNS: Temperature 98.1, heart rate 97, blood pressure 117/66, respiratory rate 19, O2 saturation 97%, BMI 23.8. GENERAL: In no acute distress, alert. NECK: No JVD. CHEST: Chest with scattered rhonchi and decreased breath sounds. CARDIOVASCULAR: Regular rate and rhythm. Normal S1, S2. No S3 or S4. ABDOMEN: Soft. Bowel sounds positive. EXTREMITIES: No edema. CARDIOVASCULAR MEDICATIONS: Reviewed. Clopidogrel 75 mg daily, potassium chloride 20 mEq daily, metoprolol succinate 25 mg b.i.d., nitroglycerin p.r.n., atorvastatin 10 mg at bedtime, Lovenox 60 mg subcu q.12 hours, potassium 3.8, bicarbonate 29, sodium 138, chloride 104, BUN 8, creatinine 0.6, glucose 144. White blood cells 16.2, hemoglobin 10.4, platelets 351,000. INR 0.8. PT 12, PTT 26.9, AST 16, ALT 8, alkaline phosphatase 71, total bilirubin 0.1. ASSESSMENT AND PLAN: 1. A 64-year-old woman presents with COPD exacerbation and non-ST elevation myocardial infarction versus type 2 myocardial infarction. 2. Hypertension. 3. Dyslipidemia. 4. Anemia. RECOMMENDATIONS: 1. Continue antiplatelet therapy, statin therapy, and beta aditya. 2. Continue treatment of COPD. ID evaluating for possible C. diff colitis per review of EMR. 3. We will plan on coronary risk stratification during hospital admission. Thank you for the opportunity to participate in the care of this patient. Please feel free to call with any questions. Of note, EMR reports allergy to aspirin and the patient is currently on clopidogrel and no aspirin. MD WangV/MODL /[id number]
--- NOTE | 2019-12-12 22:11 | Progress Note ---
DATE: Cardiology Progress Note This morning, the patient is doing well. No shortness of breath or chest pain. The patient has known COPD and hypertension. The patient has nonspecific ST changes on EKG, troponin is borderline high. I think the patient has non-Q myocardial infarction at this time, however, the patient is asymptomatic. At this time, I come to know the patient is already seen in the past by Dr. Yanez in his office, and I called and told him that the patient is being transferred to Dr. Yanez, as neck fitter on this case. So the patient at this time, I am going to stop seeing the patient. I informed Dr. Yanez to follow up with the patient. My point of view, the patient is doing very well. However, the patient may need further cardiac workup. I will let Dr. Yanez for doing other cardiac workups. Thank you very much for this consultation. MD ZAHRA Peña/BE /[id number]
[2019-12-13] MEDS: GUAIFENESIN/CODEINE 10 ML CUP PO PRN ×4 (02:09→21:15)
--- NOTE | 2019-12-13 02:09 | NUR ---
pt incontinent of bladder due to coughing. pt cleaned and repositioned. no distress noted. call kilpatrick within reach.
[2019-12-13] MEDS: ALBUTEROL SULFATE HFA 8GM INHALATION AEROSOL INH PRN (02:13)
[2019-12-13] MEDS: ALBUTEROL/IPRATROPIUM 3 ML NEB NEB SCH ×5 (03:00→20:00)
--- NOTE | 2019-12-13 03:42 | NUR ---
pt resting. no ss of distress noted. call kilpatrick within reach.
[2019-12-13 03:43] VITALS: BP 121/70
[2019-12-13] MEDS: ENOXAPARIN SOD INJ 60 MG/0.6 ML SYR SC SCH ×2 (05:16→17:45)
[2019-12-13 08:14] VITALS: BP 121/70
[2019-12-13 08:25] VITALS: BP 99/60
[2019-12-13 08:43] LABS: BASOPHILS # (AUTO) 0.1 (0.0-0.1); BASOPHILS % 0.3 % (0.0-1.0); EOSINOPHILS % 0.2 % (0.0-6.0); HEMATOCRIT 33.5 % (34.2-44.1); HEMOGLOBIN 10.2 g/dL (12.0-16.0); LYMPHOCYTES # (AUTO) 3.7 (1.0-3.2); LYMPHOCYTES % 21.2 % (18.0-39.1); MEAN CORPUSCULAR HEMOGLOBIN 27.1 pg (28-32); MEAN CORPUSCULAR HGB CONC 30.4 g/dL (31-35); MEAN CORPUSCULAR VOLUME 89.1 fL (81-99); MONOCYTES # (AUTO) 1.6 (0.2-0.8); MONOCYTES % 9.2 % (4.4-11.3); NEUTROPHILS # (AUTO) 11.9 (2.1-6.9); NEUTROPHILS % 68.4 % (38.7-80.0); PLATELET COUNT 352 x10e3/uL (140-360); RED BLOOD COUNT 3.76 x10e6/uL (3.6-5.1); RED CELL DISTRIBUTION WIDTH 16.4 % (11.7-14.4)
[2019-12-13] MEDS: METOPROLOL SUCCINATE 25 MG TAB XL PO SCH ×2 (08:55→16:23)
[2019-12-13 09:07] LABS: ALANINE AMINOTRANSFERASE 9 IU/L (0-55); ALBUMIN/GLOBULIN RATIO 0.9 (0.8-2.0); ALKALINE PHOSPHATASE 62 IU/L (40-150); ANION GAP 11.2 mmol/L (8-16); BLOOD UREA NITROGEN 8 mg/dL (7-26); BUN/CREATININE RATIO 12 (6-25); CALCIUM 8.6 mg/dL (8.4-10.2); CARBON DIOXIDE 28 mmol/L (22-29); CHLORIDE 107 mmol/L (98-107); CREATININE, SERUM 0.67 mg/dL (0.57-1.11); EST GLOMERULAR FILTRATION RATE > 60 ML/MIN (60-); GLUCOSE 91 mg/dL (74-118); POTASSIUM 4.2 mmol/L (3.5-5.1); SODIUM 142 mmol/L (136-145)
[2019-12-13] MEDS: PANTOPRAZOLE SOD 40 MG TABEC PO SCH (09:13)
[2019-12-13] MEDS: POTASSIUM CHLORIDE 20 MEQ TAB CR PO SCH (09:13)
[2019-12-13] MEDS: RIFAXIMIN 550 MG TABLET PO SCH ×3 (09:13→16:23)
[2019-12-13] MEDS: CLOPIDOGREL BISULFATE 75 MG TAB PO SCH (09:13)
[2019-12-13] MEDS: FAMOTIDINE 20 MG/2 ML VIAL IV SCH ×2 (09:13→21:15)
[2019-12-13] MEDS: VENLAFAXINE HCL 75 MG TAB PO SCH (09:13)
[2019-12-13] MEDS: CEFTRIAXONE SOD 1 GM/NS 50 ML 50 ML IV SCH ×2 (09:13→21:15)
[2019-12-13] MEDS: ESTRADIOL 1 MG TAB PO SCH (09:13)
[2019-12-13] MEDS: ARIPIPRAZOLE 2 MG TABLET PO SCH (09:13)
--- NOTE | 2019-12-13 09:58 | Progress Note ---
DATE: SUBJECTIVE: The patient is seen and evaluated, available labs and notes reviewed. Discussed with Dr. Grigsby. Please refer to chart for more information. REVIEW OF SYSTEMS: Remains with cough and O2 saturation drops when she goes to sleep per my discussion with staff. Appetite is fair. No nausea, vomiting, fever, or chills. PHYSICAL EXAMINATION: VITAL SIGNS: Temperature 97.9, pulse 72, respirations 20, and blood pressure of 90/60. GENERAL: Alert and oriented, in no acute distress. Actively coughing during my visit. CV: S1 and S2. CHEST: Equal expansion, decreased breath sounds, in no acute distress. ABDOMEN: Soft and nontender. Bowel sounds positive. HEENT: Moist. No pallor. No JVD. EXTREMITIES: With trace edema. MEDICATIONS: Medication list reviewed. As far as Infectious Disease point of view, the patient is on rifaximin and Rocephin. LABORATORY STUDIES: White count of 17.39, hemoglobin 10.2, and platelets 352. Sodium 142, potassium 4.2, creatinine 0.67. SEROLOGY: Coronavirus PCR, 12/11/2019, not detected. MICROBIOLOGY: Blood culture, negative 48 hours from 12/11/2019. RADIOLOGY STUDIES: CT of abdomen, chest, and pelvis showed no acute findings in the chest, abdomen, or pelvis. CT suggested moderate centrilobular emphysema. No focal consolidation or pulmonary edema. No suspicious pulmonary nodules. Airways were normal. ASSESSMENT AND PLAN: 1. Sepsis on admission. 2. Blood culture negative. Coronavirus disease [address] of the chest, abdomen and pelvis, negative findings. 3. Emphysema by CT. 4. Rheumatoid arthritis. 5. History of Clostridium difficile. The patient remains on Rocephin and rifaximin. Zithromax stopped yesterday. We will continue to monitor the patient clinically. Follow with the labs. Please refer to chart for more information. Discussed with Dr. Grigsby in details. Dictated by Itz Upton PA-C (Al) Sabrina Grigsby MD /MODL /[id number]
[2019-12-13] MEDS: DIPHENOXYLATE/ATROPINE TAB PO PRN ×2 (10:02→17:45)
[2019-12-13 12:32] VITALS: BP 113/62
[2019-12-13 16:23] VITALS: BP 122/94
[2019-12-13 20:00] VITALS: BP 123/78
[2019-12-13] MEDS: AMITRIPTYLINE HCL 25 MG TAB PO SCH (21:15)
[2019-12-13] MEDS: ATORVASTATIN 20 MG TAB PO SCH (21:15)
--- NOTE | 2019-12-13 21:16 | Progress Note ---
DATE: SUBJECTIVE: The patient is a 64-year-old female, who came in with acute shortness of breath. There is also troponin elevation. The patient has been seen by her infrastructure tech, Dr. Yanez. The patient's troponin had been gone up to 1.2 and trended down. Currently chest pain-free. Has some shortness of breath. We will discuss with Dr. Yanez on further intervention. OBJECTIVE: VITAL SIGNS: Temperature is 97.7, afebrile, pulse of 90, respirations of 20, blood pressure is 122/94, and pulse oximetry of 96% on 2 L. HEENT: Normocephalic and atraumatic. Pupils are reactive to light and accommodation. CVS: S1 and S2 normal. LUNGS: Decreased air entry. Positive for crackles and rhonchi. ABDOMEN: Soft, nontender, and nondistended. EXTREMITIES: No clubbing. No cyanosis. No edema. ASSESSMENT: Ms. Ashleigh Cabrera with: 1. Sepsis, on admission. Coronavirus negative. 2. Chronic obstructive pulmonary disease exacerbation. 3. Vfy-VL-yuxbmjk elevation myocardial infarction. 4. Rheumatoid arthritis. 5. Generalized debility. 6. Hypertension. PLAN: Continue monitoring the patient. Dr. Yanez is to do catheterization apparently on Monday. Continue with albuterol and Atrovent treatment. Continue with current home medication. Further recommendation per clinical course. We will continue to monitor the patient. MD CARLOS SumnerJ/MODL /[id number]
--- NOTE | 2019-12-13 21:32 | Progress Note ---
DATE: 12/13/2019 Cardiology Progress Note SUBJECTIVE: Denies any chest pain other than with coughing and shortness of breath, improved. OBJECTIVE: VITAL SIGNS: Temperature 97.7, heart rate 90, blood pressure 122/94, respiratory rate 20, and O2 saturation 96%. GENERAL: In no acute distress. Alert. NECK: No JVD. CHEST: Scattered rhonchi and wheezing. Decreased breath sounds. CARDIOVASCULAR: Regular rate and rhythm. Normal S1 and S2. No S3 or S4. ABDOMEN: Soft. EXTREMITIES: No edema. CARDIOVASCULAR MEDICATIONS: Reviewed. Atorvastatin 20 mg at bedtime, metoprolol succinate 25 mg b.i.d., nitroglycerin p.r.n., and clopidogrel 75 mg daily. LABORATORY DATA: Studies reviewed. Potassium 4.2, creatinine 0.6. White blood cells 17, hemoglobin 10.2, and platelets 352. INR 0.8. AST 12, ALT 9, total bilirubin 0.1, and alkaline phosphatase 62. ASSESSMENT AND PLAN: 1. 64-year-old woman with chronic obstructive pulmonary disease exacerbation. 2. Type 2 myocardial infarction versus non-STEMI. 3. Hypertension and dyslipidemia. 4. Anemia, improving lung exam in spite of persistent wheezing and rhonchi. Continue treatment for chronic obstructive pulmonary disease exacerbation. Symptoms are improving. 5. Continue antiplatelet therapy, statin therapy and beta-aditya therapy. 6. Coronary risk stratification early next week. Julio Lester MD AFJaron/MODL /[id number]
[2019-12-14] VITALS (8 sets, daily range): BP systolic 123–135; BP diastolic 73–80
[2019-12-14] MEDS: GUAIFENESIN/CODEINE 10 ML CUP PO PRN ×3 (01:49→18:25)
[2019-12-14] MEDS: ALBUTEROL/IPRATROPIUM 3 ML NEB NEB SCH ×7 (03:00→23:07)
[2019-12-14 05:26] LABS: BASOPHILS # (AUTO) 0.1 (0.0-0.1); BASOPHILS % 0.8 % (0.0-1.0); EOSINOPHILS # (AUTO) 1.9 (0.0-0.4); EOSINOPHILS % 12.3 % (0.0-6.0); HEMATOCRIT 32.9 % (34.2-44.1); HEMOGLOBIN 10.2 g/dL (12.0-16.0); LYMPHOCYTES # (AUTO) 5.6 (1.0-3.2); LYMPHOCYTES % 36.6 % (18.0-39.1); MEAN CORPUSCULAR HEMOGLOBIN 27.9 pg (28-32); MEAN CORPUSCULAR VOLUME 89.9 fL (81-99); MONOCYTES # (AUTO) 1.4 (0.2-0.8); MONOCYTES % 9.1 % (4.4-11.3); NEUTROPHILS # (AUTO) 6.3 (2.1-6.9); NEUTROPHILS % 40.8 % (38.7-80.0); PLATELET COUNT 332 x10e3/uL (140-360); RED BLOOD COUNT 3.66 x10e6/uL (3.6-5.1); RED CELL DISTRIBUTION WIDTH 16.4 % (11.7-14.4)
[2019-12-14 05:43] LABS: CREATINE KINASE MB 1.6 ng/mL (0-5.0)
[2019-12-14 05:46] LABS: ALANINE AMINOTRANSFERASE 9 IU/L (0-55); ALBUMIN 3.1 g/dL (3.5-5.0); ALBUMIN/GLOBULIN RATIO 0.9 (0.8-2.0); ALKALINE PHOSPHATASE 64 IU/L (40-150); ANION GAP 10.6 mmol/L (8-16); BLOOD UREA NITROGEN 6 mg/dL (7-26); BUN/CREATININE RATIO 8 (6-25); CALCIUM 8.7 mg/dL (8.4-10.2); CARBON DIOXIDE 30 mmol/L (22-29); CHLORIDE 106 mmol/L (98-107); CREATININE, SERUM 0.71 mg/dL (0.57-1.11); EST GLOMERULAR FILTRATION RATE > 60 ML/MIN (60-); GLUCOSE 82 mg/dL (74-118); POTASSIUM 3.6 mmol/L (3.5-5.1); SODIUM 143 mmol/L (136-145)
[2019-12-14] MEDS: ENOXAPARIN SOD INJ 60 MG/0.6 ML SYR SC SCH ×2 (06:07→18:18)
[2019-12-14] MEDS ORDERED: BENZONATATE 100 MG CAP PO SCH (06:30)
[2019-12-14] MEDS: DIPHENOXYLATE/ATROPINE TAB PO PRN ×2 (06:44→18:25)
[2019-12-14] MEDS: BENZONATATE 100 MG CAP PO SCH ×3 (06:44→21:45)
[2019-12-14] MEDS: ESTRADIOL 1 MG TAB PO SCH (08:37)
[2019-12-14] MEDS: CEFTRIAXONE SOD 1 GM/NS 50 ML 50 ML IV SCH ×2 (08:37→20:00)
[2019-12-14] MEDS: RIFAXIMIN 550 MG TABLET PO SCH ×3 (08:37→17:11)
[2019-12-14] MEDS: PANTOPRAZOLE SOD 40 MG TABEC PO SCH (08:37)
[2019-12-14] MEDS: ARIPIPRAZOLE 2 MG TABLET PO SCH (08:37)
[2019-12-14] MEDS: VENLAFAXINE HCL 75 MG TAB PO SCH (08:37)
[2019-12-14] MEDS: POTASSIUM CHLORIDE 20 MEQ TAB CR PO SCH (08:37)
[2019-12-14] MEDS: CLOPIDOGREL BISULFATE 75 MG TAB PO SCH (08:37)
[2019-12-14] MEDS: FAMOTIDINE 20 MG/2 ML VIAL IV SCH ×2 (08:37→21:00)
[2019-12-14] MEDS: METOPROLOL SUCCINATE 25 MG TAB XL PO SCH ×2 (08:38→16:24)
[2019-12-14] MEDS: LORATADINE 10 MG TAB PO SCH (10:01)
--- NOTE | 2019-12-14 10:39 | Progress Note ---
DATE: SUBJECTIVE: The patient seen and evaluated. Available labs and notes reviewed. Discussed with Dr. Grigsby. Discussed with the nurse. Please refer to chart for more information. REVIEW OF SYSTEMS: Still complaining of cough. Appetite is good. She is able to smell and taste food. No diarrhea. No headache. No rash. No nausea or vomiting. PHYSICAL EXAMINATION: VITAL SIGNS: Temperature 97.9, pulse 91, respirations 16, blood pressure 129/74. GENERAL: Alert and oriented, no acute distress. CV: S1-S2. CHEST: Equal expansion. Clear to auscultation. No acute distress. ABDOMEN: Soft, nontender, and no distention. HEENT: Moist. No pallor. No JVD. EXTREMITIES: Moves all. Weak. No acute distress. MEDICATIONS: Reviewed. From ID point of view, the patient is on Rocephin and . LABORATORY STUDIES: White count 15.32, hemoglobin 10.2, platelets 332. Sodium 143, potassium 3.6, creatinine 0.71. Coronavirus PCR not detected on 12/10. MICROBIOLOGY: Blood culture negative 24 hours. RADIOLOGY STUDIES: CT abdomen and pelvis and chest were mentioned in the previous notes. No obvious acute finding. CT of the chest suggested emphysema. ASSESSMENT AND PLAN: 1. Sepsis on admission. 2. Emphysema. 3. Cough. 4. Rheumatoid arthritis. 5. History of Clostridium difficile. 6. Blood culture, coronavirus, CT of the chest, abdomen and pelvis all negative. Leukocytosis improving, currently on Rocephin and . We will add Claritin 10 mg p.o. daily for 2 days and monitor patient clinically and follow with the labs. Please refer to chart for more information. Dictated by Itz Upton PA-C (Al) Sabrina Grigsby MD /MODL /[id number]
[2019-12-14] MEDS: ATORVASTATIN 20 MG TAB PO SCH (21:00)
[2019-12-14] MEDS: AMITRIPTYLINE HCL 25 MG TAB PO SCH (21:00)
--- NOTE | 2019-12-14 21:01 | Progress Note ---
DATE: 12/14/2019 Cardiology Progress Note SUBJECTIVE: cough, shortness of breath, and wheezing. Denies any chest pain. OBJECTIVE: VITAL SIGNS: Temperature 98.6, heart rate 89, blood pressure 135/79, respiratory rate 17, and O2 saturation 99%. GENERAL: In no acute distress, alert. NECK: No JVD. CHEST: With scattered rhonchi and wheezing. CARDIOVASCULAR: Regular rate and rhythm. Normal S1, S2. ABDOMEN: Soft. Bowel sounds positive. EXTREMITIES: Trace edema. CARDIOVASCULAR MEDICATIONS: Reviewed. 1. Metoprolol succinate 25 mg b.i.d. 2. Atorvastatin 20 mg at bedtime. 3. Nitroglycerin 0.4 mg p.r.n. 4. Lovenox 60 mg subcu q.12 hours. 5. Clopidogrel 75 mg daily. 6. KCl 20 mEq daily. STUDIES: Reviewed. Creatinine 0.7 and glucose 82. White blood cells 15, hemoglobin 10.2, and platelets 332. INR 0.8. AST 12, ALT 9, alkaline phosphatase 64. ASSESSMENT AND PLAN: A 64-year-old woman presents with: 1. Chronic obstructive pulmonary disease exacerbation. 2. Type 2 MO versus non-ST elevation myocardial infarction. 3. Hypertension. 4. Dyslipidemia. 5. Anemia. RECOMMENDATIONS: 1. Continue current cardiovascular medications. Continue antibiotics and nebs for COPD. 2. Discussed with Ashleigh possible risk stratification from coronary standpoint early. MD GLENIS Hartman/BE /[id number]
[2019-12-15] VITALS (9 sets, daily range): BP systolic 110–136; BP diastolic 66–92
[2019-12-15] MEDS: ALBUTEROL/IPRATROPIUM 3 ML NEB NEB SCH ×6 (02:15→22:45)
[2019-12-15 05:40] LABS: BASOPHILS # (AUTO) 0.1 (0.0-0.1); BASOPHILS % 0.8 % (0.0-1.0); EOSINOPHILS # (AUTO) 3.5 (0.0-0.4); EOSINOPHILS % 19.3 % (0.0-6.0); HEMATOCRIT 38.5 % (34.2-44.1); HEMOGLOBIN 12.1 g/dL (12.0-16.0); LYMPHOCYTES # (AUTO) 5.4 (1.0-3.2); LYMPHOCYTES % 29.4 % (18.0-39.1); MEAN CORPUSCULAR HEMOGLOBIN 28.3 pg (28-32); MEAN CORPUSCULAR HGB CONC 31.4 g/dL (31-35); MONOCYTES # (AUTO) 1.9 (0.2-0.8); MONOCYTES % 10.3 % (4.4-11.3); NEUTROPHILS # (AUTO) 7.3 (2.1-6.9); NEUTROPHILS % 39.8 % (38.7-80.0); PLATELET COUNT 372 x10e3/uL (140-360); RED BLOOD COUNT 4.28 x10e6/uL (3.6-5.1); RED CELL DISTRIBUTION WIDTH 16.5 % (11.7-14.4)
[2019-12-15] MEDS: BENZONATATE 100 MG CAP PO SCH ×3 (06:30→20:07)
[2019-12-15] MEDS: ENOXAPARIN SOD INJ 60 MG/0.6 ML SYR SC SCH ×2 (06:30→17:26)
[2019-12-15 06:53] LABS: ALANINE AMINOTRANSFERASE 13 IU/L (0-55); ALBUMIN 3.4 g/dL (3.5-5.0); ALBUMIN/GLOBULIN RATIO 0.9 (0.8-2.0); ALKALINE PHOSPHATASE 77 IU/L (40-150); ANION GAP 13.2 mmol/L (8-16); BLOOD UREA NITROGEN 6 mg/dL (7-26); BUN/CREATININE RATIO 8 (6-25); CALCIUM 9.2 mg/dL (8.4-10.2); CARBON DIOXIDE 28 mmol/L (22-29); CHLORIDE 103 mmol/L (98-107); CREATININE, SERUM 0.78 mg/dL (0.57-1.11); EST GLOMERULAR FILTRATION RATE > 60 ML/MIN (60-); GLUCOSE 97 mg/dL (74-118); POTASSIUM 4.2 mmol/L (3.5-5.1); SODIUM 140 mmol/L (136-145)
[2019-12-15 08:28] LABS: EOSINOPHILS % (MANUAL) 17 % (0-7); LYMPHOCYTES % (MANUAL) 28 % (19-48); MONOCYTES % (MANUAL) 8 % (3.4-9.0); NEUTROPHILS % (MANUAL) 47 % (40-74)
[2019-12-15] MEDS: PANTOPRAZOLE SOD 40 MG TABEC PO SCH (09:19)
[2019-12-15] MEDS: RIFAXIMIN 550 MG TABLET PO SCH ×3 (09:19→16:20)
[2019-12-15] MEDS: VENLAFAXINE HCL 75 MG TAB PO SCH (09:19)
[2019-12-15] MEDS: FAMOTIDINE 20 MG/2 ML VIAL IV SCH ×2 (09:19→20:07)
[2019-12-15] MEDS: ESTRADIOL 1 MG TAB PO SCH (09:19)
[2019-12-15] MEDS: MONTELUKAST SODIUM 10 MG TAB PO SCH (09:19)
[2019-12-15] MEDS: LORATADINE 10 MG TAB PO SCH (09:19)
[2019-12-15] MEDS: CEFTRIAXONE SOD 1 GM/NS 50 ML 50 ML IV SCH ×2 (09:19→20:07)
[2019-12-15] MEDS: CLOPIDOGREL BISULFATE 75 MG TAB PO SCH (09:19)
[2019-12-15] MEDS: ARIPIPRAZOLE 2 MG TABLET PO SCH (09:19)
[2019-12-15] MEDS: FLUCONAZOLE 100 MG TAB PO SCH (09:19)
[2019-12-15] MEDS: METOPROLOL SUCCINATE 25 MG TAB XL PO SCH ×2 (09:20→16:20)
[2019-12-15] MEDS: POTASSIUM CHLORIDE 20 MEQ TAB CR PO SCH (09:20)
[2019-12-15] MEDS: GUAIFENESIN/CODEINE 10 ML CUP PO PRN ×2 (10:10→15:56)
[2019-12-15] MEDS: HYDROCODONE/APAP 10MG-325MG TAB PO PRN ×2 (10:10→22:44)
[2019-12-15] MEDS ORDERED: SODIUM CHLORIDE 0.9% 1000ML 1,000 ML IV SCH (15:45)
--- NOTE | 2019-12-15 16:44 | Progress Note ---
DATE: 12/15/2019 Cardiology Progress Note SUBJECTIVE: Continues to have shortness of breath and wheezing and coughing. OBJECTIVE: VITAL SIGNS: Temperature 98.8, heart rate 96, respiratory rate 24, blood pressure 121/70, O2 saturation 96% on 2 L/minute nasal cannula. GENERAL: No acute distress, alert. NECK: No JVD. CHEST: Rhonchi and wheezing. CARDIOVASCULAR: Regular rate and rhythm. Normal S1 and S2. ABDOMEN: Soft. Bowel sounds positive. EXTREMITIES: No edema. CARDIOVASCULAR MEDICATIONS: Reviewed. Metoprolol succinate 25 mg b.i.d., clopidogrel 75 mg daily, Lovenox 60 mg subcu daily, atorvastatin 20 mg at bedtime, nitroglycerin p.r.n. STUDIES: Reviewed. White blood cells 18, hemoglobin 12, platelets 372. INR 0.8. Sodium 140, potassium 4.2, chloride 103, bicarbonate 28, BUN 6, creatinine 0.78, glucose 97, calcium 9.2, total bilirubin 0.3, AST 18, ALT 13, alkaline phosphatase 77, albumin 3.4, total protein 7.2. Blood cultures, no growth after 72 hours. Telemetry, sinus rhythm. ASSESSMENT AND PLAN: A 64-year-old woman with: 1. Chronic obstructive pulmonary disease exacerbation. 2. Type 2 NM versus non-ST elevation myocardial infarction. 3. Hypertension and dyslipidemia. 4. Anemia. RECOMMEND: 1. Continue current cardiovascular medications. 2. Coronary angiography and possible coronary intervention discussed with the patient. Indications, alternatives, risks, and benefits discussed. The patient voices understanding and agrees to proceed. We will schedule tentatively for tomorrow. MD GLENIS Hartman/BE /[id number]
[2019-12-15] MEDS: ATORVASTATIN 20 MG TAB PO SCH (20:07)
[2019-12-15] MEDS: AMITRIPTYLINE HCL 25 MG TAB PO SCH (20:07)
[2019-12-15] MEDS: SODIUM CHLORIDE 0.9% 1000ML 1,000 ML IV SCH (23:30)
[2019-12-16] VITALS (12 sets, daily range): BP systolic 92–139; BP diastolic 55–73
[2019-12-16] MEDS: ALBUTEROL/IPRATROPIUM 3 ML NEB NEB SCH ×6 (03:00→23:00)
--- NOTE | 2019-12-16 04:31 | NUR ---
CALLED TO NOTIFY DR PINO THAT PATIENTS PRELIM BLOOD CULTURE RESULTS CAME IN SHOWING GRAM POSITIVE COCCI IN CLUSTERS AND WBC STILL RISING PT ALREADY BEEN ON ROCEPHIN 1GR X5DAYS AND TO REMIND OF HEART CATH SURGERY TODAY. AWAITING CALL BACK.
[2019-12-16] MEDS: BENZONATATE 100 MG CAP PO SCH ×2 (04:39→14:00)
[2019-12-16 04:46] LABS: BASOPHILS # (AUTO) 0.2 (0.0-0.1); BASOPHILS % 0.9 % (0.0-1.0); EOSINOPHILS # (AUTO) 3.4 (0.0-0.4); HEMATOCRIT 35.7 % (34.2-44.1); HEMOGLOBIN 10.9 g/dL (12.0-16.0); LYMPHOCYTES # (AUTO) 4.7 (1.0-3.2); LYMPHOCYTES % 28.9 % (18.0-39.1); MEAN CORPUSCULAR HEMOGLOBIN 27.5 pg (28-32); MEAN CORPUSCULAR HGB CONC 30.5 g/dL (31-35); MEAN CORPUSCULAR VOLUME 90.2 fL (81-99); MONOCYTES # (AUTO) 1.8 (0.2-0.8); NEUTROPHILS # (AUTO) 6.1 (2.1-6.9); NEUTROPHILS % 37.6 % (38.7-80.0); PLATELET COUNT 328 x10e3/uL (140-360); RED BLOOD COUNT 3.96 x10e6/uL (3.6-5.1); RED CELL DISTRIBUTION WIDTH 16.1 % (11.7-14.4)
[2019-12-16 04:57] LABS: INR 0.91; PROTHROMBIN TIME 12.8 seconds (11.9-14.5)
[2019-12-16 04:58] LABS: PARTIAL THROMBOPLASTIN TIME 31.5 seconds (23.8-35.5)
[2019-12-16 05:11] LABS: ANION GAP 11.7 mmol/L (8-16); BLOOD UREA NITROGEN 7 mg/dL (7-26); BUN/CREATININE RATIO 9 (6-25); CALCIUM 8.4 mg/dL (8.4-10.2); CARBON DIOXIDE 25 mmol/L (22-29); CHLORIDE 104 mmol/L (98-107); CREATININE, SERUM 0.74 mg/dL (0.57-1.11); EST GLOMERULAR FILTRATION RATE > 60 ML/MIN (60-); GLUCOSE 97 mg/dL (74-118); POTASSIUM 3.7 mmol/L (3.5-5.1); SODIUM 137 mmol/L (136-145)
--- NOTE | 2019-12-16 05:21 | NUR ---
DR SANTAMARIA ROUNDED AND ORDERED 1 DOSE VANCOMYCIN 1GR FOR PT AT THIS TIME PRIOR TO SURGERY AND UNTIL DR PINO CAN REVIEW PT CHART.
[2019-12-16] MEDS ORDERED: VANCOMYCIN 1GM/NS 250 ML 250 ML IV ONE (05:30)
--- NOTE | 2019-12-16 06:37 | NUR ---
PATIENT GIVEN HIBICLENS BATH FOR HEART CATH TODAY, PRE-OP CHECKLIST ON CHART WITH 24 HR SUMMARY, ALLERGY BAND ON PT WITH LISTED ALLERGIES, CONSENT IN CHART.
--- NOTE | 2019-12-16 07:15 | NUR ---
Bedside handoff report patient in bed laying left lateral fowlers position, verbalizing needs awake alert and oriented, x3, on monitoring and evaluation advisor, on oxygen 3 liters 02 saturation ranging between 96-97
--- NOTE | 2019-12-16 07:25 | NUR ---
Patient out bed into the king way door, naked, yelling "I need help! I can't breath" patient had taken herself off oxygen, the monitor and taken the oxygen, off took her self off the residential monitor, oxygen and pulled IV out, and had stool incontinence. Patient was assisted back to bed, placed on the oxygen, and reported she still had a difficult time breathing, night nurse, out of room to get a non-rebreather, patient become non responsive xochitl he was called.
--- NOTE | 2019-12-16 07:50 | NUR ---
Content Director responded to code. No family at bedside. Provided calming presence and support for staff. JANAE BLOUNT Content Director Spiritual Care Department O: [phone]
[2019-12-16] MEDS: RIFAXIMIN 550 MG TABLET PO SCH ×3 (08:00→16:52)
--- NOTE | 2019-12-16 08:01 | NUR ---
NURSE GIVING ON COMING NURSE REPORT WAS ABOUT TO LEAVE, AFTER HAVING JUST LEFT PATIENT'S ROOM WHERE SHE WAS LAYING IN BED ASLEEP, WHEN PATIENT CAME OUT OF THE ROOM SCREAMING NAKED PATIENT HAD PULLED IV OUT, TELE AND O2 WELL GOWN AND HAD BM ALL OVER THE FLOOR PATIENT WAS HOLLERING SHE CAN'T BREATHE. BOTH OFFGOING NURSE (TANNER) AND ONCOMING NURSE (SRINIVASA) CAME TO PATIENT'S ROOM AND HELPED HER INTO BED AND SHE WAS FIGHTING US AND YELLING SAYING SHE DIDN'T KNOW WHERE HER OXYGEN WAS AND WE WERE TRYING TO GET TELE ON HER, O2 ON HER AND ASSESS WHILE SHE WAS FIGHTING US. I WENT TO GO GET NON REBREATHER BECAUSE THE NC WAS NOT HELPING HER BUT THEN PATIENT STOP RESPONDING AT THIS POINT SHE HAD NO PULSE AND I CALLED CODE ELISHA AND CHEST COMPRESSIONS WERE STARTED BY SRINIVASA. STAFF RESPONDED AND PER THE CODE NOTES PATIENT GOT SEVERAL ROUNDS OF EPI AND WAS INTUBATED AND RESCITATED. NEW LINES WERE OBTAINED AND PT MOVED TO ICU. DR MASON AND DR SEAY WERE NOTIFIED AND ORDERS ENTERED PER THEIR REQUEST. PT TRANSFERRED TO ICU CARE PER ICU CHARGE NURSE. AT THIS TIME PATIENT IS STABLE, INTUBATED AND IN THE CARE OF ICU STAFF.
[2019-12-16] MEDS ORDERED: FUROSEMIDE INJ 10 MG/ML 2 ML VIAL IV SCH (08:10)
[2019-12-16 08:11] LABS: CREATINE KINASE MB 1.9 ng/mL (0-5.0)
[2019-12-16] MEDS ORDERED: MIDAZOLAM HCL 2 MG/2 ML VIAL ONE ×2 (08:41→09:08)
[2019-12-16] MEDS ORDERED: MIDAZOLAM HCL 2 MG/2 ML VIAL IV SCH ×2 (08:50→09:45)
[2019-12-16] MEDS: CLOPIDOGREL BISULFATE 75 MG TAB PO SCH (09:00)
[2019-12-16] MEDS: POTASSIUM CHLORIDE 20 MEQ TAB CR PO SCH (09:00)
[2019-12-16] MEDS: MONTELUKAST SODIUM 10 MG TAB PO SCH (09:00)
[2019-12-16] MEDS: ESTRADIOL 1 MG TAB PO SCH (09:00)
[2019-12-16] MEDS: VENLAFAXINE HCL 75 MG TAB PO SCH (09:00)
[2019-12-16] MEDS: ARIPIPRAZOLE 2 MG TABLET PO SCH (09:00)
[2019-12-16] MEDS: METOPROLOL SUCCINATE 25 MG TAB XL PO SCH ×2 (09:00→16:52)
[2019-12-16] MEDS: PANTOPRAZOLE SOD 40 MG TABEC PO SCH (09:00)
[2019-12-16] MEDS: FLUCONAZOLE 100 MG TAB PO SCH (09:00)
[2019-12-16] MEDS ORDERED: NOREPINEPHRINE 8 MG/D5W 250 ML 250 ML ONE (09:01)
[2019-12-16] MEDS ORDERED: SODIUM CHLORIDE 0.9% 1000ML 1,000 ML ONE (09:22)
[2019-12-16] MEDS ORDERED: SODIUM CHLORIDE 0.9% 1000ML 1,000 ML IV SCH ×2 (09:30→10:30)
[2019-12-16] MEDS ORDERED: VECURONIUM BROMIDE FOR INJ 20 MG VIAL IV STA (09:40)
[2019-12-16] MEDS ORDERED: MIDAZOLAM HCL 5MG/ML 10ML VIAL 100 ML IV PRN ×2 (09:45→10:00)
[2019-12-16] MEDS: SODIUM CHLORIDE 0.9% 1000ML 1,000 ML IV SCH ×2 (10:00→20:05)
--- NOTE | 2019-12-16 10:01 | Progress Note ---
DATE: 12/16/2019 Cardiology Progress Note SUBJECTIVE: The patient currently intubated with altered mental status in ICU. Per report, the patient took self off IV, oxygen and calls and started ambulating in the king. Nursing staff saw the patient and assist her back to the bed. While in the bed, she lost consciousness and pulse. CPR initiated. Initial rhythm documented is asystole after several rounds including 3 administrations of epinephrine reportedly. No shocks administered. The patient had return of spontaneous circulation. EKG post code shows sinus rhythm with pulmonary disease pattern. No ST changes. Initial troponin is negative. OBJECTIVE: VITAL SIGNS: Temperature 98.6, heart rate 85, blood pressure 119/69, respiratory rate 17, and O2 saturation 100%. GENERAL: Intubated. Altered mental status. HEENT: Pupils 3 to 4 mm, reactive, symmetrical bilaterally. CHEST: Decreased breath sounds bilaterally with scattered rhonchi and wheezing. Increased expiratory phase. CARDIOVASCULAR: Regular rate and rhythm. Normal S1 and S2. ABDOMEN: Soft. Bowel sounds positive. EXTREMITIES: No edema. Warm extremities. MEDICATIONS: Reviewed. Lovenox 60 mg subcutaneous q.12 hours, clopidogrel 75 mg daily, furosemide 20 mg IV x1, metoprolol succinate 25 mg b.i.d., and atorvastatin 20 mg at bedtime. STUDIES: Reviewed. Sodium 137, potassium 3.7, chloride 104, bicarbonate 25, BUN 7, creatinine 0.74, and glucose 97. White blood cells of 16, hemoglobin 10.9, and platelets 328. INR 0.9. AST 18, ALT 13, and alkaline phosphatase 77. EKG and troponins as described above. ASSESSMENT AND PLAN: A 64-year-old woman with chronic obstructive pulmonary disease exacerbation, type 2 myocardial infarction versus qgw-WJ-yewvnhcyk myocardial infarction, hypertension, dyslipidemia, anemia, status post asystole, sudden cardiac . RECOMMEND: Continue ICU supportive care, sedation. Await neurologic recovery. Continue current cardiovascular medications. Defer coronary angiography at this point to await medical stabilization. MD GLENIS Hartman/BE /[id number]
[2019-12-16] MEDS ORDERED: LIDOCAINE HCL 2% LOCAL 20 ML VIAL ONE (10:37)
--- NOTE | 2019-12-16 10:53 | Diagnostic Imaging Report ---
EXAMINATION: CHEST SINGLE (PORTABLE) INDICATION: Intubation COMPARISON: Chest radiograph of 12/11/2019 FINDINGS: LINES/TUBES:Nearly placed endotracheal tube terminates 1 cm above the manjula. New right IJ central venous catheter terminates in the superior vena cava. Interval right chest tube placement. EKG leads overlie the chest. LUNGS:The lungs are moderately inflated. Bilaterally increased interstitial opacities, most notably at the left upper lung. PLEURA:Right pneumothorax measures up to 3.3 cm maximum thickness. No left pneumothorax. No pleural effusion. MEDIASTINUM:The cardiomediastinal silhouette appears unchanged in size and shape. BONES/SOFT TISSUES:No acute osseous injury. Extensive subcutaneous soft tissue emphysema most notably at the right chest wall soft tissues but extending across to the right and left neck and chest. ABDOMEN:No free air under the diaphragm. IMPRESSION: Interval intubation. Endotracheal tube terminates 1 cm above the manjula. Recommend retraction by approximately 2 cm. Right pneumothorax measuring up to 3.3 cm maximum thickness. Interval placement of right chest tube. Interval increase in interstitial lung opacities most notably at the left upper lung. Extensive subcutaneous soft tissue emphysema. Signed by: Bharathi Cantu MD on 12/16/2019 10:49 AM
[2019-12-16] MEDS ORDERED: NOREPINEPHRINE INJ 4MG/4ML 8 MG in DEXTROSE 5% 250ML 250 ML IV SCH (11:00)
[2019-12-16 11:07] LABS: CREATINE KINASE MB 7.8 ng/mL (0-5.0)
[2019-12-16] MEDS ORDERED: ROCURONIUM BROMIDE 10 MG/ML 5ML VIAL IV SCH (11:15)
[2019-12-16] MEDS ORDERED: ROCURONIUM BROMIDE 10 MG/ML 5ML VIAL IV ONE (11:30)
[2019-12-16] MEDS: FAMOTIDINE 20 MG/2 ML VIAL IV SCH ×2 (11:31→20:05)
--- NOTE | 2019-12-16 11:32 | Diagnostic Imaging Report ---
EXAMINATION: CHEST SINGLE (PORTABLE) INDICATION: Pneumothorax COMPARISON: Chest radiograph of earlier the same day FINDINGS: LINES/TUBES:Endotracheal tube terminates approximately 2 cm above the manjula. Right IJ central venous catheter unchanged. Interval placement of an additional right chest tube. EKG leads overlie the chest. LUNGS: Increased opacification of the left upper lobe, likely related to atelectasis and possibly a result of mucus plugging. PLEURA:Slight interval improvement in right pneumothorax, now measuring up to 2.2 cm. MEDIASTINUM:The cardiomediastinal silhouette appears unchanged in size and shape. BONES/SOFT TISSUES:Persistent severe subcutaneous soft tissue emphysema. ABDOMEN:No free air under the diaphragm. IMPRESSION: Interval placement of additional right chest tube. Decrease in right pneumothorax to 2.2 cm maximum thickness. Increasing opacification of the left upper lobe, possibly related to atelectasis secondary to mucus plugging. Signed by: Bharathi Cantu MD on 12/16/2019 11:28 AM
[2019-12-16] MEDS: CEFTRIAXONE SOD 1 GM/NS 50 ML 50 ML IV SCH (12:30)
[2019-12-16] MEDS: METHYLPREDNISOLONE SOD SUCC 125 MG/2ML VIAL IV SCH ×2 (13:26→20:05)
--- NOTE | 2019-12-16 14:05 | Diagnostic Imaging Report ---
EXAMINATION: CHEST SINGLE (PORTABLE) INDICATION: Pneumothorax COMPARISON: Chest radiographs of earlier the same day FINDINGS: LINES/TUBES:Endotracheal tube terminates 2.5 cm above the manjula. Right IJ central venous catheter unchanged. Right chest tubes unchanged. LUNGS:The lungs are moderately inflated. Interval improvement in aeration of the left upper lung. Persistently increased bilateral interstitial opacities. PLEURA:Interval resolution of right pneumothorax. MEDIASTINUM:The cardiomediastinal silhouette appears unchanged in size and shape. BONES/SOFT TISSUES:No acute osseous injury. Right shoulder arthroplasty hardware. ABDOMEN:No free air under the diaphragm. IMPRESSION: Interval resolution of right pneumothorax. Right chest tubes in unchanged position. Signed by: Bharathi Cantu MD on 12/16/2019 2:01 PM
[2019-12-16 14:34] LABS: ABG HCO3 22 mmol/L (22-26); ABG PCO2 45 mmHg (35-45); ABG PO2 125 mmHg (80-105)
--- NOTE | 2019-12-16 15:59 | NUR ---
Nutrition Intervention Note RD Recommendation(s) for Physician: If pt is to remain intubated, recommend initiating enteral nutrition -Recommend Vital AF 1.2 @ goal rate of 45 mL/hr (provides 1296 kcal, 81 g protein, and 876 mL water) Plan of Care: RD following, monitoring for tolerance and adequacy Nutrition reason for involvement: length of stay RD Assessment (12/16/19) Pt is a 64 year old female admitted with chest pain, COPD with exacerbation, and pneumonia. A code was called this morning and pt is currently intubated and sedated per chart. Pt was previously on a cardiac diet with 50-75% meal intake recorded. Per weight history in chart, pt weighed 126-130 lbs from a previous admission in December 2018. Pt currently has a weight of 136 lbs in chart; therefore, weight loss is not evident. Recommendations provided. Will continue to monitor Principal Problems/Diagnoses: chest pain, COPD with exacerbation, and pneumonia PMH: hypertension, hyperlipidemia, COPD, rheumatoid arthritis, multiple osteoarthritis of joints. GI: last recorded BM 12/15 Skin: no pressure ulcers or wounds recorded Labs: (12/15) Na 137, K 3.7, BUN 7, Cr 0.74, Glu 97, Ca 8.4 Meds: antibiotic, pepcid, Lipitor, metoprolol, protonix, methylprednisolone, norepinephrine, zofran Ht: 61 inches Wt: 136 lbs BMI: 25.8 kg/m2 IBW: 105 lbs Malnutrition Evaluation (12/16/19) The patient does not meet criteria for a specified degree of malnutrition at this time. Will re-evaluate at follow-up as appropriate. Nutrition Prescription (Diet Order): NPO Estimated Nutritional Needs: 1115 1236 calories/day (18-20 kcal/kg CBW) Weight used: 136 lbs 74-124 g protein/day (1.2-2 g pro/kg CBW) Weight used: 136 lbs Diet Adequacy: Not meeting calorie needs, Not meeting protein needs (pt is NPO) Tolerance: N/A (pt is NPO) Diet Education Needs Assessment: Diet education not indicated, pt is intubated Nutrition Care Level: moderate Nutrition Diagnosis: Inadequate oral intake related to decreased ability to consume sufficient energy secondary to intubation as evidenced by insufficient energy intake from diet compared to needs. Goal: Patient will meet 75-100% of estimated needs by follow up Progress: N/A Interventions: -Composition, Rate, Route Monitoring/Evaluation: -Total energy intake, Total protein intake, Formula/Solution, Weight change Signed: Geri Schroeder RD, LD
[2019-12-16] MEDS ORDERED: PROPOFOL IV EMULSION 10MG/ML 100 ML IV SCH (16:30)
[2019-12-16] MEDS ORDERED: PROPOFOL IV EMULSION 50 ML IV SCH (17:00)
--- NOTE | 2019-12-16 17:13 | Consultation ---
DATE OF CONSULTATION: HISTORY OF PRESENT ILLNESS: Ms. Cabrera had to be moved to intensive care unit today. She was intubated, sedated. Earlier she had a code called in and CPR was initiated. Initial rhythm recommended to be asystole. She had 3 rounds of epinephrine back in continuous rhythm. The patient had sinus rhythm with pulmonary disease pattern. PHYSICAL EXAMINATION: GENERAL: She is intubated and sedated. VITAL SIGNS: Stable, afebrile. HEENT: She is not icteric. NECK: Supple. CHEST: Few crackles. HEART: S1 and S2. LABORATORY DATA: Her blood cultures one of them showing gram-positive cocci. Her white count 16.2 and hemoglobin 10.9. Sodium 137, potassium 3.7, and creatinine 0.74. The patient is on Rocephin. Laboratory data reviewed. CAT scan of the chest showed no acute finding. IMPRESSION: 1. Status post cardiopulmonary arrest, concerned about aspiration. 2. Bacteremia. I am not so sure if it is true versus contamination. 3. Chronic obstructive pulmonary disease. 4. Diabetes mellitus. 5. Ral-CF-xaszxrnnn myocardial infarction. 6. Hypertension, status post asystole. We will put the patient on vancomycin and cefepime for aspiration. Awaiting culture results. Further recommendations to follow. MD YEIMI Chery/BE /[id number]
[2019-12-16] MEDS: VANCOMYCIN 1GM/NS 250 ML 250 ML IV SCH (17:33)
--- NOTE | 2019-12-16 17:34 | Operative Report ---
DATE OF PROCEDURE: SURGEON: Octavio Stevens MD PROCEDURE: Central line placement under ultrasound guidance. PREOPERATIVE DIAGNOSIS: Myocardial infarction and quinault cardiopulmonary arrest. POSTOPERATIVE DIAGNOSIS: Myocardial infarction and quinault cardiopulmonary arrest. CONSENT: Consent was deemed emergent due to the hemodynamic instability and respiratory failure. ANESTHESIA: 1% lidocaine for local anesthesia. DESCRIPTION OF PROCEDURE: The patient was placed in a supine position. The ultrasound machine was used to locate the right internal jugular vein. Sterile prep was applied. A full-length sterile gown, full-length sterile drape, and mask and gloves were used. 1% lidocaine was used to anesthetize the area. The right IJ was cannulated with a 16-gauge needle. A wire was passed through the needle. Dilator was used to open the skin. A triple-lumen catheter was placed over the wire. All the ports flushed. COMPLICATIONS: None. ESTIMATED BLOOD LOSS: None. Octavio Stevens MD [facility]/MODL /[id number]
--- NOTE | 2019-12-16 18:04 | Operative Report ---
DATE OF PROCEDURE: SURGEON: Octavio Stevens MD PROCEDURE: Chest tube placement. INDICATION: Right-sided pneumothorax. POSTOPERATIVE DIAGNOSIS: Right-sided pneumothorax. CONSENT: Consent was considered emergent due to the hemodynamic instability. ANESTHESIA: 1% lidocaine. DESCRIPTION OF PROCEDURE: The patient was placed in a supine position. The right lateral chest was prepped sterilely with chlorhexidine. A sterile field was used to full-length sterile drape, sterile mask, and sterile gloves were used. A 3 cm incision was made in the mid axillary line at the 6th intercostal space. Hemostats were used for blunt dissection over the 5th rib. The hemostats were then placed through the parietal pleura. There was substantial air leak consistent with pneumo. A 20-Hungarian chest tube was placed and sutured in place. COMPLICATIONS: None. ESTIMATED BLOOD LOSS: None. Octavio Stevens MD [facility]/MODL /[id number]
[2019-12-16] MEDS ORDERED: NOREPINEPHRINE 8 MG/D5W 250 ML 250 ML IV PRN (20:15)
--- NOTE | 2019-12-16 22:00 | Diagnostic Imaging Report ---
EXAM: Abdomen Radiograph 1 View(s) INDICATION: ^OGT placement ^[id number] ^[id number] ^Y COMPARISON: None FINDINGS: An orogastric tube terminates in the gastric fundus. Partially visualized endotracheal tube and right chest tube. Air-filled loops of colon are noted. No specific evidence of bowel obstruction. No distinct free intraperitoneal air. Lower lumbar spine surgical change. No acute osseous abnormality. Left chest subcutaneous air is noted. IMPRESSION: The orogastric tube terminates appropriately in the stomach. Signed by: Gary Gary MD on 12/16/2019 9:57 PM
[2019-12-17] VITALS (15 sets, daily range): BP systolic 95–138; BP diastolic 53–69
[2019-12-17] MEDS: CEFTRIAXONE SOD 1 GM/NS 50 ML 50 ML IV SCH ×2 (00:39→12:08)
[2019-12-17] MEDS: ALBUTEROL/IPRATROPIUM 3 ML NEB NEB SCH ×6 (03:00→23:00)
[2019-12-17 04:35] LABS: BASOPHILS % 0.2 % (0.0-1.0); EOSINOPHILS % 0.1 % (0.0-6.0); HEMATOCRIT 30.5 % (34.2-44.1); HEMOGLOBIN 9.6 g/dL (12.0-16.0); LYMPHOCYTES # (AUTO) 1.8 (1.0-3.2); LYMPHOCYTES % 9.6 % (18.0-39.1); MEAN CORPUSCULAR HEMOGLOBIN 27.8 pg (28-32); MEAN CORPUSCULAR HGB CONC 31.5 g/dL (31-35); MEAN CORPUSCULAR VOLUME 88.4 fL (81-99); MONOCYTES # (AUTO) 0.7 (0.2-0.8); MONOCYTES % 3.8 % (4.4-11.3); NEUTROPHILS # (AUTO) 15.9 (2.1-6.9); NEUTROPHILS % 85.6 % (38.7-80.0); PLATELET COUNT 294 x10e3/uL (140-360); RED BLOOD COUNT 3.45 x10e6/uL (3.6-5.1); RED CELL DISTRIBUTION WIDTH 16.1 % (11.7-14.4)
[2019-12-17 04:59] LABS: ALANINE AMINOTRANSFERASE 84 IU/L (0-55); ALBUMIN 2.7 g/dL (3.5-5.0); ALBUMIN/GLOBULIN RATIO 0.8 (0.8-2.0); ALKALINE PHOSPHATASE 65 IU/L (40-150); ANION GAP 9.5 mmol/L (8-16); BUN/CREATININE RATIO 20 (6-25); CALCIUM 7.7 mg/dL (8.4-10.2); CARBON DIOXIDE 23 mmol/L (22-29); CHLORIDE 108 mmol/L (98-107); CREATININE, SERUM 0.74 mg/dL (0.57-1.11); EST GLOMERULAR FILTRATION RATE > 60 ML/MIN (60-); GLUCOSE 142 mg/dL (74-118); POTASSIUM 3.5 mmol/L (3.5-5.1); SODIUM 137 mmol/L (136-145)
[2019-12-17 05:03] LABS: BLOOD UREA NITROGEN 15 mg/dL (7-26)
[2019-12-17] MEDS: PROPOFOL IV EMULSION 50 ML IV PRN ×2 (05:30→22:50)
[2019-12-17] MEDS: SODIUM CHLORIDE 0.9% 1000ML 1,000 ML IV SCH ×2 (06:00→18:22)
[2019-12-17] MEDS: VANCOMYCIN 1GM/NS 250 ML 250 ML IV SCH ×2 (06:37→18:22)
[2019-12-17] MEDS ORDERED: FUROSEMIDE INJ 10 MG/ML 2 ML VIAL IV NR ×2 (07:00→08:15)
[2019-12-17] MEDS: METHYLPREDNISOLONE SOD SUCC 125 MG/2ML VIAL IV SCH (08:31)
[2019-12-17] MEDS: FAMOTIDINE 20 MG/2 ML VIAL IV SCH ×2 (08:31→22:15)
[2019-12-17] MEDS: VENLAFAXINE HCL 75 MG TAB PO SCH (09:00)
--- NOTE | 2019-12-17 09:04 | Diagnostic Imaging Report ---
EXAM: CHEST SINGLE (PORTABLE) DATE: 12/17/2019 7:27 AM INDICATION: Breast third failure COMPARISON: 12/16/2019 FINDINGS: Endotracheal tube, right IJ central venous catheter, and right-sided chest tube identified in stable position. Enteric tube noted coursing below the diaphragm and terminating within the left upper quadrant the expected region of the gastric fundus. There are stable appearing mildly increased interstitial opacities present. There is no evidence for large focal consolidation, residual pneumothorax, or significant volume pleural effusion. The cardiomediastinal silhouette is stable in appearance. Post surgical changes from right shoulder left again noted. No acute osseous abnormality is identified. Minimal subcutaneous emphysema noted along the right chest wall. IMPRESSION: No significant interval change from 12/16/2019 Signed by: Dr. Manuel Anderson MD on 12/17/2019 9:01 AM
[2019-12-17] MEDS: FLUCONAZOLE 100 MG TAB PO SCH (10:05)
--- NOTE | 2019-12-17 11:33 | Progress Note ---
DATE: SUBJECTIVE: The patient is seen and evaluated. Discussed with the nurse. REVIEW OF SYSTEMS: Unable to obtain review of systems. The patient is currently in ICU room #192. Orally intubated, had a Code Blue yesterday at about 8 o'clock in the morning. PHYSICAL EXAMINATION: VITAL SIGNS: Temperature 98.9, pulse is 94, respiration 20, and blood pressure 124/60. GENERAL: Orally intubated. No interaction with me. CV: S1 and S2. CHEST: Equal expansion. Decreased breath sounds. ABDOMEN: Soft. Bowel sounds positive. HEENT: Moist. No pallor. No JVD. EXTREMITIES: No significant edema of the upper extremities. MEDICATIONS: Medication list reviewed and from ID point of view, the patient is on Diflucan, methylprednisolone, vancomycin p.o., and Rocephin IV. LABORATORY STUDIES: White count of 18.52, hemoglobin 9.6, and platelet 294. Sodium 137, potassium 3.5, and creatinine 0.74. MICROBIOLOGY: Blood culture from 12/10, one was negative, one is coag-negative staph. Urine culture from 12/15, showed no growth and holding for better growth. RADIOLOGY: Chest x-ray from today showed no significant interval change since yesterday with interstitial opacities. Two-view showed orogastric tube terminates appropriately in the stomach. ASSESSMENT AND PLAN: 1. Status post cardiopulmonary arrest. 2. Coag-negative staph bacteremia-concern contamination versus true infection. 3. Chronic obstructive pulmonary disease. 4. Diabetes mellitus. 5. Yic-FU-yrbrdmbq myocardial infarction. 6. Hypertension. 7. Respiratory failure. 8. Leukocytosis. 9. Anemia. 10. Continue with antibiotics as mentioned above. The patient currently on Rocephin and vancomycin p.o. Clostridium difficile was negative. Discussed with Dr. Grigsby. Please refer to chart for more information. COVID-19 PCR not detected on 12/11/2019. Overall guarded prognosis. Dictated by Itz Upton PA-C (Al) Sabrina Grigsby MD /MODL /[id number]
--- NOTE | 2019-12-17 13:09 | Progress Note ---
DATE: Pulmonary Critical Care Progress Note SUBJECTIVE: The patient had a cardiopulmonary arrest yesterday and required CPR. According to the code sheet, she had asystole. The patient is subsequently intubated. She also needed a chest tube on the right side for pneumothorax. She was on Levophed transiently, but is now off pressors. She is now on a CPAP mode of ventilation with a CPAP of 5 and a pressure support of 10. Her tidal volumes are 400-500 and respiratory rate is 15. PHYSICAL EXAMINATION: VITAL SIGNS: The patient is afebrile. The blood pressure is 124/60, saturation is 100%. She is on CPAP. She is afebrile. HEENT: The patient has no headache. She has an oral endotracheal tube. There is a right IJ line. She has no subcutaneous emphysema. She has a right chest tube. There is no air leak. ABDOMEN: Soft, nontender. There is no rebound or guarding. EXTREMITIES: No leg edema or calf tenderness. NEUROLOGIC: The patient to become tachypneic and slightly agitated when the sedation is held, but she does not have any purposeful movements. She has an increased tone throughout, but downgoing toes. She has dilated pupils bilaterally, but they are reactive. LABORATORY DATA: The BUN to creatinine ratio is 15 to 0.74. Other electrolytes are within normal limits. Albumin is 2.7. The white blood cell count is 18.5 and hemoglobin is 9.6. The platelet count is 294. RADIOGRAPHIC DATA: Chest x-ray shows an endotracheal tube and the right IJ line in good position. Chest tube is in good position. There is no apparent pneumothorax. There are some interstitial infiltrates bilaterally. IMPRESSION: 1. Anoxic brain injury following cardiopulmonary arrest. 2. Chronic obstructive pulmonary disease. 3. Respiratory failure. 4. Non-ST elevation myocardial infarction. 5. Diabetes. 6. Pneumothorax. 7. Leukocytosis. PLAN: 1. Continue CPAP trial and repeat ABG. 2. Chest tube to water seal. Hopefully, chest tube can be removed after a repeat chest x-ray. 3. Hold sedation as much as possible to monitor mental status. 4. Continue current cardiac regimen. 5. Continue current antibiotics. 6. Prognosis remains poor. Case discussed with Cardiology, Internal Medicine, nursing staff, Respiratory, family, and administration. Greater than 35 minutes in direct critical care time. MD DANIELLE Vasquez/BE /[id number]
--- NOTE | 2019-12-17 20:17 | Diagnostic Imaging Report ---
EXAMINATION: CHEST SINGLE (PORTABLE) INDICATION: Chest tube to waterseal. COMPARISON: Chest radiographs of earlier the same day 12/17/2019. FINDINGS: LINES/TUBES:Endotracheal tube appears slightly lower in position, approximately 1 cm proximal to the manjula, which may be part related difference in position. Right IJ central venous catheter unchanged with distal tip projected on the cavoatrial junction. Right chest tube with distal tube projected on the right upper hemithorax medially, unchanged. LUNGS and PLEURA: Increased patchy density in the left lower hemithorax suggestive of atelectasis versus consolidation associated with small pleural effusion. No pneumothorax. MEDIASTINUM:The cardiomediastinal silhouette appears unchanged in size and shape. BONES/SOFT TISSUES:No acute osseous injury. Right shoulder arthroplasty hardware. ABDOMEN:No free air under the diaphragm. IMPRESSION: Increased patchy density in the left lower hemithorax suggestive of atelectasis versus consolidation associated with small pleural effusion. Signed by: Dr. Annalise Dumont M.D. on 12/17/2019 8:14 PM
--- NOTE | 2019-12-17 21:11 | Progress Note ---
DATE: SUBJECTIVE: The patient coded yesterday, was transferred to the ICU. The patient is currently intubated, complains of posturing. Currently on Versed for sedation. OBJECTIVE: VITAL SIGNS: Temperature is 99.0, pulse of 93, respirations of 20, blood pressure is 122/65 on ventilator. HEENT: Normocephalic and atraumatic. Pupils are reactive at this time. CVS: S1 and S2 normal. Distant heart sounds. EXTREMITIES: No clubbing. No cyanosis. Positive for trace edema. MEDICATIONS: Include Rocephin, vancomycin, Versed, Solu-Medrol 30 mg q.12 hours, and Zofran as needed. LABORATORY VALUES: White count is 18,000, hemoglobin of 9.6, hematocrit 30.5, and platelet count 294, neutrophil count is 15.9. Chemistries; sodium 137, potassium is 3.5, BUN of 15, creatinine 0.74, creatine kinase is 332. BNP was 112.5. ASSESSMENT: Ms. Ashleigh Cabrera with: 1. Possible anoxic brain injury. 2. Status post code . 3. Respiratory failure, on ventilator. 4. Non ST-segment elevation myocardial infarction. 5. Diabetes mellitus. The patient has a chest tube for pneumothorax. 6. Leukocytosis. PLAN: 1. Continue with ventilation. Pulmonary and Critical Care to manage it. 2. Antibiotics as mentioned. 3. Continue monitoring cardiac progression. 4. May need a CT scan and an EMG to rule out anoxic brain injury. At this time, the prognosis is very poor. I did talk to the patient's daughter, who will be making the main decisions. We will continue monitoring the patient and continue with antibiotic and supportive care until the daughter decides otherwise. Chest x-ray also was done, which showed no significant interval changes. MD ARTHUR Sumner/MODL /[id number]
--- NOTE | 2019-12-17 22:11 | Progress Note ---
DATE: Cardiology Progress Note SUBJECTIVE: Remains intubated and myoclonic jerks OBJECTIVE: VITAL SIGNS: Temperature afebrile, blood pressure 122/65, respiratory rate 19, O2 saturation 100%. BMI 25. GENERAL: Intubated. Altered mental status. CHEST: With scattered rhonchi and wheezing. CARDIOVASCULAR: Regular rate and rhythm. Normal S1 and S2. ABDOMEN: Soft. Bowel sounds positive. EXTREMITIES: Trace edema. NEURO: Altered mental status, myoclonic jerks CARDIOVASCULAR MEDICATIONS: Reviewed. Atorvastatin 20 mg at bedtime, Lovenox 60 mg q.12 hours, KCl 20 mEq daily, clopidogrel 75 mg daily, methylprednisolone 30 mg q.12 hours, vancomycin and ceftriaxone antibiotics. STUDIES: Reviewed. Creatinine 0.7, glucose 142. White blood cells 18.5, hemoglobin 9.6, and platelets 294. INR 0.9. AST 69 and ALT 84. ASSESSMENT: A 64-year-old woman with hypertension, dyslipidemia, chronic obstructive pulmonary disease exacerbation, status post asystole, cardiac arrest with hypoxic encephalopathy. RECOMMENDATIONS: Continue current cardiovascular medications. MD GLENIS Hartman/BE /[id number] MTDD
[2019-12-17] MEDS: METHYLPREDNISOLONE SOD SUCC 40 MG/ML VIAL 1ML IV SCH (22:15)
--- NOTE | 2019-12-17 22:45 | NUR ---
Patient's sedation was paused for approximately 5 minutes while RN obtained new bottles from [employer]. When RN returned to room to administer, the patient appeared to be having seizure like activity. Dr. Annalise Stevens was notified and orders received to proceed with previously ordered CT scan of Brain and order EEG for patient.
[2019-12-18] VITALS (26 sets, daily range): BP systolic 88–158; BP diastolic 45–97
[2019-12-18] MEDS: CEFTRIAXONE SOD 1 GM/NS 50 ML 50 ML IV SCH ×2 (00:40→11:07)
[2019-12-18] MEDS: SODIUM CHLORIDE 0.9% 1000ML 1,000 ML IV SCH ×3 (02:00→19:09)
[2019-12-18] MEDS: ALBUTEROL/IPRATROPIUM 3 ML NEB NEB SCH ×6 (04:00→23:20)
[2019-12-18] MEDS: PROPOFOL IV EMULSION 50 ML IV PRN ×7 (04:06→21:47)
--- NOTE | 2019-12-18 04:30 | Diagnostic Imaging Report ---
Exam: Head CT without contrast History: Neurological changes Comparison studies: None Technique: Axial images were obtained from the skull base to the vertex. Coronal and sagittal images reconstructed from the axial data. Dose modulation, iterative reconstruction, and/or weight based adjustment of the mA/kV was utilized to reduce the radiation dose to as low as reasonably achievable. Radiation dose: Total DLP: 1144 mGy*cm. Estimated effective dose: DLP x 0.015 Intravenous contrast: None Findings: Scalp: No abnormalities. Bones: No fractures, blastic or lytic lesions. Brain sulci: Mildly prominent. Ventricles: Normal in size and configuration. No hydrocephalus. Extra-axial spaces: No masses, no fluid collection. Parenchyma: No abnormal densities. No masses, acute hemorrhage, acute or chronic vascular insults. Sellar/suprasellar region: No abnormalities. Craniocervical junction: Patent foramen magnum. No Chiari one malformation. Middle ear mastoid cavities: Clear. Paranasal sinuses: Left maxillary sinus partially opacified fluid/secretions. Small fluid/secretions in the left sphenoid sinus. Incidental findings: Atherosclerotic calcifications in the carotid siphons. IMPRESSION: 1. No acute intracranial abnormalities. 2. Mild generalized mild volume loss. 3. Nonspecific inflammatory changes with fluid/secretions in the left maxillary and left sphenoid sinuses. Signed by: Dr. Yon Gonsalves M.D. on 12/18/2019 4:26 AM
[2019-12-18] MEDS: VANCOMYCIN 1GM/NS 250 ML 250 ML IV SCH ×2 (05:00→17:18)
[2019-12-18 08:23] LABS: BASOPHILS # (AUTO) 0.1 (0.0-0.1); BASOPHILS % 0.2 % (0.0-1.0); HEMOGLOBIN 8.7 g/dL (12.0-16.0); LYMPHOCYTES # (AUTO) 2.4 (1.0-3.2); LYMPHOCYTES % 10.2 % (18.0-39.1); MEAN CORPUSCULAR HEMOGLOBIN 27.4 pg (28-32); MEAN CORPUSCULAR HGB CONC 31.1 g/dL (31-35); MEAN CORPUSCULAR VOLUME 88.3 fL (81-99); MONOCYTES # (AUTO) 1.6 (0.2-0.8); NEUTROPHILS # (AUTO) 18.6 (2.1-6.9); NEUTROPHILS % 80.9 % (38.7-80.0); PLATELET COUNT 278 x10e3/uL (140-360); RED BLOOD COUNT 3.17 x10e6/uL (3.6-5.1); RED CELL DISTRIBUTION WIDTH 17.1 % (11.7-14.4)
[2019-12-18] MEDS: VENLAFAXINE HCL 75 MG TAB PO SCH (08:25)
[2019-12-18] MEDS: FAMOTIDINE 20 MG/2 ML VIAL IV SCH ×2 (08:34→21:38)
[2019-12-18] MEDS: FLUCONAZOLE 100 MG/NS 50 ML 50 ML IV SCH (08:34)
[2019-12-18] MEDS: METHYLPREDNISOLONE SOD SUCC 40 MG/ML VIAL 1ML IV SCH (08:34)
--- NOTE | 2019-12-18 08:38 | Progress Note ---
DATE: SUBJECTIVE: 64-year-old female who came in with acute exacerbation of COPD and xmh-QC-dwigvxq elevation FL, status post code with possible anoxic brain injury. The patient seemed to be posturing and also pupils are dilated at this time. EEG has been ordered. CT scan was negative for any subdural hematoma. OBJECTIVE: VITAL SIGNS: Temperature is 98.7, pulse 83, respirations of 25, and blood pressure is 94/54. HEENT: Normocephalic. Pupils are dilated. LUNGS: Decreased air entry. Positive for some rhonchi. CVS: S1 and S2 normal. Regular rate. EXTREMITIES: No clubbing, no cyanosis, no edema. LABORATORY VALUES: White count is 18,000 yesterday, hemoglobin of 9.6, hematocrit of 30.5, platelet count of 294, and neutrophil count of 85.6. Microbiology, Gram stain, growth detected Staphylococcus coagulase negative. IMAGING STUDY: Brain CT as mentioned above did not show any acute intracranial abnormalities, mild generalized volume loss and nonspecific inflammatory changes within the left maxilla and left sphenoid. ASSESSMENT: Ms. Ashleigh Cabrera with a history of chronic obstructive pulmonary disease with recent zxq-WX-ysobbgo elevation myocardial infarction, status post cardiac arrest, status post code, status post chest compression with chest tube in place, status post asystole. The patient at this time has anoxic brain injury, hypoxic encephalopathy. The patient will continue current medications. Prognosis is very poor. We will discuss with family especially daughter and also did an EEG to delineate her brain functions. Further recommendation on clinical course. Prognosis remains very grave. MD ARTHUR Sumner/MODL /[id number]
[2019-12-18 08:41] LABS: ALANINE AMINOTRANSFERASE 55 IU/L (0-55); ALBUMIN 2.5 g/dL (3.5-5.0); ALBUMIN/GLOBULIN RATIO 0.8 (0.8-2.0); ALKALINE PHOSPHATASE 49 IU/L (40-150); ANION GAP 11.3 mmol/L (8-16); BLOOD UREA NITROGEN 15 mg/dL (7-26); BUN/CREATININE RATIO 23 (6-25); CALCIUM 7.4 mg/dL (8.4-10.2); CARBON DIOXIDE 24 mmol/L (22-29); CHLORIDE 113 mmol/L (98-107); CREATININE, SERUM 0.66 mg/dL (0.57-1.11); EST GLOMERULAR FILTRATION RATE > 60 ML/MIN (60-); GLUCOSE 136 mg/dL (74-118); POTASSIUM 3.3 mmol/L (3.5-5.1); SODIUM 145 mmol/L (136-145)
--- NOTE | 2019-12-18 10:13 | NUR ---
Family in to visit patient, Arin (daughter) clarified phone number as [phone]
[2019-12-18 10:49] LABS: ANISOCYTOSIS SLIGHT; BAND NEUTROPHILS % (MANUAL) 1 %; LYMPHOCYTES % (MANUAL) 9 % (19-48); MONOCYTES % (MANUAL) 10 % (3.4-9.0); NEUTROPHILS % (MANUAL) 80 % (40-74); PLATELET ESTIMATE ADEQUATE; RBC MORPHOLOGY COMMENT NORMAL
[2019-12-18 10:51] LABS: PLATELET MORPHOLOGY COMMENT FEW EDTA CLUMPING; POLYCHROMASIA FEW
[2019-12-18] MEDS ORDERED: VANCOMYCIN 1GM/NS 250 ML 250 ML IV SCH (11:15)
[2019-12-18] MEDS ORDERED: POTASSIUM CHLORIDE 20MEQ/100ML 200 ML IV ONE (11:30)
--- NOTE | 2019-12-18 12:08 | Progress Note ---
DATE: SUBJECTIVE: The patient went for CT scan yesterday. CT scan of the brain shows no acute disease. She is still not interacting well. She has some rigidity. She also has some myoclonic movements in her face. She remains on PRVC mode of ventilation. She is saturating well. PHYSICAL EXAMINATION: VITAL SIGNS: The blood pressure is 115/57, saturation is 99%. She is on a PRVC mode of ventilation with 50% oxygen. She has an oral endotracheal tube. She has a right IJ line. The site looks clean. There is no drainage. She has a right chest tube in place. CARDIAC: Reveals regular rate and rhythm with normal S1, S2. LUNGS: Auscultation of the lungs reveals decreased breath sounds at the bases. There is no wheezing. ABDOMEN: Soft, nontender. There is no rebound or guarding. EXTREMITIES: Shows no leg edema or calf tenderness. There is no cyanosis or clubbing. SKIN: Shows no rashes. NEUROLOGICAL: Shows the patient to breathe on her own. Her pupils react. She does not have any purposeful movements. She does have some intermittent tension of her arms and some myoclonic jerks of her facial muscles. LABORATORY DATA: White blood cell count is 23 and hemoglobin is 8.7. The platelet count is 278. BUN to creatinine ratio is 15 to 0.66. Potassium is 3.3 and the albumin is 2.5. RADIOGRAPHIC DATA: Chest x-ray shows patchy density in the left lower hemithorax. IMPRESSION: 1. Anoxic brain injury following cardiopulmonary arrest. 2. Acute respiratory failure. 3. Chronic obstructive pulmonary disease. 4. Aspiration pneumonia. 5. Diabetes. 6. Non-ST T-wave myocardial infarction. PLAN: 1. Continue current ventilator settings. 2. Urology consultation. 3. Broaden antibiotics to cover for possible aspiration. 4. Case was discussed with Internal Medicine, family, and administration. MD DANIELLE Vasquez/BE /[id number]
--- NOTE | 2019-12-18 12:19 | Diagnostic Imaging Report ---
EXAMINATION: CHEST SINGLE (PORTABLE) INDICATION: Respiratory failure COMPARISON: Chest radiograph 12/17/2019 FINDINGS: LINES/TUBES:Endotracheal tube terminates at the manjula, coursing towards the right mainstem bronchus. Remaining support lines and tubes unchanged. LUNGS:The right lung is mildly hyperinflated. Left lung volume is lower. There is left basilar opacity silhouetting the left ruma diaphragm. PLEURA:Trace left pleural effusion. No pneumothorax. MEDIASTINUM:The cardiomediastinal silhouette appears unchanged in size and shape. Atherosclerotic calcifications of the thoracic aorta. BONES/SOFT TISSUES:No acute osseous injury. ABDOMEN:No free air under the diaphragm. IMPRESSION: Endotracheal tube terminates at the level of the manjula and courses towards the right mainstem bronchus. Recommend retraction by approximately 3 cm. Unchanged left basilar opacity, likely subsegmental atelectasis. Unchanged trace left pleural effusion. Signed by: Bharathi Cantu MD on 12/18/2019 12:15 PM
[2019-12-18] MEDS: CEFEPIME 1GM/NS 0.9% 50 ML 50 ML IV SCH ×2 (13:13→21:38)
--- NOTE | 2019-12-18 13:58 | Progress Note ---
DATE: SUBJECTIVE: The patient is seen and evaluated. Available labs and notes reviewed. Discussed with the nurse. REVIEW OF SYSTEMS: Unable to obtain review of systems secondary to the patient's medical condition. PHYSICAL EXAMINATION: VITAL SIGNS: Temperature is 98.8, pulse 90, respirations 13, and blood pressure 116/59. GENERAL: Oral intubation, remains on propofol, no pressors. No interaction with me. CV: S1, S2. CHEST: Equal expansion. Decreased breath sounds, in no acute distress. ABDOMEN: Soft. No distention. Some bowel sounds. HEENT: Moist. No pallor. NECK: No JVD. EXTREMITIES: No obvious acute finding. No cyanosis or clubbing. MEDICATIONS: Medication list reviewed. From ID point of view, the patient is on vancomycin IV, Diflucan, and cefepime. LABORATORY STUDIES: White count of 23, hemoglobin 8.7, and platelets 278. Sodium 145, potassium 3.3, creatinine 0.66. Improving LFT with ALT of 84 to 55, AST of 69 to 39, alkaline phosphatase at 49. CK-MB of 7.8 with a troponin I level of 0.039. MICROBIOLOGY: No new microbiology studies available. RADIOLOGY: Chest x-ray from today is pending. She had a CT of the brain showing no acute intracranial abnormalities with mild volume loss. ASSESSMENT AND PLAN: 1. Status post cardiopulmonary arrest. 2. Respiratory failure. 3. Chronic obstructive pulmonary disease. 4. Non-ST elevation myocardial infarction. 5. Hypertension. 6. Possible seizure activity. 7. Leukocytosis, worse. 8. Anemia. The patient remains on vancomycin IV; Rocephin, which was changed to cefepime; and also remains on Diflucan. Recheck CBC for tomorrow. Neurology consulted. Pending EEG. Per my discussion with the staff, family thinking about withdrawal. Overall, guarded prognosis. The patient is on mg q.12 hours with concern for leukocytosis. Please refer to chart for more information. Dictated by Itz Upton PA-C (Al) Sabrina Grigsby MD /MODL /[id number]
[2019-12-18] MEDS ORDERED: CEFEPIME HCL 1 GM VIAL IV SCH (14:00)
--- NOTE | 2019-12-18 16:30 | NUR ---
ETT tube repositioned to 21 cm per MD order by RT; patient became tachycardic and tachypnic. Dr Stevens at bedside, ETT tub repositioned per MD, now 22 @ lip. Some fever noted at 100.6, tylenol IV x1 ordered. HR noted to be 121, Dr Stevens notified, no new orders at this time.
[2019-12-18] MEDS ORDERED: ROCURONIUM BROMIDE 1 ML IV ONE (16:43)
[2019-12-18] MEDS ORDERED: ACETAMINOPHEN 1000 MG/100 ML IV STA (17:03)
[2019-12-18] MEDS ORDERED: ROCURONIUM BROMIDE 10 MG/ML 5ML VIAL IV ONE (17:15)
--- NOTE | 2019-12-18 17:15 | NUR ---
Right chest tube removed by Dr Stevens at this time. Patient tolerated well.
--- NOTE | 2019-12-18 18:19 | Diagnostic Imaging Report ---
EXAMINATION: CHEST SINGLE (PORTABLE) INDICATION: Chest pain. COPD. Repositioned ET tube. COMPARISON: Chest radiograph December 18, 2019 at 11:51 AM hours. FINDINGS: LINES/TUBES:Endotracheal tube has been repositioned, with distal tip approximately 3.0 cm proximal to the manjula. Remaining support lines and tubes are stable in position. LUNGS:Redemonstration of increased density in the lower left hemithorax with obscuration of the left hemidiaphragm, unchanged. Mild diffuse coarsening of the pulmonary interstitium bilaterally. Mild bilateral pulmonary venous congestion and perihilar streaky densities. PLEURA:Trace left pleural effusion. No pneumothorax. MEDIASTINUM:The cardiomediastinal silhouette appears unchanged in size and shape. Atherosclerotic calcifications of the thoracic aorta. BONES/SOFT TISSUES:No acute osseous abnormality. ABDOMEN:No free air under the diaphragm. IMPRESSION: Endotracheal tube has been repositioned now in adequate position. Otherwise no significant change. Signed by: Dr. Annalise Dumont M.D. on 12/18/2019 6:16 PM
--- NOTE | 2019-12-18 19:04 | Consultation ---
DATE OF CONSULTATION: Neurology consultation. HISTORY OF PRESENT ILLNESS: Mrs. Ashleigh Cabrera is a 64-year-old female with history of COPD, comes to my attention after developing a sudden onset of confusion, disorientation about two days ago, then having cardiac arrest, currently intubated, sedated on Propofol with intermittent neurological injury. The patient is unable to give review of systems, past medical history, social history, etc., given her clinical status. PHYSICAL EXAMINATION: VITAL SIGNS: Blood pressure 122/86, heart rate is 98, mildly tachycardic. She is intubated and sedated at this time, saturating at 100%. She is afebrile. HEENT: Extraocular muscles are intact and doll's eyes. There is down beating nystagmus bilaterally. Pupils are sluggish, but reactive at 4 mm. Corneals are intact when you trigger the clonal reflex with normal studies. The patient gets reflex myoclonia from her posturing. Currently, is decorticate posturing with hyperextension of the arms and the legs. Reflexes are brisk. Toes are upgoing bilaterally. ABDOMEN: Distended. CARDIOVASCULAR: Regular rate and rhythm. . ASSESSMENT AND PLAN: The patient comes to my attention for diffuse anoxic brain injury, cleared of all cardiopulmonary etiologies most likely. However, we are going to get neurological evaluation with an EEG and an MRI, once she is stable to do so underlying etiology. Otherwise, we will continue to monitor the patient, evaluate her for diffuse neurological dysfunction, cortical injury, and go from there. Critical care consultation on Mrs. Ashleigh Cabrera for diffuse anoxic injury secondary to cardiopulmonary arrest of unclear etiology . DEMIAN FABIAN MD RR/MODL /[id number]
--- NOTE | 2019-12-18 20:55 | Progress Note ---
DATE: 12/18/2019 Cardiology Progress Note SUBJECTIVE: Intubated, altered mental status. OBJECTIVE: VITAL SIGNS: Temperature 98 degrees, heart rate 82, blood pressure 103/60, respiratory rate of 22, O2 saturation of 100%. BMI 27.3. GENERAL: Intubated. Altered mental status. Myoclonic jerks. NECK: No JVD. CHEST: Decreased breath sounds and scattered rhonchi. CARDIOVASCULAR: Regular rate and rhythm. Normal S1, S2. No S3 or S4. ABDOMEN: Soft. EXTREMITIES: Trace edema. CARDIOVASCULAR MEDICATIONS: 1. Lovenox 60 mg q.12 hours. 2. Clopidogrel 75 mg daily. 3. Metoprolol succinate 25 mg b.i.d. 4. Atorvastatin 20 mg at bedtime. 5. Methylprednisolone 30 mg q.12 hours. 6. Potassium chloride 20 mEq daily. STUDIES: Reviewed. Sodium 137, potassium 3.5, bicarbonate 23, creatinine 0.7, and glucose 142. White blood cells 18.5, hemoglobin 9.6, and platelets 294. INR 0.9. AST 69 and ALT 84. ASSESSMENT: A 64-year-old woman, presents with chronic obstructive pulmonary disease exacerbation, now status post asystole cardiac arrest, type 2 myocardial infarction, anemia, hypertension, and dyslipidemia. RECOMMENDATIONS: Continue supportive care. Overall, guarded prognosis. Neurologic evaluation advised. MD GLENIS Hartman/TRAYL /[id number]
[2019-12-19] VITALS (22 sets, daily range): BP systolic 91–156; BP diastolic 50–72
[2019-12-19] MEDS: ALBUTEROL/IPRATROPIUM 3 ML NEB NEB SCH ×6 (03:00→23:15)
[2019-12-19] MEDS: PROPOFOL IV EMULSION 50 ML IV PRN ×3 (04:09→13:30)
[2019-12-19 06:14] LABS: BASOPHILS % 0.2 % (0.0-1.0); HEMATOCRIT 25.8 % (34.2-44.1); LYMPHOCYTES # (AUTO) 2.1 (1.0-3.2); LYMPHOCYTES % 12.6 % (18.0-39.1); MEAN CORPUSCULAR HEMOGLOBIN 27.6 pg (28-32); MONOCYTES # (AUTO) 1.9 (0.2-0.8); MONOCYTES % 11.1 % (4.4-11.3); NEUTROPHILS # (AUTO) 12.5 (2.1-6.9); NEUTROPHILS % 74.3 % (38.7-80.0); PLATELET COUNT 277 x10e3/uL (140-360); RED CELL DISTRIBUTION WIDTH 17.5 % (11.7-14.4)
[2019-12-19] MEDS: CEFEPIME 1GM/NS 0.9% 50 ML 50 ML IV SCH ×3 (06:37→21:39)
[2019-12-19] MEDS: SODIUM CHLORIDE 0.9% 1000ML 1,000 ML IV SCH ×2 (06:37→17:37)
[2019-12-19] MEDS: VANCOMYCIN 1GM/NS 250 ML 250 ML IV SCH ×2 (06:37→17:38)
[2019-12-19 06:40] LABS: ANION GAP 8.6 mmol/L (8-16); BLOOD UREA NITROGEN 16 mg/dL (7-26); BUN/CREATININE RATIO 24 (6-25); CALCIUM 7.3 mg/dL (8.4-10.2); CARBON DIOXIDE 23 mmol/L (22-29); CHLORIDE 119 mmol/L (98-107); CREATININE, SERUM 0.67 mg/dL (0.57-1.11); EST GLOMERULAR FILTRATION RATE > 60 ML/MIN (60-); GLUCOSE 98 mg/dL (74-118); POTASSIUM 3.6 mmol/L (3.5-5.1); SODIUM 147 mmol/L (136-145)
[2019-12-19] MEDS: FAMOTIDINE 20 MG/2 ML VIAL IV SCH ×2 (08:54→21:38)
[2019-12-19] MEDS: VENLAFAXINE HCL 75 MG TAB PO SCH (08:54)
[2019-12-19] MEDS: FLUCONAZOLE 100 MG/NS 50 ML 50 ML IV SCH (08:54)
--- NOTE | 2019-12-19 09:43 | NUR ---
eeg 30 min study 10/20 international electrode placement system, read in bipolar and transverse montage, eval for subclinical status or post anoxic myoclonia EEG data Generalized delta theta waves- slow and disorganized in a diffuse and generalized manner Sharp wave discharges independent in left frontal and left parietal region EEG interpretation severe diffuse encephalopathy with delta theta prominence, and multifocal sharp wave discharges left frontal and parietal region EEG shows severe encephalopathy and shows epileptogenicity arising from the left frontal and parietal regions
--- NOTE | 2019-12-19 09:46 | NUR ---
s: severe encephalopathy vs 89 117/61 99.7 sedated and intubated no nuchal rigidity trachea midline rrr mechanical ventilation abd distended reflexes diminished posturing noted, with extensor response to noxious stimulation EEG severe encephalopathy w/ multifocal discharges concerning for epileptogenicity A/p severe diffuse encephalopathy with multifocal epileptogenic discharges continue AED keppra 1000mg po bid repeat EEG tomorrow will call family today MRI brain eval cortical anoxic injury
[2019-12-19 11:50] LABS: BAND NEUTROPHILS % (MANUAL) 1 %; LYMPHOCYTES % (MANUAL) 8 % (19-48); MONOCYTES % (MANUAL) 9 % (3.4-9.0); NEUTROPHILS % (MANUAL) 82 % (40-74)
--- NOTE | 2019-12-19 13:53 | Progress Note ---
DATE: SUBJECTIVE: The patient is seen and evaluated. Discussed with the nurse. Unable to obtain review of system secondary to the patient's medical condition, orally intubated, off pressors, remains on propofol and fluids. The patient is status post EEG showing severe diffuse encephalopathy with delta beta prominence and multifocal sharp wave discharges left frontal and parietal region. Suppose to repeat EEG again and also MRI later on today. PHYSICAL EXAMINATION: VITAL SIGNS: Temperature 99.4, pulse is 96, respirations 20 and blood pressure 121/59. GENERAL: Orally intubated, off pressors, on propofol, receiving IV fluids. CV: S1 and S2. CHEST: Decreased breath sounds, equal expansion. No acute distress. ABDOMEN: Soft. No distention. HEENT: Moist. No pallor. No JVD. EXTREMITIES: Weak. No significant finding. MEDICATIONS: Medication list reviewed. From ID point of view, the patient is on Diflucan, cefepime, and vancomycin IV. LABORATORY STUDIES: White count improved to 16.87 from 23.01, hemoglobin 8, platelet 277. Sodium 147, potassium 3.6, creatinine 0.67. Toxicology; vancomycin trough 11.6. Serology; no new serology available. COVID-19 was negative on 12/10. MICROBIOLOGY: No new microbiology studies available. Urine culture from 12/15 clean for 48 hours. RADIOLOGY STUDIES: No new radiology studies available. The patient had a venous Doppler of lower extremity showing no evidence of DVT in either one of the upper extremities. ASSESSMENT AND PLAN: 1. Status post cardiopulmonary arrest. 2. Respiratory failure. 3. Chronic obstructive pulmonary disease. 4. Non-ST elevated myocardial infarction. 5. Leukocytosis, improved. 6. Hypertension. 7. Anemia. Antibiotics as above. Continue to monitor the patient clinically. Follow with the labs and follow with the MRI later on today. Further management of this patient is based on daily findings on laboratory and physical examination. Overall, poor prognosis. Please refer to chart for more information. Follow up with the labs and monitor the patient clinically. Dictated by Itz Upton PA-C (Al) Sabrina Grigsby MD /MODL /[id number]
[2019-12-19] MEDS: PROPOFOL IV EMULSION 10MG/ML 100 ML IV PRN ×2 (14:40→21:39)
[2019-12-19] MEDS ORDERED: GADOBENATE DIMEGLUMINE 1 ML IV ONE (15:53)
--- NOTE | 2019-12-19 18:24 | Diagnostic Imaging Report ---
History: Altered mental status Comparison studies: Head CT on 12/18/2019 Technique: Pre-contrast: Sagittal T2; axial T1-IR, SWI, DWI, T2 FLAIR Post-contrast: Axial, coronal and sagittal T1. Intravenous contrast: 14 cc of Multihance. Findings: Scalp: No abnormal signal. No masses. Bone marrow: Normal in signal intensity. Extra-axial: No masses, fluid collections or hemorrhage. Brain sulci: Appropriate for age. Ventricles: Normal in size . No hydrocephalus. Parenchyma: Symmetric T2 and T2 FLAIR hyperintense foci (associated with restricted diffusion) in the caudate nuclei and in putamina are not associated with hemorrhage, calcifications or mass effect. Given patient's history these are most likely the result of a global anoxic insult. No masses, hemorrhage, acute or chronic vascular insults. No enhancing abnormalities. Suprasellar region: No abnormalities. Craniocervical junction: No abnormalities. Patent foramen magnum. No Chiari one malformation.. Vessels: Normal flow-voids in the arteries and sinuses. IMPRESSION: 1. Acute nonhemorrhagic global anoxic insult in the caudate nuclei and in the putamina. 2. Single 5 mm nonspecific T2 FLAIR hyperintense focus in the left deep frontal enrique radiata . 3. Otherwise, no abnormalities Signed by: Dr. Hay Gomez M.D. on 12/19/2019 6:21 PM
--- NOTE | 2019-12-19 21:16 | Progress Note ---
DATE: SUBJECTIVE: The patient is a 64-year-old female, who came in with acute shortness of breath, was found to have a non-STEMI. The patient coded well on the floor, was transferred into the ICU. The patient admit signs with anoxic brain injury, currently waiting for an MRI. The patient had an EEG, which showed diffuse encephalopathy. OBJECTIVE: VITAL SIGNS: Temperature is 99.2, pulse is 70, blood pressure is 91/51, pulse oximetry of 98% on mechanical ventilator. HEENT: Normocephalic and atraumatic. Pupils are fixed. CVS: S1 and S2 are normal. Regular rate and rhythm. ABDOMEN: Distended. EXTREMITIES: No clubbing. No cyanosis. Positive edema. LABORATORY VALUES: Today's white count is down to 16,000, hemoglobin of 8.0, hematocrit of 25.8. Chemistry shows sodium of 147, potassium 3.6, BUN of 16, creatinine of 0.67. Toxicology, vancomycin is elevated at 11.6. IMAGING STUDIES: Brain MRI was done today, showed acute nonhemorrhagic global anoxic insult in the cardiac nucleus and putamen, single 5 mm nonspecific T2 FLAIR and otherwise no abnormalities. ASSESSMENT: Ms. Ashleigh Cabrera is status post code with anoxic brain injury with EEG showing diffuse encephalopathy. PLAN: We will discuss with the family and possibly withdraw life support. I did talk to the daughter this morning in extensive detail. We will continue current management and once family is agreeable, we will go ahead and withdraw support. Further recommendation as per family's need. MD ARTHUR Sumner/MODL /[id number]
--- NOTE | 2019-12-19 21:40 | NUR ---
Dr. Hugo called MRI results to family then called unit, stated that the patient is not brain and may be in a persistent vegetative state d/t anoxic brain injury. Will repeat the EEG Monday and go from there.
[2019-12-20] VITALS (24 sets, daily range): BP systolic 84–176; BP diastolic 48–105
--- NOTE | 2019-12-20 00:17 | Progress Note ---
DATE: 12/19/2019 Cardiology Progress Note SUBJECTIVE: Remains intubated, altered mental status. OBJECTIVE: VITAL SIGNS: Temperature 99.1, heart rate 93, blood pressure 133/67, respiratory rate 18, O2 saturation 99%. BMI 27.9. GENERAL: Intubated and altered mental status. NECK: Supple. CHEST: With scattered rhonchi. CARDIOVASCULAR: Regular rate and rhythm. Normal S1, S2. ABDOMEN: Soft. Bowel sounds positive. EXTREMITIES: Trace edema. Euthermic. CARDIOVASCULAR MEDICATIONS: Reviewed. Nitroglycerin p.r.n., atorvastatin, metoprolol, and clopidogrel. LABORATORY DATA: Studies reviewed. Sodium 147, bicarbonate 23, creatinine 0.8, glucose 98, white blood cells 16.8, hemoglobin 8, platelets 277. INR 0.9. AST 39, ALT 55. ASSESSMENT AND PLAN: A 64-year-old woman presents with: 1. Chronic obstructive pulmonary disease exacerbation, now status post asystole, cardiac arrest, acute respiratory failure on ventilatory support, anemia, hypertension, non-ST segment elevation myocardial infarction versus type 2 myocardial infarction. 2. Dyslipidemia. RECOMMENDATIONS: Continue supportive care. Hypoxic encephalopathy suspected, evaluation underway. Myoclonic jerks observed on exam. Continue current cardiovascular medications. MD GLENIS Hartman/BE /[id number]
[2019-12-20] MEDS: PROPOFOL IV EMULSION 10MG/ML 100 ML IV PRN ×3 (00:53→20:00)
[2019-12-20] MEDS: ALBUTEROL/IPRATROPIUM 3 ML NEB NEB SCH ×6 (03:05→23:20)
[2019-12-20] MEDS: SODIUM CHLORIDE 0.9% 1000ML 1,000 ML IV SCH (05:12)
[2019-12-20 05:41] LABS: BASOPHILS % 0.2 % (0.0-1.0); EOSINOPHILS # (AUTO) 0.2 (0.0-0.4); EOSINOPHILS % 1.5 % (0.0-6.0); HEMATOCRIT 29.5 % (34.2-44.1); HEMOGLOBIN 9.1 g/dL (12.0-16.0); LYMPHOCYTES # (AUTO) 3.7 (1.0-3.2); LYMPHOCYTES % 25.3 % (18.0-39.1); MEAN CORPUSCULAR HEMOGLOBIN 27.8 pg (28-32); MEAN CORPUSCULAR HGB CONC 30.8 g/dL (31-35); MEAN CORPUSCULAR VOLUME 90.2 fL (81-99); MONOCYTES # (AUTO) 1.7 (0.2-0.8); MONOCYTES % 11.7 % (4.4-11.3); NEUTROPHILS # (AUTO) 8.8 (2.1-6.9); NEUTROPHILS % 59.7 % (38.7-80.0); PLATELET COUNT 309 x10e3/uL (140-360); RED BLOOD COUNT 3.27 x10e6/uL (3.6-5.1); RED CELL DISTRIBUTION WIDTH 17.2 % (11.7-14.4)
[2019-12-20] MEDS: CEFEPIME 1GM/NS 0.9% 50 ML 50 ML IV SCH ×3 (06:01→21:47)
[2019-12-20 06:11] LABS: ALANINE AMINOTRANSFERASE 33 IU/L (0-55); ALBUMIN 2.5 g/dL (3.5-5.0); ALBUMIN/GLOBULIN RATIO 0.9 (0.8-2.0); ALKALINE PHOSPHATASE 49 IU/L (40-150); ANION GAP 9.3 mmol/L (8-16); BLOOD UREA NITROGEN 14 mg/dL (7-26); BUN/CREATININE RATIO 23 (6-25); CALCIUM 7.6 mg/dL (8.4-10.2); CARBON DIOXIDE 23 mmol/L (22-29); CHLORIDE 119 mmol/L (98-107); CREATININE, SERUM 0.62 mg/dL (0.57-1.11); EST GLOMERULAR FILTRATION RATE > 60 ML/MIN (60-); GLUCOSE 80 mg/dL (74-118); POTASSIUM 3.3 mmol/L (3.5-5.1); SODIUM 148 mmol/L (136-145)
[2019-12-20] MEDS: VANCOMYCIN 1GM/NS 250 ML 250 ML IV SCH ×2 (06:46→17:48)
[2019-12-20] MEDS: VENLAFAXINE HCL 75 MG TAB PO SCH (07:55)
[2019-12-20] MEDS: FAMOTIDINE 20 MG/2 ML VIAL IV SCH ×2 (07:55→21:47)
--- NOTE | 2019-12-20 07:59 | Diagnostic Imaging Report ---
EXAMINATION: CHEST SINGLE (PORTABLE) INDICATION: ^resp failure ^20191220 ^0530 COMPARISON: None FINDINGS: AP view TUBES and LINES: Endotracheal tube is mildly retracted now overlying the junction of the upper and mid trachea, 4.8 cm above the manjula, before 2.9 cm. Right IJ and infradiaphragmatic NG/NG tube remains unchanged. LUNGS: Lungs are well inflated. Bibasilar reticular opacities have increased. PLEURA: Small left pleural effusion is either unchanged or decreased. No pneumothorax. HEART AND MEDIASTINUM: The cardiomediastinal silhouette is unremarkable.. BONES AND SOFT TISSUES: No acute osseous lesion. Soft tissues are unremarkable. UPPER ABDOMEN: No free air under the diaphragm. IMPRESSION: Mildly worsening bilateral lower lobe reticular opacities may reflect a combination of interstitial edema and/or multifocal pneumonia. Small left pleural effusion, either unchanged or slightly decreased. Endotracheal tube tip has been mildly retracted, now 4.8 cm above the manjula compared to 2.9 cm on prior exam. Still in adequate position. Signed by: Dr. Hollie Jane M.D. on 12/20/2019 7:56 AM
--- NOTE | 2019-12-20 08:24 | NUR ---
s: exam is better patient remains nonresponsive vs 101.1 113 176/105 eomi to dolls pupils briskly reactive bilaterally no nuchal rigidty rrr mechnical vent. abd distended exam- pupils reactive, corneals intact dolls intact postures- extensor, to noxious stimuli relfexes brisk MRI shows - 1. Acute nonhemorrhagic global anoxic insult in the caudate nuclei and in the putamina. 2. Single 5 mm nonspecific T2 FLAIR hyperintense focus in the left deep frontal enrique radiata . a/p anoxic brain injury and acute encephalopathy EEG is non-epileptic and shows diffuse slow disorganized neurophysiological activity, it is not monotonous so not consistent with coma MRI consistant with hypoxemic/anoxic injury rather than cardioembolic etiology place on antiplatelet and statin repeat EEG Monday - patient on empiric aed prognosis- given the proximity to acute event, diagnostic and prognostic guidance is limited. the ischemic injury in the MRI is compatible with awakening and with some significant congitive and motor recovery, however it will take time and be incomplete recovery. we will have a better idea of timeline and potential recovery in a few days as patient gets furhter from insult and sedation. repeat EEG tomorrow, and again on . the pattern of neurophyisiologica recovery will be more telling at that time. I discussed this with family at length last night, while i understand not knowing is frustrating any specific progrnostication at this time is premature. I will monitor closely.
[2019-12-20] MEDS: FLUCONAZOLE 100 MG/NS 50 ML 50 ML IV SCH (08:47)
[2019-12-20] MEDS: ACETAMINOPHEN 325 MG/10 ML UDC NG PRN (09:20)
[2019-12-20 11:35] LABS: EOSINOPHILS % (MANUAL) 1 % (0-7); LYMPHOCYTES % (MANUAL) 23 % (19-48); MONOCYTES % (MANUAL) 9 % (3.4-9.0); NEUTROPHILS % (MANUAL) 67 % (40-74)
--- NOTE | 2019-12-20 11:44 | Progress Note ---
DATE: SUBJECTIVE: The patient remains on a PRVC mode of ventilation. She does become agitated when sedation is held, but she does not have any purposeful movements. She was evaluated by Neurology. PHYSICAL EXAMINATION: VITAL SIGNS: The blood pressure is 121/62, pulse is 78, T-max is 101.5. Respiratory rate is 19. She is on a PRVC of 16 with a tidal volume of 400 and her FiO2 of 40%. HEENT: No facial swelling or erythema. There is an oral endotracheal tube. There is a right IJ line. The site looks clean. There is no drainage. CARDIAC: Regular rate and rhythm with normal S1, S2. LUNGS: Auscultation of lungs shows clear breath sounds bilaterally. There is no wheezing. ABDOMEN: Soft, nontender. There is no rebound or guarding. EXTREMITIES: No leg edema or calf tenderness. NEUROLOGICAL: No purposeful movements. Her pupils to react. She has some extensor posturing. LABORATORY DATA: Sodium is 148. The BUN to creatinine ratio is 14 to 0.62. The albumin is 2.5. The white blood cell count is 14.7 and hemoglobin is 9.1. The platelet count is 309. RADIOGRAPHIC DATA: Chest x-ray shows worsening bilateral lower lobe opacities suggesting possible pneumonia. IMPRESSION: 1. Anoxic brain injury. 2. Acute respiratory failure. 3. Aspiration pneumonia with sepsis. 4. Chronic obstructive pulmonary disease. 5. Diabetes. 6. Coronary artery disease with a non ST-T wave myocardial infarction. PLAN: 1. Continue current ventilator settings. 2. Continue antibiotics. 3. Repeat ABG. 4. Repeat EEG tomorrow. 5. Continue IV fluids. 6. Begin enteral feedings. Octavio Stevens MD [facility]/MODL /[id number]
[2019-12-20 11:58] LABS: ABG HCO3 22 mmol/L (22-26); ABG PCO2 35 mmHg (35-45); ABG PO2 100 mmHg (80-105)
--- NOTE | 2019-12-20 16:08 | NUR ---
Nutrition Intervention Note RD Recommendation(s) for Physician: -Recommend Vital High Protein @ goal rate of 35 mL/hr at this time due to propofol dose (provides 840 kcal, 74 g protein, and 702 mL water) -Pt is receiving an additional 528 kcal from propofol -Fluid management per MD Plan of Care: RD following, monitoring for tolerance and adequacy Nutrition reason for involvement: follow up RD Assessment (12/20/19) Follow up. Chart reviewed. Pt remains intubated. Pt is going to be started on tube feedings. Pt is receiving propofol at 20 mL/hr per documentation which provides 528 kcal. Recommendations provided. Will continue to monitor. (12/16/19) Pt is a 64 year old female admitted with chest pain, COPD with exacerbation, and pneumonia. A code was called this morning and pt is currently intubated and sedated per chart. Pt was previously on a cardiac diet with 50-75% meal intake recorded. Per weight history in chart, pt weighed 126-130 lbs from a previous admission in December 2018. Pt currently has a weight of 136 lbs in chart; therefore, weight loss is not evident. Recommendations provided. Will continue to monitor Principal Problems/Diagnoses: chest pain, COPD with exacerbation, and pneumonia PMH: hypertension, hyperlipidemia, COPD, rheumatoid arthritis, multiple osteoarthritis of joints. GI: last recorded BM 12/15, liquid brown stools Skin: no pressure ulcers or wounds recorded Labs: (12/19) Na 148, K 3.3, BUN 14, Cr 0.62, Ca 7.6, AST 37 (12/15) Na 137, K 3.7, BUN 7, Cr 0.74, Glu 97, Ca 8.4 Meds: propofol @ 20 mL/hr, pepcid, antibiotics, zofran Ht: 61 inches Wt: 149 lbs (12/19) 136 lbs (12/15) BMI: 25.8 kg/m2 (using wt of 136 lbs) IBW: 105 lbs Malnutrition Evaluation (12/16/19) The patient does not meet criteria for a specified degree of malnutrition at this time. Will re-evaluate at follow-up as appropriate. Nutrition Prescription (Diet Order): Glucerna 1.2 @ 40 mL/hr (provides 1152 kcal, 58 g protein) Estimated Nutritional Needs: 1115 1236 calories/day (18-20 kcal/kg CBW) Weight used: 136 lbs 74-124 g protein/day (1.2-2 g pro/kg CBW) Weight used: 136 lbs Diet Adequacy: Tube feed order meets calorie needs, does not meet protein needs Tolerance: pending Diet Education Needs Assessment: Diet education not indicated, pt is intubated Nutrition Care Level: moderate Nutrition Diagnosis: Inadequate oral intake related to decreased ability to consume sufficient energy secondary to intubation as evidenced by need for enteral nutrition Goal: Patient will meet 75-100% of estimated needs by follow up Progress: goal not met Interventions: -Composition, Rate, Route, Collaboration with other providers Monitoring/Evaluation: -Total energy intake, Total protein intake, Formula/Solution, Weight change Signed: Geri Schroeder RD, LD
--- NOTE | 2019-12-20 17:49 | Progress Note ---
DATE: SUBJECTIVE: A 64-year-old female patient, came in with COPD exacerbation, was found to have non-STEMI. The patient is coded. The patient is right now in the ICU. MRI did show anoxic brain injury. The patient also has EEG which has to be repeated tomorrow. Currently, the patient has no movement at all. PHYSICAL EXAMINATION: VITAL SIGNS: Blood pressure is stable. T-max is 101.5. HEENT: Normocephalic, atraumatic. The patient has an endotracheal tube in. HEART: S1, S2 normal. LUNGS: Decreased air entry into all lung lea. ABDOMEN: Soft, nontender, but this protuberant. EXTREMITIES: No clubbing, no cyanosis, trace amount of edema. NEUROLOGICAL: No purposeful movements. Pupils not reactive. Some posturing present. LABORATORY VALUES: White count is down to 14,000, hemoglobin of 9.1, and hematocrit of 29.5. Chemistries; 148 sodium, potassium 3.3, chloride of 119 and calcium is 7.6. Vancomycin trough of 13.8. ASSESSMENT: Ms. Asheligh Cabrera with, 1. Acute anoxic brain injury. 2. Chronic obstructive pulmonary disease. 3. Non-ST elevation myocardial infarction. 4. Coronary artery disease. 5. Diabetes mellitus. 6. History of smoking. PLAN: Continue current ventilator setting. EEG to be done tomorrow again. Continue current conservative management. We will discuss with family. MD ARTHUR Sumner/MODL /[id number]
[2019-12-21] VITALS (21 sets, daily range): BP systolic 97–139; BP diastolic 49–67
--- NOTE | 2019-12-21 02:47 | Progress Note ---
DATE: 12/20/2019 SUBJECTIVE: The patient remains intubated and sedated. She had CPAP trial earlier today and failed it. PHYSICAL EXAMINATION: VITAL SIGNS: Her blood pressure 113/58, her heart rate 72 beats per minute, respiratory rate is 16. Her max temperature was 101.4. GENERAL: Sedated. LUNGS: Coarse breath sounds anteriorly. COR: Regular rate, S1, S3, no S3, S4 herd. ABDOMEN: Mildly distended, BS present. EXTREMITIES: No leg edema. Cardiovascular medications (oral) on hold since 12-16-19 Problems: 1. Chronic obstructive pulmonary disease exacerbation, 2. Status post cardiac arrest (asystole) 3. Acute respiratory failure on ventilatory support, 4. Possible hypoxic encephalopathy 5. Anemia, 6. Hypertension, 7. Non-ST elevation myocardial infarction versus type 2 myocardial infarction. 8. Dyslipidemia. Plan: 1. Continue supportive care. 2. Oral cardiovascular medications on hold since 12-16-19. MD REMINGTON Cardenas/MODL /[id number]
[2019-12-21] MEDS: ALBUTEROL/IPRATROPIUM 3 ML NEB NEB SCH ×6 (03:15→22:40)
[2019-12-21 05:43] LABS: BASOPHILS % 0.1 % (0.0-1.0); EOSINOPHILS # (AUTO) 1.3 (0.0-0.4); EOSINOPHILS % 8.3 % (0.0-6.0); HEMATOCRIT 25.9 % (34.2-44.1); HEMOGLOBIN 8.1 g/dL (12.0-16.0); LYMPHOCYTES # (AUTO) 3.6 (1.0-3.2); LYMPHOCYTES % 24.1 % (18.0-39.1); MEAN CORPUSCULAR HEMOGLOBIN 28.5 pg (28-32); MEAN CORPUSCULAR HGB CONC 31.3 g/dL (31-35); MEAN CORPUSCULAR VOLUME 91.2 fL (81-99); MONOCYTES # (AUTO) 1.7 (0.2-0.8); MONOCYTES % 11.1 % (4.4-11.3); NEUTROPHILS # (AUTO) 8.3 (2.1-6.9); NEUTROPHILS % 55.5 % (38.7-80.0); PLATELET COUNT 263 x10e3/uL (140-360); RED BLOOD COUNT 2.84 x10e6/uL (3.6-5.1); RED CELL DISTRIBUTION WIDTH 17.5 % (11.7-14.4)
[2019-12-21] MEDS: VANCOMYCIN 1GM/NS 250 ML 250 ML IV SCH ×2 (06:00→17:49)
[2019-12-21] MEDS: CEFEPIME 1GM/NS 0.9% 50 ML 50 ML IV SCH ×3 (06:00→21:03)
[2019-12-21 06:16] LABS: ALANINE AMINOTRANSFERASE 21 IU/L (0-55); ALBUMIN 2.2 g/dL (3.5-5.0); ALBUMIN/GLOBULIN RATIO 0.8 (0.8-2.0); ALKALINE PHOSPHATASE 43 IU/L (40-150); ANION GAP 9.3 mmol/L (8-16); BLOOD UREA NITROGEN 13 mg/dL (7-26); BUN/CREATININE RATIO 21 (6-25); CALCIUM 7.4 mg/dL (8.4-10.2); CARBON DIOXIDE 23 mmol/L (22-29); CHLORIDE 117 mmol/L (98-107); CREATININE, SERUM 0.62 mg/dL (0.57-1.11); EST GLOMERULAR FILTRATION RATE > 60 ML/MIN (60-); GLUCOSE 91 mg/dL (74-118); POTASSIUM 3.3 mmol/L (3.5-5.1); SODIUM 146 mmol/L (136-145)
--- NOTE | 2019-12-21 08:42 | Progress Note ---
DATE: SUBJECTIVE: A 64-year-old female, who came in with acute respiratory failure, has a history of non-STEMI, coded. Currently, the patient has anoxic brain injury has some posturing. Awaiting MRI result and second EEG result. MRI showed hypoxic brain injury. Discussed with family. Currently on ventilator. OBJECTIVE: VITAL SIGNS: Temperature is 99.9, pulse of 72, respirations of 16, blood pressure is 116/62, and pulse oximetry of 100%. The patient is on mechanical ventilator. HEENT: Normocephalic. Pupils are dilated and fixed. No movement. CVS: S1 and S2 normal. Regular rate and rhythm. ABDOMEN: Distended. EXTREMITIES: No clubbing. No cyanosis. No edema. LABORATORY VALUES: White count is 14,000, hemoglobin of 8.1, and hematocrit of 25.9. Chemistries; sodium 146, potassium 3.3, and calcium 7.4. MICROBIOLOGY: Gram stain show some gram-positive in clusters, coagulase negative, probably skin contamination. IMAGING STUDIES: MRI done on 12/18, shows anoxic brain injury. Chest x-ray from yesterday, worsening of lower lobe reticular opacities, reflect a combination of interstitial edema and multifocal pneumonia. ASSESSMENT: Ms. Ashleigh Cabrera with chronic obstructive pulmonary disease exacerbation, status post code with anoxic brain injury with a history of [id number] elevation myocardial infarction. PLAN: Supportive care. Repeat EEG will be done. We will discuss with family about possible end of life issues. Further recommendation per clinical course. MD ARTHUR Sumner/MODL /[id number]
[2019-12-21] MEDS: FLUCONAZOLE 100 MG/NS 50 ML 50 ML IV SCH (09:06)
[2019-12-21] MEDS: VENLAFAXINE HCL 75 MG TAB PO SCH (09:06)
[2019-12-21] MEDS: FAMOTIDINE 20 MG/2 ML VIAL IV SCH ×2 (09:06→21:03)
--- NOTE | 2019-12-21 09:45 | NUR ---
eeg - 20 min modified 10/20 system w/ left hemispheric, central and right lateral electrodes placed. right paracentral Electrodes held due to artifact EEG read in modified bipolar and avg montage EEG data- generalized attentuation w/ bursts of higher amplitude sharp waves every 4-7 seconds EEG interpretation EEG shows burst suppression activity, seen pimaritly in settings of sedation and medication effect. no evidence of status epilepticus at this time. EEG deeply sedated
--- NOTE | 2019-12-21 09:51 | NUR ---
deep sedation Vs 100.8 110/52 66 deeply sedated pupils reactive to light dolls eyes intact eyes downgaze preference nystagmus with dolls eyes bilaterally mechanical ventilation rrr abd distended increased tone and extensor posutring in arms and legs a/p anoxic encephalopathy w cortical and subcotrical injury EEG shows deep sedation, no evidence of subclinical status epileptiucs. however maintain aed as epiric measure and monitor clinically, wean sedation as able and repeat EEG Monday expect neurological injury decline in neurological and congitve capacity after recovery, however, prognosis for awakening is dependant on how patient tolerates and recovers from acute injury phase. at this time it is too early to tell what kind of recovery we can expect. given the sedation needs and limitation on both neurological and neurophysiological exams. She will have prison deficits, the expression of these is also unclear, however cognitive changes. personality changes and some motor dysfunction (not paralysis but ataxia/ movement dysfunction) is very likely. prolonged care, and prolonged recovery are expected, the timeline for recovery is best measured in weeks rather than days I called family and left message, had previous conversation regarding the above
[2019-12-21] MEDS: PROPOFOL IV EMULSION 10MG/ML 100 ML IV PRN ×2 (12:28→21:04)
--- NOTE | 2019-12-21 16:20 | Progress Note ---
DATE: Pulmonary Critical Care Progress Note SUBJECTIVE: She is still being evaluated by Neurology. She does have some movement, but does not have any purposeful movement. Her MRI showed changes in the caudate nuclei and putamina bilaterally with global anoxic insult. She remains on a ventilator. PHYSICAL EXAMINATION: VITAL SIGNS: The patient is febrile to 101.1. The blood pressure is 136/63 and saturation is 100%. She is on a PRVC mode of ventilation at a rate of 16 with a tidal volume of 450 and her FiO2 40%. Her PEEP is set at 5. HEENT: Shows no facial swelling or erythema. There is an oral endotracheal tube. CARDIAC: Reveals regular rate and rhythm with normal S1 and S2. LUNGS: Auscultation of lungs reveals clear breath sounds bilaterally. There is no wheezing. ABDOMEN: Soft and nontender. There is no rebound or guarding. EXTREMITIES: Shows no leg edema or calf tenderness. There is no cyanosis or clubbing. LABORATORY DATA: The sodium is 146 and the potassium is 3.3. The creatinine is 0.62 and the white blood cell count is 14.5. The hemoglobin is 8.1. Platelet count is 263. IMPRESSION: 1. Anoxic brain injury. 2. Aspiration pneumonia with sepsis. 3. Acute respiratory failure. 4. Diabetes. 5. Coronary artery disease. 6. Hypernatremia. PLAN: 1. Continue to give feedings and free water through the feeding tube. 2. Continue current antibiotics. 3. Repeat ABG. 4. Continue to follow recommendations of Neurology. 5. Prognosis remains poor. Octavio Stevens MD [facility]/MODL /[id number]
[2019-12-21 16:50] LABS: ABG HCO3 22 mmol/L (22-26); ABG PCO2 35 mmHg (35-45); ABG PH 7.41 (7.35-7.45); ABG PO2 81 mmHg (80-105)
[2019-12-21] MEDS: ACETAMINOPHEN 325 MG/10 ML UDC NG PRN (17:50)
--- NOTE | 2019-12-21 23:35 | Progress Note ---
DATE: 12/21/2019 Cardiology Progress Note SUBJECTIVE: The patient remains intubated and sedated. PHYSICAL EXAMINATION: VITAL SIGNS: Her blood pressure is 136/63 with a heart rate of 77, temperature is 101.1, and respiratory rate is 14. LUNGS: Coarse breath sounds anteriorly. CARDIAC: Regular rate, kelsi S1, S2. ABDOMEN: Soft, mildly distended. EXTREMITIES: no leg edema LABORATORY DATA: Reviewed. MedicatIons: Cardiovascular medications (oral) on hold since 12-16-19 ASSESSMENT: Problems: 1. Chronic obstructive pulmonary disease exacerbation, 2. Status post cardiac arrest (asystole) 3. Acute respiratory failure on ventilatory support, 4. Possible hypoxic encephalopathy 5. Anemia, 6. Hypertension, 7. Non-ST elevation myocardial infarction versus type 2 myocardial infarction. 8. Dyslipidemia. . Plan: 1. Continue supportive care. 2. Oral cardiovascular medications on hold since 12-16-19. MD REMINGTON Cardenas/BE /[id number] MTDD
[2019-12-22] VITALS (22 sets, daily range): BP systolic 100–138; BP diastolic 51–72
[2019-12-22] MEDS: ACETAMINOPHEN 325 MG/10 ML UDC NG PRN (00:57)
[2019-12-22] MEDS: ALBUTEROL/IPRATROPIUM 3 ML NEB NEB SCH ×6 (04:45→23:26)
[2019-12-22] MEDS: CEFEPIME 1GM/NS 0.9% 50 ML 50 ML IV SCH ×3 (05:04→21:45)
[2019-12-22] MEDS: PROPOFOL IV EMULSION 10MG/ML 100 ML IV PRN ×3 (05:22→21:23)
--- NOTE | 2019-12-22 05:54 | Diagnostic Imaging Report ---
EXAMINATION: CHEST SINGLE (PORTABLE) INDICATION: ^resp failure COMPARISON: 12/21/2019 FINDINGS: AP view TUBES and LINES: Unchanged endotracheal tube, right IJ central line, and nasogastric tube. LUNGS: Unchanged bibasilar airspace disease. PLEURA: Unchanged moderate pleural effusions. HEART AND MEDIASTINUM: The cardiomediastinal silhouette is unchanged. BONES AND SOFT TISSUES: No acute abnormality. UPPER ABDOMEN: No free air under the diaphragm. IMPRESSION: No interval change. Signed by: Gary Gary MD on 12/22/2019 5:51 AM
[2019-12-22 05:55] LABS: BASOPHILS # (AUTO) 0.1 (0.0-0.1); BASOPHILS % 0.3 % (0.0-1.0); EOSINOPHILS # (AUTO) 3.1 (0.0-0.4); EOSINOPHILS % 12.1 % (0.0-6.0); HEMATOCRIT 28.2 % (34.2-44.1); HEMOGLOBIN 8.6 g/dL (12.0-16.0); LYMPHOCYTES # (AUTO) 4.9 (1.0-3.2); LYMPHOCYTES % 18.9 % (18.0-39.1); MEAN CORPUSCULAR HEMOGLOBIN 27.3 pg (28-32); MEAN CORPUSCULAR HGB CONC 30.5 g/dL (31-35); MEAN CORPUSCULAR VOLUME 89.5 fL (81-99); MONOCYTES % 7.6 % (4.4-11.3); NEUTROPHILS # (AUTO) 15.3 (2.1-6.9); NEUTROPHILS % 59.8 % (38.7-80.0); PLATELET COUNT 316 x10e3/uL (140-360); RED BLOOD COUNT 3.15 x10e6/uL (3.6-5.1); RED CELL DISTRIBUTION WIDTH 17.7 % (11.7-14.4)
[2019-12-22 06:22] LABS: ALANINE AMINOTRANSFERASE 17 IU/L (0-55); ALBUMIN 2.3 g/dL (3.5-5.0); ALBUMIN/GLOBULIN RATIO 0.7 (0.8-2.0); ALKALINE PHOSPHATASE 50 IU/L (40-150); ANION GAP 8.7 mmol/L (8-16); BLOOD UREA NITROGEN 11 mg/dL (7-26); BUN/CREATININE RATIO 18 (6-25); CALCIUM 7.9 mg/dL (8.4-10.2); CARBON DIOXIDE 25 mmol/L (22-29); CHLORIDE 114 mmol/L (98-107); CREATININE, SERUM 0.61 mg/dL (0.57-1.11); EST GLOMERULAR FILTRATION RATE > 60 ML/MIN (60-); GLUCOSE 125 mg/dL (74-118); POTASSIUM 3.7 mmol/L (3.5-5.1); SODIUM 144 mmol/L (136-145)
[2019-12-22] MEDS: VANCOMYCIN 1GM/NS 250 ML 250 ML IV SCH ×2 (06:38→18:01)
[2019-12-22] MEDS: VENLAFAXINE HCL 75 MG TAB PO SCH (09:29)
[2019-12-22] MEDS: FAMOTIDINE 20 MG/2 ML VIAL IV SCH ×2 (09:29→21:45)
--- NOTE | 2019-12-22 09:39 | NUR ---
neurology progress note intubated, sedated Vs 100.2 687 124/57 deeply sedated pupils reactive to light dolls eyes intact eyes downgaze preference nystagmus with dolls eyes bilaterally mechanical ventilation rrr abd distended increased tone and extensor posutring in arms and legs a/p anoxic encephalopathy w cortical and subcotrical injury EEG shows deep sedation, no evidence of active subclinical status epilepticus. however maintain aed as epiric measure and monitor clinically, wean sedation as able and repeat EEG Monday expect neurological injury decline in neurological and congitve capacity after recovery, however, prognosis for awakening is dependant on how patient tolerates and recovers from acute injury phase. at this time it is too early to tell what kind of recovery we can expect. given the sedation needs and limitation on both neurological and neurophysiological exams. 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 personality changes and some motor dysfunction (not paralysis but ataxia/ movement dysfunction) is very likely. prolonged care, and prolonged recovery are expected, the timeline for recovery is best measured in weeks rather than days
[2019-12-22 10:11] LABS: EOSINOPHILS % (MANUAL) 10 % (0-7); LYMPHOCYTES % (MANUAL) 20 % (19-48); MONOCYTES % (MANUAL) 8 % (3.4-9.0); NEUTROPHILS % (MANUAL) 62 % (40-74); PLATELET ESTIMATE ADEQUATE; PLATELET MORPHOLOGY COMMENT NORMAL; RBC MORPHOLOGY COMMENT NORMAL
--- NOTE | 2019-12-22 10:46 | Progress Note ---
DATE: SUBJECTIVE: The patient is a 64-year-old female with a history of acute respiratory failure, status post code non-STEMI. The patient's repeat EEG shows more encephalopathy. Scheduled for another EEG without sedation. The patient's MRI shows anoxic brain injury. PHYSICAL EXAMINATION: GENERAL: The patient is intubated, some posturing noted. VITAL SIGNS: Temperature is 100.5, pulse of 71, respirations 16, blood pressure is 110/57. HEENT: Normocephalic. The patient is intubated, has edema of the face and the lip. The patient also has edematous upper extremities. HEENT: Otherwise normal. CVS: S1 and S2. Regular. ABDOMEN: Distended. EXTREMITIES: No clubbing, no cyanosis. As mentioned above, positive for edema on webspacing. LABORATORY VALUES: White count is 25,000, hemoglobin of 8.6, hematocrit of 28.2, neutrophil count of 59.8. IMAGING: Chest x-ray shows no interval changes. ASSESSMENT: Ms. Ashleigh Cabrera with: 1. HI, ST-segment elevation. 2. Acute respiratory failure status post intubation. 3. Anoxic brain injury with two EEGs documenting encephalopathy. 4. Diabetes mellitus. 5. Coronary artery disease. 6. Hyponatremia. 7. Metabolic derangement. 8. Leukocytosis. PLAN: Continue with feeding tubes. Continue with IV antibiotics. Continue with current management. Neurology and Pulmonary on consult. MD ARTHUR Sumner/MODL /[id number]
[2019-12-22] MEDS: FLUCONAZOLE 100 MG/NS 50 ML 50 ML IV SCH (11:00)
[2019-12-22] MEDS: VANCOMYCIN 250MG/5ML ORAL SOLN NG SCH ×2 (11:57→18:01)
--- NOTE | 2019-12-22 18:17 | Progress Note ---
DATE: SUBJECTIVE: The patient remains on the mechanical ventilator. She is still not having any meaningful interactions. When the sedation is stopped she does move. She has some posturing to noxious stimulation. PHYSICAL EXAMINATION: VITAL SIGNS: The patient is afebrile. The blood pressure is 108/54, saturation is 99% on a PRVC at a rate of 16 with a tidal volume of 420 and FiO2 of 40%. PEEP is set at 5. HEENT: Shows no facial swelling or erythema. Endotracheal tube in place. There is a right IJ. The site looks clean. CARDIAC: Reveals regular rate and rhythm with normal S1 and S2. LUNGS: Auscultation of lungs reveals rhonchorous breath sounds bilaterally. There is no wheezing. ABDOMEN: Soft, nontender. There is no rebound or guarding. EXTREMITIES: Shows no leg edema or calf tenderness. There is no cyanosis or clubbing. SKIN: Shows no rashes. NEUROLOGICAL: Shows no focal abnormalities. LABORATORY DATA: White blood cell count is increased to 25.6, hemoglobin is 8.6, and the platelet count is 316. Other electrolytes are within normal limits. IMPRESSION: 1. Anoxic brain injury. 2. Aspiration pneumonia with sepsis. 3. Acute respiratory failure. 4. Diabetes. 5. Coronary artery disease. PLAN: 1. Continue current antibiotics. 2. Await further input from Neurology. 3. Continue enteral feedings. 4. Prognosis remains poor. Octavio Stevens MD [facility]/MODL /[id number]
[2019-12-23] VITALS (24 sets, daily range): BP systolic 88–139; BP diastolic 43–70
[2019-12-23] MEDS: VANCOMYCIN 250MG/5ML ORAL SOLN NG SCH ×4 (00:44→23:47)
--- NOTE | 2019-12-23 01:48 | Progress Note ---
DATE: 12/22/2019 Cardiology Progress Note SUBJECTIVE: The patient remains intubated and sedated. PHYSICAL EXAMINATION: VITAL SIGNS: Blood pressure of 111/55 mmHg, heart rate is 66 beats per minute, respiratory rate is 24, and patient is afebrile. HEAD AND NECK: ET in place. Anicteric conjunctiva. No facial swelling. LUNGS: Show rhonchi in both lung lea. CARDIAC: Regular rate. Normal S1 and S2. No murmurs heard. ABDOMEN: Soft, mildly distended. Bowel sounds present. EXTREMITIES: No leg edema. LABORATORY DATA: Reviewed. Her white blood cell count has increased to 25.6 thousand, hemoglobin is 8.6 and hematocrit is 28, and platelet count is 316,000. Her electrolytes are within reference range. MEDICATIONS: Reviewed. Cardiovascular medications have been on hold since December 16, 2019. The patient is receiving enteral feedings via OGT. ASSESSMENT: Problems: 1. Chronic obstructive pulmonary disease exacerbation. 2. Acute respiratory failure on ventilatory support. 3. Status post cardiac arrest. 4. Possible hypoxic encephalopathy and anoxic brain injury. 5. Anemia. 6. Hypertension. 7. Non-ST elevation myocardial infarction versus type 2 myocardial infarction. 8. Dyslipidemia. PLAN: 1. Continue supportive care. 2. Oral cardiovascular medications on hold since December 16, 2019. Now, the patient is receiving enteral feedings. We will discuss resuming the statin. MD REMINGTON Cardenas/BE /[id number]
[2019-12-23] MEDS: ACETAMINOPHEN 325 MG/10 ML UDC NG PRN (02:10)
[2019-12-23] MEDS: ALBUTEROL/IPRATROPIUM 3 ML NEB NEB SCH ×6 (02:32→23:10)
[2019-12-23] MEDS: CEFEPIME 1GM/NS 0.9% 50 ML 50 ML IV SCH (05:36)
[2019-12-23] MEDS: PROPOFOL IV EMULSION 10MG/ML 100 ML IV PRN (05:37)
[2019-12-23 06:13] LABS: BASOPHILS # (AUTO) 0.1 (0.0-0.1); BASOPHILS % 0.3 % (0.0-1.0); EOSINOPHILS # (AUTO) 2.9 (0.0-0.4); EOSINOPHILS % 12.7 % (0.0-6.0); HEMATOCRIT 24.9 % (34.2-44.1); HEMOGLOBIN 7.7 g/dL (12.0-16.0); LYMPHOCYTES # (AUTO) 3.4 (1.0-3.2); LYMPHOCYTES % 14.9 % (18.0-39.1); MEAN CORPUSCULAR HEMOGLOBIN 27.8 pg (28-32); MEAN CORPUSCULAR HGB CONC 30.9 g/dL (31-35); MEAN CORPUSCULAR VOLUME 89.9 fL (81-99); MONOCYTES # (AUTO) 1.8 (0.2-0.8); MONOCYTES % 7.8 % (4.4-11.3); NEUTROPHILS # (AUTO) 14.4 (2.1-6.9); NEUTROPHILS % 62.7 % (38.7-80.0); PLATELET COUNT 277 x10e3/uL (140-360); RED BLOOD COUNT 2.77 x10e6/uL (3.6-5.1); RED CELL DISTRIBUTION WIDTH 17.6 % (11.7-14.4)
--- NOTE | 2019-12-23 06:40 | Diagnostic Imaging Report ---
EXAMINATION: CHEST SINGLE (PORTABLE) INDICATION: ^resp failure COMPARISON: 12/22/2019 FINDINGS: AP view TUBES and LINES: Unchanged endotracheal tube, nasogastric tube, and right IJ central line. LUNGS: Unchanged pulmonary airspace disease, notably in the right lung. PLEURA: Unchanged pleural effusions. No pneumothorax. HEART AND MEDIASTINUM: The cardiomediastinal silhouette is unchanged. BONES AND SOFT TISSUES: No acute osseous lesion. Soft tissues are unremarkable. UPPER ABDOMEN: No free air under the diaphragm. IMPRESSION: No substantial interval change. Signed by: Gary Gary MD on 12/23/2019 6:36 AM
[2019-12-23 06:46] LABS: ALANINE AMINOTRANSFERASE 14 IU/L (0-55); ALBUMIN 1.8 g/dL (3.5-5.0); ALBUMIN/GLOBULIN RATIO 0.6 (0.8-2.0); ALKALINE PHOSPHATASE 43 IU/L (40-150); ANION GAP 8.5 mmol/L (8-16); BLOOD UREA NITROGEN 12 mg/dL (7-26); BUN/CREATININE RATIO 18 (6-25); CALCIUM 7.4 mg/dL (8.4-10.2); CARBON DIOXIDE 25 mmol/L (22-29); CHLORIDE 112 mmol/L (98-107); CREATININE, SERUM 0.65 mg/dL (0.57-1.11); EST GLOMERULAR FILTRATION RATE > 60 ML/MIN (60-); GLUCOSE 137 mg/dL (74-118); POTASSIUM 3.5 mmol/L (3.5-5.1); SODIUM 142 mmol/L (136-145)
[2019-12-23] MEDS: VANCOMYCIN 1GM/NS 250 ML 250 ML IV SCH (07:02)
--- NOTE | 2019-12-23 07:22 | NUR ---
neurology progress note intubated, sedated 101.2 82 88/54 deeply sedated, does not tolerated decrease in propofol due to vent dependance pupils reactive to light dolls eyes intact eyes downgaze preference nystagmus with dolls eyes bilaterally mechanical ventilation rrr abd distended increased tone and extensor posutring in arms and legs a/p anoxic encephalopathy w cortical and subcotrical injury EEG shows deep sedation, no evidence of active subclinical status epilepticus. however maintain aed as epiric measure and monitor clinically, wean sedation as able and repeat EEG Monday expect neurological injury decline in neurological and congitve capacity after recovery, however, prognosis for awakening is dependant on how patient tolerates and recovers from acute injury phase. at this time it is too early to tell what kind of recovery we can expect. given the sedation needs and limitation on both neurological and neurophysiological exams. She will have skilled nursing deficits, the expression of these is also unclear, however cognitive changes. personality changes and some motor dysfunction (not paralysis but ataxia/ movement dysfunction) is very likely. prolonged care, and prolonged recovery are expected, the timeline for recovery is best measured in weeks rather than days wean sedation as able. neurologically brainstem and medulla is intact and should allow spontanous respiration independent of vent support.
[2019-12-23] MEDS: VENLAFAXINE HCL 75 MG TAB PO SCH (08:13)
[2019-12-23] MEDS: FAMOTIDINE 20 MG/2 ML VIAL IV SCH ×2 (08:13→21:00)
[2019-12-23 08:59] LABS: LYMPHOCYTES % (MANUAL) 13 % (19-48); MONOCYTES % (MANUAL) 6 % (3.4-9.0)
[2019-12-23 09:00] LABS: ANISOCYTOSIS SLIGHT; PLATELET ESTIMATE ADEQUATE; PLATELET MORPHOLOGY COMMENT NORMAL; RBC MORPHOLOGY COMMENT NORMAL
[2019-12-23 09:01] LABS: EOSINOPHILS % (MANUAL) 8 % (0-7); NEUTROPHILS % (MANUAL) 73 % (40-74)
[2019-12-23] MEDS: FLUCONAZOLE 100 MG/NS 50 ML 50 ML IV SCH (09:57)
--- NOTE | 2019-12-23 10:06 | Progress Note ---
DATE: 12/23/2019 Cardiology Progress Note. SUBJECTIVE: Remains intubated and sedated. OBJECTIVE: VITAL SIGNS: Temperature 99.4, heart rate 84, blood pressure 131/70, respiratory rate 29, O2 saturation 99%. BMI 28. GENERAL: Intubated and sedated. CHEST: Decreased breath sounds at bilateral bases. CARDIOVASCULAR: Regular rate and rhythm. Normal S1, S2. No S3 or S4. ABDOMEN: Soft. EXTREMITIES: 1+ trace edema. CARDIOVASCULAR MEDICATIONS: Reviewed: 1. Nitroglycerin p.r.n. 2. Atorvastatin 20 mg at bedtime. 3. Metoprolol succinate 25 mg b.i.d. 4. Potassium chloride 20 mEq daily. 5. Clopidogrel 75 mg daily. STUDIES: Reviewed. Sodium 142, potassium 3.5, chloride 112, bicarbonate 25, BUN 12, creatinine 0.65, glucose 137. White blood cells 23, hemoglobin 7.7, platelets 277. PT 12.8, PTT 31.5, and INR 0.9. AST 23, ALT 14, alkaline phosphatase 43, and total bilirubin 0.2. ASSESSMENT AND PLAN: A 64-year-old woman with anemia, acute respiratory failure, status post asystole cardiac arrest, chronic obstructive pulmonary disease exacerbation, type 2 myocardial infarction versus non-STEMI, hypertension, dyslipidemia, hypoxic brain injury. RECOMMENDATIONS: 1. Continue supportive care. 2. Diuretics p.r.n. 3. Neuro input appreciated. MD GLENIS Hartman/BE /[id number]
--- NOTE | 2019-12-23 14:42 | Progress Note ---
DATE: SUBJECTIVE: The patient is still not responding. She remains on a ventilator with a PRVC mode of ventilation. She has a nasogastric tube and is receiving enteral feedings. She has a right IJ line. PHYSICAL EXAMINATION: VITAL SIGNS: Stable. The saturation is now 100%. HEENT: No facial swelling or erythema. The central line site looks clean. CARDIAC: Regular rate and rhythm with normal S1, S2. LUNGS: Auscultation of lungs reveals crackles at the bases. There is no wheezing. ABDOMEN: Soft, nontender. There is no rebound or guarding. EXTREMITIES: No leg edema or calf tenderness. There is no cyanosis or clubbing. SKIN: No rashes. NEUROLOGICAL: No focal abnormalities. LABORATORY DATA: BUN to creatinine ratio is normal. Electrolytes are within normal limits. White blood cell count is 23 and hemoglobin is 7.7. The platelet count is 277. RADIOGRAPHIC DATA: Chest x-ray shows airspace disease, it is more prominent in the right lung. IMPRESSION: 1. Anoxic brain injury. 2. Aspiration pneumonia with sepsis. 3. Acute respiratory failure. 4. Diabetes. 5. Coronary artery disease. PLAN: 1. Continue current antibiotics. 2. Await further input from Neurology. 3. Continue enteral feedings. 4. Case discussed with Dr. Raygoza, nursing, and Respiratory. 5. Prognosis remains poor. Octavio Stevens MD [facility]/MODL /[id number]
--- NOTE | 2019-12-23 22:38 | Progress Note ---
DATE: SUBJECTIVE: A 64-year-old female has history of an MRI showing anoxic brain injury. The patient is currently intubated. noted once sedation is decreased. OBJECTIVE: VITAL SIGNS: Temperature is 100.2, pulse of 84, respirations 16, blood pressure is 126/61, pulse oximetry of 100%. GENERAL: On examination the patient is intubated. HEENT: Normocephalic. The patient is edematous. CVS: S1 and S2 distant. LUNGS: Decreased air entry. ABDOMEN: Nontender. EXTREMITIES: Positive for edema. LABORATORY VALUES: White count is back to 23,000, hemoglobin of 7.7, hematocrit 24.9. Chemistry shows sodium 142, potassium 3.5, BUN of 12, creatinine 0.65, glucose of 137. Toxicology; vancomycin trough is 13. Serology; C. diff negative, enrique virus not detected. ASSESSMENT: Ms. Ashleigh Cabrera with, 1. Anoxic brain injury. 2. Aspiration pneumonia. 3. Status post COVID. 4. Acute respiratory failure. 5. Chronic obstructive pulmonary disease. 6. Coronary artery disease with non-STEMI. The patient to continue with current status. We will discuss the case with Dr. Hugo. Prognosis is very guarded and remains poor. MD CARLOS SumnerJ/MODL /[id number]
[2019-12-24] VITALS (25 sets, daily range): BP systolic 92–164; BP diastolic 50–98
[2019-12-24] MEDS: ALBUTEROL/IPRATROPIUM 3 ML NEB NEB SCH ×6 (03:30→22:40)
[2019-12-24 05:41] LABS: BASOPHILS # (AUTO) 0.1 (0.0-0.1); BASOPHILS % 0.3 % (0.0-1.0); EOSINOPHILS # (AUTO) 3.5 (0.0-0.4); EOSINOPHILS % 15.7 % (0.0-6.0); HEMATOCRIT 25.6 % (34.2-44.1); LYMPHOCYTES # (AUTO) 3.3 (1.0-3.2); LYMPHOCYTES % 14.8 % (18.0-39.1); MEAN CORPUSCULAR HEMOGLOBIN 27.3 pg (28-32); MEAN CORPUSCULAR HGB CONC 31.3 g/dL (31-35); MEAN CORPUSCULAR VOLUME 87.4 fL (81-99); MONOCYTES % 9.1 % (4.4-11.3); NEUTROPHILS # (AUTO) 12.9 (2.1-6.9); NEUTROPHILS % 58.2 % (38.7-80.0); PLATELET COUNT 319 x10e3/uL (140-360); RED BLOOD COUNT 2.93 x10e6/uL (3.6-5.1); RED CELL DISTRIBUTION WIDTH 17.3 % (11.7-14.4)
[2019-12-24 06:05] LABS: ANION GAP 9.3 mmol/L (8-16); BLOOD UREA NITROGEN 10 mg/dL (7-26); BUN/CREATININE RATIO 18 (6-25); CARBON DIOXIDE 27 mmol/L (22-29); CHLORIDE 106 mmol/L (98-107); CREATININE, SERUM 0.55 mg/dL (0.57-1.11); EST GLOMERULAR FILTRATION RATE > 60 ML/MIN (60-); GLUCOSE 112 mg/dL (74-118); POTASSIUM 3.3 mmol/L (3.5-5.1); SODIUM 139 mmol/L (136-145)
[2019-12-24] MEDS: VANCOMYCIN 250MG/5ML ORAL SOLN NG SCH ×3 (06:44→17:34)
[2019-12-24] MEDS: FLUCONAZOLE 100 MG/NS 50 ML 50 ML IV SCH (08:03)
[2019-12-24] MEDS: VENLAFAXINE HCL 75 MG TAB PO SCH (08:03)
[2019-12-24] MEDS: FAMOTIDINE 20 MG/2 ML VIAL IV SCH ×2 (08:03→23:54)
[2019-12-24] MEDS ORDERED: POTASSIUM CHLORIDE 20MEQ/15ML UDC NG ONE (08:45)
--- NOTE | 2019-12-24 09:14 | Progress Note ---
DATE: SUBJECTIVE: The patient is a 64-year-old female, who came in with acute shortness of breath, was found to be having a non-STEMI. The patient coded, has anoxic brain injury. The patient has two EEGs. Repeat EEG following sedation withdrawal will be done today. The patient is obtunded and edematous. The patient currently is intubated. OBJECTIVE: VITAL SIGNS: Temperature is 100, pulse of 81, respiration 21, pulse oximetry of 100%. HEENT: Normocephalic and atraumatic. Pupils are dilated. LUNGS: Decreased air entry. ABDOMEN: Soft. EXTREMITIES: No clubbing. Positive for edema. LABORATORY VALUES: White count is 22,000, hemoglobin of 8.7, hematocrit 25.6. Sodium 139, potassium 3.3. Toxicology vanc trough was high. Coagulation is normal. Microbiology, Staphylococcus coagulation negative. ASSESSMENT: Ms. Ashleigh Cabrera with. 1. Anoxic brain injury. 2. Aspiration pneumonia. 3. Acute respiratory failure. 4. Chronic obstructive pulmonary disease. 5. Coronary artery disease with non-STEMI. PLAN: Sedation to be stopped today now and EEG to be done. Repeat EEG. We will delineate the need for further care and/or anoxic brain injury. Further recommendation per clinical course. Once this was done, the patient and family for conference would be called and discuss. MD ARTHUR Sumner/MODL /[id number]
[2019-12-24 09:31] LABS: ANISOCYTOSIS SLIGHT; EOSINOPHILS % (MANUAL) 21 % (0-7); LYMPHOCYTES % (MANUAL) 16 % (19-48); MONOCYTES % (MANUAL) 4 % (3.4-9.0); NEUTROPHILS % (MANUAL) 59 % (40-74); PLATELET ESTIMATE ADEQUATE; PLATELET MORPHOLOGY COMMENT NORMAL; RBC MORPHOLOGY COMMENT NORMAL
[2019-12-24] MEDS: PROPOFOL IV EMULSION 10MG/ML 100 ML IV PRN (12:31)
--- NOTE | 2019-12-24 14:57 | Progress Note ---
DATE: Pulmonary Critical Care Progress Note SUBJECTIVE: The patient still is on mechanical ventilator. She does not have any meaningful interaction, but she does have some movement with noxious stimuli when sedation is held. PHYSICAL EXAMINATION: VITAL SIGNS: The blood pressure is 127/62, saturation is 99% on a PRVC at a rate of 16 with a tidal volume of 400 and FiO2 of 40%. HEENT: Shows no facial swelling or erythema. There is a right IJ line in place. The site looks clean. CARDIAC: Reveals regular rate and rhythm with normal S1 and S2. LUNGS: Auscultation of lungs reveals crackles at the bases. There is no wheezing. ABDOMEN: Soft and nontender. There is no rebound or guarding. EXTREMITIES: Shows no leg edema or calf tenderness. There is no cyanosis or clubbing. SKIN: Shows no rashes. NEUROLOGICAL: Shows no focal abnormalities. Shows the patient to have no meaningful interactions, although she does have some random movement when sedation being held. She has occasional mild clonus and she also has increased muscle tone. LABORATORY DATA: White blood cell count of 22.2, hemoglobin is 8, and the platelet count is 319. The BUN to creatinine ratio is normal. The potassium is 3.3. Other electrolytes are within normal limits and the albumin is 1.8. IMPRESSION: 1. Anoxic brain injury. 2. Aspiration pneumonia. 3. Acute respiratory failure. 4. Diabetes. 5. Coronary artery disease. PLAN: 1. Case discussed with Dr. Raygoza and with Neurology. The patient has some anoxic brain injury. Prognosis remains poor. 2. Continue current antibiotics. 3. Continue enteral feedings. 4. Continue to monitor laboratory values and blood counts. Octavio Stevens MD [facility]/MODL /[id number]
[2019-12-24] MEDS: FUROSEMIDE INJ 10 MG/ML 4 ML VIAL IV SCH (18:55)
--- NOTE | 2019-12-24 19:13 | Progress Note ---
DATE: 12/24/2019 Cardiology Progress Note SUBJECTIVE: Remains intubated. OBJECTIVE: VITAL SIGNS: Temperature 101.5, heart rate 128, blood pressure 164/92, respiratory rate 16, and O2 saturation 92%, sinus tachycardia on telemetry. GENERAL: Altered mental status, sedated, intubated. CHEST: With wheezing and prolonged expiratory phase. Decreased breath sounds. CARDIOVASCULAR: Regular rate and rhythm. Normal S1 and S2. ABDOMEN: Soft. EXTREMITIES: edema CARDIOVASCULAR MEDICATIONS: Reviewed. Clopidogrel 75 mg daily, nitroglycerin p.r.n., atorvastatin 20 mg at bedtime, and metoprolol succinate 25 mg b.i.d. STUDIES: Reviewed. Sodium 139, potassium 3.3, and creatinine 0.5. White blood cells 22, hemoglobin 8, and platelets 319. INR 0.9. AST 23, ALT 14, and alkaline phosphatase 43. ASSESSMENT: 1. This is a 64-year-old woman with chronic obstructive pulmonary disease exacerbation, acute respiratory failure, s/p asystole SCD 2. Type 2 myocardial infarction versus prl-VH-avdorukuq myocardial infarction. 3. Anemia. 4. Hyperlipidemia and hypertension. 5. Hypoxic encephalopathy. RECOMMEND: 1. Continue current cardiovascular medication. 2. Diuretics. 3. Recurrent febrile episodes, consider COVID19 PCR. Julio Lester MD [facility]/MODL /[id number]
[2019-12-25] VITALS (25 sets, daily range): BP systolic 88–151; BP diastolic 53–90
[2019-12-25] MEDS: VANCOMYCIN 250MG/5ML ORAL SOLN NG SCH ×4 (00:01→18:00)
[2019-12-25] MEDS: ALBUTEROL/IPRATROPIUM 3 ML NEB NEB SCH ×6 (01:10→21:50)
[2019-12-25 05:24] LABS: ALANINE AMINOTRANSFERASE 30 IU/L (0-55); ALBUMIN/GLOBULIN RATIO 0.6 (0.8-2.0); ALKALINE PHOSPHATASE 59 IU/L (40-150); ANION GAP 10.4 mmol/L (8-16); BLOOD UREA NITROGEN 10 mg/dL (7-26); BUN/CREATININE RATIO 17 (6-25); CALCIUM 8.1 mg/dL (8.4-10.2); CARBON DIOXIDE 29 mmol/L (22-29); CHLORIDE 101 mmol/L (98-107); CREATININE, SERUM 0.59 mg/dL (0.57-1.11); EST GLOMERULAR FILTRATION RATE > 60 ML/MIN (60-); GLUCOSE 112 mg/dL (74-118); POTASSIUM 3.4 mmol/L (3.5-5.1); SODIUM 137 mmol/L (136-145)
[2019-12-25] MEDS: PROPOFOL IV EMULSION 10MG/ML 100 ML IV PRN ×2 (06:43→21:02)
[2019-12-25 06:52] LABS: BASOPHILS # (AUTO) 0.1 (0.0-0.1); BASOPHILS % 0.4 % (0.0-1.0); EOSINOPHILS # (AUTO) 2.7 (0.0-0.4); EOSINOPHILS % 15.4 % (0.0-6.0); HEMATOCRIT 25.9 % (34.2-44.1); HEMOGLOBIN 8.1 g/dL (12.0-16.0); LYMPHOCYTES # (AUTO) 2.8 (1.0-3.2); LYMPHOCYTES % 15.7 % (18.0-39.1); MEAN CORPUSCULAR HEMOGLOBIN 27.7 pg (28-32); MEAN CORPUSCULAR HGB CONC 31.3 g/dL (31-35); MEAN CORPUSCULAR VOLUME 88.7 fL (81-99); MONOCYTES # (AUTO) 2.2 (0.2-0.8); MONOCYTES % 12.1 % (4.4-11.3); NEUTROPHILS # (AUTO) 9.7 (2.1-6.9); NEUTROPHILS % 54.2 % (38.7-80.0); PLATELET COUNT 337 x10e3/uL (140-360); RED BLOOD COUNT 2.92 x10e6/uL (3.6-5.1); RED CELL DISTRIBUTION WIDTH 17.2 % (11.7-14.4)
--- NOTE | 2019-12-25 07:54 | NUR ---
NO signficant neuro changes vs 99.6 81 116/59 sluggist but resonsive pupils no longer has forced downgaze, dolls eyes are intact no nuchal rigidity rrr mechanical vent abd is distended no signficant edema limbs are not cyanotic no withdrawal from nox stim posturing is less pronounced A/p Anoxic brain injury - supportive care, recovery likely t otake weeks, consider trach and peg for prison support and placement needs discussed case w/ daughter 3 times, explained anoxic brain injury, EEG findings, patient will likely remain in a vegetative state for at least 3 weeks before we start to notice cognitive improvement. duration and time of improvement is not predictable. given pt injury, persoanlity, cognitive, decisio nmaking changes are likely, however given sparing of serena, thalami and bilateral frontal lobes patietn can return to conciousness structurally. the physiological injury is what is holding back recovery and this is a time dependant process EEG is still low voltage and disorganized but does not show seizures. vegetative state - start amantadine and depakote try to reinitiate normal neurophyisiological function placement- LTAC or SNF
--- NOTE | 2019-12-25 07:56 | NUR ---
eeg >30 [place] eeg [id number] eeg being done to monitor neurophysiological status 10/20 interantional electrode placement system, read in bilopar, and average montage. EEG data low amplitude theta and alpha waves, without clear responsivity to stimulation electrical artifact noted no seizure or discharges captured intermittent higher amplitude sharp waves noted (few, less than 1 per page) EEG interpreation EEG is consistant with severe diffuse encephalopathy. minimal reactivity noted suggesting vegetative state vs coma
--- NOTE | 2019-12-25 08:49 | Diagnostic Imaging Report ---
EXAMINATION: CHEST SINGLE (PORTABLE) INDICATION: Respiratory failure COMPARISON: Multiple prior chest radiographs, most recently of 12/24/2019 FINDINGS: LINES/TUBES:Support lines and tubes unchanged. LUNGS:Unchanged bibasilar patchy opacities. PLEURA:Unchanged small bilateral pleural effusions left greater than right. MEDIASTINUM:The cardiomediastinal silhouette appears unchanged in size and shape. BONES/SOFT TISSUES:No acute osseous injury. ABDOMEN:No free air under the diaphragm. IMPRESSION: No significant interval change. Signed by: Bharathi Cantu MD on 12/25/2019 8:46 AM
[2019-12-25 09:32] LABS: EOSINOPHILS % (MANUAL) 14 % (0-7); LYMPHOCYTES % (MANUAL) 12 % (19-48); MONOCYTES % (MANUAL) 8 % (3.4-9.0); NEUTROPHILS % (MANUAL) 66 % (40-74)
[2019-12-25 09:33] LABS: OVALOCYTES FEW; PLATELET ESTIMATE ADEQUATE; PLATELET MORPHOLOGY COMMENT RARE EDTA CLUMPING; POIKILOCYTOSIS SLIGHT; RBC MORPHOLOGY COMMENT ABNORMAL
[2019-12-25 09:34] LABS: ANISOCYTOSIS SLIGHT
[2019-12-25] MEDS: VENLAFAXINE HCL 75 MG TAB PO SCH (09:37)
[2019-12-25] MEDS: FLUCONAZOLE 100 MG/NS 50 ML 50 ML IV SCH (09:37)
[2019-12-25] MEDS: FUROSEMIDE INJ 10 MG/ML 4 ML VIAL IV SCH (09:37)
[2019-12-25] MEDS: FAMOTIDINE 20 MG/2 ML VIAL IV SCH ×2 (09:37→21:02)
--- NOTE | 2019-12-25 10:45 | Progress Note ---
DATE: SUBJECTIVE: The patient was re-evaluated by Neurology today. The EEG findings and clinical exam are consistent with a vegetative state. The patient was switched to CPAP and pressure support and tolerates this well. PHYSICAL EXAMINATION: VITAL SIGNS: The patient is afebrile. The blood pressure is 129/67. HEENT: No facial swelling or erythema. CARDIAC: Regular rate and rhythm with normal S1 and S2. LUNGS: Auscultation of the lungs reveals rhonchorous breath sounds bilaterally. There is no wheezing. ABDOMEN: Soft and nontender. There is no rebound or guarding. EXTREMITIES: No leg edema or calf tenderness. There is no cyanosis or clubbing. SKIN: No rashes. NEUROLOGICAL: Shows the patient to be not interactive. She has no purposeful movements. She has some extensor response with noxious stimuli. LABORATORY DATA: BUN, creatinine, and electrolytes within normal limits. White blood cell count is 17.8 and hemoglobin is 8.1. The platelet count is 337,000. RADIOGRAPHIC DATA: Chest x-ray shows unchanged bibasilar opacities. IMPRESSION: 1. Anoxic brain injury with vegetative state. 2. Aspiration pneumonia. 3. Diabetes. 4. Coronary artery disease. PLAN: 1. Prognosis remains poor. Consult palliative care and re-discuss prognosis with family. 2. Continue spontaneous breathing trial and consider extubation. 3. Continue enteral feedings. 4. Continue to monitor laboratory values and blood counts. Octavio Stevens MD [facility]/MODL /[id number]
[2019-12-25] MEDS ORDERED: POTASSIUM CHLORIDE 20MEQ/15ML UDC NG ONE (11:00)
--- NOTE | 2019-12-25 16:05 | NUR ---
Nutrition Intervention Note RD Recommendation(s) for Physician: -Recommend Vital High Protein @ goal rate of 35 mL/hr at this time due to propofol dose (provides 840 kcal, 74 g protein, and 702 mL water) -Pt is receiving an additional 496 kcal from propofol -Fluid management per MD Plan of Care: RD following, TF rec's, monitoring for tolerance and adequacy Nutrition reason for involvement: follow up RD Assessment 12/24: Follow up. Pt remains intubated and sedated with Propofol. TF infusing at 30 ml/hr at time of visit. Pt with anoxic brain injury and in vegetative stater per EEG, plan for palliative care consult and discussion with family. Current TF rec's remain appropriate. Chart reviewed. Will continue to monitor. (12/20/19) Follow up. Chart reviewed. Pt remains intubated. Pt is going to be started on tube feedings. Pt is receiving propofol at 20 mL/hr per documentation which provides 528 kcal. Recommendations provided. Will continue to monitor. (12/16/19) Pt is a 64 year old female admitted with chest pain, COPD with exacerbation, and pneumonia. A code was called this morning and pt is currently intubated and sedated per chart. Pt was previously on a cardiac diet with 50-75% meal intake recorded. Per weight history in chart, pt weighed 126-130 lbs from a previous admission in December 2018. Pt currently has a weight of 136 lbs in chart; therefore, weight loss is not evident. Recommendations provided. Will continue to monitor Principal Problems/Diagnoses: chest pain, COPD with exacerbation, and pneumonia PMH: hypertension, hyperlipidemia, COPD, rheumatoid arthritis, multiple osteoarthritis of joints. GI: last recorded BM 12/24, liquid brown stools Skin: no pressure ulcers or wounds recorded Labs: 12/24: Na 137, K 3.4, BUN 10, Cr 0.59, Gluc 112 (12/19) Na 148, K 3.3, BUN 14, Cr 0.62, Ca 7.6, AST 37 (12/15) Na 137, K 3.7, BUN 7, Cr 0.74, Glu 97, Ca 8.4 Meds: propofol 18.8 mL/hr (496 lipid kcal), pepcid, antibiotics, zofran, lasix Ht: 61 inches Wt: 152 lb (12/24) 149 lbs (12/19) 136 lbs (12/15) BMI: 25.8 kg/m2 (using wt of 136 lbs) IBW: 105 lbs Malnutrition Evaluation (12/16/19) The patient does not meet criteria for a specified degree of malnutrition at this time. Will re-evaluate at follow-up as appropriate. Nutrition Prescription (Diet Order): Glucerna 1.2 at 30 ml/hr (provides 864 kcal and 43 gm protein) Estimated Nutritional Needs: 1115 1236 calories/day (18-20 kcal/kg CBW) Weight used: 136 lbs 74-124 g protein/day (1.2-2 g pro/kg CBW) Weight used: 136 lbs Diet Adequacy: meeting calorie needs (TF + Propofol), does not meet protein needs Tolerance: tolerating TF Diet Education Needs Assessment: Diet education not indicated, pt is intubated Nutrition Care Level: moderate Nutrition Diagnosis: Inadequate oral intake related to decreased ability to consume sufficient energy secondary to intubation as evidenced by need for enteral nutrition Goal: Patient will meet 75-100% of estimated needs by follow up Progress: goal not met Interventions: -Composition, Rate, Route, Collaboration with other providers Monitoring/Evaluation: -Total energy intake, Total protein intake, Formula/Solution, Weight change Signed: Iesla Tolbert RD, LD, CNSC
--- NOTE | 2019-12-25 18:58 | Progress Note ---
DATE: SUBJECTIVE: The patient is a 64-year-old female with anoxic brain injury, aspiration pneumonia, diabetes, coronary artery disease, non-STEMI. The patient is switched to CPAP. PHYSICAL EXAMINATION: VITAL SIGNS: Blood pressure is stable. HEENT: No facial swelling at this time. CARDIAC: S1, S2 is distant. ABDOMEN: Soft. EXTREMITIES: No clubbing. Positive for edema. NEUROLOGIC: No purposeful movement and no response with noxious stimuli. LABORATORY VALUES: Reviewed. Hemoglobin is 8.1. IMPRESSION: 1. Non-STEMI anoxic brain injury. 2. Coronary artery disease. Prognosis remains stable. Continue breathing trial. Enteral feeds continued. Did discuss and had a long discussion with the family. The patient's family to discuss with Dr. Hugo in further care. Further recommendation per clinical course. MD CARLOS SumnerJ/MODL /[id number]
--- NOTE | 2019-12-25 19:38 | Progress Note ---
DATE: SUBJECTIVE: Ms. Ashleigh Cabrera remains in intensive care unit . The patient is noncommunicative. EEG consistent with a vegetative state. She is on CPAP. PHYSICAL EXAMINATION: GENERAL: She is noncommunicative. HEENT: She is not icteric. NECK: Supple. CHEST: Crackles. IMPRESSION: Anoxic brain injury, vegetative state, status post aspiration pneumonia, and diabetes mellitus. Recommend to discontinue antibiotic. Prognosis is poor. Agree with palliative care. MD YEIMI Chery/MODL /[id number]
--- NOTE | 2019-12-25 21:13 | Progress Note ---
DATE: 12/25/2019 Cardiology Progress Note SUBJECTIVE: Remains intubated. OBJECTIVE: VITAL SIGNS: Temperature 100 degrees, heart rate 79, respiratory rate 20, blood pressure 101/61, O2 saturation 98% on vent support. GENERAL: Remains intubated, sedated. CHEST: With wheezing and rhonchi. Decreased breath sounds. CARDIOVASCULAR: Regular rate and rhythm. Normal S1, S2. ABDOMEN: Soft. EXTREMITIES: 1+ edema. CARDIOVASCULAR MEDICATION: Reviewed. Furosemide 40 mg IV daily, nitroglycerin p.r.n., vancomycin as needed. LABORATORY DATA: Reviewed. White blood cells trending down 17.8, hemoglobin 8.1, stable, platelets 337. Sodium 137, potassium 3.4, chloride 101, bicarbonate 29, BUN 10, creatinine 0.5. AST 40, ALT 30, albumin 2. COVID negative. Repeat chest x-ray, no significant interval change with small bilateral pleural effusions, left greater than right, unchanged cardiomediastinal silhouette and bibasilar patchy opacities. ASSESSMENT AND PLAN: 1. Anoxic brain injury. 2. Aspiration pneumonia. 3. Chronic obstructive pulmonary disease exacerbation. 4. Diabetes. 5. Type 2 myocardial infarction versus yzf-LH-yvhizdffh myocardial infarction. 6. Status post asystole cardiac arrest. RECOMMENDATIONS: 1. Resume statin and aspirin. 2. Diuretics. 3. Goals of care discussions underway. 4. Prognosis remains guarded with hypoxic encephalopathy. MD GLENIS Hartman/BE /[id number]
[2019-12-25] MEDS: CLOPIDOGREL BISULFATE 75 MG TAB PO SCH (21:20)
[2019-12-25] MEDS: ATORVASTATIN 40 MG TAB NG SCH (21:20)
[2019-12-26] VITALS (25 sets, daily range): BP systolic 90–151; BP diastolic 54–92
[2019-12-26] MEDS: VANCOMYCIN 250MG/5ML ORAL SOLN NG SCH ×4 (00:02→17:45)
[2019-12-26] MEDS: ALBUTEROL/IPRATROPIUM 3 ML NEB NEB SCH ×4 (04:50→14:14)
[2019-12-26 05:31] LABS: BASOPHILS # (AUTO) 0.1 (0.0-0.1); BASOPHILS % 0.5 % (0.0-1.0); EOSINOPHILS # (AUTO) 2.7 (0.0-0.4); EOSINOPHILS % 15.6 % (0.0-6.0); HEMATOCRIT 27.4 % (34.2-44.1); HEMOGLOBIN 8.8 g/dL (12.0-16.0); LYMPHOCYTES % 17.4 % (18.0-39.1); MEAN CORPUSCULAR HEMOGLOBIN 28.4 pg (28-32); MEAN CORPUSCULAR HGB CONC 32.1 g/dL (31-35); MEAN CORPUSCULAR VOLUME 88.4 fL (81-99); MONOCYTES # (AUTO) 2.2 (0.2-0.8); MONOCYTES % 12.8 % (4.4-11.3); NEUTROPHILS # (AUTO) 8.9 (2.1-6.9); NEUTROPHILS % 51.7 % (38.7-80.0); PLATELET COUNT 372 x10e3/uL (140-360); RED CELL DISTRIBUTION WIDTH 17.3 % (11.7-14.4)
[2019-12-26 05:42] LABS: ALANINE AMINOTRANSFERASE 25 IU/L (0-55); ALBUMIN/GLOBULIN RATIO 0.6 (0.8-2.0); ALKALINE PHOSPHATASE 65 IU/L (40-150); ANION GAP 11.6 mmol/L (8-16); BLOOD UREA NITROGEN 10 mg/dL (7-26); BUN/CREATININE RATIO 16 (6-25); CALCIUM 8.4 mg/dL (8.4-10.2); CARBON DIOXIDE 30 mmol/L (22-29); CHLORIDE 102 mmol/L (98-107); CREATININE, SERUM 0.62 mg/dL (0.57-1.11); EST GLOMERULAR FILTRATION RATE > 60 ML/MIN (60-); GLUCOSE 116 mg/dL (74-118); POTASSIUM 3.6 mmol/L (3.5-5.1); SODIUM 140 mmol/L (136-145)
--- NOTE | 2019-12-26 07:59 | NUR ---
patient neurologically unchanged 88 91/58 100.8 sluggish but responsive pupils no longer has forced downgaze, dolls eyes are intact no nuchal rigidity rrr mechanical vent abd is distended no signficant edema limbs are not cyanotic no withdrawal from nox stim posturing is less pronounced A/p Anoxic brain injury - supportive care, recovery likely t otake weeks, consider trach and peg for buck swamper support and placement needs discussed case w/ daughter 3 times, explained anoxic brain injury, EEG findings, patient will likely remain in a vegetative state for at least 3 weeks before we start to notice cognitive improvement. duration and time of improvement is not predictable. given pt injury, personality, cognitive, decision making changes are likely, however given sparing of serena, thalami and bilateral frontal lobes patient can return to consciousness structurally. the physiological injury is what is holding back recovery and this is a time dependant process EEG is still low voltage and disorganized but does not show seizures. vegetative state - start amantadine and depakote try to reinitiate normal neurophyisiological function repeat Eeg planned monday however prognosis for penitentiary recovery is a prolonged process and ercovery will be incomplete. i explained this to family extensivly. will monitor as needed
[2019-12-26] MEDS: VENLAFAXINE HCL 75 MG TAB PO SCH (10:02)
[2019-12-26] MEDS: FAMOTIDINE 20 MG/2 ML VIAL IV SCH ×2 (10:02→21:03)
[2019-12-26] MEDS: FLUCONAZOLE 100 MG/NS 50 ML 50 ML IV SCH (10:02)
[2019-12-26] MEDS: CLOPIDOGREL BISULFATE 75 MG TAB PO SCH (10:02)
[2019-12-26] MEDS: FUROSEMIDE INJ 10 MG/ML 4 ML VIAL IV SCH (10:04)
[2019-12-26 10:54] LABS: BAND NEUTROPHILS % (MANUAL) 4 %; EOSINOPHILS % (MANUAL) 13 % (0-7); LYMPHOCYTES % (MANUAL) 16 % (19-48); MONOCYTES % (MANUAL) 11 % (3.4-9.0); NEUTROPHILS % (MANUAL) 56 % (40-74)
[2019-12-26] MEDS: DEPAKENE 500MG/10ML UDC GT SCH ×2 (12:12→17:45)
[2019-12-26] MEDS: PROPOFOL IV EMULSION 10MG/ML 100 ML IV PRN (13:02)
--- NOTE | 2019-12-26 16:47 | Progress Note ---
DATE: SUBJECTIVE: Ms. Cabrera remains in intensive care unit, intubated. PHYSICAL EXAMINATION: GENERAL: She is currently noncommunicative. VITAL SIGNS: Stable, afebrile. HEENT: Not icteric. NECK: Supple. CHEST: Crackles bilateral. IMPRESSION: Anoxic brain injury. Supportive care. Await family and neuro evaluation and decision. We will continue to observe the patient clinically. MD YEIMI Chery/MODL /[id number]
--- NOTE | 2019-12-26 17:01 | Progress Note ---
DATE: SUBJECTIVE: The patient is a 64-year-old female with acute respiratory failure. The patient is intubated, has anoxic brain injury. Family has been notified. The patient's medicines reviewed. OBJECTIVE: VITAL SIGNS: Temperature is 99.7, pulse of 97, respirations of 25, and pulse oximetry of 97% on mechanical ventilator. HEENT: Normocephalic, atraumatic. CVS: S1 and S2, distant. LUNGS: Decreased air entry. ABDOMEN: Soft, nontender. EXTREMITIES: No edema. LABORATORY VALUES: White count 17,000, hemoglobin of 18.8, and hematocrit 27.4. Chemistry; sodium 140, potassium of 3.6, BUN of 10, and creatinine 0.62. The 2nd coronavirus was also nondetected. ASSESSMENT: 1. Anoxic brain injury. 2. Non ST-segment elevation myocardial infarction. 3. Chronic obstructive pulmonary disorder. 4. Rheumatoid arthritis. PLAN: Continue current management. Dr. Hugo is on the case. We will continue monitor the patient. Further recommendation per clinical course. MD ARTHUR Sumner/MODL /[id number]
--- NOTE | 2019-12-26 19:50 | NUR ---
TERMINALLY EXTUBATED AT THIS TIME
[2019-12-26] MEDS: MORPHINE SULFATE 2 MG/ML SYR 1ML IV PRN ×2 (19:59→22:03)
--- NOTE | 2019-12-26 20:02 | NUR ---
PATIENT WITH TACHYPNEA AND GRUNTING, MEDICATED WITH MORPHINE 2 MG IV
[2019-12-26] MEDS: LORAZEPAM INJ 2 MG/ML VIAL IV PRN (20:18)
[2019-12-26] MEDS: ATORVASTATIN 40 MG TAB NG SCH (20:31)
--- NOTE | 2019-12-26 21:28 | Progress Note ---
DATE: 12/26/2019 Cardiology Progress Note SUBJECTIVE: Remains intubated and sedated. OBJECTIVE: VITAL SIGNS: Temperature 99.7, heart rate 93, respiratory rate 22, blood pressure 98/50, O2 saturation 94%. GENERAL: Intubated, sedated. CHEST: With no rhonchi or wheezing and prolonged expiratory phase. Decreased breath sounds. CARDIOVASCULAR: Regular rate and rhythm. Normal S1, S2. ABDOMEN: Soft. EXTREMITIES: Trace edema. CARDIOVASCULAR MEDICATIONS: Reviewed furosemide, clopidogrel, atorvastatin, p.r.n. nitroglycerin. LABORATORY DATA: Studies reviewed. White blood cells 17, hemoglobin 8.8, platelets 372, creatinine 0.6, glucose 116. ASSESSMENT AND PLAN: 1. Hypoxic encephalopathy. 2. Status post asystole, cardiac arrest. 3. Chronic obstructive pulmonary disease exacerbation. 4. Acute respiratory failure. 5. Type 2 myocardial infarction versus [id number] myocardial infarction, hypertension and dyslipidemia. Recommend continue supportive care. 6. Goals of care discussions are ongoing. Julio Lester MD [facility]/MODL /[id number]
[2019-12-27] VITALS (13 sets, daily range): BP systolic 87–151; BP diastolic 36–96
[2019-12-27] MEDS: LORAZEPAM INJ 2 MG/ML VIAL IV PRN (01:45)
[2019-12-27] MEDS: MORPHINE SULFATE 2 MG/ML SYR 1ML IV PRN ×3 (01:45→10:34)
[2019-12-27] MEDS: VANCOMYCIN 250MG/5ML ORAL SOLN NG SCH ×4 (06:00→16:29)
--- NOTE | 2019-12-27 08:44 | NUR ---
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 duration and time of improvement is not predictable. given pt injury, personality, cognitive, decision making changes are likely, however given sparing of serena, thalami and bilateral frontal lobes patient can return to consciousness structurally. the physiological injury is what is holding back recovery and this is a time dependant process EEG is still low voltage and disorganized but does not show seizures.- plan on repeat study tomorrow vegetative state - start amantadine and depakote try to reinitiate normal neurophyisiological function repeat Eeg planned Monday however prognosis for nursing home recovery is a prolonged process and ercovery will be incomplete. i explained this to family extensively. will monitor as needed minimize sedation as able
[2019-12-27] MEDS: DEPAKENE 500MG/10ML UDC GT SCH ×2 (08:49→16:29)
[2019-12-27] MEDS: VENLAFAXINE HCL 75 MG TAB PO SCH (08:50)
[2019-12-27] MEDS: CLOPIDOGREL BISULFATE 75 MG TAB PO SCH (08:50)
[2019-12-27] MEDS: FUROSEMIDE INJ 10 MG/ML 4 ML VIAL IV SCH (09:00)
--- NOTE | 2019-12-27 09:00 | NUR ---
neurologically gasping, otherwise unchanged care withdrawn yesterday 102.4 120 145/74 sluggish but responsive pupils no longer has forced downgaze, dolls eyes are intact no nuchal rigidity tachycardic mechanical vent -withdrawn, pt breathign spontanously, gaspin abd is distended no signficant edema limbs are not cyanotic no withdrawal from nox stim posturing is less pronounced A/p Anoxic brain injury - supportive care, recovery likely t otake weeks, consider trach and peg for halfway support and placement needs discussed case w/ daughter 3 times, explained anoxic brain injury, EEG findings, patient will likely remain in a vegetative state for at least 3 weeks before we start to notice cognitive improvement. duration and time of improvement is not predictable. given pt injury, personality, cognitive, decision making changes are likely, however given sparing of serena, thalami and bilateral frontal lobes patient can return to consciousness structurally. the physiological injury is what is holding back recovery and this is a time dependant process eeg canceled for tomorrow continue aed to prevent sz as able withdarwal of care in progress earlier note placed today is innacurate. will delete and notify med records
[2019-12-27] MEDS: FLUCONAZOLE 100 MG/NS 50 ML 50 ML IV SCH (11:05)
[2019-12-27] MEDS: FAMOTIDINE 20 MG/2 ML VIAL IV SCH ×2 (11:05→21:50)
--- NOTE | 2019-12-27 11:30 | NUR ---
PT ARRIVED FROM ICU. PT IS AAOX0. PALLIATIVE CARE PER THE TRANSFER REPORT. PT IS DNAR. PT HAS TACHYPNEA. PT IS ON 3 L NC. BED IS LOW AND LOCKED. BED ALARM IS ON. PAGED DR. MASON AND INFORMED PT ARRIVAL TO THE UNIT AND PT CONDITION. NO NEW ORDERS RECEIVED.
--- NOTE | 2019-12-27 11:31 | NUR ---
Patient was terminally extubated last night. Palliative care MOHS SURGEON/GENERAL DERMATOLOGIST Yudith rounded on patient. Dr. Kendell Stevens reviewed medications at bedside, all AM meds given that MD wanted administered. Pt given dose of morphine for tachypnea and grunting. Orders given by Dr. Raygoza to transfer to medical surgical floor to room 294. Addendum: 12/27/19 at 1135 by Diana Hein RN Unable to give PO medications due to removal of OGT when terminally extubated last night.
[2019-12-27] MEDS: ALBUTEROL/IPRATROPIUM 3 ML NEB NEB SCH ×3 (14:30→22:50)
--- NOTE | 2019-12-27 18:15 | NUR ---
PT SISTER AT BEDSIDE. PERMISSION RECEIVED FROM KEYING MACHINE OPERATOR TO STAY WITH THE PT.
--- NOTE | 2019-12-27 19:00 | NUR ---
BEDSIDE SHIFT REPORT GIVEN TO THE ADVERTISING DIRECTOR RN. PT SISTER AT BEDSIDE.
--- NOTE | 2019-12-27 20:44 | NUR ---
SPOKE TO MD MASON. JESS TO STOP RESPIRATORY TREATMENTS.
--- NOTE | 2019-12-27 21:11 | NUR ---
SPOKE TO MD MASON. NEW ORDERS RECEIVED.
--- NOTE | 2019-12-27 21:33 | Progress Note ---
DATE: 12/27/2019 Cardiology Progress Note SUBJECTIVE: The patient was transitioned to hospice and is now extubated, seems comfortable. OBJECTIVE: VITAL SIGNS: Temperature 100.5, heart rate 94, blood pressure 139/96, respiratory rate 18, O2 saturation 100%. BMI 29. GENERAL: Altered mental status. CHEST: With wheezing and rhonchi. Use of accessory muscles. CARDIOVASCULAR: Regular rate and rhythm. Normal S1, S2. ABDOMEN: Soft. EXTREMITIES: Trace edema. MEDICATIONS: Reviewed. LABORATORY DATA: Studies reviewed. ASSESSMENT AND PLAN: A 64-year-old woman, presents with chronic obstructive pulmonary disease exacerbation, underwent asystolic cardiac arrest, resultant hypoxic brain injury, history of hypertension, dyslipidemia, and type 2 myocardial infarction versus agu-SZ-riilhgyav myocardial infarction. RECOMMENDATIONS: Continue focus on comfort measures, given transition to hospice. Will be available as needed. Please call. MD GLENIS Hartman/BE /[id number]
--- NOTE | 2019-12-27 22:33 | Progress Note ---
DATE: SUBJECTIVE: The patient was extubated yesterday, still nonverbal. OBJECTIVE: VITAL SIGNS: Temperature is 100.3, pulse 102, respirations of 21, blood pressure is 151/74, pulse oximetry of 97% on 4 L of oxygen. HEENT: Normocephalic and atraumatic. CVS: S1-S2 distant. ABDOMEN: Nontender and nondistended. EXTREMITIES: No clubbing. No cyanosis. Positive for edema. LABORATORY VALUES: White count of 17,000, hemoglobin of 8.8, hematocrit of 24.7. Chemistries; sodium 140, potassium 3.6. ASSESSMENT: 1. Ms. Ashleigh Cabrera extubated. 2. Status post asystolic cardiac arrest with anoxic brain injury. 3. Acute respiratory failure, extubated. 4. Myocardial infarction. PLAN: Continue with comfort care at this time. Medicines reviewed. The patient is still on albuterol and Atrovent treatment, morphine sulfate q.6 hours, hours, Depakote, vancomycin, and nitroglycerin as needed. Prognosis is very guarded and we will just continue monitoring the patient and vital signs. MD ARTHUR Sumner/MODL /[id number]
[2019-12-28] VITALS (7 sets, daily range): BP systolic 98–167; BP diastolic 63–87
[2019-12-28] MEDS: ALBUTEROL/IPRATROPIUM 3 ML NEB NEB SCH ×4 (02:10→14:12)
--- NOTE | 2019-12-28 03:45 | NUR ---
MORENO CARE PROVIDED VIA CASTILE SOAP WIPES. CENTRAL LINE CARE PROVIDED. NEW PORTS. SALINE FLUSH. DAILY CHG BATH GIVEN.
[2019-12-28] MEDS: MORPHINE SULFATE 2 MG/ML SYR 1ML IV PRN ×5 (04:26→22:17)
[2019-12-28] MEDS: VANCOMYCIN 250MG/5ML ORAL SOLN NG SCH ×4 (06:00→16:52)
--- NOTE | 2019-12-28 07:40 | NUR ---
PATIENT IS NONVERBAL, LABORED BREATHING NOTED BUT NO S/S OF RESPIRATORY DISTRESS. 02 APPLIED AT 11L PER NC. NO PAIN INDICATED. MORENO INTACT AND DRAINING; URINE IS YELLOW, CLEAR WITH SOME SEDIMENTS NOTED. HEEL PROTECTORS APPLIED. BED ALARM APPLIED. CALL LIGHT IS NEAR PATIENT BUT PATIETN IS UNABLE TO CALL FOR ASSISTANCE- HOURLY ROUNDING WILL BE COMPLETED.
--- NOTE | 2019-12-28 07:43 | NUR ---
REPORT GIVEN TO DAYSHIFT. ALERT. NO SIGNS IV INFILTRATION. BED LOCKED AND IN LOW POSITION. CALL LIGHT WITHIN REACH. BED ALARM ACTIVATED.
[2019-12-28] MEDS: FAMOTIDINE 20 MG/2 ML VIAL IV SCH (08:37)
[2019-12-28] MEDS: DEPAKENE 500MG/10ML UDC GT SCH ×2 (08:38→16:36)
[2019-12-28] MEDS: CLOPIDOGREL BISULFATE 75 MG TAB PO SCH (08:38)
--- NOTE | 2019-12-28 11:54 | Progress Note ---
DATE: SUBJECTIVE: The patient is a 64-year-old female, who came in with acute respiratory failure and COPD, was found to have a non-STEMI, coded, had anoxic brain injury, kept in the ICU, extubated. The patient is currently having some agonal breathing and currently nonverbal and is on oxygen. OBJECTIVE: VITAL SIGNS: Temperature is 100.9, pulse of 111, respirations of 36, blood pressure 167/71, and pulse oximetry of 98%. HEENT: Normocephalic and atraumatic. Pupils are fixed. CVS: S1 and S2 normal. Regular rate and rhythm. ABDOMEN: Soft, nontender, and nondistended. EXTREMITIES: Trace edema present. The patient is currently on palliative care. Family does not have resources for hospice. We will continue to monitor the patient. Prognosis remains poor and did talk to Dr. Hugo and Dr. Stevens. Continue plan and continue palliative care in the hospital. MD ARTHUR Sumner/TRAYL /[id number]
--- NOTE | 2019-12-28 19:20 | NUR ---
PATIENT IS IN STABLE CONDITION WITH NO S/S OF RESPIRATORY DISTRESS. 02 AT 15L MASK. COMFORT MEASURES APPLIED. DIAPER APPLIED. HEEL PROTECTORS APPLIED. BED ALARM APPLIED. LOKESH AT PATIENT'S BEDSIDE. CALL LIGHT IS WITHIN REACH, PATIENT INSTRUCTED TO CALL FOR ASSISTANCE NEEDED. BEDSIDE SHIFT REPORT GIVEN TO ONCOMING NURSE.
--- NOTE | 2019-12-28 19:30 | NUR ---
SPOKE TO URIEL IZQUIERDO (DAUGHTER)- SAYS- "LOKESH HINKLE HAS FULL PERMISSION TO MAKE DECISIONS ON MY BEHALF." ALSO STATED OKAY FOR YESSICA (ICU NURSE) TO BE AT BS.
[2019-12-29] VITALS (8 sets, daily range): BP systolic 107–137; BP diastolic 61–75
[2019-12-29] MEDS: MORPHINE SULFATE 2 MG/ML SYR 1ML IV PRN ×7 (01:25→18:33)
--- NOTE | 2019-12-29 04:00 | NUR ---
MORENO CARE PROVIDED VIA CASTILE SOAP WIPES. ADRIEN DOSS BATH GIVEN. CENTRAL LINE CARE PROVIDED.
[2019-12-29] MEDS: LORAZEPAM INJ 2 MG/ML VIAL IV PRN ×3 (07:13→16:58)
--- NOTE | 2019-12-29 07:14 | NUR ---
REPORT GIVEN TO DAYSHIFT NURSE. NO SIGNS IV INFILTRATION. BED LOCKED AND IN LOW POSITION. CALL LIGHT WITHIN REACH. BED ALARM ACTIVATED.
--- NOTE | 2019-12-29 07:25 | NUR ---
PATIENT IS NONVERBAL, LABORED BREATHING NOTED BUT NO S/S OF RESPIRATORY DISTRESS. 02 APPLIED AT 11L PER VENTI MASK. IV ATIVAN ADMINISTERED. MORENO INTACT AND DRAINING. SUCTIONED PATIENT- MINIMUM DRAINAGE NOTED. HEEL PROTECTORS APPLIED. BED ALARM APPLIED. PATIENT IS UNABLE TO CALL FOR ASSISTANCE- HOURLY ROUNDING WILL BE COMPLETED.
--- NOTE | 2019-12-29 09:48 | Progress Note ---
DATE: SUBJECTIVE: A 64-year-old female, came in with non-STEMI, coded, was found to have hypoxic brain injury. Currently off the vent, on palliative care. She is getting morphine at 4 mg q.4 hours and Ativan 1 mg q.4 hours. OBJECTIVE: GENERAL: Comfortable, on nasal cannula. CVS: S1 and S2. Tachy. ABDOMEN: Soft, nontender. EXTREMITIES: No edema. ASSESSMENT: Ms. Ashleigh Cabrera with anoxic brain injury, on palliative care. Continue with escalating doses of morphine and Ativan. We will continue to monitor the patient. We discussed this with the family and the patient is currently on palliative care. MD ARTHUR Sumner/MODL /[id number]
--- NOTE | 2019-12-29 19:28 | NUR ---
PATIENT IS HAVING LABORED BREATHING- CURRENT 02 SAT AT 58. FAMILY MEMBER PRESENT AT BEDSIDE. VENTI MASK APPLIED AT 15L. OUTPUT 450 FROM SUCTION DURING DAYSHIFT. BEDSIDE SHIFT REPORT GIVEN TO ONCOMING NURSE.
--- NOTE | 2019-12-29 20:01 | NUR ---
RECEIVED PATIENT IN BED IS NONVERBAL, LABORED BREATHING NOTED BUT NO S/S OF RESPIRATORY DISTRESS. PT IS 02 11L PER VENTI MASK. MORENO INTACT AND DRAINING.. PATIENT IS UNABLE TO CALL FOR ASSISTANCE-FAMILY MEMBER NEAR TO THE BEDSIDE CONTINUE TO MONITOR
[2019-12-30] VITALS: BP 113/67
[2019-12-30 04:00] VITALS: BP 141/75
--- NOTE | 2019-12-30 06:17 | NUR ---
PATIENT IS NONVERBAL, LABORED BREATHING ,CONTINUE TO MONITOR
--- NOTE | 2019-12-30 07:30 | NUR ---
BEDSIDE REPORT GIVEN TO THE ONCOMING NURSE
--- NOTE | 2019-12-30 08:32 | Progress Note ---
DATE: SUBJECTIVE: The patient is in palliative care right now, getting morphine and Ativan. All other medications have been stopped. OBJECTIVE: VITAL SIGNS: The patient's temperature is 96, blood pressure is 141/75, pulse oximetry of 93% on high-flow. CVS: S1-S2, tachy. LUNGS: Decreased air entry. ABDOMEN: Soft. ASSESSMENT AND PLAN: Ms. Cabrera is on palliative care. Continue with supportive medications and comfort medications and we will discuss with daughter today. MD ARTHUR Sumner/MODL /[id number]
[2019-12-30 08:47] VITALS: BP 153/77
[2019-12-30] MEDS ORDERED: ACETAMINOPHEN 325 MG SUPP PR PRN (09:15)
[2019-12-30] MEDS: MORPHINE SULFATE 2 MG/ML SYR 1ML IV PRN ×4 (10:44→20:25)
[2019-12-30] MEDS ORDERED: ACETAMINOPHEN 650 MG SUPP PR PRN (11:00)
[2019-12-30 13:18] VITALS: BP 112/58
--- NOTE | 2019-12-30 15:38 | NUR ---
Follow Up Note (12/29) Follow up. Pt was extubated on 12/25 and is now on palliative care. Pt is currently NPO. RD signing off at this time consult as needed Signed: Geri Schroeder RD, LD
[2019-12-30 18:17] VITALS: BP 116/67
--- NOTE | 2019-12-30 19:20 | NUR ---
Report given to oncoming nurse of patient's status. Resting in mid fowlers position. Agonal breathing. On a venti mask at 15L. SPO2 93%. Side rails upx2, call light within reach, bed alarm on.
--- NOTE | 2019-12-30 19:55 | NUR ---
Received change of shift report from AM nurse. Walking rounds completed.
[2019-12-30 20:00] VITALS: BP 140/71
--- NOTE | 2019-12-30 20:58 | NUR ---
Patient AAOx0. Labored breathing. Given morphine as ordered by MD. Sat at 88% at this time. Patient is a DNR. Continue monitor.
--- NOTE | 2019-12-30 21:00 | NUR ---
Patient unresponsive. BP 140/71 hr 130 temp 102.7 Resp 12. Patient given morphine as ordered by MD. Tylenol sup. given for temp. Repositioned patient in bed. Menjivar draining 400cc of archana color urine. Patient skin mottling to the lower extremities. Patient with fluids coming from nose and mouth. Suctioned nose and mouth. Marks secretions noted. Continue monitor.
[2019-12-30] MEDS: LORAZEPAM INJ 2 MG/ML VIAL IV PRN (21:23)
--- NOTE | 2019-12-30 23:05 | NUR ---
Patient with no BP,o2 sat, HR. Patient not breathing. Rochelle. called(family).
--- NOTE | 2019-12-30 23:31 | NUR ---
spoke to yuri [facility]. . primary nurse made aware.
--- NOTE | 2019-12-30 23:31 | NUR ---
Post care done. pronounce patient.
--- NOTE | 2019-12-30 23:35 | NUR ---
Primary doctor called Dr Raygoza. Dr shepard.
--- NOTE | 2019-12-31 03:23 | NUR ---
Patient released to home.
--- NOTE | 2019-12-31 15:34 | Diagnostic Imaging Report ---
EXAMINATION: CHEST SINGLE (PORTABLE) INDICATION: ^aspiration pneumonia COMPARISON: 12/20/2019 FINDINGS: AP view TUBES and LINES: Unchanged endotracheal tube, right IJ central line, and nasogastric tube. LUNGS: Unchanged bibasilar airspace disease. PLEURA: Unchanged left pleural effusion. No pneumothorax. HEART AND MEDIASTINUM: The cardiomediastinal silhouette is unchanged. BONES AND SOFT TISSUES: Unchanged. Right humeral head prosthesis. UPPER ABDOMEN: No free air under the diaphragm. IMPRESSION: Stable exam. Unchanged bibasilar airspace disease which may reflect atelectasis, pneumonia, or aspiration. Unchanged left pleural effusion. Signed by: Gary Gary MD on 12/21/2019 6:58 AM
== END 2019-12-31 03:28 | disposition expired | DRG 870 ==
LOC: ER 07:12 → ERHOLD 08:42 → IMCU 12:04 → ICU 12-16 08:19 → MED/SURG3 12-27 11:24
PROVIDERS: ADMIT Family Medicine; ATTEND Family Medicine
PROC: 8E0ZXY6 Isolation (ICD-10-PCS; 2019-12-11)
PROC: 5A1955Z Respiratory Ventilation, Greater than 96 Consecutive Hours (ICD-10-PCS; principal; 2019-12-16)
PROC: 0BH17EZ Insertion of Endotracheal Airway into Trachea, Via Natural or Artificial Opening (ICD-10-PCS; 2019-12-16)
PROC: 5A12012 Performance of Cardiac Output, Single, Manual (ICD-10-PCS; 2019-12-16)
PROC: 0W9930Z Drainage of Right Pleural Cavity with Drainage Device, Percutaneous Approach (ICD-10-PCS; 2019-12-16)
PROC: 02HV33Z Insertion of Infusion Device into Superior Vena Cava, Percutaneous Approach (ICD-10-PCS; 2019-12-16)
PROC: B548ZZA Ultrasonography of Superior Vena Cava, Guidance (ICD-10-PCS; 2019-12-16)
PROC: 3E043XZ Introduction of Vasopressor into Central Vein, Percutaneous Approach (ICD-10-PCS; 2019-12-16)
DX: A41.9 Sepsis, unspecified organism (principal); J18.9 Pneumonia, unspecified organism; J69.0 Pneumonitis due to inhalation of food and vomit; I21.A1 Myocardial infarction type 2; J96.00 Acute respiratory failure, unspecified whether with hypoxia or hypercapnia; J44.1 Chronic obstructive pulmonary disease with (acute) exacerbation; J44.0 Chronic obstructive pulmonary disease with (acute) lower respiratory infection; N39.0 Urinary tract infection, site not specified; J93.9 Pneumothorax, unspecified; G93.1 Anoxic brain damage, not elsewhere classified; E87.0 Hyperosmolality and hypernatremia; R40.3 Persistent vegetative state; R57.0 Cardiogenic shock; M06.9 Rheumatoid arthritis, unspecified; M48.061 Spinal stenosis, lumbar region without neurogenic claudication; Z87.891 Personal history of nicotine dependence; Z88.5 Allergy status to narcotic agent; Z88.0 Allergy status to penicillin; Z88.8 Allergy status to other drugs, medicaments and biological substances; Z91.048 Other nonmedicinal substance allergy status; Z86.19 Personal history of other infectious and parasitic diseases; I10 Essential (primary) hypertension; Z11.59 Encounter for screening for other viral diseases; G89.4 Chronic pain syndrome; E78.5 Hyperlipidemia, unspecified; D64.9 Anemia, unspecified; E11.9 Type 2 diabetes mellitus without complications; Z66 Do not resuscitate
CPT/HCPCS: 36415; 36600; 70450; 70553; 71045; 71260; 74018; 74177; 80048; 80053; 80061; 80202; 82550; 82553; 82805; 82948; 83735; 83880; 84146; 84484; 85025; 85610; 85730; 87040; 87071; 87086; 87205; 87493; 93005; 93306; 93925; 93970; 94002; 94003; 94640; 95812; 96372; 99285; J0456; J0692; J0696; J1450; J1650; J1940; J2001; J2060; J2250; J2270; J2405; J2920; J2930; J3370; J3480; J7030; J7050; Q9967; U0002